=== PATIENT | male | born 1965 | race Caucasian/White ===

== ENCOUNTER → 2016-03-16 | Outpatient (CLI) | payer MEDICAID ==
[~2016-03-16] MED LIST: /ADVA50050 IN; ALBU83IN INH; DOXY100T16 PO; FOLI1TAB2 PO; NEBULIZER TREATMENT INH; NICO21DI4 TD; NICO21PAT TD; PRED20TA PO; SPIR1CAP INH; VITA100T92 PO; ZITH500T OR; ZOLO50TA OR; ZOLO50TA PO; albuterol sulfate INH; prednisone taper PO
== END ==
LOC: M OUTALCOH 07:54
PROVIDERS: ATTEND Psychiatry & Neurology Psychiatry
DX: F10.20 Alcohol dependence, uncomplicated (principal)

== ENCOUNTER 2016-03-18 23:39 | Emergency (ER) | payer MEDICAID, OTHER ==
[2016-03-18] MEDS ORDERED: IPRATROPIUM 0.5MG/ALBUTEROL 2.5MG INH SOL UD 3ML (DUONEB)(J7620) As Ordered ONE (23:59)
[2016-03-19] MEDS ORDERED: dexameTHASONE 4 MG/ML 1ML VIAL (J1100) As Ordered ONE (00:04)
--- NOTE | 2016-03-19 02:32 | EDDOCDS ---
Physician Documentation [facility] Name: Han Duarte Age: 50 yrs Sex: Male : 1965 Arrival Date: 03/18/2016 Time: 23:39 Bed 8 Private MD: Neeru Pan Disposition: 03/19/16 02:13 Discharged to Home/Self Care. Impression: Chronic obstructive pulmonary disease with (acute) exacerbation. - Condition is Stable. - Prescriptions for Prednisone 20 mg Oral Tablet - take 3 tablet by ORAL route once daily for 5 days; 15 tablet. - Medication Reconciliation, Local Pharmacy Hours form. - Follow up: Private Physician; When: Call to arrange an appointment; Reason: Recheck today's complaints. - Problem is chronic. - Symptoms have improved. Historical: - Allergies: No known drug Allergies; - Home Meds: 1. Spiriva with HandiHaler 18 mcg Inhl CpDv 1 cap once daily - PMHx: Anxiety; COPD; Depression; - PSHx: none; - Social history: Smoking status: Patient uses tobacco products, heavy tobacco smoker. No barriers to communication noted, The patient speaks fluent [place], Speaks appropriately for age. - Family history: Not pertinent. - : The pt / caregiver states he / she is not on anticoagulants. Home medication list is obtained from the patient. - Exposure Risk Screening:: Recent exposure to. Vital Signs: 03/18 23:47 BP 136 / 67; Pulse 111; Resp 22; Temp 96.0(O); Pulse Ox 89% on R/A; Weight 81.65 kg / sulema 180.01 lbs (R); Height 5 ft. 5 in. (165.10 cm) (R); Pain 0/10; 03/19 00:04 Pulse 110 MON; Pulse Ox 90% ; ko2 00:06 Pulse 114 MON; Pulse Ox 89% ; ko2 00:17 Pulse 104 MON; Pulse Ox 88% ; ko2 00:56 BP 121 / 56 (auto/); ko2 00:56 Pulse 104 MON; Pulse Ox 90% ; ko2 01:15 Pulse 106 MON; Pulse Ox 92% ; ko2 01:16 BP 129 / 73 (auto/); ko2 01:36 BP 110 / 58 (auto/); ko2 01:36 Pulse 112 MON; Pulse Ox 92% ; ko2 02:19 BP 114 / 58 LA Supine (auto/reg); Pulse 110 MON; Resp 22 S; Temp 99.6(TE); Pulse Ox 91% cln on 2 lpm NC; Pain 05/05; 03/18 23:47 Body Mass Index 29.95 (81.65 kg, 165.10 cm) sulema MDM: 03/18 23:58 Albuterol-Ipratropium 1 neb Nebulizer every 20 minutes x3 ordered. 6 23:59 Dexamethasone 6 mg IV at bolus once ordered. 11 03/19 00:06 Chest, 1 view Ordered. EDMS 00:59 Financial registration complete. [facility] Administered Medications: 00:02 Drug: Albuterol-Ipratropium 1 neb [ipratropium-albuterol 0.5 mg-3 mg(2.5 mg base)/3 mL 6 nebulization soln (1 neb)] Route: Nebulizer; 00:10 Drug: Dexamethasone 6 mg [dexamethasone 4 mg/mL injection solution] Route: IV; Rate: mcp bolus; Site: left hand; 00:24 Drug: Albuterol-Ipratropium 1 neb [ipratropium-albuterol 0.5 mg-3 mg(2.5 mg base)/3 mL jh6 nebulization soln (1 neb)] Route: Nebulizer; 00:53 Drug: Albuterol-Ipratropium 1 neb [ipratropium-albuterol 0.5 mg-3 mg(2.5 mg base)/3 mL jh6 nebulization soln (1 neb)] Route: Nebulizer; Signatures: Dispatcher [employer] [facility] Cristofer Bowles 6 Jacky Niño DO DO [facility] Daisy Manzano RN RN [email or web address] Rupali Montaño Mary RN [facility] The chart was reviewed and I authenticate all verbal orders and agree with the evaluation and treatment provided.Corrections: (The following items were deleted from the chart) 00:04 03/18 23:59 ARTERIAL BLOOD GAS+LAB ordered. EDIA EDMS 03/19 00:06 00:00 Chest, 1 view+XR ordered. EDIA EDMS MTDD
--- NOTE | 2016-03-19 02:32 | EDDOCDS ---
Nurse's Notes [facility] Name: Han Duarte Age: 50 yrs Sex: Male : 1965 Arrival Date: 03/18/2016 Time: 23:39 Bed 8 Private MD: Neeru Pan Diagnosis: Chronic obstructive pulmonary disease with (acute) exacerbation Presentation: 03/18 23:42 Presenting complaint: EMS states: shortness of breath tonight. Pt took a nebulizer and ko2 when EMS arrived pt was 82% so pt was put on oxygen and administered another nebulizer. Pt has a history of shortness of breath and normally a nebulizer helps but not this time. Suicide/Homicide risk assessment- the patient denies having any suicidal and/or homicidal ideations and does not present with any other emotional, behavioral or mental health complaints. Status: Patient is not a business services associate or dependent. Transition of care: patient was not received from another setting of care. Care prior to arrival: See EMS report. Atrovent, Albuterol and Solu-Medrol 125 mg administered by EMS. 23:42 Acuity: CARMEN Level 3 ko2 23:42 Method Of Arrival: Ambulance ko2 03/19 00:07 Adult Sepsis Screening: The patient does not have new or worsening altered mentation. ko2 Patient has a respiratory rate of greater than or equal to 22 (1 point). Systolic blood pressure is greater than 100. Patient has a qSOFA score of 0- Negative Sepsis Screen. Triage Assessment: 03/18 23:45 General: Appears distressed, Behavior is appropriate for age. Pain: Denies pain. HIV ko2 screening NA for this visit Offered previously. The patient is triaged at the bedside. See Assessment in Nurses Notes section of ED record. Neurological: Level of Consciousness is awake, alert. Cardiovascular: Heart tones S1 S2 present. Respiratory: Onset: The symptoms/episode began/occurred gradually, Airway is patent Respiratory effort is even, labored, Breath sounds are diminished bilaterally. Derm: Skin is pink, warm & dry. normal. Historical: - Allergies: No known drug Allergies; - Home Meds: 1. Spiriva with HandiHaler 18 mcg Inhl CpDv 1 cap once daily - PMHx: Anxiety; COPD; Depression; - PSHx: none; - Social history: Smoking status: Patient uses tobacco products, heavy tobacco smoker. No barriers to communication noted, The patient speaks fluent [place], Speaks appropriately for age. - Family history: Not pertinent. - : The pt / caregiver states he / she is not on anticoagulants. Home medication list is obtained from the patient. - Exposure Risk Screening:: Recent exposure to. Screenin/22 00:05 Screening information is obtained from the patient. Fall risk: No risks identified. ko2 Assistance ADL's: requires no assistance with activities of daily living. Abuse/DV Screen: The patient / caregiver reports he/she is: not in a situation that causes fear, pain or injury. Nutritional screening: No deficits noted. Advance Directives: Currently, there is a health care proxy, Shania Duarte - . There is There is no living will. There is no Power of Sales Team Recruiter. home support is adequate. Assessment: 00:05 General: See triage assessment. ko2 00:53 General: Appears in no apparent distress, Behavior is cooperative. Neurological: Level ko2 of Consciousness is lethargic. Respiratory: Airway is patent Respiratory effort is even, labored. Derm: Skin is normal. 01:50 General: Appears in no apparent distress, comfortable, Behavior is cooperative. ko2 Neurological: Level of Consciousness is awake, alert. Respiratory: Airway is patent Respiratory effort is even, unlabored. Derm: Skin is normal. 02:29 General: General: Appears in no apparent distress, comfortable, Behavior is ko2 cooperative. Neurological: No deficits noted. Respiratory: Airway is patent Respiratory effort is even, unlabored. Derm: Skin is normal. 02:30 Cardiovascular: No deficits noted. ko2 Vital Signs: 03/18 23:47 BP 136 / 67; Pulse 111; Resp 22; Temp 96.0(O); Pulse Ox 89% on R/A; Weight 81.65 kg sulema (R); Height 5 ft. 5 in. (165.10 cm) (R); Pain 0/10; 03/19 00:04 Pulse 110 MON; Pulse Ox 90% ; ko2 00:06 Pulse 114 MON; Pulse Ox 89% ; ko2 00:17 Pulse 104 MON; Pulse Ox 88% ; ko2 00:56 BP 121 / 56 (auto/); ko2 00:56 Pulse 104 MON; Pulse Ox 90% ; ko2 01:15 Pulse 106 MON; Pulse Ox 92% ; ko2 01:16 BP 129 / 73 (auto/); ko2 01:36 BP 110 / 58 (auto/); ko2 01:36 Pulse 112 MON; Pulse Ox 92% ; ko2 02:19 BP 114 / 58 LA Supine (auto/reg); Pulse 110 MON; Resp 22 S; Temp 99.6(TE); Pulse Ox 91% cln on 2 lpm NC; Pain 310; 03/18 23:47 Body Mass Index 29.95 (81.65 kg, 165.10 cm) sulema Vitals: 00:07 Log In Time N/A - ambulance arrival. ko2 ED Course: 03/18 23:40 Patient visited by Jose Kc, Core Maker. ml3 23:40 Neeru Pan is Private Physician. ml3 23:40 Patient moved to Waiting ml3 23:41 Daisy Manzano,RAMYA is Primary Nurse. ml3 23:41 Patient moved to 8 ml3 23:46 Triage Initiated ko2 23:48 Patient visited by Noemi Dotson, IGNACIA. sulema 23:48 Pt greeted and oriented to ED. Patient advised of names of staff involved in care, sulema location of call landa, wait times and NPO status. Patient has correct armband on for positive identification. Placed in gown. Bed in low position. Call light in reach. Side rails up X2. air sampling and monitoring on. Pulse ox on. NIBP on. 23:58 Jacky Niño DO is Attending Physician. cs11 23:58 Patient visited by Jacky Niño DO. cs11 03/19 00:06 Maintain field IV. Dressing intact. Good blood return noted. Site clean & dry. Gauge & ko2 site: 20 gauge left hand. 00:53 Patient visited by Daisy Manzano,RAMYA. ko2 01:50 Patient visited by Daisy Manzano,RAMYA. ko2 02:20 Patient visited by Cynthia Alexis, IGNACIA. cln 02:29 The patient / caregiver is instructed regarding the plan of care and ED course. ko2 02:30 Discontinued lock intact, bleeding controlled, pressure dressing applied, No ko2 redness/swelling at site. No procedures done that require assistance. Administered Medications: 00:02 Drug: Albuterol-Ipratropium 1 neb [ipratropium-albuterol 0.5 mg-3 mg(2.5 mg base)/3 mL jh6 nebulization soln (1 neb)] Route: Nebulizer; 00:10 Drug: Dexamethasone 6 mg [dexamethasone 4 mg/mL injection solution] Route: IV; Rate: mcp bolus; Site: left hand; 00:24 Drug: Albuterol-Ipratropium 1 neb [ipratropium-albuterol 0.5 mg-3 mg(2.5 mg base)/3 mL jh6 nebulization soln (1 neb)] Route: Nebulizer; 00:53 Drug: Albuterol-Ipratropium 1 neb [ipratropium-albuterol 0.5 mg-3 mg(2.5 mg base)/3 mL jh6 nebulization soln (1 neb)] Route: Nebulizer; RT: 00:03 ABG's Patient Refused ABG. Initial Med Neb Given as ordered Patient was instructed and jh6 evaluated on procedure Patient tolerated procedure well without adverse effect. Respiratory: Airway is patent Respiratory effort is labored, w/ nasal flaring, pursed lip, Respiratory pattern is tachypnea Breath sounds are diminished in right upper lobe, left upper lobe, right middle lobe, left lower lobe and right lower lobe Breath sounds with wheezes in right upper lobe, left upper lobe, right middle lobe, left lower lobe and right lower lobe at expiration Reports increased work of breathing times 1 week. patient has not sought out care prior to tonight. 00:09 Respiratory: Airway is patent Respiratory effort is labored, Respiratory pattern is jh6 regular symmetrical, Breath sounds are diminished in right upper lobe, left upper lobe, right middle lobe, left lower lobe and right lower lobe Breath sounds with wheezes in right upper lobe, left upper lobe, right middle lobe, left lower lobe and right lower lobe at expiration. 00:24 Subsequent Med Neb Given as ordered Patient was reinforced on procedure Patient jh6 tolerated procedure well without adverse effect. Respiratory: Airway is patent Respiratory effort is labored, w/ nasal flaring, pursed lip, Respiratory pattern is regular symmetrical, Breath sounds are diminished in right upper lobe, left upper lobe, right middle lobe, left lower lobe and right lower lobe Breath sounds with wheezes in right upper lobe, left upper lobe and right middle lobe at expiration. 00:33 Respiratory: Airway is patent Respiratory effort is even, labored, Respiratory pattern jh6 is regular symmetrical, Breath sounds are coarse in right upper lobe, left upper lobe, right middle lobe, left lower lobe and right lower lobe Breath sounds with wheezes in right upper lobe, left upper lobe, right middle lobe, left lower lobe and right lower lobe at expiration. 00:53 Subsequent Med Neb Given as ordered Patient was reinforced on procedure Patient ryan6 tolerated procedure well without adverse effect. Respiratory: Airway is patent Respiratory effort is even, labored, pursed lip, Respiratory pattern is regular symmetrical, Breath sounds are diminished in right upper lobe, left upper lobe, right middle lobe, left lower lobe and right lower lobe Breath sounds with wheezes in right upper lobe, left upper lobe and right middle lobe at expiration. 01:12 Respiratory: Airway is patent Respiratory effort is even, labored, Respiratory pattern jh6 is regular symmetrical, Breath sounds are coarse in left upper lobe Breath sounds are diminished in right upper lobe, left upper lobe, right middle lobe, left lower lobe and right lower lobe Breath sounds with wheezes in right upper lobe, left upper lobe and right middle lobe at expiration. Order Results: There are currently no results for this order. Outcome: 02:13 Discharge ordered by Provider. cs11 02:30 Discharge Assessment: Patient awake, alert and oriented x 3. No cognitive and/or ko2 functional deficits noted. Patient verbalized understanding of disposition instructions. patient administered narcotics - no. The following High Risk Discharge criteria are identified: None. Discharged to home ambulatory. Condition: stable. Discharge instructions given to patient, Instructed on discharge instructions, follow up and referral plans. medication usage, Demonstrated understanding of instructions, medications, Pt was receptive of discharge instructions/ teaching. Prescriptions given X 1. No special radiology studies were completed. Property sent home with patient. 02:31 Patient left the ED. ko2 Signatures: Damaris Rivas, RN RN [facility] Jose Kc, Core Maker Unit ml3 Noemi Dotson, TOOLING MECHANIC TOOLING MECHANIC sulema Cristofer Bowles jh6 Jacky Niño DO DO cs11 Daisy ManzanoRN RN ko2 Cynthia Alexis, TOOLING MECHANIC TOOLING MECHANIC cln MTDD
--- NOTE | 2016-03-19 08:41 | REP ---
AP portable sitting chest radiograph 03/19/2016 Indication: Shortness of breath Comparison: CTA chest and chest radiograph 05/03/2015; chest radiograph 11/14/2014 Findings: There is ectasia of the thoracic aorta without change. The heart is of normal size. Small amount of plate-like atelectasis is seen in the left base. Bones and soft tissues within normal limits Impression: Study is somewhat limited by portable technique. Ectasia of the thoracic aorta, stable Small amount of plate-like atelectasis in the left base Signed by Janelle Strauss MD 03/19/2016 08:33 A
--- NOTE | 2016-03-21 03:33 | EDDOCDS ---
Physician Documentation [facility] Name: Han Duarte Age: 50 yrs Sex: Male : 1965 Arrival Date: 03/18/2016 Time: 23:39 Bed 8 Private MD: Neeru Pan Disposition: 03/19/16 02:13 Discharged to Home/Self Care. Impression: Chronic obstructive pulmonary disease with (acute) exacerbation. - Condition is Stable. - Prescriptions for Prednisone 20 mg Oral Tablet - take 3 tablet by ORAL route once daily for 5 days; 15 tablet. - Medication Reconciliation, Local Pharmacy Hours form. - Follow up: Private Physician; When: Call to arrange an appointment; Reason: Recheck today's complaints. - Problem is chronic. - Symptoms have improved. Historical: - Allergies: No known drug Allergies; - Home Meds: 1. Spiriva with HandiHaler 18 mcg Inhl CpDv 1 cap once daily - PMHx: Anxiety; COPD; Depression; - PSHx: none; - Social history: Smoking status: Patient uses tobacco products, heavy tobacco smoker. No barriers to communication noted, The patient speaks fluent [place], Speaks appropriately for age. - Family history: Not pertinent. - : The pt / caregiver states he / she is not on anticoagulants. Home medication list is obtained from the patient. - Exposure Risk Screening:: Recent exposure to. Vital Signs: 03/18 23:47 BP 136 / 67; Pulse 111; Resp 22; Temp 96.0(O); Pulse Ox 89% on R/A; Weight 81.65 kg / sulema 180.01 lbs (R); Height 5 ft. 5 in. (165.10 cm) (R); Pain 0/10; 03/19 00:04 Pulse 110 MON; Pulse Ox 90% ; ko2 00:06 Pulse 114 MON; Pulse Ox 89% ; ko2 00:17 Pulse 104 MON; Pulse Ox 88% ; ko2 00:56 BP 121 / 56 (auto/); ko2 00:56 Pulse 104 MON; Pulse Ox 90% ; ko2 01:15 Pulse 106 MON; Pulse Ox 92% ; ko2 01:16 BP 129 / 73 (auto/); ko2 01:36 BP 110 / 58 (auto/); ko2 01:36 Pulse 112 MON; Pulse Ox 92% ; ko2 02:19 BP 114 / 58 LA Supine (auto/reg); Pulse 110 MON; Resp 22 S; Temp 99.6(TE); Pulse Ox 91% cln on 2 lpm NC; Pain 05/05; 03/18 23:47 Body Mass Index 29.95 (81.65 kg, 165.10 cm) sulema MDM: 03/18 23:58 Albuterol-Ipratropium 1 neb Nebulizer every 20 minutes x3 ordered. [facility] 23:59 Dexamethasone 6 mg IV at bolus once ordered. [facility] 03/19 00:06 Chest, 1 view Ordered. EDMS 00:59 Financial registration complete. [facility] 03:09 [facility] Payment Agreement was scanned into [employer] and attached to record. [facility] 15:57 T-Sheet-- Draft Copy was scanned into [employer] and attached to record. r 03/20 10:10 Rhythm Strip was scanned into [employer] and attached to record. gb Administered Medications: 03/19 00:02 Drug: Albuterol-Ipratropium 1 neb [ipratropium-albuterol 0.5 mg-3 mg(2.5 mg base)/3 mL 6 nebulization soln (1 neb)] Route: Nebulizer; 00:10 Drug: Dexamethasone 6 mg [dexamethasone 4 mg/mL injection solution] Route: IV; Rate: mcp bolus; Site: left hand; 00:24 Drug: Albuterol-Ipratropium 1 neb [ipratropium-albuterol 0.5 mg-3 mg(2.5 mg base)/3 mL jh6 nebulization soln (1 neb)] Route: Nebulizer; 00:53 Drug: Albuterol-Ipratropium 1 neb [ipratropium-albuterol 0.5 mg-3 mg(2.5 mg base)/3 mL 6 nebulization soln (1 neb)] Route: Nebulizer; Signatures: Dispatcher [employer] EDAL Laura Shabazz, Reg Reg Cristofer Sharp 6 Jacky Niño DO DO cs11 Daisy Manzano RN RN ko2 Rupali Montaño [facility] Mikala Agrawal Mary RN mcp The chart was reviewed and I authenticate all verbal orders and agree with the evaluation and treatment provided.Corrections: (The following items were deleted from the chart) 00:04 03/18 23:59 ARTERIAL BLOOD GAS+LAB ordered. EDMS EDMS 03/19 00:06 00:00 Chest, 1 view+XR ordered. EDMS EDMS Attachments: 03:09 [facility] Payment Agreement [facility] 15:57 T-Sheet-- Draft Copy klr Chart Complete MTDD
--- NOTE | 2016-03-21 03:33 | EDDOCDS ---
Nurse's Notes [facility] Name: Han Duarte Age: 50 yrs Sex: Male : 1965 Arrival Date: 03/18/2016 Time: 23:39 Bed 8 Private MD: Neeru Pan Diagnosis: Chronic obstructive pulmonary disease with (acute) exacerbation Presentation: 03/18 23:42 Presenting complaint: EMS states: shortness of breath tonight. Pt took a nebulizer and ko2 when EMS arrived pt was 82% so pt was put on oxygen and administered another nebulizer. Pt has a history of shortness of breath and normally a nebulizer helps but not this time. Suicide/Homicide risk assessment- the patient denies having any suicidal and/or homicidal ideations and does not present with any other emotional, behavioral or mental health complaints. Status: Patient is not a human service technician or dependent. Transition of care: patient was not received from another setting of care. Care prior to arrival: See EMS report. Atrovent, Albuterol and Solu-Medrol 125 mg administered by EMS. 23:42 Acuity: CARMEN Level 3 ko2 23:42 Method Of Arrival: Ambulance ko2 03/19 00:07 Adult Sepsis Screening: The patient does not have new or worsening altered mentation. ko2 Patient has a respiratory rate of greater than or equal to 22 (1 point). Systolic blood pressure is greater than 100. Patient has a qSOFA score of 0- Negative Sepsis Screen. Triage Assessment: 03/18 23:45 General: Appears distressed, Behavior is appropriate for age. Pain: Denies pain. HIV ko2 screening NA for this visit Offered previously. The patient is triaged at the bedside. See Assessment in Nurses Notes section of ED record. Neurological: Level of Consciousness is awake, alert. Cardiovascular: Heart tones S1 S2 present. Respiratory: Onset: The symptoms/episode began/occurred gradually, Airway is patent Respiratory effort is even, labored, Breath sounds are diminished bilaterally. Derm: Skin is pink, warm & dry. normal. Historical: - Allergies: No known drug Allergies; - Home Meds: 1. Spiriva with HandiHaler 18 mcg Inhl CpDv 1 cap once daily - PMHx: Anxiety; COPD; Depression; - PSHx: none; - Social history: Smoking status: Patient uses tobacco products, heavy tobacco smoker. No barriers to communication noted, The patient speaks fluent Greek, Speaks appropriately for age. - Family history: Not pertinent. - : The pt / caregiver states he / she is not on anticoagulants. Home medication list is obtained from the patient. - Exposure Risk Screening:: Recent exposure to. Screenin/22 00:05 Screening information is obtained from the patient. Fall risk: No risks identified. ko2 Assistance ADL's: requires no assistance with activities of daily living. Abuse/DV Screen: The patient / caregiver reports he/she is: not in a situation that causes fear, pain or injury. Nutritional screening: No deficits noted. Advance Directives: Currently, there is a health care proxy, Shania Duarte - . There is There is no living will. There is no Power of Vegetable Picker. home support is adequate. Assessment: 00:05 General: See triage assessment. ko2 00:53 General: Appears in no apparent distress, Behavior is cooperative. Neurological: Level ko2 of Consciousness is lethargic. Respiratory: Airway is patent Respiratory effort is even, labored. Derm: Skin is normal. 01:50 General: Appears in no apparent distress, comfortable, Behavior is cooperative. ko2 Neurological: Level of Consciousness is awake, alert. Respiratory: Airway is patent Respiratory effort is even, unlabored. Derm: Skin is normal. 02:29 General: General: Appears in no apparent distress, comfortable, Behavior is ko2 cooperative. Neurological: No deficits noted. Respiratory: Airway is patent Respiratory effort is even, unlabored. Derm: Skin is normal. 02:30 Cardiovascular: No deficits noted. ko2 Vital Signs: 03/18 23:47 BP 136 / 67; Pulse 111; Resp 22; Temp 96.0(O); Pulse Ox 89% on R/A; Weight 81.65 kg sulema (R); Height 5 ft. 5 in. (165.10 cm) (R); Pain 0/10; 03/19 00:04 Pulse 110 MON; Pulse Ox 90% ; ko2 00:06 Pulse 114 MON; Pulse Ox 89% ; ko2 00:17 Pulse 104 MON; Pulse Ox 88% ; ko2 00:56 BP 121 / 56 (auto/); ko2 00:56 Pulse 104 MON; Pulse Ox 90% ; ko2 01:15 Pulse 106 MON; Pulse Ox 92% ; ko2 01:16 BP 129 / 73 (auto/); ko2 01:36 BP 110 / 58 (auto/); ko2 01:36 Pulse 112 MON; Pulse Ox 92% ; ko2 02:19 BP 114 / 58 LA Supine (auto/reg); Pulse 110 MON; Resp 22 S; Temp 99.6(TE); Pulse Ox 91% cln on 2 lpm NC; Pain 3; 03/18 23:47 Body Mass Index 29.95 (81.65 kg, 165.10 cm) sulema Vitals: 00:07 Log In Time N/A - ambulance arrival. ko2 ED Course: 03/18 23:40 Patient visited by Jose Kc, Dispatcher Maintenance. ml3 23:40 Neeru Pan is Private Physician. ml3 23:40 Patient moved to Waiting ml3 23:41 Daisy Manzano,RN is Primary Nurse. ml3 23:41 Patient moved to 8 ml3 23:46 Triage Initiated ko2 23:48 Patient visited by Noemi Dotson, IGNACIA. sulema 23:48 Pt greeted and oriented to ED. Patient advised of names of staff involved in care, sulema location of call landa, wait times and NPO status. Patient has correct armband on for positive identification. Placed in gown. Bed in low position. Call light in reach. Side rails up X2. material assistant on. Pulse ox on. NIBP on. 23:58 Jacky Niño DO is Attending Physician. cs11 23:58 Patient visited by Jacky Niño DO. cs11 03/19 00:06 Maintain field IV. Dressing intact. Good blood return noted. Site clean & dry. Gauge & ko2 site: 20 gauge left hand. 00:53 Patient visited by Daisy Manzano,RAMYA. ko2 01:50 Patient visited by Daisy Manzano,RAMYA. ko2 02:20 Patient visited by Cynthia Alexis, IGNACIA. cln 02:29 The patient / caregiver is instructed regarding the plan of care and ED course. ko2 02:30 Discontinued lock intact, bleeding controlled, pressure dressing applied, No ko2 redness/swelling at site. No procedures done that require assistance. 03:09 [facility] Payment Agreement was scanned into [employer] and attached to record. [facility] 09:13 Chest, 1 view Returned. EDMS 15:57 T-Sheet-- Draft Copy was scanned into [employer] and attached to record. klr 03/20 10:10 Rhythm Strip was scanned into [employer] and attached to record. gb Administered Medications: 03/19 00:02 Drug: Albuterol-Ipratropium 1 neb [ipratropium-albuterol 0.5 mg-3 mg(2.5 mg base)/3 mL jh6 nebulization soln (1 neb)] Route: Nebulizer; 00:10 Drug: Dexamethasone 6 mg [dexamethasone 4 mg/mL injection solution] Route: IV; Rate: mcp bolus; Site: left hand; 00:24 Drug: Albuterol-Ipratropium 1 neb [ipratropium-albuterol 0.5 mg-3 mg(2.5 mg base)/3 mL jh6 nebulization soln (1 neb)] Route: Nebulizer; 00:53 Drug: Albuterol-Ipratropium 1 neb [ipratropium-albuterol 0.5 mg-3 mg(2.5 mg base)/3 mL jh6 nebulization soln (1 neb)] Route: Nebulizer; Attachments: 03/20 10:10 Rhythm Strip gb RT: 03/19 00:03 ABG's Patient Refused ABG. Initial Med Neb Given as ordered Patient was instructed and jh6 evaluated on procedure Patient tolerated procedure well without adverse effect. Respiratory: Airway is patent Respiratory effort is labored, w/ nasal flaring, pursed lip, Respiratory pattern is tachypnea Breath sounds are diminished in right upper lobe, left upper lobe, right middle lobe, left lower lobe and right lower lobe Breath sounds with wheezes in right upper lobe, left upper lobe, right middle lobe, left lower lobe and right lower lobe at expiration Reports increased work of breathing times 1 week. patient has not sought out care prior to tonight. 00:09 Respiratory: Airway is patent Respiratory effort is labored, Respiratory pattern is jh6 regular symmetrical, Breath sounds are diminished in right upper lobe, left upper lobe, right middle lobe, left lower lobe and right lower lobe Breath sounds with wheezes in right upper lobe, left upper lobe, right middle lobe, left lower lobe and right lower lobe at expiration. 00:24 Subsequent Med Neb Given as ordered Patient was reinforced on procedure Patient jh6 tolerated procedure well without adverse effect. Respiratory: Airway is patent Respiratory effort is labored, w/ nasal flaring, pursed lip, Respiratory pattern is regular symmetrical, Breath sounds are diminished in right upper lobe, left upper lobe, right middle lobe, left lower lobe and right lower lobe Breath sounds with wheezes in right upper lobe, left upper lobe and right middle lobe at expiration. 00:33 Respiratory: Airway is patent Respiratory effort is even, labored, Respiratory pattern jh6 is regular symmetrical, Breath sounds are coarse in right upper lobe, left upper lobe, right middle lobe, left lower lobe and right lower lobe Breath sounds with wheezes in right upper lobe, left upper lobe, right middle lobe, left lower lobe and right lower lobe at expiration. 00:53 Subsequent Med Neb Given as ordered Patient was reinforced on procedure Patient jim tolerated procedure well without adverse effect. Respiratory: Airway is patent Respiratory effort is even, labored, pursed lip, Respiratory pattern is regular symmetrical, Breath sounds are diminished in right upper lobe, left upper lobe, right middle lobe, left lower lobe and right lower lobe Breath sounds with wheezes in right upper lobe, left upper lobe and right middle lobe at expiration. 01:12 Respiratory: Airway is patent Respiratory effort is even, labored, Respiratory pattern ryan6 is regular symmetrical, Breath sounds are coarse in left upper lobe Breath sounds are diminished in right upper lobe, left upper lobe, right middle lobe, left lower lobe and right lower lobe Breath sounds with wheezes in right upper lobe, left upper lobe and right middle lobe at expiration. Order Results: Radiology Order: Chest, 1 view Test: Chest, 1 view REASON FOR EXAMINATION: Shortness of Breath; AP portable sitting chest radiograph 03/19/2016; ; Indication: Shortness of breath; ; Comparison: CTA chest and chest radiograph 05/03/2015; chest radiograph; 11/14/2014; ; Findings: There is ectasia of the thoracic aorta without change. The heart is; of normal size. Small amount of plate-like atelectasis is seen in the left base.; Bones and soft tissues within normal limits; ; Impression:; ; Study is somewhat limited by portable technique.; ; Ectasia of the thoracic aorta, stable; ; Small amount of plate-like atelectasis in the left base; ; ; ; ; Signed by; Janelle Strauss MD 03/19/2016 08:33 A; Outcome: 02:13 Discharge ordered by Provider. cs11 02:30 Discharge Assessment: Patient awake, alert and oriented x 3. No cognitive and/or ko2 functional deficits noted. Patient verbalized understanding of disposition instructions. patient administered narcotics - no. The following High Risk Discharge criteria are identified: None. Discharged to home ambulatory. Condition: stable. Discharge instructions given to patient, Instructed on discharge instructions, follow up and referral plans. medication usage, Demonstrated understanding of instructions, medications, Pt was receptive of discharge instructions/ teaching. Prescriptions given X 1. No special radiology studies were completed. Property sent home with patient. 02:31 Patient left the ED. ko2 Signatures: Dispatcher [employer] EDMS Damaris Rivas, RAMYA RN Laura Serrano, Jose Hawk, Dispatcher Maintenance Unit ml3 Noemi Dotson, INBOUND CALL CENTER AGENT INBOUND CALL CENTER AGENT Cristofer Rosado jh6 Jacky Niño, DO cs11 Daisy Manzano RN RN [email or web address] Rupali Montaño Crystal, INBOUND CALL CENTER AGENT INBOUND CALL CENTER AGENT Mikala Tapia Chart Complete ANA
--- NOTE | 2016-03-21 03:34 | EDDOCDS ---
Physician Documentation [facility] Name: Han Duarte Age: 50 yrs Sex: Male : 1965 Arrival Date: 03/18/2016 Time: 23:39 Bed 8 Private MD: Neeru Pan Disposition: 03/19/16 02:13 Discharged to Home/Self Care. Impression: Chronic obstructive pulmonary disease with (acute) exacerbation. - Condition is Stable. - Prescriptions for Prednisone 20 mg Oral Tablet - take 3 tablet by ORAL route once daily for 5 days; 15 tablet. - Medication Reconciliation, Local Pharmacy Hours form. - Follow up: Private Physician; When: Call to arrange an appointment; Reason: Recheck today's complaints. - Problem is chronic. - Symptoms have improved. Historical: - Allergies: No known drug Allergies; - Home Meds: 1. Spiriva with HandiHaler 18 mcg Inhl CpDv 1 cap once daily - PMHx: Anxiety; COPD; Depression; - PSHx: none; - Social history: Smoking status: Patient uses tobacco products, heavy tobacco smoker. No barriers to communication noted, The patient speaks fluent Libyan, Speaks appropriately for age. - Family history: Not pertinent. - : The pt / caregiver states he / she is not on anticoagulants. Home medication list is obtained from the patient. - Exposure Risk Screening:: Recent exposure to. Vital Signs: 03/18 23:47 BP 136 / 67; Pulse 111; Resp 22; Temp 96.0(O); Pulse Ox 89% on R/A; Weight 81.65 kg / sulema 180.01 lbs (R); Height 5 ft. 5 in. (165.10 cm) (R); Pain 0/10; 03/19 00:04 Pulse 110 MON; Pulse Ox 90% ; ko2 00:06 Pulse 114 MON; Pulse Ox 89% ; ko2 00:17 Pulse 104 MON; Pulse Ox 88% ; ko2 00:56 BP 121 / 56 (auto/); ko2 00:56 Pulse 104 MON; Pulse Ox 90% ; ko2 01:15 Pulse 106 MON; Pulse Ox 92% ; ko2 01:16 BP 129 / 73 (auto/); ko2 01:36 BP 110 / 58 (auto/); ko2 01:36 Pulse 112 MON; Pulse Ox 92% ; ko2 02:19 BP 114 / 58 LA Supine (auto/reg); Pulse 110 MON; Resp 22 S; Temp 99.6(TE); Pulse Ox 91% cln on 2 lpm NC; Pain 05/05; 03/18 23:47 Body Mass Index 29.95 (81.65 kg, 165.10 cm) sulema MDM: 03/18 23:58 Albuterol-Ipratropium 1 neb Nebulizer every 20 minutes x3 ordered. [facility] 23:59 Dexamethasone 6 mg IV at bolus once ordered. [facility] 03/19 00:06 Chest, 1 view Ordered. EDMS 00:59 Financial registration complete. [facility] 03:09 [facility] Payment Agreement was scanned into [employer] and attached to record. [facility] 15:57 T-Sheet-- Draft Copy was scanned into [employer] and attached to record. r 03/20 10:10 Rhythm Strip was scanned into [employer] and attached to record. gb Administered Medications: 03/19 00:02 Drug: Albuterol-Ipratropium 1 neb [ipratropium-albuterol 0.5 mg-3 mg(2.5 mg base)/3 mL 6 nebulization soln (1 neb)] Route: Nebulizer; 00:10 Drug: Dexamethasone 6 mg [dexamethasone 4 mg/mL injection solution] Route: IV; Rate: mcp bolus; Site: left hand; 00:24 Drug: Albuterol-Ipratropium 1 neb [ipratropium-albuterol 0.5 mg-3 mg(2.5 mg base)/3 mL jh6 nebulization soln (1 neb)] Route: Nebulizer; 00:53 Drug: Albuterol-Ipratropium 1 neb [ipratropium-albuterol 0.5 mg-3 mg(2.5 mg base)/3 mL 6 nebulization soln (1 neb)] Route: Nebulizer; Signatures: Dispatcher [employer] EDDE Laura Shabazz, Reg Reg Cristofer Sharp 6 Jacky Niño DO DO cs11 Daisy Manzano RN RN ko2 Rupali Montaño [facility] Mikala Agrawal Mary RN mcp The chart was reviewed and I authenticate all verbal orders and agree with the evaluation and treatment provided.Corrections: (The following items were deleted from the chart) 00:04 03/18 23:59 ARTERIAL BLOOD GAS+LAB ordered. EDMS EDMS 03/19 00:06 00:00 Chest, 1 view+XR ordered. EDMS EDMS Attachments: 03:09 [facility] Payment Agreement [facility] 15:57 T-Sheet-- Draft Copy klr Chart Complete MTDD
== END 2016-03-19 02:31 | disposition home or self-care (01) ==
LOC: M ED 23:39
DX: J44.1 Chronic obstructive pulmonary disease with (acute) exacerbation (principal); F41.9 Anxiety disorder, unspecified; F32.9 Major depressive disorder, single episode, unspecified; F17.200 Nicotine dependence, unspecified, uncomplicated
CPT/HCPCS: 71010; 94640; 96374; 99284; J1100

== ENCOUNTER 2016-04-06 01:12 | Emergency (ER) | payer OTHER ==
[2016-04-06 02:18] LABS: BASO % 0.3 % (0.0-1.0); EOS # 0.2 K/mm3 (0.0-0.50); EOS % 1.7 % (0.0-3.0); LARGE UNSTAINED CELL # 0.2 K/mm3 (0.0-0.4); LARGE UNSTAINED CELL % 1.1 % (0.0-4.0); LYMPH # 1.9 K/mm3 (1.5-4.5); LYMPH % 12.5 % (24.0-44.0); MEAN CORPUSCULAR HEMOGLOBIN 31.6 pg (27.0-33.0); MEAN CORPUSCULAR HGB CONC 33.3 g/dl (32.0-36.5); MEAN CORPUSCULAR VOLUME 94.8 fl (80.0-96.0); MONO # 0.7 K/mm3 (0.0-0.8); MONO % 5.3 % (0.0-5.0); NEUTROPHILS # 11.1 K/mm3 (1.8-7.7); NEUTROPHILS % 79.1 % (36.0-66.0); PLATELET COUNT, AUTOMATED 188 k/mm3 (150-450); RED CELL DISTRIBUTION WIDTH 12.7 % (11.5-14.5); WHITE BLOOD COUNT 14.1 K/mm3 (4.0-10.0)
[2016-04-06 02:25] LABS: ABG BASE EXCESS -0.3 (-2.0-2.0); ABG DEVICE NASAL CANN; ABG PARTIAL PRESSURE CO2 38.6 mmHg (35.0-45.0); ABG STANDARD HCO3 24.1 MEQ/L (22.0-26.0); ABG TOTAL CO2 25.2 MEQ/L (22.0-29.0); ABG pH (ARTERIAL) 7.412 UNITS (7.350-7.450)
[2016-04-06 02:33] LABS: ANION GAP 8 MEQ/L (8-16); BLOOD UREA NITROGEN 10 MG/DL (7-18); CALCIUM LEVEL 8.4 MG/DL (8.5-10.1); CARBON DIOXIDE LEVEL 25 MEQ/L (21-32); CHLORIDE LEVEL 106 MEQ/L (98-107); CREATININE FOR GFR 0.81 MG/DL (0.70-1.30); GLOMERULAR FILTRATION RATE > 60.0 (>56); GLUCOSE, FASTING 113 MG/DL (70-105); POTASSIUM SERUM 4.5 MEQ/L (3.5-5.1); SODIUM LEVEL 139 MEQ/L (136-145)
--- NOTE | 2016-04-06 02:54 | REP ---
Clinical: Shortness of breath. Technique: PA and lateral. Comparison: 03/19/2016. Findings: Mediastinum and cardiac silhouette are within normal limits and stable. Lung giang demonstrate coarsened interstitial markings suggesting bronchitis as well as left lower lobe infiltrate. No effusion. No pneumothorax. Skeletal structures intact. Impression: Possible bronchitis and early left lower lobe infiltrate. Signed by Kiran Witt MD 04/06/2016 02:45 A
[2016-04-06] MEDS ORDERED: AZITHROMYCIN 250 MG TAB As Ordered ONE (04:28)
--- NOTE | 2016-04-06 04:39 | EDDOCDS ---
Nurse's Notes [facility] Name: Han Duarte Age: 50 yrs Sex: Male : 1965 Arrival Date: 04/06/2016 Time: 01:12 Bed 15 Private MD: Diagnosis: Chronic obstructive pulmonary disease with (acute) exacerbation;Nicotine dependence Presentation: 04/06 01:16 Presenting complaint: EMS states: per EMS pt here with complaints of SOB for the past 2 tm5 weeks now, HX of COPD, also with Prod cough, pt called EMS due to Panic attack, pt was smoking when EMS arrived, Rhonchi to lung giang, SOlumedrol 125mg IVP & duoneb treatments given x2, room air O2 sat 89%. Adult Sepsis Screening: The patient does not have new or worsening altered mentation. Patient's respiratory rate is less than 22. Systolic blood pressure is greater than 100. Patient has a qSOFA score of 0- Negative Sepsis Screen. Suicide/Homicide risk assessment- the patient denies having any suicidal and/or homicidal ideations and does not present with any other emotional, behavioral or mental health complaints. Status: Patient is not a retail service technician or dependent. Transition of care: patient was not received from another setting of care. 01:16 Acuity: CARMEN Level 3 tm5 01:16 Method Of Arrival: Ambulance tm5 Triage Assessment: 01:27 General: Appears in no apparent distress, Behavior is appropriate for age, cooperative. tm5 Pain: Location: abdomen Pain currently is 3 out of 10 on a pain scale. Quality of pain is described as aching, Also complains of coughing. HIV screening NA for this visit Offered previously. The patient is triaged at the bedside. See Assessment in Nurses Notes section of ED record. Neurological: Level of Consciousness is awake, alert, Oriented to person, place, time. Cardiovascular: Rhythm is sinus tachycardia No ectopy. Respiratory: Onset: The symptoms/episode began/occurred about 2 weeks ago , Breath sounds with rhonchi bilaterally. Breath sounds are diminished bilaterally. Reports shortness of breath on exertion cough that is productive, productive cough with yellow mucous. GI: Abdomen is flat, Bowel sounds present X 4 quads. Abd is soft X 4 quads Abd is tender to palpation X 4 quads. : No deficits noted. Derm: Skin is pink, warm & dry. Historical: - Allergies: no known allergies; - Home Meds: 1. Spiriva with HandiHaler 18 mcg Inhl CpDv 1 cap once daily 2. albuterol sulfate 2.5 mg /3 mL (0.083 %) Nebulizer nebu 3 mL 3 times per day 3. Zoloft 50 mg Oral tab 1 tab once daily - PMHx: Anxiety; COPD; Depression; - PSHx: none; - The history from nurses notes was reviewed: and I agree with what is documented. - Social history: Smoking status: Patient uses tobacco products, current every day smoker. No barriers to communication noted, The patient speaks fluent Korean, Patient uses alcohol on a daily basis. claims drinking about a 6 pack/day. - Family history: Not pertinent. - : The pt / caregiver states he / she is not on anticoagulants. Home medication list is obtained from the patient. - Hospitalizations: : No recent hospitalization is reported. - Exposure Risk Screening:: None identified. - Immunization history:: Flu vaccine is not up to date. - Social history:: the patient smokes cigarettes 1ppd the patient drinks alcohol, socially. - Code Status:: Full code. Screenin:30 Screening information is obtained from the patient. Fall risk: No risks identified. tm5 Assistance ADL's: requires no assistance with activities of daily living. Abuse/DV Screen: The patient / caregiver reports he/she is: not in a situation that causes fear, pain or injury. Nutritional screening: No deficits noted. Advance Directives: There is no active DNR order. home support is adequate. Assessment: 01:30 General: see triage assessment . Cardiovascular: Chest pain is denied. Cardiovascular: tm5 Rhythm is sinus tachycardia. 02:50 Reassessment: Patient appears in no apparent distress at this time. Patient states tm5 symptoms have improved. pt resting with eyes closed, respirations easy, no s/s of any distress. Cardiovascular: Rhythm is sinus tachycardia No ectopy. 03:29 General: Oxygen taken off pt per MD's orders, will continue to monitor room air pulse tm5 Ox. 03:57 General: Patient ambulated to assess for safety and pulse oximetry. Patient was able to mgs ambulate safely with pulse ox ranging from 88-90%, QMP made aware. 04:35 Reassessment: Patient appears in no apparent distress at this time. Patient states tm5 feeling better. Patient states symptoms have improved. 04:37 Respiratory: Airway is patent Respiratory effort is even, unlabored. tm5 Vital Signs: 01:27 BP 133 / 79; Pulse 105; Resp 20; Temp 98.8(O); Pulse Ox 90% on R/A; Weight 74.84 kg; tm5 Height 5 ft. 5 in. (165.10 cm); Pain 3/10; 01:52 BP 137 / 76 (auto/); tm5 01:53 Pulse 104 MON; Resp 20; Pulse Ox 92% on 2 lpm NC; Pain 3/10; tm5 02:22 BP 144 / 75 (auto/); tm5 02:23 Pulse 108 MON; Resp 20 S; Pulse Ox 94% on 2 lpm NC; Pain 0/10; tm5 02:52 BP 124 / 60 (auto/); tm5 02:53 Pulse 96 MON; Pulse Ox 92% ; tm5 03:22 BP 135 / 79 (auto/); tm5 03:23 Pulse 102 MON; Pulse Ox 92% ; tm5 03:52 BP 132 / 64 (auto/); tm5 03:52 Pulse 100 MON; Resp 20 S; Pulse Ox 91% on R/A; tm5 04:35 BP 131 / 58; Pulse 87; Resp 20 S; Temp 98.0(O); Pulse Ox 90% on R/A; Pain 0/10; tm5 01:27 Body Mass Index 27.46 (74.84 kg, 165.10 cm) tm5 Vitals: 01:27 Log In Time N/A - ambulance arrival. tm5 ED Course: 01:13 Patient visited by Jorge Barr PCA. kb5 01:13 Patient moved to Waiting kb5 01:13 Patient moved to 15 kb 01:19 Triage Initiated tm5 01:30 Awaiting ED physician evaluation. tm5 01:30 The patient / caregiver is instructed regarding the plan of care and ED course. Patient tm5 has correct armband on for positive identification. Placed in gown. Bed in low position. Call light in reach. Side rails up X2. test desk operator on. Pulse ox on. NIBP on. Warm blanket given. Pillow given. 01:30 Maintain field IV. Dressing intact. Good blood return noted. Site clean & dry. Gauge & tm5 site: #20 left wrist . O2 via nasal cannula \T\ 2L/min. 01:38 Ramon Gardner MD is Attending Physician. pc 01:47 Patient visited by Ramon Gardner MD. pc 02:07 -Influenza A&B Rapid Antigen - Nose Sent. tm5 02:07 -Blood Culture Sent. tm5 02:07 Basic Metabolic Profile Sent. tm5 02:07 CBC with Diff Sent. tm5 02:08 BLOOD CULTURES Sent. tm5 02:08 Labs/Blood culture drawn nasal swab obtained. tm5 02:16 -Arterial Blood Gas Sent. dk 02:37 Patient visited by Cynthia Alexis, VENDING MACHINE ATTENDANT. cln 02:37 EKG done. (by ED staff). Reviewed by Ramon Gardner MD. cln 02:42 BNP Sent. pc 02:47 [facility] Payment Agreement was scanned into [employer] and attached to record. hs2 03:08 Chest, 2 View (pa\E\lat) Returned. EDMS 03:23 Patient visited by Anna Corado RN. tm5 03:57 Patient visited by Anna Corado RN. tm5 04:22 Neeru Pan is Referral Physician. pc 04:35 Discontinued lock intact, bleeding controlled, pressure dressing applied, No tm5 redness/swelling at site. No procedures done that require assistance. Administered Medications: 04:35 Drug: azithromycin 500 mg [azithromycin 250 mg tablet (2 tabs)] Route: PO; tm5 04:35 Follow up: Response: Pt left department before re-evaluation is appropriate tm5 RT: 02:17 ABG's drawn from left radial artery allens test done and positive pressure held for 5 dk minutes no bleeding noted pressure bandage applied specimen sent pt. tolerated well. Order Results: Lab Order: Basic Metabolic Profile; SPEC'M 04/06/16 02:05 Test: GLUCOSE, FASTING; Value: 113; Range: 70-105; Abnormal: Above high normal; Units: MG/DL; Status: F Test: BLOOD UREA NITROGEN; Value: 10; Range: 7-18; Units: MG/DL; Status: F Test: CREATININE FOR GFR; Value: 0.81; Range: 0.70-1.30; Units: MG/DL; Status: F Test: GLOMERULAR FILTRATION RATE; Value: > 60.0; Range: >56; Status: F Test: SODIUM LEVEL; Value: 139; Range: 136-145; Units: MEQ/L; Status: F Test: POTASSIUM SERUM; Value: 4.5; Range: 3.5-5.1; Units: MEQ/L; Status: F Test: CHLORIDE LEVEL; Value: 106; Range: 98-107; Units: MEQ/L; Status: F Test: CARBON DIOXIDE LEVEL; Value: 25; Range: 21-32; Units: MEQ/L; Status: F Test: ANION GAP; Value: 8; Range: 8-16; Units: MEQ/L; Status: F Test: CALCIUM LEVEL; Value: 8.4; Range: 8.5-10.1; Abnormal: Below low normal; Units: MG/DL; Status: F Test Note: ; Units are mL/min/1.73 m2 Chronic Kidney Disease Staging per NKF: Stage I & II GFR >=60 Normal to Mildly Decreased Stage III GFR 30-59 Moderately Decreased Stage IV GFR 15-29 Severely Decreased Stage V GFR <15 Very Little GFR Left ESRD GFR <15 on STUDENT SUCCESS ADVISOR Lab Order: CBC with Diff; SPEC'M 04/06/16 02:05 Test: WHITE BLOOD COUNT; Value: 14.1; Range: 4.0-10.0; Abnormal: Above high normal; Units: K/mm3; Status: F Test: RED BLOOD COUNT; Value: 4.91; Range: 4.30-6.10; Units: M/mm3; Status: F Test: HEMOGLOBIN; Value: 15.5; Range: 14.0-18.0; Units: g/dl; Status: F Test: HEMATOCRIT; Value: 46.5; Range: 42.0-52.0; Units: %; Status: F Test: MEAN CORPUSCULAR VOLUME; Value: 94.8; Range: 80.0-96.0; Units: fl; Status: F Test: MEAN CORPUSCULAR HEMOGLOBIN; Value: 31.6; Range: 27.0-33.0; Units: pg; Status: F Test: MEAN CORPUSCULAR HGB CONC; Value: 33.3; Range: 32.0-36.5; Units: g/dl; Status: F Test: RED CELL DISTRIBUTION WIDTH; Value: 12.7; Range: 11.5-14.5; Units: %; Status: F Test: PLATELET COUNT, AUTOMATED; Value: 188; Range: 150-450; Units: k/mm3; Status: F Test: NEUTROPHILS %; Value: 79.1; Range: 36.0-66.0; Abnormal: Above high normal; Units: %; Status: F Test: LYMPH %; Value: 12.5; Range: 24.0-44.0; Abnormal: Below low normal; Units: %; Status: F Test: MONO %; Value: 5.3; Range: 0.0-5.0; Abnormal: Above high normal; Units: %; Status: F Test: EOS %; Value: 1.7; Range: 0.0-3.0; Units: %; Status: F Test: BASO %; Value: 0.3; Range: 0.0-1.0; Units: %; Status: F Test: LARGE UNSTAINED CELL %; Value: 1.1; Range: 0.0-4.0; Units: %; Status: F Test: NEUTROPHILS #; Value: 11.1; Range: 1.8-7.7; Abnormal: Above high normal; Units: K/mm3; Status: F Test: LYMPH #; Value: 1.9; Range: 1.5-4.5; Units: K/mm3; Status: F Test: MONO #; Value: 0.7; Range: 0.0-0.8; Units: K/mm3; Status: F Test: EOS #; Value: 0.2; Range: 0.0-0.50; Units: K/mm3; Status: F Test: BASO #; Value: 0.0; Range: 0.0-0.2; Units: K/mm3; Status: F Test: LARGE UNSTAINED CELL #; Value: 0.2; Range: 0.0-0.4; Units: K/mm3; Status: F Lab Order: -Arterial Blood Gas; SPEC'M 04/06/16 02:14 Test: ABG pH (ARTERIAL); Value: 7.412; Range: 7.350-7.450; Units: UNITS; Status: F Test: ABG PARTIAL PRESSURE CO2; Value: 38.6; Range: 35.0-45.0; Units: mmHg; Status: F Test: ABG PARTIAL PRESSURE O2; Value: 63.0; Range: 75.0-100.0; Abnormal: Below low normal; Units: mmHg; Status: F Test: ABG TOTAL CO2; Value: 25.2; Range: 22.0-29.0; Units: MEQ/L; Status: F Test: ABG HCO3; Value: 24.0; Range: 22.0-26.0; Units: MEQ/L; Status: F Test: ABG BASE EXCESS; Value: -0.3; Range: -2.0-2.0; Status: F Test: ABG STANDARD HCO3; Value: 24.1; Range: 22.0-26.0; Units: MEQ/L; Status: F Test: ABG O2 SATURATION; Value: 92.7; Range: 95.0-99.0; Abnormal: Below low normal; Units: %; Status: F Test: ABG DEVICE; Value: NASAL ONEL; Status: F Lab Order: -Influenza A&B Rapid Antigen - Nose; SPEC'M 04/06/16 02:05 Test: INFLUENZA A RAPID SCR by ICA; Value: INFLUENZA A RESULTS NEGATIVE; Status: F Test: INFLUENZA A RAPID SCR by ICA; Value: Comments:; Status: F Test: INFLUENZA B RAPID SCR by ICA; Value: INFLUENZA B RESULTS NEGATIVE; Status: F Test Note: ; The Influenza test is a direct rapid immunoassay for the qualitative detection of Influenza viral antigen. Cell culture (Viral Culture) testing should be considered to confirm NEGATIVE results and to assist in detecting other viruses that can provide similar clinical symptoms. Please contact the lab within 24 hours ([phone]) if confirmatory testing is desired. Lab Order: BNP; SPEC'M 04/06/16 02:05 Test: BRAIN NATRIURETIC PEPTIDE; Value: 11.4; Range: <100; Units: PG/ML; Status: F Radiology Order: Chest, 2 View (pa\E\lat) Test: Chest, 2 View (pa\E\lat) REASON FOR EXAMINATION: Shortness of Breath; Clinical: Shortness of breath.; ; Technique: PA and lateral.; ; Comparison: 03/19/2016.; ; Findings:; Mediastinum and cardiac silhouette are within normal limits and stable. Lung; giang demonstrate coarsened interstitial markings suggesting bronchitis as well; as left lower lobe infiltrate. No effusion. No pneumothorax. Skeletal; structures intact.; ; Impression:; Possible bronchitis and early left lower lobe infiltrate.; ; ; Signed by; Kiran Witt MD 04/06/2016 02:45 A; Outcome: 04:22 Discharge ordered by Provider. pc 04:35 Discharge Assessment: Patient awake, alert and oriented x 3. No cognitive and/or tm5 functional deficits noted. Patient verbalized understanding of disposition instructions. patient administered narcotics - no. The following High Risk Discharge criteria are identified: None. Discharged to home ambulatory. Condition: good Condition: stable Condition: improved. Discharge instructions given to patient, Instructed on discharge instructions, follow up and referral plans. medication usage, Demonstrated understanding of instructions, medications, Pt was receptive of discharge instructions/ teaching. Prescriptions given X 2. No special radiology studies were completed. Property :Personal belongings accompany Pt. 04:37 Patient left the ED. tm5 Signatures: Dispatcher [employer] EDMS Ramon Gardner MD MD pc Kaylyn Jerome,RT RT Jorge Cam, VENDING MACHINE ATTENDANT VENDING MACHINE ATTENDANT kb5 Graham [place],RN RN mgs Astrid Oconnor, Reg Reg hs2 Cynthia Alexis, VENDING MACHINE ATTENDANT VENDING MACHINE ATTENDANT Anna Driscoll,RN RN tm5 Corrections: (The following items were deleted from the chart) 02:51 01:30 Cardiovascular: Rhythm is sinus bradycardia No ectopy. tm5 tm5 MTDD
--- NOTE | 2016-04-06 04:39 | EDDOCDS ---
Physician Documentation [facility] Name: Han Duarte Age: 50 yrs Sex: Male : 1965 Arrival Date: 04/06/2016 Time: 01:12 Bed 15 Private MD: Disposition: 04/06 04:20 Critical Care: Critical care not applicable. pc Disposition: 04/06/16 04:22 Discharged to Home/Self Care. Impression: Chronic obstructive pulmonary disease with (acute) exacerbation, Nicotine dependence. - Condition is Stable. - Discharge Instructions: Chronic Obstructive Pulmonary Disease. - Prescriptions for Prednisone 20 mg Oral Tablet - take 1 tablet by ORAL route as directed Day 1-3: 3 po, day 4-7: 2 po, day 8-10: 1 po; 20 tablet. Zithromax Z- Frank 250 mg Oral Tablet - take 2 tablet by ORAL route once daily for 3 days; 6 tablet. - Medication Reconciliation, Local Pharmacy Hours form. - Follow up: Neeru Pan; When: Call to arrange an appointment; Reason: Continuance of care. - Problem is an acute exacerbation. - Symptoms have improved. HPI: 01:52 This 50 yrs old Male presents to ER via Ambulance with complaints of pc Shortness Of Breath. 01:52 The history is obtained from the patient. The patient presents with shortness of pc breath, with a prior history of COPD. The symptoms began gradually 8 days ago, and became worse yesterday. The symptoms are continuous. There were circumstances that led to the current symptoms, including; a recent upper respiratory illness. The patient has shortness of breath at rest, with light activity. At their worst, the symptoms were moderate. In the emergency department, the symptoms are mild. The patient's shortness of breath is aggravated by coughing, is alleviated by nothing. The patient's dyspnea was accompanied with chills, cough, productive, of yellow sputum, myalgias. The patient has experienced similar episodes in the past, chronically. The patient has not recently seen a physician. Historical: - Allergies: no known allergies; - Home Meds: 1. Spiriva with HandiHaler 18 mcg Inhl CpDv 1 cap once daily 2. albuterol sulfate 2.5 mg /3 mL (0.083 %) Nebulizer nebu 3 mL 3 times per day 3. Zoloft 50 mg Oral tab 1 tab once daily - PMHx: Anxiety; COPD; Depression; - PSHx: none; - The history from nurses notes was reviewed: and I agree with what is documented. - Social history: Smoking status: Patient uses tobacco products, current every day smoker. No barriers to communication noted, The patient speaks fluent Irish, Patient uses alcohol on a daily basis. claims drinking about a 6 pack/day. - Family history: Not pertinent. - : The pt / caregiver states he / she is not on anticoagulants. Home medication list is obtained from the patient. - Hospitalizations: : No recent hospitalization is reported. - Exposure Risk Screening:: None identified. - Immunization history:: Flu vaccine is not up to date. - Social history:: the patient smokes cigarettes 1ppd the patient drinks alcohol, socially. - Code Status:: Full code. ROS: 01:55 All systems are negative except as listed. The gastrointestinal and genitourinary pc components are also addressed in the HPI. Exam: 01:55 General Appearance: alert, the patient is in mild distress, anxious. pc 01:55 EENT: normal eye inspection, ears, nose and throat normal, pharynx normal, mucous membranes moist 01:55 Neck: normal inspection. 01:55 Respiratory: no respiratory distress, no pleuritic chest pain, speaks in full sentences, auscultation reveals wheezes, in the left posterior lower lobe and right posterior lower lobe, decreased air entry noted left posterior lower lobe and right posterior lower lobe. 01:55 Cardiovascular: normal rhythm, no jugular venous distension appreciated, no murmurs, no gallop, no friction rub, peripheral pulses full and equal bilaterally, the heart rate is tachycardic, at 106 bpm. 01:55 Abdomen: non-tender, non-distended, no organomegaly. 01:55 Skin: normal color, warm, dry. 01:55 Extremities: non-tender, normal range of motion of all joints, no pedal edema. 01:55 Neuro: alert, oriented to person, place and time, cranial nerves normal as tested, no motor deficits, no sensory deficits. 01:55 Psych: normal mood. Vital Signs: 01:27 BP 133 / 79; Pulse 105; Resp 20; Temp 98.8(O); Pulse Ox 90% on R/A; Weight 74.84 kg / tm5 164.99 lbs; Height 5 ft. 5 in. (165.10 cm); Pain 3/10; 01:52 BP 137 / 76 (auto/); tm5 01:53 Pulse 104 MON; Resp 20; Pulse Ox 92% on 2 lpm NC; Pain 3/10; tm5 02:22 BP 144 / 75 (auto/); tm5 02:23 Pulse 108 MON; Resp 20 S; Pulse Ox 94% on 2 lpm NC; Pain 0/10; tm5 02:52 BP 124 / 60 (auto/); tm5 02:53 Pulse 96 MON; Pulse Ox 92% ; tm5 03:22 BP 135 / 79 (auto/); tm5 03:23 Pulse 102 MON; Pulse Ox 92% ; tm5 03:52 BP 132 / 64 (auto/); tm5 03:52 Pulse 100 MON; Resp 20 S; Pulse Ox 91% on R/A; tm5 04:35 BP 131 / 58; Pulse 87; Resp 20 S; Temp 98.0(O); Pulse Ox 90% on R/A; Pain 0/10; tm5 01:27 Body Mass Index 27.46 (74.84 kg, 165.10 cm) tm5 MDM: 01:51 -Blood Culture (Adults Only), peripheral from different site, or from device/port/PICC pc etc. if present ordered. 01:51 Power And Recovery Supervisor/Pulse Ox/q 15 min VS ordered. pc 01:51 IV Saline Lock ordered. pc 01:51 Rhythm Strip to chart ordered. pc 01:51 Call Respiratory ordered. pc 01:51 Obtain sample by nasopharyngeal swab ordered. pc 01:51 Oxygen at 2L/min via NC ordered. pc 01:53 Basic Metabolic Profile Ordered. EDMS 01:53 CBC with Diff Ordered. EDMS 01:53 -Arterial Blood Gas Ordered. EDMS 01:53 -Blood Culture Ordered. EDMS 01:53 -Influenza A&B Rapid Antigen - Nose Ordered. EDMS 01:53 Chest, 2 View (pa\E\lat) Ordered. EDMS 01:53 ECG WITH READING ER PHYS+CARDIAG ordered. EDMS 01:54 Call Respiratory complete. tm5 01:55 Differential diagnosis: Chronic Obstructive Pulmonary Disease pneumonia, Influenza. pc Plan: labs, EKG, imaging. 02:01 -Blood Culture (Adults Only), peripheral from different site, or from device/port/PICC kb5 etc. if present complete. 02:01 BLOOD CULTURES Ordered. EDMS 02:36 CBC with Diff Reviewed. pc 02:36 -Arterial Blood Gas Reviewed. pc 02:36 BNP Ordered. EDMS 02:36 Test interpretation: EKG. pc 02:42 Basic Metabolic Profile Reviewed. pc 02:47 Financial registration complete. hs2 02:47 [facility] Payment Agreement was scanned into [employer] and attached to record. hs2 03:25 Data reviewed: old medical records, vital signs, nurses notes, EKG(s), lab test pc results, all radiology studies and available results. Test interpretation: LAB - all labs as ordered have been reviewed, interpreted and considered in the overall management of the clinical presentation; X-RAY - interpreted by me, 2 view chest, chronic obstructive pulmonary disease pattern, nad. 03:26 -Influenza A&B Rapid Antigen - Nose Reviewed. pc 03:26 BNP Reviewed. pc 03:26 Chest, 2 View (pa\E\lat) Reviewed. pc 03:26 Misc. Nursing Order ordered. pc 03:47 Ambulate Patient [facility] Pulse Oximetry ordered. pc 04:20 The patient has been re-examined and re-evaluated. The patient's symptoms have markedly pc improved after treatment, with his PO remaining at 90-92% on room air and not being affected by ambulation. Disposition: The historical points, examination findings, and any diagnostic results supporting the provided diagnosis, were discussed with the patient or legal guardian. The need for outpatient follow up with the provider listed on their discharge instructions was discussed. They were encouraged to return to [facility], or the nearest ED, if symptoms worsen/persist, or for any other questions/concerns. 04:21 azithromycin 500 mg PO once ordered. pc EC:36 Rate is 106 beats/min. Rhythm is regular, Sinus tachycardia. QRS [place] is Normal. [place] pc interval is normal. QRS interval is normal. QT interval is normal. No Q waves. T waves are Normal. No ST changes noted. Clinical impression: Sinus tachycardia. Administered Medications: 04:35 Drug: azithromycin 500 mg [azithromycin 250 mg tablet (2 tabs)] Route: PO; tm5 04:35 Follow up: Response: Pt left department before re-evaluation is appropriate tm5 Signatures: Dispatcher [employer] EDIL Ramon Gardner MD MD pc [place], Kristopher LINT CLEANER LINT CLEANER kb5 Astrid Oconnor, Reg Reg hs2 Anna Corado,RN RN tm5 The chart was reviewed and I authenticate all verbal orders and agree with the evaluation and treatment provided.Attachments: 02:47 [facility] Payment Agreement hs2 MTDD
--- NOTE | 2016-04-07 20:56 | ECGEPIP ---
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
--- NOTE | 2016-04-08 05:39 | EDDOCDS ---
Physician Documentation [facility] Name: Han Duarte Age: 50 yrs Sex: Male : 1965 Arrival Date: 04/06/2016 Time: 01:12 Bed 15 Private MD: Disposition: 04/06 04:20 Critical Care: Critical care not applicable. pc Disposition: 04/06/16 04:22 Discharged to Home/Self Care. Impression: Chronic obstructive pulmonary disease with (acute) exacerbation, Nicotine dependence. - Condition is Stable. - Discharge Instructions: Chronic Obstructive Pulmonary Disease. - Prescriptions for Prednisone 20 mg Oral Tablet - take 1 tablet by ORAL route as directed Day 1-3: 3 po, day 4-7: 2 po, day 8-10: 1 po; 20 tablet. Zithromax Z- Frank 250 mg Oral Tablet - take 2 tablet by ORAL route once daily for 3 days; 6 tablet. - Medication Reconciliation, Local Pharmacy Hours form. - Follow up: Neeru Pan; When: Call to arrange an appointment; Reason: Continuance of care. - Problem is an acute exacerbation. - Symptoms have improved. HPI: 01:52 This 50 yrs old Male presents to ER via Ambulance with complaints of pc Shortness Of Breath. 01:52 The history is obtained from the patient. The patient presents with shortness of pc breath, with a prior history of COPD. The symptoms began gradually 8 days ago, and became worse yesterday. The symptoms are continuous. There were circumstances that led to the current symptoms, including; a recent upper respiratory illness. The patient has shortness of breath at rest, with light activity. At their worst, the symptoms were moderate. In the emergency department, the symptoms are mild. The patient's shortness of breath is aggravated by coughing, is alleviated by nothing. The patient's dyspnea was accompanied with chills, cough, productive, of yellow sputum, myalgias. The patient has experienced similar episodes in the past, chronically. The patient has not recently seen a physician. Historical: - Allergies: no known allergies; - Home Meds: 1. Spiriva with HandiHaler 18 mcg Inhl CpDv 1 cap once daily 2. albuterol sulfate 2.5 mg /3 mL (0.083 %) Nebulizer nebu 3 mL 3 times per day 3. Zoloft 50 mg Oral tab 1 tab once daily - PMHx: Anxiety; COPD; Depression; - PSHx: none; - The history from nurses notes was reviewed: and I agree with what is documented. - Social history: Smoking status: Patient uses tobacco products, current every day smoker. No barriers to communication noted, The patient speaks fluent Argentine, Patient uses alcohol on a daily basis. claims drinking about a 6 pack/day. - Family history: Not pertinent. - : The pt / caregiver states he / she is not on anticoagulants. Home medication list is obtained from the patient. - Hospitalizations: : No recent hospitalization is reported. - Exposure Risk Screening:: None identified. - Immunization history:: Flu vaccine is not up to date. - Social history:: the patient smokes cigarettes 1ppd the patient drinks alcohol, socially. - Code Status:: Full code. ROS: 01:55 All systems are negative except as listed. The gastrointestinal and genitourinary pc components are also addressed in the HPI. Exam: 01:55 General Appearance: alert, the patient is in mild distress, anxious. pc 01:55 EENT: normal eye inspection, ears, nose and throat normal, pharynx normal, mucous membranes moist 01:55 Neck: normal inspection. 01:55 Respiratory: no respiratory distress, no pleuritic chest pain, speaks in full sentences, auscultation reveals wheezes, in the left posterior lower lobe and right posterior lower lobe, decreased air entry noted left posterior lower lobe and right posterior lower lobe. 01:55 Cardiovascular: normal rhythm, no jugular venous distension appreciated, no murmurs, no gallop, no friction rub, peripheral pulses full and equal bilaterally, the heart rate is tachycardic, at 106 bpm. 01:55 Abdomen: non-tender, non-distended, no organomegaly. 01:55 Skin: normal color, warm, dry. 01:55 Extremities: non-tender, normal range of motion of all joints, no pedal edema. 01:55 Neuro: alert, oriented to person, place and time, cranial nerves normal as tested, no motor deficits, no sensory deficits. 01:55 Psych: normal mood. Vital Signs: 01:27 BP 133 / 79; Pulse 105; Resp 20; Temp 98.8(O); Pulse Ox 90% on R/A; Weight 74.84 kg / tm5 164.99 lbs; Height 5 ft. 5 in. (165.10 cm); Pain 3/10; 01:52 BP 137 / 76 (auto/); tm5 01:53 Pulse 104 MON; Resp 20; Pulse Ox 92% on 2 lpm NC; Pain 3/10; tm5 02:22 BP 144 / 75 (auto/); tm5 02:23 Pulse 108 MON; Resp 20 S; Pulse Ox 94% on 2 lpm NC; Pain 0/10; tm5 02:52 BP 124 / 60 (auto/); tm5 02:53 Pulse 96 MON; Pulse Ox 92% ; tm5 03:22 BP 135 / 79 (auto/); tm5 03:23 Pulse 102 MON; Pulse Ox 92% ; tm5 03:52 BP 132 / 64 (auto/); tm5 03:52 Pulse 100 MON; Resp 20 S; Pulse Ox 91% on R/A; tm5 04:35 BP 131 / 58; Pulse 87; Resp 20 S; Temp 98.0(O); Pulse Ox 90% on R/A; Pain 0/10; tm5 01:27 Body Mass Index 27.46 (74.84 kg, 165.10 cm) tm5 MDM: 01:51 -Blood Culture (Adults Only), peripheral from different site, or from device/port/PICC pc etc. if present ordered. 01:51 Boxer Operator/Pulse Ox/q 15 min VS ordered. pc 01:51 IV Saline Lock ordered. pc 01:51 Rhythm Strip to chart ordered. pc 01:51 Call Respiratory ordered. pc 01:51 Obtain sample by nasopharyngeal swab ordered. pc 01:51 Oxygen at 2L/min via NC ordered. pc 01:53 Basic Metabolic Profile Ordered. EDMS 01:53 CBC with Diff Ordered. EDMS 01:53 -Arterial Blood Gas Ordered. EDMS 01:53 -Blood Culture Ordered. EDMS 01:53 -Influenza A&B Rapid Antigen - Nose Ordered. EDMS 01:53 Chest, 2 View (pa\E\lat) Ordered. EDMS 01:53 ECG WITH READING ER PHYS+CARDIAG ordered. EDMS 01:54 Call Respiratory complete. tm5 01:55 Differential diagnosis: Chronic Obstructive Pulmonary Disease pneumonia, Influenza. pc Plan: labs, EKG, imaging. 02:01 -Blood Culture (Adults Only), peripheral from different site, or from device/port/PICC kb5 etc. if present complete. 02:01 BLOOD CULTURES Ordered. EDMS 02:36 CBC with Diff Reviewed. pc 02:36 -Arterial Blood Gas Reviewed. pc 02:36 BNP Ordered. EDMS 02:36 Test interpretation: EKG. pc 02:42 Basic Metabolic Profile Reviewed. pc 02:47 Financial registration complete. hs2 02:47 [facility] Payment Agreement was scanned into [employer] and attached to record. hs2 03:25 Data reviewed: old medical records, vital signs, nurses notes, EKG(s), lab test pc results, all radiology studies and available results. Test interpretation: LAB - all labs as ordered have been reviewed, interpreted and considered in the overall management of the clinical presentation; X-RAY - interpreted by me, 2 view chest, chronic obstructive pulmonary disease pattern, nad. 03:26 -Influenza A&B Rapid Antigen - Nose Reviewed. pc 03:26 BNP Reviewed. pc 03:26 Chest, 2 View (pa\E\lat) Reviewed. pc 03:26 Misc. Nursing Order ordered. pc 03:47 Ambulate Patient [facility] Pulse Oximetry ordered. pc 04:20 The patient has been re-examined and re-evaluated. The patient's symptoms have markedly pc improved after treatment, with his PO remaining at 90-92% on room air and not being affected by ambulation. Disposition: The historical points, examination findings, and any diagnostic results supporting the provided diagnosis, were discussed with the patient or legal guardian. The need for outpatient follow up with the provider listed on their discharge instructions was discussed. They were encouraged to return to [facility], or the nearest ED, if symptoms worsen/persist, or for any other questions/concerns. 04:21 azithromycin 500 mg PO once ordered. pc EC:36 Rate is 106 beats/min. Rhythm is regular, Sinus tachycardia. QRS [place] is Normal. [place] pc interval is normal. QRS interval is normal. QT interval is normal. No Q waves. T waves are Normal. No ST changes noted. Clinical impression: Sinus tachycardia. Administered Medications: 04:35 Drug: azithromycin 500 mg [azithromycin 250 mg tablet (2 tabs)] Route: PO; tm5 04:35 Follow up: Response: Pt left department before re-evaluation is appropriate tm5 Signatures: Dispatcher [employer] EDMT Ramon Gardner MD MD pc Bancroft, Kristopher ROUTE CDL DRIVER ROUTE CDL DRIVER kb5 Astrid Oconnor, Reg Reg hs2 Anna Corado,RN RN tm5 The chart was reviewed and I authenticate all verbal orders and agree with the evaluation and treatment provided.Attachments: 02:47 [facility] Payment Agreement hs2 Chart Complete MTDD
--- NOTE | 2016-04-08 05:39 | EDDOCDS ---
Nurse's Notes [facility] Name: Stacey Duarte Age: 50 yrs Sex: Male : 1965 Arrival Date: 04/06/2016 Time: 01:12 Bed 15 Private MD: Diagnosis: Chronic obstructive pulmonary disease with (acute) exacerbation;Nicotine dependence Presentation: 04/06 01:16 Presenting complaint: EMS states: per EMS pt here with complaints of SOB for the past 2 tm5 weeks now, HX of COPD, also with Prod cough, pt called EMS due to Panic attack, pt was smoking when EMS arrived, Rhonchi to lung giang, SOlumedrol 125mg IVP & duoneb treatments given x2, room air O2 sat 89%. Adult Sepsis Screening: The patient does not have new or worsening altered mentation. Patient's respiratory rate is less than 22. Systolic blood pressure is greater than 100. Patient has a qSOFA score of 0- Negative Sepsis Screen. Suicide/Homicide risk assessment- the patient denies having any suicidal and/or homicidal ideations and does not present with any other emotional, behavioral or mental health complaints. 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 Transition of care: patient was not received from another setting of care. 01:16 Acuity: CARMEN Level 3 tm5 01:16 Method Of Arrival: Ambulance tm5 Triage Assessment: 01:27 General: Appears in no apparent distress, Behavior is appropriate for age, cooperative. tm5 Pain: Location: abdomen Pain currently is 3 out of 10 on a pain scale. Quality of pain is described as aching, Also complains of coughing. HIV screening NA for this visit Offered previously. The patient is triaged at the bedside. See Assessment in Nurses Notes section of ED record. Neurological: Level of Consciousness is awake, alert, Oriented to person, place, time. Cardiovascular: Rhythm is sinus tachycardia No ectopy. Respiratory: Onset: The symptoms/episode began/occurred about 2 weeks ago , Breath sounds with rhonchi bilaterally. Breath sounds are diminished bilaterally. Reports shortness of breath on exertion cough that is productive, productive cough with yellow mucous. GI: Abdomen is flat, Bowel sounds present X 4 quads. Abd is soft X 4 quads Abd is tender to palpation X 4 quads. : No deficits noted. Derm: Skin is pink, warm & dry. Historical: - Allergies: no known allergies; - Home Meds: 1. Spiriva with HandiHaler 18 mcg Inhl CpDv 1 cap once daily 2. albuterol sulfate 2.5 mg /3 mL (0.083 %) Nebulizer nebu 3 mL 3 times per day 3. Zoloft 50 mg Oral tab 1 tab once daily - PMHx: Anxiety; COPD; Depression; - PSHx: none; - The history from nurses notes was reviewed: and I agree with what is documented. - Social history: Smoking status: Patient uses tobacco products, current every day smoker. No barriers to communication noted, The patient speaks fluent Kiswahili, Patient uses alcohol on a daily basis. claims drinking about a 6 pack/day. - Family history: Not pertinent. - : The pt / caregiver states he / she is not on anticoagulants. Home medication list is obtained from the patient. - Hospitalizations: : No recent hospitalization is reported. - Exposure Risk Screening:: None identified. - Immunization history:: Flu vaccine is not up to date. - Social history:: the patient smokes cigarettes 1ppd the patient drinks alcohol, socially. - Code Status:: Full code. Screenin:30 Screening information is obtained from the patient. Fall risk: No risks identified. tm5 Assistance ADL's: requires no assistance with activities of daily living. Abuse/DV Screen: The patient / caregiver reports he/she is: not in a situation that causes fear, pain or injury. Nutritional screening: No deficits noted. Advance Directives: There is no active DNR order. home support is adequate. Assessment: 01:30 General: see triage assessment . Cardiovascular: Chest pain is denied. Cardiovascular: tm5 Rhythm is sinus tachycardia. 02:50 Reassessment: Patient appears in no apparent distress at this time. Patient states tm5 symptoms have improved. pt resting with eyes closed, respirations easy, no s/s of any distress. Cardiovascular: Rhythm is sinus tachycardia No ectopy. 03:29 General: Oxygen taken off pt per MD's orders, will continue to monitor room air pulse tm5 Ox. 03:57 General: Patient ambulated to assess for safety and pulse oximetry. Patient was able to mgs ambulate safely with pulse ox ranging from 88-90%, QMP made aware. 04:35 Reassessment: Patient appears in no apparent distress at this time. Patient states tm5 feeling better. Patient states symptoms have improved. 04:37 Respiratory: Airway is patent Respiratory effort is even, unlabored. tm5 Vital Signs: 01:27 BP 133 / 79; Pulse 105; Resp 20; Temp 98.8(O); Pulse Ox 90% on R/A; Weight 74.84 kg; tm5 Height 5 ft. 5 in. (165.10 cm); Pain 3/10; 01:52 BP 137 / 76 (auto/); tm5 01:53 Pulse 104 MON; Resp 20; Pulse Ox 92% on 2 lpm NC; Pain 3/10; tm5 02:22 BP 144 / 75 (auto/); tm5 02:23 Pulse 108 MON; Resp 20 S; Pulse Ox 94% on 2 lpm NC; Pain 0/10; tm5 02:52 BP 124 / 60 (auto/); tm5 02:53 Pulse 96 MON; Pulse Ox 92% ; tm5 03:22 BP 135 / 79 (auto/); tm5 03:23 Pulse 102 MON; Pulse Ox 92% ; tm5 03:52 BP 132 / 64 (auto/); tm5 03:52 Pulse 100 MON; Resp 20 S; Pulse Ox 91% on R/A; tm5 04:35 BP 131 / 58; Pulse 87; Resp 20 S; Temp 98.0(O); Pulse Ox 90% on R/A; Pain 0/10; tm5 01:27 Body Mass Index 27.46 (74.84 kg, 165.10 cm) tm5 Vitals: 01:27 Log In Time N/A - ambulance arrival. tm5 ED Course: 01:13 Patient visited by Jorge Barr PCA. kb5 01:13 Patient moved to Waiting kb5 01:13 Patient moved to 15 kb 01:19 Triage Initiated tm5 01:30 Awaiting ED physician evaluation. tm5 01:30 The patient / caregiver is instructed regarding the plan of care and ED course. Patient tm5 has correct armband on for positive identification. Placed in gown. Bed in low position. Call light in reach. Side rails up X2. manager talent on. Pulse ox on. NIBP on. Warm blanket given. Pillow given. 01:30 Maintain field IV. Dressing intact. Good blood return noted. Site clean & dry. Gauge & tm5 site: #20 left wrist . O2 via nasal cannula \T\ 2L/min. 01:38 Ramon Gardner MD is Attending Physician. pc 01:47 Patient visited by Ramon Gardner MD. pc 02:07 -Influenza A&B Rapid Antigen - Nose Sent. tm5 02:07 -Blood Culture Sent. tm5 02:07 Basic Metabolic Profile Sent. tm5 02:07 CBC with Diff Sent. tm5 02:08 BLOOD CULTURES Sent. tm5 02:08 Labs/Blood culture drawn nasal swab obtained. tm5 02:16 -Arterial Blood Gas Sent. dk 02:37 Patient visited by Cynthia Alexis, GLOVE FACTORY SEWER. cln 02:37 EKG done. (by ED staff). Reviewed by Ramon Gardner MD. cln 02:42 BNP Sent. pc 02:47 [facility] Payment Agreement was scanned into [employer] and attached to record. hs2 03:08 Chest, 2 View (pa\E\lat) Returned. EDMS 03:23 Patient visited by Anna Corado RN. tm5 03:57 Patient visited by Anna Corado RN. tm5 04:22 Neeru Pan is Referral Physician. pc 04:35 Discontinued lock intact, bleeding controlled, pressure dressing applied, No tm5 redness/swelling at site. No procedures done that require assistance. 04/07 21:17 EKG-ADULT Returned. EDMS Administered Medications: 04/06 04:35 Drug: azithromycin 500 mg [azithromycin 250 mg tablet (2 tabs)] Route: PO; tm5 04:35 Follow up: Response: Pt left department before re-evaluation is appropriate tm5 RT: 02:17 ABG's drawn from left radial artery allens test done and positive pressure held for 5 dk minutes no bleeding noted pressure bandage applied specimen sent pt. tolerated well. Order Results: Lab Order: -Blood Culture; SPEC'M 04/06/16 02:05 Test: BLOOD CULTURE; Value: No growth after 24 hours . All specimens observed; Status: F Test: BLOOD CULTURE; Value: for 5 days. Results final at that time.; Status: F Test: BLOOD CULTURE; Value: No Growth after 48 hours. All Specimens observed; Status: F Test: BLOOD CULTURE; Value: for 7 days. Results final at that time.; Status: F Lab Order: Basic Metabolic Profile; SPEC'M 04/06/16 02:05 Test: GLUCOSE, FASTING; Value: 113; Range: 70-105; Abnormal: Above high normal; Units: MG/DL; Status: F Test: BLOOD UREA NITROGEN; Value: 10; Range: 7-18; Units: MG/DL; Status: F Test: CREATININE FOR GFR; Value: 0.81; Range: 0.70-1.30; Units: MG/DL; Status: F Test: GLOMERULAR FILTRATION RATE; Value: > 60.0; Range: >56; Status: F Test: SODIUM LEVEL; Value: 139; Range: 136-145; Units: MEQ/L; Status: F Test: POTASSIUM SERUM; Value: 4.5; Range: 3.5-5.1; Units: MEQ/L; Status: F Test: CHLORIDE LEVEL; Value: 106; Range: 98-107; Units: MEQ/L; Status: F Test: CARBON DIOXIDE LEVEL; Value: 25; Range: 21-32; Units: MEQ/L; Status: F Test: ANION GAP; Value: 8; Range: 8-16; Units: MEQ/L; Status: F Test: CALCIUM LEVEL; Value: 8.4; Range: 8.5-10.1; Abnormal: Below low normal; Units: MG/DL; Status: F Test Note: ; Units are mL/min/1.73 m2 Chronic Kidney Disease Staging per NKF: Stage I & II GFR >=60 Normal to Mildly Decreased Stage III GFR 30-59 Moderately Decreased Stage IV GFR 15-29 Severely Decreased Stage V GFR <15 Very Little GFR Left ESRD GFR <15 on EVP [employer] Lab Order: CBC with Diff; SPEC'M 04/06/16 02:05 Test: WHITE BLOOD COUNT; Value: 14.1; Range: 4.0-10.0; Abnormal: Above high normal; Units: K/mm3; Status: F Test: RED BLOOD COUNT; Value: 4.91; Range: 4.30-6.10; Units: M/mm3; Status: F Test: HEMOGLOBIN; Value: 15.5; Range: 14.0-18.0; Units: g/dl; Status: F Test: HEMATOCRIT; Value: 46.5; Range: 42.0-52.0; Units: %; Status: F Test: MEAN CORPUSCULAR VOLUME; Value: 94.8; Range: 80.0-96.0; Units: fl; Status: F Test: MEAN CORPUSCULAR HEMOGLOBIN; Value: 31.6; Range: 27.0-33.0; Units: pg; Status: F Test: MEAN CORPUSCULAR HGB CONC; Value: 33.3; Range: 32.0-36.5; Units: g/dl; Status: F Test: RED CELL DISTRIBUTION WIDTH; Value: 12.7; Range: 11.5-14.5; Units: %; Status: F Test: PLATELET COUNT, AUTOMATED; Value: 188; Range: 150-450; Units: k/mm3; Status: F Test: NEUTROPHILS %; Value: 79.1; Range: 36.0-66.0; Abnormal: Above high normal; Units: %; Status: F Test: LYMPH %; Value: 12.5; Range: 24.0-44.0; Abnormal: Below low normal; Units: %; Status: F Test: MONO %; Value: 5.3; Range: 0.0-5.0; Abnormal: Above high normal; Units: %; Status: F Test: EOS %; Value: 1.7; Range: 0.0-3.0; Units: %; Status: F Test: BASO %; Value: 0.3; Range: 0.0-1.0; Units: %; Status: F Test: LARGE UNSTAINED CELL %; Value: 1.1; Range: 0.0-4.0; Units: %; Status: F Test: NEUTROPHILS #; Value: 11.1; Range: 1.8-7.7; Abnormal: Above high normal; Units: K/mm3; Status: F Test: LYMPH #; Value: 1.9; Range: 1.5-4.5; Units: K/mm3; Status: F Test: MONO #; Value: 0.7; Range: 0.0-0.8; Units: K/mm3; Status: F Test: EOS #; Value: 0.2; Range: 0.0-0.50; Units: K/mm3; Status: F Test: BASO #; Value: 0.0; Range: 0.0-0.2; Units: K/mm3; Status: F Test: LARGE UNSTAINED CELL #; Value: 0.2; Range: 0.0-0.4; Units: K/mm3; Status: F Lab Order: -Arterial Blood Gas; SPEC'M 04/06/16 02:14 Test: ABG pH (ARTERIAL); Value: 7.412; Range: 7.350-7.450; Units: UNITS; Status: F Test: ABG PARTIAL PRESSURE CO2; Value: 38.6; Range: 35.0-45.0; Units: mmHg; Status: F Test: ABG PARTIAL PRESSURE O2; Value: 63.0; Range: 75.0-100.0; Abnormal: Below low normal; Units: mmHg; Status: F Test: ABG TOTAL CO2; Value: 25.2; Range: 22.0-29.0; Units: MEQ/L; Status: F Test: ABG HCO3; Value: 24.0; Range: 22.0-26.0; Units: MEQ/L; Status: F Test: ABG BASE EXCESS; Value: -0.3; Range: -2.0-2.0; Status: F Test: ABG STANDARD HCO3; Value: 24.1; Range: 22.0-26.0; Units: MEQ/L; Status: F Test: ABG O2 SATURATION; Value: 92.7; Range: 95.0-99.0; Abnormal: Below low normal; Units: %; Status: F Test: ABG DEVICE; Value: NASAL ONEL; Status: F Lab Order: -Influenza A&B Rapid Antigen - Nose; SPEC'M 04/06/16 02:05 Test: INFLUENZA A RAPID SCR by ICA; Value: INFLUENZA A RESULTS NEGATIVE; Status: F Test: INFLUENZA A RAPID SCR by ICA; Value: Comments:; Status: F Test: INFLUENZA B RAPID SCR by ICA; Value: INFLUENZA B RESULTS NEGATIVE; Status: F Test Note: ; The Influenza test is a direct rapid immunoassay for the qualitative detection of Influenza viral antigen. Cell culture (Viral Culture) testing should be considered to confirm NEGATIVE results and to assist in detecting other viruses that can provide similar clinical symptoms. Please contact the lab within 24 hours ([phone]) if confirmatory testing is desired. Lab Order: BLOOD CULTURES; SPEC'M 04/06/16 02:05 Test: BLOOD CULTURE; Value: No growth after 24 hours . All specimens observed; Status: F Test: BLOOD CULTURE; Value: for 5 days. Results final at that time.; Status: F Test: BLOOD CULTURE; Value: No Growth after 48 hours. All Specimens observed; Status: F Test: BLOOD CULTURE; Value: for 7 days. Results final at that time.; Status: F Lab Order: BNP; SPEC'M 04/06/16 02:05 Test: BRAIN NATRIURETIC PEPTIDE; Value: 11.4; Range: <100; Units: PG/ML; Status: F Radiology Order: Chest, 2 View (pa\E\lat) Test: Chest, 2 View (pa\E\lat) REASON FOR EXAMINATION: Shortness of Breath; Clinical: Shortness of breath.; ; Technique: PA and lateral.; ; Comparison: 03/19/2016.; ; Findings:; Mediastinum and cardiac silhouette are within normal limits and stable. Lung; giang demonstrate coarsened interstitial markings suggesting bronchitis as well; as left lower lobe infiltrate. No effusion. No pneumothorax. 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 pc 04:35 Discharge Assessment: Patient awake, alert and oriented x 3. No cognitive and/or tm5 functional deficits noted. Patient verbalized understanding of disposition instructions. patient administered narcotics - no. The following High Risk Discharge criteria are identified: None. Discharged to home ambulatory. Condition: good Condition: stable Condition: improved. Discharge instructions given to patient, Instructed on discharge instructions, follow up and referral plans. medication usage, Demonstrated understanding of instructions, medications, Pt was receptive of discharge instructions/ teaching. Prescriptions given X 2. No special radiology studies were completed. Property :Personal belongings accompany Pt. 04:37 Patient left the ED. tm5 Signatures: Dispatcher [employer] EDMS Ramon Gardner MD MD pc Kaylyn Jerome,RT RT Jorge Cam, GLOVE FACTORY SEWER GLOVE FACTORY SEWER kb5 Graham [place],RN RN mgs Astrid Oconnor, Reg Reg hs2 Cynthia Alexis, GLOVE FACTORY SEWER GLOVE FACTORY SEWER cln Anna Corado,RN RN tm5 Corrections: (The following items were deleted from the chart) 02:51 01:30 Cardiovascular: Rhythm is sinus bradycardia No ectopy. tm5 tm5 Chart Complete MTDD
--- NOTE | 2016-04-08 05:39 | EDDOCDS ---
Physician Documentation [facility] Name: Han Duarte Age: 50 yrs Sex: Male : 1965 Arrival Date: 04/06/2016 Time: 01:12 Bed 15 Private MD: Disposition: 04/06 04:20 Critical Care: Critical care not applicable. pc Disposition: 04/06/16 04:22 Discharged to Home/Self Care. Impression: Chronic obstructive pulmonary disease with (acute) exacerbation, Nicotine dependence. - Condition is Stable. - Discharge Instructions: Chronic Obstructive Pulmonary Disease. - Prescriptions for Prednisone 20 mg Oral Tablet - take 1 tablet by ORAL route as directed Day 1-3: 3 po, day 4-7: 2 po, day 8-10: 1 po; 20 tablet. Zithromax Z- Frank 250 mg Oral Tablet - take 2 tablet by ORAL route once daily for 3 days; 6 tablet. - Medication Reconciliation, Local Pharmacy Hours form. - Follow up: Neeru Pan; When: Call to arrange an appointment; Reason: Continuance of care. - Problem is an acute exacerbation. - Symptoms have improved. HPI: 01:52 This 50 yrs old Male presents to ER via Ambulance with complaints of pc Shortness Of Breath. 01:52 The history is obtained from the patient. The patient presents with shortness of pc breath, with a prior history of COPD. The symptoms began gradually 8 days ago, and became worse yesterday. The symptoms are continuous. There were circumstances that led to the current symptoms, including; a recent upper respiratory illness. The patient has shortness of breath at rest, with light activity. At their worst, the symptoms were moderate. In the emergency department, the symptoms are mild. The patient's shortness of breath is aggravated by coughing, is alleviated by nothing. The patient's dyspnea was accompanied with chills, cough, productive, of yellow sputum, myalgias. The patient has experienced similar episodes in the past, chronically. The patient has not recently seen a physician. Historical: - Allergies: no known allergies; - Home Meds: 1. Spiriva with HandiHaler 18 mcg Inhl CpDv 1 cap once daily 2. albuterol sulfate 2.5 mg /3 mL (0.083 %) Nebulizer nebu 3 mL 3 times per day 3. Zoloft 50 mg Oral tab 1 tab once daily - PMHx: Anxiety; COPD; Depression; - PSHx: none; - The history from nurses notes was reviewed: and I agree with what is documented. - Social history: Smoking status: Patient uses tobacco products, current every day smoker. No barriers to communication noted, The patient speaks fluent Taiwanese, Patient uses alcohol on a daily basis. claims drinking about a 6 pack/day. - Family history: Not pertinent. - : The pt / caregiver states he / she is not on anticoagulants. Home medication list is obtained from the patient. - Hospitalizations: : No recent hospitalization is reported. - Exposure Risk Screening:: None identified. - Immunization history:: Flu vaccine is not up to date. - Social history:: the patient smokes cigarettes 1ppd the patient drinks alcohol, socially. - Code Status:: Full code. ROS: 01:55 All systems are negative except as listed. The gastrointestinal and genitourinary pc components are also addressed in the HPI. Exam: 01:55 General Appearance: alert, the patient is in mild distress, anxious. pc 01:55 EENT: normal eye inspection, ears, nose and throat normal, pharynx normal, mucous membranes moist 01:55 Neck: normal inspection. 01:55 Respiratory: no respiratory distress, no pleuritic chest pain, speaks in full sentences, auscultation reveals wheezes, in the left posterior lower lobe and right posterior lower lobe, decreased air entry noted left posterior lower lobe and right posterior lower lobe. 01:55 Cardiovascular: normal rhythm, no jugular venous distension appreciated, no murmurs, no gallop, no friction rub, peripheral pulses full and equal bilaterally, the heart rate is tachycardic, at 106 bpm. 01:55 Abdomen: non-tender, non-distended, no organomegaly. 01:55 Skin: normal color, warm, dry. 01:55 Extremities: non-tender, normal range of motion of all joints, no pedal edema. 01:55 Neuro: alert, oriented to person, place and time, cranial nerves normal as tested, no motor deficits, no sensory deficits. 01:55 Psych: normal mood. Vital Signs: 01:27 BP 133 / 79; Pulse 105; Resp 20; Temp 98.8(O); Pulse Ox 90% on R/A; Weight 74.84 kg / tm5 164.99 lbs; Height 5 ft. 5 in. (165.10 cm); Pain 3/10; 01:52 BP 137 / 76 (auto/); tm5 01:53 Pulse 104 MON; Resp 20; Pulse Ox 92% on 2 lpm NC; Pain 3/10; tm5 02:22 BP 144 / 75 (auto/); tm5 02:23 Pulse 108 MON; Resp 20 S; Pulse Ox 94% on 2 lpm NC; Pain 0/10; tm5 02:52 BP 124 / 60 (auto/); tm5 02:53 Pulse 96 MON; Pulse Ox 92% ; tm5 03:22 BP 135 / 79 (auto/); tm5 03:23 Pulse 102 MON; Pulse Ox 92% ; tm5 03:52 BP 132 / 64 (auto/); tm5 03:52 Pulse 100 MON; Resp 20 S; Pulse Ox 91% on R/A; tm5 04:35 BP 131 / 58; Pulse 87; Resp 20 S; Temp 98.0(O); Pulse Ox 90% on R/A; Pain 0/10; tm5 01:27 Body Mass Index 27.46 (74.84 kg, 165.10 cm) tm5 MDM: 01:51 -Blood Culture (Adults Only), peripheral from different site, or from device/port/PICC pc etc. if present ordered. 01:51 Clinical Immunologist/Pulse Ox/q 15 min VS ordered. pc 01:51 IV Saline Lock ordered. pc 01:51 Rhythm Strip to chart ordered. pc 01:51 Call Respiratory ordered. pc 01:51 Obtain sample by nasopharyngeal swab ordered. pc 01:51 Oxygen at 2L/min via NC ordered. pc 01:53 Basic Metabolic Profile Ordered. EDMS 01:53 CBC with Diff Ordered. EDMS 01:53 -Arterial Blood Gas Ordered. EDMS 01:53 -Blood Culture Ordered. EDMS 01:53 -Influenza A&B Rapid Antigen - Nose Ordered. EDMS 01:53 Chest, 2 View (pa\E\lat) Ordered. EDMS 01:53 ECG WITH READING ER PHYS+CARDIAG ordered. EDMS 01:54 Call Respiratory complete. tm5 01:55 Differential diagnosis: Chronic Obstructive Pulmonary Disease pneumonia, Influenza. pc Plan: labs, EKG, imaging. 02:01 -Blood Culture (Adults Only), peripheral from different site, or from device/port/PICC kb5 etc. if present complete. 02:01 BLOOD CULTURES Ordered. EDMS 02:36 CBC with Diff Reviewed. pc 02:36 -Arterial Blood Gas Reviewed. pc 02:36 BNP Ordered. EDMS 02:36 Test interpretation: EKG. pc 02:42 Basic Metabolic Profile Reviewed. pc 02:47 Financial registration complete. hs2 02:47 [facility] Payment Agreement was scanned into [employer] and attached to record. hs2 03:25 Data reviewed: old medical records, vital signs, nurses notes, EKG(s), lab test pc results, all radiology studies and available results. Test interpretation: LAB - all labs as ordered have been reviewed, interpreted and considered in the overall management of the clinical presentation; X-RAY - interpreted by me, 2 view chest, chronic obstructive pulmonary disease pattern, nad. 03:26 -Influenza A&B Rapid Antigen - Nose Reviewed. pc 03:26 BNP Reviewed. pc 03:26 Chest, 2 View (pa\E\lat) Reviewed. pc 03:26 Misc. Nursing Order ordered. pc 03:47 Ambulate Patient [facility] Pulse Oximetry ordered. pc 04:20 The patient has been re-examined and re-evaluated. The patient's symptoms have markedly pc improved after treatment, with his PO remaining at 90-92% on room air and not being affected by ambulation. Disposition: The historical points, examination findings, and any diagnostic results supporting the provided diagnosis, were discussed with the patient or legal guardian. The need for outpatient follow up with the provider listed on their discharge instructions was discussed. They were encouraged to return to [facility], or the nearest ED, if symptoms worsen/persist, or for any other questions/concerns. 04:21 azithromycin 500 mg PO once ordered. pc EC:36 Rate is 106 beats/min. Rhythm is regular, Sinus tachycardia. QRS [place] is Normal. [place] pc interval is normal. QRS interval is normal. QT interval is normal. No Q waves. T waves are Normal. No ST changes noted. Clinical impression: Sinus tachycardia. Administered Medications: 04:35 Drug: azithromycin 500 mg [azithromycin 250 mg tablet (2 tabs)] Route: PO; tm5 04:35 Follow up: Response: Pt left department before re-evaluation is appropriate tm5 Signatures: Dispatcher [employer] EDMI Ramon Gardner MD MD pc Bancroft, Kristopher FURNITURE FINISHER FURNITURE FINISHER kb5 Astrid Oconnor, Reg Reg hs2 Anna Corado,RN RN tm5 The chart was reviewed and I authenticate all verbal orders and agree with the evaluation and treatment provided.Attachments: 02:47 [facility] Payment Agreement hs2 Chart Complete MTDD
== END 2016-04-06 04:37 | disposition home or self-care (01) ==
LOC: M ED 01:12
DX: J44.1 Chronic obstructive pulmonary disease with (acute) exacerbation (principal); F41.9 Anxiety disorder, unspecified; F32.9 Major depressive disorder, single episode, unspecified; Z79.899 Other long term (current) drug therapy; F17.210 Nicotine dependence, cigarettes, uncomplicated

== ENCOUNTER 2016-05-05 01:11 | Emergency (ER) | payer OTHER ==
[~2016-05-05] VITALS: Ht 165.1 cm; Wt 77.1 kg
[2016-05-05] MEDS ORDERED: IPRATROPIUM 0.5MG/ALBUTEROL 2.5MG INH SOL UD 3ML (DUONEB)(J7620) As Ordered ONE ×2 (01:26→02:07)
[2016-05-05] MEDS ORDERED: IPRATROPIUM 0.5MG/ALBUTEROL 2.5MG INH SOL UD 3ML (DUONEB)(J7620) NEB ONE ×3 (03:00→03:15)
[2016-05-05 03:07] LABS: BASO % 0.3 % (0.0-1.0); EOS # 0.2 K/mm3 (0.0-0.50); EOS % 1.3 % (0.0-3.0); LARGE UNSTAINED CELL # 0.2 K/mm3 (0.0-0.4); LARGE UNSTAINED CELL % 1.6 % (0.0-4.0); LYMPH # 1.3 K/mm3 (1.5-4.5); LYMPH % 11.7 % (24.0-44.0); MEAN CORPUSCULAR HEMOGLOBIN 31.5 pg (27.0-33.0); MEAN CORPUSCULAR HGB CONC 33.2 g/dl (32.0-36.5); MEAN CORPUSCULAR VOLUME 94.9 fl (80.0-96.0); MONO # 0.3 K/mm3 (0.0-0.8); MONO % 2.3 % (0.0-5.0); NEUTROPHILS # 9.5 K/mm3 (1.8-7.7); NEUTROPHILS % 82.7 % (36.0-66.0); PLATELET COUNT, AUTOMATED 177 k/mm3 (150-450); RED CELL DISTRIBUTION WIDTH 12.9 % (11.5-14.5); WHITE BLOOD COUNT 11.4 K/mm3 (4.0-10.0)
[2016-05-05 03:32] LABS: ANION GAP 13 MEQ/L (8-16); BLOOD UREA NITROGEN 8 MG/DL (7-18); CALCIUM LEVEL 7.5 MG/DL (8.5-10.1); CARBON DIOXIDE LEVEL 25 MEQ/L (21-32); CHLORIDE LEVEL 106 MEQ/L (98-107); CREATININE FOR GFR 0.68 MG/DL (0.70-1.30); GLOMERULAR FILTRATION RATE > 60.0 (>56); GLUCOSE, FASTING 96 MG/DL (70-105); SODIUM LEVEL 144 MEQ/L (136-145)
[2016-05-05] MEDS ORDERED: DOXY100C37 PO (05:55)
[2016-05-05] MEDS ORDERED: ALBU83IN INH (06:25)
--- NOTE | 2016-05-05 06:26 | REP ---
Clinical: Chest pain . Comparison: 04/06/2016 . Findings: The mediastinum and cardiac silhouette are stable and within normal limits for portable technique. The lung giang are clear without acute consolidation, effusion, or pneumothorax. Skeletal structures are intact. Impression: Normal portable chest x-ray Signed by Kiran Witt MD 05/05/2016 06:17 A
[2016-05-05 06:31] VITALS: BP 144/82
--- NOTE | 2016-05-06 08:58 | ECGEPIP ---
Stationary ECG Study [facility] - ED Test Date: 2016-05-05 Pat Name: STACEY BOYCE Department: Room: - Gender: M Line Therapist: soco : 1965 Requested By: TYESHA Brandt Order Number: [id number] Reading MD: Mary Mera Measurements Intervals [place] Rate: 100 P: 67 [place]: 121 QRS: -13 QRSD: 92 T: 69 QT: 352 QTc: 456 Interpretive Statements SINUS TACHYCARDIA ABNORMAL RHYTHM ECG NSTTW ABNORMALITY SIMILAR 04/06/16 Electronically Signed On 05-06-2016 8:57:48 EST by Mary Mera
== END 2016-05-05 06:32 | disposition home or self-care (01) ==
LOC: EDBD 01:11 → M ED 02:56
DX: J44.1 Chronic obstructive pulmonary disease with (acute) exacerbation (principal); F17.200 Nicotine dependence, unspecified, uncomplicated; Z79.899 Other long term (current) drug therapy

== ENCOUNTER 2017-01-07 19:01 | Emergency (ER) | payer MEDICAID, OTHER ==
[~2017-01-07] VITALS: Ht 165.1 cm; Wt 86.4 kg
[~2017-01-07 19:01] MED LIST changes: +DOXY100C37 PO; -FOLI1TAB2 PO; +FOLI1TAB4 PO
[2017-01-07] MEDS ORDERED: ANOR1AER IN (19:09)
[2017-01-07] MEDS ORDERED: methylPREDNISolone INJ 125 MG/2 ML VIAL (J2930) IV ONE (19:30)
[2017-01-07] MEDS ORDERED: IPRATROPIUM 0.5MG/ALBUTEROL 2.5MG INH SOL UD 3ML (DUONEB)(J7620) NEB PRN (19:30)
[2017-01-07] MEDS ORDERED: NS 1,000 ML IV ONE (19:30)
[2017-01-07 19:32] LABS: VENOUS BASE EXCESS 0.4 (-2.0-2.0); VENOUS O2 SATURATION 78.4 % (60.0-80.0); VENOUS PARTIAL PRESSURE CO2 58.1 mmHg (38.0-50.0); VENOUS PARTIAL PRESSURE O2 43.5 mmHg (30.0-50.0); VENOUS STANDARD HCO3 24.3 MEQ/L; VENOUS TOTAL CO2 30.2 MEQ/L (24.0-28.0)
[2017-01-07 19:35] LABS: BASO # 0.1 10^3/uL (0.0-0.2); BASO % 0.8 % (0.0-1.0); EOS # 0.3 10^3/uL (0.0-0.50); EOS % 2.7 % (0.0-3.0); IMMATURE GRANULOCYTE % 0.5 % (0-0); LYMPH # 3.6 10^3/uL (1.5-4.5); LYMPH % 38.5 % (24.0-44.0); MEAN CORPUSCULAR HEMOGLOBIN 32.2 pg (27.0-33.0); MEAN CORPUSCULAR HGB CONC 34.1 g/dl (32.0-36.5); MEAN CORPUSCULAR VOLUME 94.5 fl (80.0-96.0); MONO # 0.8 10^3/uL (0.0-0.8); MONO % 8.6 % (0.0-5.0); NEUTROPHILS # 4.5 10^3/uL (1.8-7.7); NEUTROPHILS % 48.9 % (36.0-66.0); PLATELET COUNT, AUTOMATED 218 10^3/uL (150-450); RED CELL DISTRIBUTION WIDTH 13.1 % (11.5-14.5); WHITE BLOOD COUNT 9.2 10^3/uL (4.0-10.0)
[2017-01-07 19:50] LABS: INR 0.82
[2017-01-07 19:59] LABS: ALBUMIN 3.8 GM/DL (3.2-5.2); ALBUMIN/GLOBULIN RATIO 1.36 (1.00-1.93); ALKALINE PHOSPHATASE 90 U/L (45-117); ALT/SGPT 41 U/L (12-78); ANION GAP 8 MEQ/L (8-16); AST/SGOT 25 U/L (7-37); BILIRUBIN,DIRECT < 0.1 MG/DL (0.0-0.2); BILIRUBIN,TOTAL 0.2 MG/DL (0.2-1.0); BLOOD UREA NITROGEN 9 MG/DL (7-18); CALCIUM LEVEL 8.6 MG/DL (8.5-10.1); CARBON DIOXIDE LEVEL 28 MEQ/L (21-32); CHLORIDE LEVEL 102 MEQ/L (98-107); CREATININE FOR GFR 1.32 MG/DL (0.70-1.30); GLOMERULAR FILTRATION RATE > 60.0 (>56); GLUCOSE, FASTING 88 MG/DL (70-105); POTASSIUM SERUM 4.3 MEQ/L (3.5-5.1); SODIUM LEVEL 138 MEQ/L (136-145); TOTAL PROTEIN 6.6 GM/DL (6.4-8.2)
[2017-01-07 20:09] VITALS: BP 115/59
--- NOTE | 2017-01-08 05:56 | ECGEPIP ---
Stationary ECG Study [facility] - ED Test Date: 2017-01-07 Pat Name: STACEY BOYCE Department: Room: - Gender: M Strap Sewer: AF : 1965 Requested By: ASUNCION FULLER Order Number: [id number] Reading MD: Ramon Gardner Measurements Intervals [place] Rate: 97 P: 63 [place]: 128 QRS: -8 QRSD: 86 T: 70 QT: 344 QTc: 437 Interpretive Statements SINUS RHYTHM NSTTW ABNORMALITIES SIMILAR TO 05/05/16 Electronically Signed On 01-08-2017 5:56:03 EST by Ramon Gardner
--- NOTE | 2017-01-08 08:33 | REP ---
Clinical: Dyspnea and cough. Comparison: 05/05/2016. Findings: Mediastinum and cardiac silhouette are within normal limits and stable. No focal consolidation, effusion, or pneumothorax. Trace basilar scarring is again suggested. Impression: No obvious acute cardiopulmonary process. Signed by Kiran Witt MD 01/08/2017 08:24 A
== END 2017-01-07 20:27 | disposition home or self-care (01) ==
LOC: EDBD 19:01 → M ED 19:01
DX: J00 Acute nasopharyngitis [common cold] (principal); F10.129 Alcohol abuse with intoxication, unspecified; I10 Essential (primary) hypertension; J44.9 Chronic obstructive pulmonary disease, unspecified; F17.210 Nicotine dependence, cigarettes, uncomplicated; F33.9 Major depressive disorder, recurrent, unspecified; Z79.899 Other long term (current) drug therapy; Z82.49 Family history of ischemic heart disease and other diseases of the circulatory system
CPT/HCPCS: 71010; 80048; 80076; 80320; 82803; 85025; 85610; 87040; 93000; 93041; 96374; 99285; J2930

== ENCOUNTER → 2017-06-25 | Outpatient (CLI) | payer OTHER | LOC: M LRY 12:56 | DX: R06.02 Shortness of breath (principal) | CPT/HCPCS: 71046 ==

== ENCOUNTER 2017-07-20 20:06 | Emergency (ER) | payer OTHER ==
[2017-07-20 21:01] LABS: BASO % 0.4 % (0.0-1.0); EOS # 0.2 10^3/uL (0.0-0.50); EOS % 2.3 % (0.0-3.0); HEMATOCRIT 45.7 % (42.0-52.0); HEMOGLOBIN 15.6 g/dl (13.5-17.5); IMMATURE GRANULOCYTE % 0.5 % (0-3.0); LYMPH # 2.1 10^3/uL (1.5-4.5); LYMPH % 21.6 % (24.0-44.0); MEAN CORPUSCULAR HEMOGLOBIN 31.5 pg (27.0-33.0); MEAN CORPUSCULAR HGB CONC 34.1 g/dl (32.0-36.5); MEAN CORPUSCULAR VOLUME 92.1 fl (80.0-96.0); MONO # 0.8 10^3/uL (0.0-0.8); MONO % 8.2 % (0.0-5.0); NEUTROPHILS # 6.5 10^3/uL (1.8-7.7); PLATELET COUNT, AUTOMATED 150 10^3/uL (150-450); RED BLOOD COUNT 4.96 10^6/uL (4.30-6.10); RED CELL DISTRIBUTION WIDTH 13.2 % (11.5-14.5); WHITE BLOOD COUNT 9.7 10^3/uL (4.0-10.0)
[2017-07-20] MEDS: dexameTHASONE 20 MG/5 ML VIAL (J1100) IV (21:15)
[2017-07-20 21:27] LABS: ANION GAP 7 MEQ/L (8-16); BLOOD UREA NITROGEN 10 MG/DL (7-18); CALCIUM LEVEL 8.4 MG/DL (8.5-10.1); CARBON DIOXIDE LEVEL 28 MEQ/L (21-32); CHLORIDE LEVEL 100 MEQ/L (98-107); CK-MB VALUE MASS 1.4 NG/ML (<3.6); CPK CREATINE PHOSPHOKINASE 78 U/L (39-308); CREATININE FOR GFR 0.83 MG/DL (0.70-1.30); GLOMERULAR FILTRATION RATE > 60.0 (>56); GLUCOSE, FASTING 127 MG/DL (70-100); MB/CK RELATIVE INDEX 1.79 (< OR =4); POTASSIUM SERUM 3.5 MEQ/L (3.5-5.1); SODIUM LEVEL 135 MEQ/L (136-145); TROPONIN I < 0.02 NG/ML (< 0.10)
[2017-07-20] MEDS: IPRATROPIUM 0.5MG/ALBUTEROL 2.5MG INH SOL UD 3ML (DUONEB)(J7620) NEB (22:03)
== END 2017-07-20 23:33 | disposition home or self-care (01) ==
LOC: M ED 20:06
DX: J44.1 Chronic obstructive pulmonary disease with (acute) exacerbation (principal); F32.9 Major depressive disorder, single episode, unspecified; Z72.0 Tobacco use
CPT/HCPCS: J1100

== ENCOUNTER → 2017-11-07 | Outpatient (CLI) | payer OTHER ==
[2017-11-07 14:19] LABS: BASO % 0.3 % (0.0-1.0); EOS # 0.2 10^3/uL (0.0-0.50); EOS % 1.6 % (0.0-3.0); HEMATOCRIT 50.3 % (42.0-52.0); HEMOGLOBIN 16.2 g/dl (13.5-17.5); IMMATURE GRANULOCYTE % 0.5 % (0-3.0); LYMPH # 2.3 10^3/uL (1.5-4.5); LYMPH % 25.1 % (24.0-44.0); MEAN CORPUSCULAR HEMOGLOBIN 30.1 pg (27.0-33.0); MEAN CORPUSCULAR HGB CONC 32.2 g/dl (32.0-36.5); MEAN CORPUSCULAR VOLUME 93.3 fl (80.0-96.0); MONO # 0.6 10^3/uL (0.0-0.8); MONO % 6.1 % (0.0-5.0); NEUTROPHILS # 6.1 10^3/uL (1.8-7.7); NEUTROPHILS % 66.4 % (36.0-66.0); PLATELET COUNT, AUTOMATED 222 10^3/uL (150-450); RED BLOOD COUNT 5.39 10^6/uL (4.30-6.10); RED CELL DISTRIBUTION WIDTH 12.6 % (11.5-14.5); WHITE BLOOD COUNT 9.2 10^3/uL (4.0-10.0)
[2017-11-07 14:22] LABS: APPEARANCE, URINE CLEAR (CLEAR); BACTERIA, URINE AUTO NEGATIVE (NEGATIVE); BILIRUBIN, URINE AUTO NEGATIVE (NEGATIVE); BLOOD, URINE BLOOD NEGATIVE (NEGATIVE); COLOR, URINE YELLOW (YELLOW); GLUCOSE, URINE (UA) AUTO NEGATIVE (NEGATIVE); KETONE, URINE AUTO NEGATIVE (NEGATIVE); LEUKOCYTE ESTERASE, URINE AUTO NEGATIVE (NEGATIVE); MUCUS, URINE SMALL (NEGATIVE); NITRITE, URINE AUTO NEGATIVE (NEGATIVE); PROTEIN, URINE AUTO NEGATIVE (NEGATIVE); RBC, URINE AUTO 2 /HPF (0-3); SQUAMOUS EPITHELIAL CELL UR AU 0 /HPF (0-6); UROBILINOGEN, URINE AUTO 0.2 mg/dL (0.0-2.0); WBC, URINE AUTO 1 /HPF (0-3)
[2017-11-07 15:23] LABS: ALBUMIN 4.2 GM/DL (3.2-5.2); ALBUMIN/GLOBULIN RATIO 1.56 (1.00-1.93); ALKALINE PHOSPHATASE 79 U/L (45-117); ALT/SGPT 18 U/L (12-78); ANION GAP 9 MEQ/L (8-16); AST/SGOT 12 U/L (7-37); BILIRUBIN,TOTAL 0.3 MG/DL (0.2-1.0); BLOOD UREA NITROGEN 11 MG/DL (7-18); CALCIUM LEVEL 9.7 MG/DL (8.5-10.1); CARBON DIOXIDE LEVEL 25 MEQ/L (21-32); CHLORIDE LEVEL 107 MEQ/L (98-107); CREATININE FOR GFR 0.84 MG/DL (0.70-1.30); GLOMERULAR FILTRATION RATE > 60.0 (>56); GLUCOSE, FASTING 85 MG/DL (70-100); HEPATITIS B SURFACE ANTIBODY NEGATIVE (POSITIVE); POTASSIUM SERUM 4.5 MEQ/L (3.5-5.1); SODIUM LEVEL 141 MEQ/L (136-145); TOTAL PROTEIN 6.9 GM/DL (6.4-8.2)
[2017-11-07 16:38] LABS: HEPATITIS B SURFACE ANTIGEN NEGATIVE (NEGATIVE)
[2017-11-12 14:17] LABS: ALPHA 2-MACROGLOBULIN 123 mg/dL (110-276); ALT 12 IU/L (0-55); APOLIPOPROTEIN A-1 112 mg/dL (101-178); FIBROSIS SCORE 0.07 (0.00-0.21); GGT 23 IU/L (0-65); HAPTOGLOBIN 260 mg/dL (34-200); HEPATITIS A IgG TOTAL Negative (Negative); HEPATITIS C QUANTITATION HCV Not Detected IU/mL (.); NECROINFLAM SCORE 0.02 (0.00-0.17); NECROINFLAMM GRADE A0-No activity (.); TOTAL BILIRUBIN 0.3 mg/dL (0.0-1.2)
== END ==
LOC: M LAB 13:17
DX: R53.83 Other fatigue (principal); I10 Essential (primary) hypertension; B18.2 Chronic viral hepatitis C; B16.9 Acute hepatitis B without delta-agent and without hepatic coma; B15.9 Hepatitis A without hepatic coma
CPT/HCPCS: 84460

== ENCOUNTER 2017-11-24 19:45 | Emergency (ER) | payer OTHER ==
[2017-11-24] MEDS: IPRATROPIUM 0.5MG/ALBUTEROL 2.5MG INH SOL UD 3ML (DUONEB)(J7620) NEB (20:29)
== END 2017-11-24 20:39 | disposition home or self-care (01) ==
LOC: M ED 19:45
DX: J45.901 Unspecified asthma with (acute) exacerbation (principal); J20.9 Acute bronchitis, unspecified; J06.9 Acute upper respiratory infection, unspecified; J44.9 Chronic obstructive pulmonary disease, unspecified; F32.9 Major depressive disorder, single episode, unspecified; Z72.0 Tobacco use; Z79.899 Other long term (current) drug therapy
CPT/HCPCS: 71046

== ENCOUNTER 2018-05-22 19:45 | Emergency (ER) | payer OTHER ==
[~2018-05-22] VITALS: Ht 165.1 cm; Wt 90.0 kg
[~2018-05-22 19:45] MED LIST changes: -/ADVA50050 IN; +ACAM0.05; +ADVA1AER2 IN; +ANOR1AER IN; +CEFUROXIME; +FLON1SPR NARES; +FOLI1TAB11 PO; -FOLI1TAB4 PO; +MUCI600T31 PO; +NICO21DI3 TD; -NICO21PAT TD; +VITA100T89 PO; -VITA100T92 PO
[2018-05-22] MEDS ORDERED: IPRATROPIUM 0.5MG/ALBUTEROL 2.5MG INH SOL UD 3ML (DUONEB)(J7620) NEB ONE (20:45)
[2018-05-22 21:09] LABS: VENOUS BASE EXCESS -1.6 (-2.0-2.0); VENOUS HCO3 25.4 MEQ/L (23.0-27.0); VENOUS O2 SATURATION 77.5 % (60.0-80.0); VENOUS PARTIAL PRESSURE CO2 50.3 mmHg (38.0-50.0); VENOUS PARTIAL PRESSURE O2 43.7 mmHg (30.0-50.0); VENOUS PH 7.321 UNITS (7.330-7.430); VENOUS STANDARD HCO3 22.6 MEQ/L; VENOUS TOTAL CO2 26.9 MEQ/L (24.0-28.0)
[2018-05-22 21:10] LABS: BASO # 0.1 10^3/uL (0.0-0.2); BASO % 0.9 % (0.0-1.0); EOS # 0.2 10^3/uL (0.0-0.50); HEMOGLOBIN 17.5 g/dl (13.5-17.5); LYMPH # 1.4 10^3/uL (1.5-4.5); LYMPH % 15.4 % (24.0-44.0); MEAN CORPUSCULAR HEMOGLOBIN 30.3 pg (27.0-33.0); MEAN CORPUSCULAR VOLUME 91.9 fl (80.0-96.0); MONO # 0.4 10^3/uL (0.0-0.8); MONO % 4.6 % (0.0-5.0); NEUTROPHILS % 76.1 % (36.0-66.0); PLATELET COUNT, AUTOMATED 198 10^3/uL (150-450); RED BLOOD COUNT 5.77 10^6/uL (4.30-6.10); WHITE BLOOD COUNT 9.2 10^3/uL (4.0-10.0)
--- NOTE | 2018-05-22 21:29 | REP ---
Clinical: Cough and shortness of breath . Comparison: 11/24/2017 . Technique: PA and lateral. Findings: The mediastinum and cardiac silhouette are normal. The lung giang are clear and without acute consolidation, effusion, or pneumothorax. The skeletal structures are intact and normal. Impression: 1. No acute cardiopulmonary process. Electronically Signed by Kiran Witt MD 05/22/2018 09:20 P
[2018-05-22 21:39] LABS: INFLUENZA A AMPLIFICATION NEGATIVE (NEGATIVE); INFLUENZA B AMPLIFICATION NEGATIVE (NEGATIVE)
[2018-05-22 22:20] LABS: BLOOD UREA NITROGEN 8 MG/DL (7-18); CALCIUM LEVEL 8.4 MG/DL (8.5-10.1); CARBON DIOXIDE LEVEL 27 MEQ/L (21-32); CHLORIDE LEVEL 104 MEQ/L (98-107); GLOMERULAR FILTRATION RATE > 60.0 (>56); GLUCOSE, FASTING 101 MG/DL (70-100); POTASSIUM SERUM 4.8 MEQ/L (3.5-5.1); SODIUM LEVEL 138 MEQ/L (136-145)
[2018-05-22 22:43] VITALS: BP 145/87
[2018-05-22] MEDS ORDERED: ALBUTEROL 90 MCG/ACT 8GM HFA INHALER INH ONE (23:15)
[2018-05-22] MEDS ORDERED: PRED20TA PO (23:20)
--- NOTE | 2018-05-23 10:24 | ECGEPIP ---
Stationary ECG Study [facility] - ED Test Date: 2018-05-22 Pat Name: STACEY BOYCE Department: Room: - Gender: M Powertrain Control Systems Engineer: JOCELIN : 1965 Requested By: TONY Yoder Order Number: [id number] Reading MD: Mary Mera Measurements Intervals [place] Rate: 78 P: 68 [place]: 157 QRS: -17 QRSD: 87 T: 69 QT: 382 QTc: 436 Interpretive Statements SINUS RHYTHM DECREASED RATE 07/20/17 Electronically Signed On 05-23-2018 10:24:22 EDT by Mary Mera
== END 2018-05-22 23:35 | disposition home or self-care (01) ==
LOC: M ED 19:45 → EDBD 19:45 → M ED 23:35
DX: J20.9 Acute bronchitis, unspecified (principal); J98.4 Other disorders of lung; Z79.51 Long term (current) use of inhaled steroids; F17.210 Nicotine dependence, cigarettes, uncomplicated

== ENCOUNTER 2018-08-29 18:18 | Emergency (ER) | payer OTHER ==
--- NOTE | 2018-08-29 18:43 | REP ---
Clinical: Cough and dyspnea . Comparison: 05/22/2018, 11/24/2017 . Findings: The mediastinum and cardiac silhouette are stable and within normal limits for portable technique. Minimal linear scarring at the left base. The lung giang are clear without acute consolidation, effusion, or pneumothorax. Skeletal structures are intact. Impression: No acute cardiopulmonary process appreciated. Electronically Signed by Kiran Witt MD 08/29/2018 06:34 P
[2018-08-29] MEDS ORDERED: methylPREDNISolone INJ 125 MG/2 ML VIAL (J2930) IV ONE (18:45)
[2018-08-29 18:46] LABS: VENOUS BASE EXCESS -4.8 (-2.0-2.0); VENOUS HCO3 20.9 MEQ/L (23.0-27.0); VENOUS O2 SATURATION 91.5 % (60.0-80.0); VENOUS PARTIAL PRESSURE CO2 41.1 mmHg (38.0-50.0); VENOUS PARTIAL PRESSURE O2 64.4 mmHg (30.0-50.0); VENOUS PH 7.324 UNITS (7.330-7.430); VENOUS STANDARD HCO3 20.4 MEQ/L; VENOUS TOTAL CO2 22.2 MEQ/L (24.0-28.0)
[2018-08-29] MEDS: IPRATROPIUM 0.5MG/ALBUTEROL 2.5MG INH SOL UD 3ML (DUONEB)(J7620) NEB PRN ×3 (18:50→19:37)
[2018-08-29 18:51] LABS: BASO # 0.1 10^3/uL (0.0-0.2); BASO % 0.5 % (0.0-1.0); EOS # 0.2 10^3/uL (0.0-0.50); EOS % 1.6 % (0.0-3.0); HEMATOCRIT 49.4 % (42.0-52.0); LYMPH % 30.7 % (24.0-44.0); MEAN CORPUSCULAR HEMOGLOBIN 31.2 pg (27.0-33.0); MEAN CORPUSCULAR HGB CONC 34.4 g/dl (32.0-36.5); MEAN CORPUSCULAR VOLUME 90.6 fl (80.0-96.0); MONO # 0.7 10^3/uL (0.0-0.8); MONO % 7.5 % (0.0-5.0); NEUTROPHILS # 5.8 10^3/uL (1.8-7.7); NEUTROPHILS % 59.2 % (36.0-66.0); PLATELET COUNT, AUTOMATED 177 10^3/uL (150-450); RED BLOOD COUNT 5.45 10^6/uL (4.30-6.10); WHITE BLOOD COUNT 9.8 10^3/uL (4.0-10.0)
[2018-08-29 18:59] LABS: INR 0.89; PROTHROMBIN TIME 11.7 SECONDS (11.8-14.0)
[2018-08-29] MEDS ORDERED: ALBU83IN INH (18:59)
[2018-08-29] MEDS ORDERED: SERT-141 PO (18:59)
[2018-08-29 19:28] LABS: ALT/SGPT 61 U/L (12-78); BILIRUBIN,DIRECT 0.2 MG/DL (0.0-0.2); BILIRUBIN,TOTAL 0.5 MG/DL (0.2-1.0); BLOOD UREA NITROGEN 5 MG/DL (7-18); CALCIUM LEVEL 8.5 MG/DL (8.5-10.1); CARBON DIOXIDE LEVEL 22 MEQ/L (21-32); CHLORIDE LEVEL 99 MEQ/L (98-107); CK-MB VALUE MASS < 1.0 NG/ML (<3.6); CPK CREATINE PHOSPHOKINASE 88 U/L (39-308); CREATININE FOR GFR 0.74 MG/DL (0.70-1.30); GLOMERULAR FILTRATION RATE > 60.0 (>56); GLUCOSE, FASTING 78 MG/DL (70-100); MB/CK RELATIVE INDEX 1.14 (< OR =4); NT-PRO BNP 19 PG/ML (<125); POTASSIUM SERUM 4.2 MEQ/L (3.5-5.1); SODIUM LEVEL 133 MEQ/L (136-145); TROPONIN I < 0.02 NG/ML (< 0.10)
[2018-08-29] MEDS ORDERED: PRED10TA2 PO (20:14)
[2018-08-29 20:30] VITALS: BP 122/59
--- NOTE | 2018-08-30 17:25 | ECGEPIP ---
[facility] - ED Test Date: 2018-08-29 Pat Name: STACEY BOYCE Department: Room: - Gender: Male Bpm Developer: MARCIN : 1965 Requested By: Mary Mera Order Number: [id number] Reading MD: Mary Mera Measurements Intervals [place] Rate: 85 P: 55 [place]: 140 QRS: QRSD: 95 T: 61 QT: 373 QTc: 446 Interpretive Statements SINUS RHYTHM BORDERLINE LEFT AXIS DEVIATION SIMILAR 05/22/18 Electronically Signed on 08-30-2018 17:25:00 EDT by Mary Mera
== END 2018-08-29 20:50 | disposition home or self-care (01) ==
LOC: EDBD 18:18 → M ED 18:18
DX: J45.901 Unspecified asthma with (acute) exacerbation (principal); I10 Essential (primary) hypertension; J44.9 Chronic obstructive pulmonary disease, unspecified; Z72.0 Tobacco use; Z79.899 Other long term (current) drug therapy
CPT/HCPCS: 71045; 80048; 80076; 82550; 82553; 82803; 83605; 83880; 84443; 85025; 85610; 87040; 93005; 93041; 94640; 96374; 99285; J2930

== ENCOUNTER 2018-10-14 03:39 | Emergency (ER) | payer OTHER ==
[~2018-10-14] VITALS: Ht 165.1 cm; Wt 81.8 kg
[~2018-10-14 03:39] MED LIST changes: +PRED10TA2 PO; +SERT-141 PO
[2018-10-14 05:03] LABS: BASO # 0.1 10^3/uL (0.0-0.2); EOS # 0.1 10^3/uL (0.0-0.50); EOS % 1.9 % (0.0-3.0); HEMATOCRIT 50.9 % (42.0-52.0); LYMPH # 1.9 10^3/uL (1.5-4.5); LYMPH % 26.5 % (24.0-44.0); MEAN CORPUSCULAR HEMOGLOBIN 31.6 pg (27.0-33.0); MEAN CORPUSCULAR HGB CONC 33.4 g/dl (32.0-36.5); MEAN CORPUSCULAR VOLUME 94.6 fl (80.0-96.0); MONO # 0.8 10^3/uL (0.0-0.8); NEUTROPHILS # 4.3 10^3/uL (1.8-7.7); NEUTROPHILS % 58.9 % (36.0-66.0); PLATELET COUNT, AUTOMATED 195 10^3/uL (150-450); RED BLOOD COUNT 5.38 10^6/uL (4.30-6.10); WHITE BLOOD COUNT 7.3 10^3/uL (4.0-10.0)
[2018-10-14 05:07] LABS: VENOUS BASE EXCESS 1.1 (-2.0-2.0); VENOUS HCO3 27.3 MEQ/L (23.0-27.0); VENOUS O2 SATURATION 91.2 % (60.0-80.0); VENOUS PARTIAL PRESSURE CO2 48.6 mmHg (38.0-50.0); VENOUS PARTIAL PRESSURE O2 61.1 mmHg (30.0-50.0); VENOUS PH 7.368 UNITS (7.330-7.430); VENOUS STANDARD HCO3 25.3 MEQ/L; VENOUS TOTAL CO2 28.8 MEQ/L (24.0-28.0)
[2018-10-14] MEDS: IPRATROPIUM 0.5MG/ALBUTEROL 2.5MG INH SOL UD 3ML (DUONEB)(J7620) NEB PRN ×3 (05:30→06:10)
[2018-10-14 05:33] LABS: BLOOD UREA NITROGEN 8 MG/DL (7-18); CALCIUM LEVEL 9.1 MG/DL (8.5-10.1); CARBON DIOXIDE LEVEL 29 MEQ/L (21-32); CHLORIDE LEVEL 106 MEQ/L (98-107); CK-MB VALUE MASS < 1.0 NG/ML (<3.6); CPK CREATINE PHOSPHOKINASE 75 U/L (39-308); GLOMERULAR FILTRATION RATE > 60.0 (>56); GLUCOSE, FASTING 127 MG/DL (70-100); MB/CK RELATIVE INDEX 1.33 (< OR =4); POTASSIUM SERUM 4.7 MEQ/L (3.5-5.1); SODIUM LEVEL 140 MEQ/L (136-145); TROPONIN I < 0.02 NG/ML (< 0.10)
[2018-10-14 06:32] VITALS: BP 155/72
[2018-10-14] MEDS ORDERED: AZIT-12 PO (07:22)
[2018-10-14] MEDS ORDERED: PRED20TA PO (07:22)
--- NOTE | 2018-10-14 07:24 | REP ---
PA and lateral chest, 04:59 a.m.: Comparisons are 05/22/2018 and 11/24/2017. The lung giang are clear. The cardiac size is normal. The jeffrey, mediastinum, and skeletal structures are unremarkable. Impression: Negative PA and lateral chest. There are no interval changes. Electronically Signed by Gustavo Lemons MD 10/14/2018 07:16 A
[2018-10-14] MEDS ORDERED: AZITHROMYCIN 250 MG TAB PO ONE (07:30)
--- NOTE | 2018-10-15 10:14 | ECGEPIP ---
[facility] - ED Test Date: 2018-10-14 Pat Name: STACEY BOYCE Department: Room: - Gender: Male Construction Engineering Manager: RM : 1965 Requested By: TONY Yoder Order Number: [id number] Reading MD: Mary Mera Measurements Intervals [place] Rate: 98 P: 69 [place]: 154 QRS: -9 QRSD: 76 T: 58 QT: 327 QTc: 418 Interpretive Statements SINUS RHYTHM NSTTW abnormalities INCREASED RATE 08/29/18 Electronically Signed on 10-15-2018 10:14:07 EDT by Mary Mera
== END 2018-10-14 07:30 | disposition home or self-care (01) ==
LOC: M ED 03:39
DX: J44.1 Chronic obstructive pulmonary disease with (acute) exacerbation (principal); F17.210 Nicotine dependence, cigarettes, uncomplicated; Z79.51 Long term (current) use of inhaled steroids; Z79.899 Other long term (current) drug therapy

== ENCOUNTER 2019-06-30 04:27 | Emergency (ER) | payer MEDICAID, OTHER, SELFPAY ==
[~2019-06-30] VITALS: Ht 165.1 cm; Wt 84.1 kg
[~2019-06-30 04:27] MED LIST changes: +AZIT-12 PO; -DOXY100T16 PO; +DOXY100T27 PO
[2019-06-30] MEDS ORDERED: methylPREDNISolone INJ 125 MG/2 ML VIAL (J2930) As Ordered ONE (04:53)
[2019-06-30] MEDS ORDERED: methylPREDNISolone INJ 125 MG/2 ML VIAL (J2930) IV ONE (05:00)
[2019-06-30 05:01] LABS: BASO # 0.1 10^3/uL (0.0-0.2); EOS # 0.2 10^3/uL (0.0-0.5); EOS % 3.1 % (0.0-3.0); HEMATOCRIT 51.1 % (42.0-52.0); HEMOGLOBIN 16.7 g/dl (13.5-17.5); LYMPH # 1.6 10^3/uL (1.5-5.0); LYMPH % 26.5 % (24.0-44.0); MEAN CORPUSCULAR HEMOGLOBIN 30.9 pg (27.0-33.0); MEAN CORPUSCULAR HGB CONC 32.7 g/dl (32.0-36.5); MEAN CORPUSCULAR VOLUME 94.5 fl (80.0-96.0); MONO # 0.7 10^3/uL (0.0-0.8); MONO % 11.4 % (0.0-5.0); NEUTROPHILS # 3.5 10^3/uL (1.5-8.5); PLATELET COUNT, AUTOMATED 190 10^3/uL (150-450); RED BLOOD COUNT 5.41 10^6/uL (4.30-6.10); WHITE BLOOD COUNT 6.1 10^3/uL (4.0-10.0)
[2019-06-30 05:15] LABS: ALBUMIN 3.8 GM/DL (3.2-5.2); ALT/SGPT 32 U/L (12-78); BILIRUBIN,DIRECT < 0.1 MG/DL (0.0-0.2); BILIRUBIN,TOTAL 0.2 MG/DL (0.2-1.0); BLOOD UREA NITROGEN 9 MG/DL (7-18); CALCIUM LEVEL 8.6 MG/DL (8.5-10.1); CARBON DIOXIDE LEVEL 25 MEQ/L (21-32); CHLORIDE LEVEL 110 MEQ/L (98-107); CK-MB VALUE MASS 1.4 NG/ML (<3.6); CPK CREATINE PHOSPHOKINASE 109 U/L (39-308); CREATININE FOR GFR 0.72 MG/DL (0.70-1.30); GLOMERULAR FILTRATION RATE > 60.0 (>56); GLUCOSE, FASTING 104 MG/DL (70-100); MB/CK RELATIVE INDEX 1.28 (< OR =4); NT-PRO BNP 32 PG/ML (<125); POTASSIUM SERUM 4.8 MEQ/L (3.5-5.1); SODIUM LEVEL 143 MEQ/L (136-145); TOTAL PROTEIN 6.9 GM/DL (6.4-8.2); TROPONIN I < 0.02 NG/ML (< 0.10)
--- NOTE | 2019-06-30 05:35 | REP ---
Clinical: Cough and dyspnea . Comparison: 10/14/2018 . Findings: The mediastinum and cardiac silhouette are stable and within normal limits for portable technique. The lung giang are clear without acute consolidation, effusion, or pneumothorax. Incidental linear scarring at the left base remains stable. Skeletal structures are intact. Impression: No acute cardiopulmonary process appreciated. Electronically Signed by Kiran Witt MD 06/30/2019 05:27 A
[2019-06-30] MEDS ORDERED: PRED20TA PO (05:38)
[2019-06-30] MEDS ORDERED: SERT-141 PO (05:39)
[2019-06-30] MEDS ORDERED: ALBU83IN INH (05:39)
[2019-06-30] MEDS ORDERED: ALBUTEROL 90 MCG/ACT 8GM HFA INHALER INH ONE (05:45)
[2019-06-30 05:47] VITALS: BP 145/89
--- NOTE | 2019-06-30 08:09 | ECGEPIP ---
[facility] - ED Test Date: 2019-06-30 Pat Name: STACEY BOYCE Department: Room: - Gender: Male Net Lead Developer: GILMA : 1965 Requested By: TONY Yoder Order Number: [id number] Reading MD: Mary Mera Measurements Intervals [place] Rate: 85 P: 64 [place]: 142 QRS: 5 QRSD: 81 T: 60 QT: 350 QTc: 418 Interpretive Statements SINUS RHYTHM DECREASED RATE 10/14/18 Electronically Signed on 06-30-2019 8:09:07 EDT by Mary Mera
== END 2019-06-30 05:54 | disposition home or self-care (01) ==
LOC: M ED 04:27 → EDBD 04:27 → M ED 05:54
DX: J44.1 Chronic obstructive pulmonary disease with (acute) exacerbation (principal); F41.0 Panic disorder [episodic paroxysmal anxiety]; Z76.0 Encounter for issue of repeat prescription; F10.10 Alcohol abuse, uncomplicated; F17.210 Nicotine dependence, cigarettes, uncomplicated; Z79.899 Other long term (current) drug therapy
CPT/HCPCS: 36415; 71045; 80048; 80076; 82550; 82553; 83880; 84484; 85025; 93005; 93041; 94760; 99285; J2930

== ENCOUNTER 2020-03-17 00:06 | Emergency (ER) | payer MEDICAID, OTHER, SELFPAY ==
[~2020-03-17] VITALS: Ht 165.1 cm; Wt 90.9 kg
--- OUTSIDE RECORDS SUMMARY | 2020-03-17 00:12 | CCD ---
Continuity of Care Document (CCD) Created on: 01/26/2020 Gerald Han External Reference #: [id number] : [id number] Sex: Male Author Author Han HAMLIN Organization Unknown Address [address] [place] [address] [address] [place] [address] Phone [phone] Care Team Providers Care Raw Products Director Name Role Phone Klarissa Hamlin AUTM [phone] Tyson Gutierrez AUTM [phone] Problems Active Problems Provider Date Alcohol abuse, uncomplicated PRECIOUS Dunne, JON Onset: 08/06/2019 Anxiety state PRECIOUS Dunne PNP Onset: 0 Chronic obstructive lung disease PRECIOUS Dunne PNP Ons et: 08/06/2019 Pure hyperglyceridemia PRECIOUS Dunne PNP Onset: 2019 Social History Type Date Description Comments Sex Unknown Tobacco Use Start: Unknown Current Cigarette Smoker 1 Pack Daily Tobacco Use Start: Unknown Never Smoked Cigars Tobacco Use Start: Unknown Never Smoked A Pipe Tobacco Use Start: Unknown Never Used Smokeless Tobacco ETOH Use Beers per day 12+ Tobacco Use Start: Unknown Patient is a current smoker, smo kes every day Recreational Drug Use Denies Drug Use Allergies, Adverse Reactions, Alerts Description No Known Drug Allergies Medications Active Medications SIG Qnty Indications Ordering Provide r Date Fluticasone Propionate/Salmeterol 113-14mcg/Act Aerosol 1 puff by mouth twice a day 1units Aminah Dunne PNP 01/26/2020 Furosemide 20mg Tablets 1 by mouth every day 30tabs PRECIOUS Dunne PNP 01/01/20 20 Oxygen 2 lpm via nasal cannula with exertion dx: j44.9, r09. 02 1units J44.9 PRECIOUS Dunne PNP 01/01/2020 R09.02 Albuterol Sulfate (2 .5mg/3ML) 0.083% Nebulizer 1 unit dose vial every 4-6 hours as needed for sob dx: j44.9 540 ml PRECIOUS Dunne, PNP Sertraline HCL 50mg Tablets 1 by mouth every day 90tabs PRECIOUS Dunne, PNP 00 Albuterol Sulfate HFA 108(90Base) mcg/Act Aerosol 2 puff every 4-6 hours as needed 8.500gm PRECIOUS Camarena, PNP History Medications Breztri Aerosphere 1 60-9-4.8mcg/Act Aerosol 1 puff twice a day PRECIOUS Dunne, PN P 01/01/2020 - 01/26/2020 Prednisone 10mg Tablets 3 tabs daily x 3 days, 2 tabs daily x 3 days, 1 tab daily x 3 days, 1/2 tab daily x 4 days For breathing 22tabs PRECIOUS Dunne, PNP 01/01/20 20 - 01/16/2020 Immunizations CPT Code Status Date Vaccine Lot # [id number] Given 01/01/2020 Influenza (>= 6 Months) P.F. Vaccine [id number] Vital Signs Date Vital Result Comment 01/26/2020 10:42am BP Systolic 130 mmHg BP Diastolic 72 mmHg Heart Rate 86 /min Body Temperature 98.2 F Respiratory Rate 18 /min O2 % BldC Oximetry 93 % Weight 211.25 lb Weight 95.823 kg Height 64 inches 5'4" BMI (Body Mass Index) 36.3 kg/m2 BSA (Body Surface Area) 2.00 m2 01/01/2020 1:15pm BP Systolic 124 mmHg BP Diastolic 62 mmHg Heart Rate 86 /min Body Temperature 98.4 F Respiratory Rate 18 /min O2 % BldC Oximetry 90 % Weight 210.00 lb Weight 95.256 kg Height 64 inches 5'4" BMI (Body Mass Index) 36.0 kg/m2 BSA (Body Surface Area) 2.00 m2 Results Test Acquired Date Facility Test Result H/L Range Note Laboratory test finding 01/26/2020 [facility] Hgba1c <pending> Laboratory test finding 01/26/2020 [facility] TSH Highly Sensitive <pending> Magnesium Serum <pending> Laboratory test finding 01/01/2020 [facility] Coronavirus Covid-19 Not Detected Not Detected 1 CBC W/Automated Diff [facility] W/Automated Diff (SEE NOTE) 2, 3 WBC 9.4 10^3/uL 4.2 - 11.0 RBC 5.97 10^6/uL 4.50 - 6.30 Hemoglobin 18.8 g/dL High 14.0 - 16.0 Hematocrit 56.2 % High 41.0 - 51.0 MCV 94.1 fL High 80.0 - 94.0 MCH 31.5 pg 27.0 - 34.0 MCHC 33.5 g/dL 31.0 - 36.0 RDW 14.1 % 11.5 - 14.8 Platelets 204 10^3/uL 150 - 450 MPV 10.7 fL High 7.4 - 10.4 Neut 73.5 % 37.0 - 80.0 Lymph 15.5 % Low 25.0 - 40.0 [place] 8.3 % High 3.0 - 8.0 Eos 1.2 % 0.0 - 7.0 Baso 1.0 % 0.0 - 2.0 %Ig 0.5 % High 0.0 - 0.0 %NRBC 0.0 % 0.0 - 0.0 #Neut 6.90 10^3/uL 2.00 - 6.90 #Lymph 1.46 10^3/uL 0.60 - 3.40 #[place] 0.78 10^3/uL 0.00 - 0.90 #Eos 0.11 10^3/uL 0.00 - 0.70 #Baso 0.09 10^3/uL 0.00 - 0.20 #Ig 0.05 10^3/uL 0.00 - 0.10 #NRBC 0.00 10^3/uL 0.00 - 0.00 Manual Diff NOT INDICATED RBC Morph NOT INDICATED Comprehensive Metabolic Panel 08/20/2019 [facility] Comprehensive Metabo (SEE NOTE) 4 Sodium 139 mEq/L 134 - 153 Potassium 4.9 mEq/L 3.6 - 5.0 Chloride 98 mEq/L 98 - 107 Co2 27 mEq/L 22 - 30 Glucose 83 mg/dL 65 - 110 BUN 8 mg/dL 7 - 21 Creatinine 0.9 mg/dL 0.7 - 1.5 BUN/Creat 9 8 - 27 Total Protein 6.8 g/dL 6.3 - 8.2 Albumin 4.8 g/dL 3.9 - 5.0 Globulin 2.0 GM/DL Low 2.4 - 3.2 A/G Ratio 2.4 High 0.8 - 2.0 Calcium 9.8 mg/dL 8.4 - 10.2 Total Bili <0.7 mg/dL 0.2 - 1.3 Alkaline Phos 110 U/L 38 - 126 Sgot/Ast 41 U/L High 5 - 40 SGPT/Alt 40 U/L 7 - 56 Anion Gap 14.0 mmol/L 8.0 - 16.0 Age 54 yrs Non-Aa GFR >60 mL/min Afr Amer GFR >60 mL/min 5 Laboratory test finding 08/20/2019 [facility] Hgba1c 5.5 % 4.4 - 6.1 6 TSH Highly Sensitive 0.37 uIU/mL Low 0.47 - 5.01 Cve Panel 08/20/2019 [facility] Cve Panel (SEE NOTE) 7 Cholesterol 195 mg/dL 131 - 200 Triglycerides 63 mg/dL 35 - 160 HDL 82 mg/dL 29 - 86 LDL 99 mg/dL 65 - 175 Risk Factor 2.4 Low 3.4 - 4.9 LDL/HDL 1.21 1.00 - 3.55 8 Laboratory test finding 08/20/2019 [facility] Magnesium Serum 2.3 mg/dL High 1.7 - 2.2 1 This nucleic acid amplificat ion test was developed and its performance characteristics determined by [facility]. Nucleic acid amplification tests include PCR and TMA. This test has not been FDA cleared or approved. This test has been authorized by FDA under an Emergency Use Authorization (EUA). This test is only authorized for the duration of time the declaration that circumstances exist justifying the authorization of the emergency use of in vitro diagnostic tests for detection of SARS-CoV-2 virus and/or diagnosis of COVID-19 infection under section 564(b)(1) of the Act, 21 U.S.C. 360bbb-3(b) (1), unless the authorizatio n is terminated or revoked sooner. When diagnostic testing is negative, the possibility of a false negative result should be considered in the context of a patient's recent exposures and the presence of clinical signs and symptoms consistent with COVID-19. An individual without symptoms of COVID-19 and who is not shedding SARS-CoV-2 virus would expect to have a negative (not detected) result in this assay. 2 Is patient fasting? N 3 COMPLETE BLOOD COUNT 4 COMPREHENSIVE METABOLIC PANE L 5 Male GFR Interprentation 20-49 yrs >60 mL/min Normal 50-59 yrs >56 mL/min Normal 60-69 yrs >49 mL/min Normal 70-79yrs >42 mL/min Normal 80 and above >35 mL/min Normal Female GFR Interpretation 20-39 yrs >60 mL/min Normal 40-49 yrs >58 mL/min Normal 50-59 yrs >51 mL/min Normal 60-69 yrs >45 mL/min Normal 70-79 yrs >39 mL/min Normal 80 and above >32 mL/min Normal 6 {A1] {HB] 7 LIPID PANEL 8 CVE RISK CHOL/HDL LDL/HDL MEN: 1/2 AVERAGE 3.43 1.00 AVERAGE 4.97 3.55 2X AVERAGE 9.55 6.25 3X AVERAGE 23.99 7.99 WOMEN: 1/2 AVERAGE 3.27 1.47 AVERAGE 4.44 3.22 2X AVERAGE 7.05 5.03 3X AVERAGE 11.04 6.14 Procedures Date Code Description Status 08/06/2019 16736 Admin Patient Focused Health Ris k Assessment Instrument Completed 08/06/2019 68167 Brief Emotional/Beha v Assessment W/ Scoring Doc Per Standard Inst Completed Medical Devices Description No Information Available Encounters Description No Information Available Assessments Date Code Description Provider 01/26/2020 R05 Cough VIANEY Dunne, PNP 01/26/2020 J44.9 Chronic obstructive pulmonary di sease, unspecified PRECIOUS Dunne, PNP 01/26/2020 E78.1 Pure hyperglyceridemia PRECIOUS Gee, PNP 01/26/2020 F41.9 Anxiety disorder, unspecified PRECIOUS Ramires, PNP 01/26/2020 F10.10 Alcohol abuse, uncomplicated PRECIOUS Barnhart, PNP 01/26/2020 Z79.899 Other halfway (current) drug t herapy PRECIOUS Dunne, PNP 01/01/2020 Z20.828 Contact with and (clark spected) exposure to other viral communicable diseases PRECIOUS Dunne, PNP 01/01/2020 J81.0 Acute pulmonary edema PRECIOUS Dunne, PNP 01/01/2020 R09.02 Hypoxemia VIANEY Dunne, PNP 01/01/2020 R06.2 Wheezing VIANEY Dunne, PNP 01/01/2020 J44.9 Chronic obstructive pulmonary di sease, unspecified PRECIOUS Dunne, PNP 01/01/2020 E78.1 Pure hyperglyceridemia VIANEY GeeBC, PNP 01/01/2020 F41.9 Anxiety disorder, unspecified Da PRECIOUS Turpin, PNP 01/01/2020 Z23 Encounter for immunization PRECIOUS Dunne, PNP 11/06/2019 E78.1 Pure hyperglyceridemia PRECIOUS Gee, PNP 11/06/2019 F41.9 Anxiety disorder, unspecified Da PRECIOUS Turpin, PNP 11/06/2019 J44.9 Chronic obstructive pulmonary di sease, unspecified PRECIOUS Dunne, PNP 11/06/2019 Z79.899 Other halfway (current) drug t herapy PRECIOUS Dunne, PNP 08/20/2019 Z00.01 Encounter for general adult medi josé miguel exam w abnormal findings [facility] 08/20/2019 F10.10 Alcohol abuse, uncomplicated [facility] 08/20/2019 Z79.899 Other halfway (current) drug t herapy [facility] 08/20/2019 E78.1 Pure hyperglyceridemia [facility] 08/06/2019 Z00.01 Encounter for genera l adult medical examination with abnormal findings PRECIOUS Dunne, PNP 08/06/2019 F10.10 Alcohol abuse, uncomplicated PRECIOUS Barnhart, PNP 08/06/2019 F41.9 Anxiety disorder, unspecified Da PRECIOUS Turpin, PNP 08/06/2019 J44.9 Chronic obstructive pulmonary di sease, unspecified PRECIOUS Dunne, PNP 08/06/2019 E78.1 Pure hyperglyceridemia PRECIOUS Gee, PNP 08/06/2019 Z79.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 * J44.9 Chronic obstructive pulmonary disease, unspecified* Comments:* Having issues with cough.Wheezing and shortness of breath better on meds.To continue O2 2LPM via nasal cannula with exertion.To stop Breztri and start fluticaso ne/Salmeterol 113-14 mcg/Act 1 puff PO BID.We will continue to monitor. * E78.1 Pure hyperglyceridemia* Comments:* He is due for his labs. Routine labs ordered.He was encouraged to maintain a low cholesterol diet and a regular exercise regimen.We will continue to monitor. * F41.9 Anxiety disorder, unspecified* Comments:* Anxiety symptoms well controlled on current meds. Functioning at baseline, continue current meds * F10.10 Alcohol abuse, uncomplicated * Z79.899 Other halfway (current) drug therapy Functional Status Description No Information Available Mental Status Description No Information Available Referrals Description No Information Available
--- OUTSIDE RECORDS SUMMARY | 2020-03-17 00:12 | CCD | Continuity of Care Document ---
Author Author Han HAMLIN Organization Unknown Address [address] [place] [address] [address] [place] [address] Phone [phone] Care Team Providers Care Agricultural Equipment Salesperson Name Role Phone Klarissa Hamlin AUTM [phone] Problems Active Problems Provider Date Alcohol abuse, uncomplicated PRECIOUS Dunne, PNP Onset: 08/06/2019 Anxiety state PRECIOUS Dunne PNP [...] SIG Qnty Indications Ordering Provide r Date Furosemide 20mg Tablets 1 by mouth every day 30tabs PRECIOUS Dunne PNP 01/01/20 20 Oxygen 2 lpm via nasal cannula with exertion dx: j44.9, r09. 02 1units J44.9 PRECIOUS Dunne PNP 01/01/2020 R09.02 Breztri Aerosphere 1 60-9-4.8mcg/Act Aerosol 1 puff twice a day PRECIOUS Dunne, PN P 01/01/2020 Prednisone 10mg Tablets 3 tabs daily x 3 days, 2 tabs daily x 3 days, 1 tab daily x 3 days, 1/2 tab daily x 4 days For breathing 22tabs PRECIOUS Dunne, PNP 01/01/20 20 Albuterol Sulfate (2 .5mg/3ML) 0.083% Nebulizer 1 unit dose vial every 4-6 hours as needed for sob dx: j44.9 540 ml PRECIOUS Dunne, PNP Sertraline HCL 50mg Tablets 1 by mouth every day 90tabs PRECIOUS Dunne, PNP 00 Albuterol Sulfate HFA 108(90Base) mcg/Act Aerosol 2 puff every 4-6 hours as needed 25.5gm Klarissa Chacko tt, PRECIOUS, PNP Immunizations CPT Code Status Date Vaccine Lot # [id number] Given 01/01/2020 Influenza (>= 6 Months) P.F. Vaccine [id number] Vital Signs Date Vital Result Comment 01/01/2020 1:15pm BP Systolic 124 mmHg BP Diastolic 62 mmHg Heart Rate 86 /min Body Temperature 98.4 F Respiratory Rate 18 /min O2 % BldC Oximetry 90 % Weight 210.00 lb Weight 95.256 kg Height 64 inches 5'4" BMI (Body Mass Index) 36.0 kg/m2 BSA (Body Surface Area) 2.00 m2 08/06/2019 1:34pm BP Systolic 122 mmHg BP Diastolic 72 mmHg Heart Rate 100 /min Body Temperature 97.1 F Respiratory Rate 18 /min O2 % BldC Oximetry 90 % Weight 203.38 lb Weight 92.251 kg Height 64 inches 5'4" BMI (Body Mass Index) 34.9 kg/m2 BSA (Body Surface Area) 1.97 m2 Results Test Acquired Date Facility Test Result H/L Range Note Laboratory test finding 01/01/2020 [facility] Coronavirus Covid-19 Not Detected Not Detected 1 CBC W/Automated Diff 08/20/2019 [facility] CBC W/Automated Diff (SEE NOTE) 2, 3 [...] Lymph 15.5 % Low 25.0 - 40.0 [place] 8.3 % High 3.0 - 8.0 Eos 1.2 % 0.0 - 7.0 Baso 1.0 % 0.0 - 2.0 %Ig 0.5 % High 0.0 - 0.0 %NRBC 0.0 % 0.0 - 0.0 #Neut 6.90 10^3/uL 2.00 - 6.90 #Lymph 1.46 10^3/uL 0.60 - 3.40 #[place] 0.78 10^3/uL 0.00 - 0.90 #Eos 0.11 10^3/uL 0.00 - 0.70 #Baso 0.09 10^3/uL 0.00 - 0.20 #Ig 0.05 10^3/uL 0.00 - 0.10 #NRBC 0.00 10^3/uL 0.00 - 0.00 Manual Diff NOT INDICATED RBC Morph NOT INDICATED Comprehensive Metabolic Panel 08/20/2019 [facility] Comprehensive Metabo (SEE NOTE) 4 Sodium [...] >60 mL/min 5 Laboratory test finding 08/20/2019 [facility] Hgba1c 5.5 % 4.4 - 6.1 6 TSH Highly Sensitive 0.37 uIU/mL Low 0.47 - 5.01 Cve Panel 08/20/2019 [facility] Cve Panel (SEE NOTE) 7 Cholesterol 195 mg/dL 131 - 200 Triglycerides 63 mg/dL 35 - 160 HDL 82 mg/dL 29 - 86 LDL 99 mg/dL 65 - 175 Risk Factor 2.4 Low 3.4 - 4.9 LDL/HDL 1.21 1.00 - 3.55 8 Laboratory test finding 08/20/2019 [facility] Magnesium Serum 2.3 mg/dL High 1.7 - 2.2 1 This nucleic acid amplificat ion test was developed and its performance characteristics determined by [facility]. Nucleic acid amplification tests include PCR and [...] 6.14 Procedures Date Code Description Status 08/06/2019 43694 Admin Patient Focused Health Ris k Assessment Instrument Completed 08/06/2019 85773 Brief Emotional/Beha v Assessment W/ Scoring Doc Per Standard Inst Completed Medical Devices Description No Information Available Encounters Description No Information Available Assessments Date Code Description Provider 01/01/2020 Z20.828 Contact with and (clark spected) exposure to other viral communicable diseases PRECIOUS Dunne, PNP 01/01/2020 J81.0 Acute pulmonary edema PRECIOUS Dunne, PNP 01/01/2020 R09.02 Hypoxemia VIANEY Dunne, PNP 01/01/2020 R06.2 Wheezing VIANEY Dunne, PNP 01/01/2020 J44.9 Chronic obstructive pulmonary di sease, unspecified PRECIOUS Dunne, PNP 01/01/2020 E78.1 Pure hyperglyceridemia PRECIOUS Gee, PNP 01/01/2020 F41.9 Anxiety disorder, unspecified Da PRECIOUS Turpin, PNP 01/01/2020 Z23 Encounter for immunization PRECIOUS Dunne, PNP 11/06/2019 E78.1 Pure hyperglyceridemia PRECIOUS Gee, PNP 11/06/2019 F41.9 Anxiety disorder, unspecified Da PRECIOUS Turpin, PNP 11/06/2019 J44.9 Chronic obstructive pulmonary di sease, unspecified PRECIOUS Dunne, PNP 11/06/2019 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 PRECIOUS Dunne, PNP 08/20/2019 Z00.01 Encounter for general adult medi josé miguel exam w abnormal findings [facility] 08/20/2019 F10.10 [facility] abuse, uncomplicated [facility] Z79.899 Other [facility] (current) drug t herapy [facility] 08/20/2019 E78.1 Pure hyperglyceridemia [facility] 08/06/2019 Z00.01 Encounter for genera l adult medical examination with abnormal findings PRECIOUS Dunne, PNP 08/06/2019 F10.10 Alcohol abuse, uncomplicated Rickie PRECIOUS Ordonez, PNP 08/06/2019 F41.9 Anxiety disorder, unspecified Da PRECIOUS Turpin, PNP 08/06/2019 J44.9 Chronic obstructive pulmonary di sease, unspecified PRECIOUS Dunne, PNP 08/06/2019 E78.1 Pure hyperglyceridemia PRECIOUS Gee, PNP 08/06/2019 Z79.899 Other [facility] (current) drug t herapy PRECIOUS Dunne, PNP Plan of Treatment 01/01/2020 - PRECIOUS Dunne, PNP* Z20.828 Contact with and (suspected) exposure to other viral communicable diseases* Comments:* He had the COVID-19 test done in the clinic to evaluate further.Further plans to follow the lab results.We will continue to monitor. * J81.0 Acute pulmonary edema* Comments:* To start Furosemide 20 mg 1 tab PO daily.To return/call with any worsening symptoms.We will continue to monitor. * R09.02 Hypoxemia* New Medication:* Oxygen - 2 lpm via nasal cannula with exertion dx: j44.9, r09.02 * Comments:* To continue current medication with addition of Brezti Aerosphere 160-9-4.8 mcg/Act 1 puff BID.To start O2 2LPM via nasal cannula with exertion.To start Prednisone 10 mg 3 tabs daily x3 days, 1 tab daily x3 days, tab daily x4 days.We will continue to monitor. * R06.2 Wheezing* Comments:* To continue current medication with addition of Brezti Aerosphere 160-9-4.8 mcg/Act 1 puff BID.To start O2 2LPM via nasal cannula with exertion.To start Prednisone 10 mg 3 tabs daily x3 days, 1 tab daily x3 days, tab daily x4 days.We will continue to monitor. * J44.9 Chronic obstructive pulmonary disease, unspecified* New Medication:* Oxygen - 2 lpm via nasal cannula with exertion dx: j44.9, r09.02 * Comments:* Having issues with having cough, wheezing, and shortness of breath.His O2 level was in the 90s last night.To start O2 2LPM via nasal cannula with exertion.To continue current medication.We will continue to monitor. * E78.1 Pure hyperglyceridemia* Comments:* He is due for his labs. Routine labs ordered.He was encouraged to maintain a low cholesterol diet and a regular exercise regimen.We will continue to monitor. * F41.9 Anxiety disorder, unspecified* Comments:* Anxiety symptoms well controlled on current meds. Functioning at baseline, continue current meds * Z23 Encounter for immunization* Comments:* Administered flu vaccination after reviewing the side-effects. Handouts provided. The patient tolerated well. Functional Status Description No Information Available Mental Status Description No Information Available Referrals Description No Information Available
--- OUTSIDE RECORDS SUMMARY | 2020-03-17 00:12 | CCD | Continuity of Care Document ---
Author Author Han HAMLIN Organization Unknown Address [address] [place] [address] [address] [place] [address] Phone [phone] Care Team Providers Care Headrig Sawyer Name Role Phone Klarissa Hamlin AUTM [phone] Tyson Gutierrez AUTM [phone] Problems Active Problems Provider Date Alcohol abuse, [...] CPT Code Status Date Vaccine Lot # [id number] Given 01/01/2020 Influenza (>= 6 Months) P.F. [...] Date Facility Test Result H/L Range Note CBC W/Automated Diff 01/26/2020 [facility] CBC W/Automated Diff (SEE NOTE) 1, 2 WBC 7.7 10^3/uL 4.2 - 11.0 RBC 5.70 10^6/uL 4.50 - 6.30 Hemoglobin 18.0 g/dL High 14.0 - 16.0 Hematocrit 52.7 % High 41.0 - 51.0 MCV 92.5 fL 80.0 - 94.0 MCH 31.6 pg 27.0 - 34.0 MCHC 34.2 g/dL 31.0 - 36.0 RDW 13.8 % 11.5 - 14.8 Platelets 187 10^3/uL 150 - 450 MPV 10.4 fL 7.4 - 10.4 Neut 64.6 % 37.0 - 80.0 Lymph 22.0 % Low 25.0 - 40.0 Wharton 10.0 % High 3.0 - 8.0 Eos 1.8 % 0.0 - 7.0 Baso 0.9 % 0.0 - 2.0 %Ig 0.7 % High 0.0 - 0.0 %NRBC 0.0 % 0.0 - 0.0 #Neut 4.97 10^3/uL 2.00 - 6.90 #Lymph 1.69 10^3/uL 0.60 - 3.40 #Wharton 0.77 10^3/uL 0.00 - 0.90 #Eos 0.14 10^3/uL 0.00 - 0.70 #Baso 0.07 10^3/uL 0.00 - 0.20 #Ig 0.05 10^3/uL 0.00 - 0.10 #NRBC 0.00 10^3/uL 0.00 - 0.00 Manual Diff NOT INDICATED RBC Morph NOT INDICATED Comprehensive Metabolic Panel 01/26/2020 [facility] Comprehensive Metabo (SEE NOTE) 3 Sodium 132 mEq/L Low 134 - 153 Potassium 4.3 mEq/L 3.6 - 5.0 Chloride 93 mEq/L Low 98 - 107 Co2 25 mEq/L 22 - 30 Glucose 68 mg/dL 65 - 110 BUN 8 mg/dL 7 - 21 Creatinine 0.7 mg/dL 0.7 - 1.5 BUN/Creat 11 8 - 27 Total Protein 6.7 g/dL 6.3 - 8.2 Albumin 4.7 g/dL 3.9 - 5.0 Globulin 2.0 GM/DL Low 2.4 - 3.2 A/G Ratio 2.4 High 0.8 - 2.0 Calcium 9.3 mg/dL 8.4 - 10.2 Total Bili <0.7 mg/dL 0.2 - 1.3 Alkaline Phos 91 U/L 38 - 126 Sgot/Ast 36 U/L 5 - 40 SGPT/Alt 33 U/L 7 - 56 Anion Gap 14.0 mmol/L 8.0 - 16.0 Age 54 yrs Non-Aa GFR >60 mL/min Afr Amer GFR >60 mL/min 4 Laboratory test finding 01/26/2020 [facility] Hgba1c 5.6 % 4.4 - 6.1 5 Cve Panel 01/26/2020 [facility] Cve Panel (SEE NOTE) 6 Cholesterol 244 mg/dL High 131 - 200 Triglycerides 109 mg/dL 35 - 160 HDL 78 mg/dL 29 - 86 LDL 148 mg/dL 65 - 175 Risk Factor 3.1 Low 3.4 - 4.9 LDL/HDL 1.90 1.00 - 3.55 7 Laboratory test finding 01/26/2020 [facility] TSH Highly Sensitive 0.68 uIU/mL 0.47 - 5.01 Magnesium Serum 2.3 mg/dL High 1.7 - 2.2 Laboratory test finding 01/01/2020 [facility] Coronavirus Covid-19 Not Detected Not Detected 8 CBC W/Automated Diff 08/20/2019 [facility] CBC W/Automated Diff (SEE NOTE) 9, 10 WBC 9.4 10^3/uL 4.2 - 11.0 RBC [...] Lymph 15.5 % Low 25.0 - 40.0 Wharton 8.3 % High 3.0 - 8.0 Eos 1.2 % 0.0 - 7.0 Baso 1.0 % 0.0 - 2.0 %Ig 0.5 % High 0.0 - 0.0 %NRBC 0.0 % 0.0 - 0.0 #Neut 6.90 10^3/uL 2.00 - 6.90 #Lymph 1.46 10^3/uL 0.60 - 3.40 #Wharton 0.78 10^3/uL 0.00 - 0.90 #Eos 0.11 10^3/uL 0.00 - 0.70 #Baso 0.09 10^3/uL 0.00 - 0.20 #Ig 0.05 10^3/uL 0.00 - 0.10 #NRBC 0.00 10^3/uL 0.00 - 0.00 Manual Diff NOT INDICATED RBC Morph NOT INDICATED Comprehensive Metabolic Panel 08/20/2019 [facility] Comprehensive Metabo (SEE NOTE) 11 Sodium 139 mEq/L 134 - 153 Potassium [...] >60 mL/min Afr Amer GFR >60 mL/min 12 Laboratory test finding 08/20/2019 [facility] l Hgba1c 5.5 % 4.4 - 6.1 13 TSH Highly Sensitive 0.37 uIU/mL Low 0.47 - 5.01 Cve Panel 08/20/2019 [facility] Cve Panel (SEE NOTE) 14 Cholesterol 195 mg/dL 131 - 200 Triglycerides 63 mg/dL 35 - 160 HDL 82 mg/dL 29 - 86 LDL 99 mg/dL 65 - 175 Risk Factor 2.4 Low 3.4 - 4.9 LDL/HDL 1.21 1.00 - 3.55 15 Laboratory test finding 08/20/2019 [facility] Magnesium Serum 2.3 mg/dL High 1.7 - 2.2 1 Is patient fasting? Y 2 COMPLETE BLOOD COUNT 3 COMPREHENSIVE METABOLIC PANE L 4 Male GFR Interprentation 20-49 yrs >60 mL/min Normal 50-59 yrs >56 mL/min Normal 60-69 yrs >49 mL/min Normal 70-79yrs >42 mL/min Normal 80 and above >35 mL/min Normal Female GFR Interpretation 20-39 yrs >60 mL/min Normal 40-49 yrs >58 mL/min Normal 50-59 yrs >51 mL/min Normal 60-69 yrs >45 mL/min Normal 70-79 yrs >39 mL/min Normal 80 and above >32 mL/min Normal 5 {A1] {HB] 6 LIPID PANEL 7 CVE RISK CHOL/HDL LDL/HDL MEN: 1/2 AVERAGE 3.43 1.00 AVERAGE 4.97 3.55 2X AVERAGE 9.55 6.25 3X AVERAGE 23.99 7.99 WOMEN: 1/2 AVERAGE 3.27 1.47 AVERAGE 4.44 3.22 2X AVERAGE 7.05 5.03 3X AVERAGE 11.04 6.14 8 This nucleic acid amplificat ion test was developed and its performance characteristics determined by [employer]. Nucleic acid amplification tests include PCR and [...] negative (not detected) result in this assay. 9 Is patient fasting? N 10 COMPLETE BLOOD COUNT 11 COMPREHENSIVE METABOLIC PANE L 12 Male GFR Interprentation 20-49 yrs >60 mL/min Normal 50-59 yrs >56 mL/min Normal 60-69 yrs >49 mL/min Normal 70-79yrs >42 mL/min Normal 80 and above >35 mL/min Normal Female GFR Interpretation 20-39 yrs >60 mL/min Normal 40-49 yrs >58 mL/min Normal 50-59 yrs >51 mL/min Normal 60-69 yrs >45 mL/min Normal 70-79 yrs >39 mL/min Normal 80 and above >32 mL/min Normal 13 {A1] {HB] 14 LIPID PANEL 15 CVE RISK CHOL/HDL LDL/HDL MEN: 1/2 AVERAGE 3.43 1.00 AVERAGE 4.97 3.55 2X AVERAGE 9.55 6.25 3X AVERAGE 23.99 7.99 WOMEN: 1/2 AVERAGE 3.27 1.47 AVERAGE 4.44 3.22 2X AVERAGE 7.05 5.03 3X AVERAGE 11.04 6.14 Procedures Date Code Description Status 08/06/2019 30944 Admin Patient Focused Health Ris k Assessment Instrument Completed 08/06/2019 54193 Brief Emotional/Beha v Assessment W/ Scoring Doc [...] uncomplicated PRECIOUS Barnhart, PNP 01/26/2020 Z79.899 Other [facility] (current) drug t herapy PRECIOUS Dunne, PNP 01/01/2020 Z20.828 Contact with and (clark spected) exposure to other viral communicable diseases PRECIOUS Dunne, PNP 01/01/2020 J81.0 Acute pulmonary edema PRECIOUS Dunne, PNP 01/01/2020 R09.02 Hypoxemia VIANEY Dunne, PNP 01/01/2020 R06.2 Wheezing VIANEY Dunne, PNP 01/01/2020 J44.9 Chronic obstructive pulmonary di sease, unspecified PRECIOUS Dunne, PNP 01/01/2020 E78.1 Pure hyperglyceridemia Klarissa dunaway, VIANEYBC, PNP 01/01/2020 F41.9 Anxiety disorder, unspecified Da PRECIOUS Turpin, PNP 01/01/2020 Z23 Encounter for immunization PRECIOUS Dunne, PNP 11/06/2019 E78.1 Pure hyperglyceridemia Klarissa dunaway, VIANEYBC, PNP 11/06/2019 F41.9 Anxiety disorder, unspecified Da PRECIOUS Turpin, PNP 11/06/2019 J44.9 Chronic obstructive pulmonary di sease, unspecified PRECIOUS Dunne, PNP 11/06/2019 Z79.899 Other [facility] (current) drug t herapy PRECIOUS Dunne, PNP 08/20/2019 Z00.01 Encounter for general adult medi josé miguel exam w abnormal findings [facility] 08/20/2019 F10.10 [facility], [facility]complicated [facility] Z79.899 Other [facility] (current) drug t herapy [facility] 08/20/2019 E78.1 Pure hyperglyceridemia [facility] 08/06/2019 Z00.01 Encounter for genera l adult medical examination with abnormal findings PRECIOUS Dunne, PNP 08/06/2019 F10.10 Alcohol abuse, uncomplicated PRECIOUS Barnhart, PNP 08/06/2019 F41.9 Anxiety disorder, unspecified PRECIOUS Ramires, PNP 08/06/2019 J44.9 Chronic obstructive pulmonary di sease, unspecified PRECIOUS Dunne, PNP 08/06/2019 E78.1 Pure hyperglyceridemia PRECIOUS Gee, PNP 08/06/2019 Z79.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 * Follow up:* FU 3 months, Fasting labs first * F41.9 Anxiety disorder, unspecified* Comments:* Anxiety symptoms well controlled on current meds. Functioning at baseline, continue current meds * F10.10 Alcohol abuse, uncomplicated* Comments:* The risks of drinking alcohol were discussed with patient. Advised the patient to quit consuming alcohol. * Z79.899 Other watermelon inspector (current) drug therapy* Comments:* Patient to continue to follow the current plan of care and to look for any new or worsening symptoms. We will continue to monitor through periodic blood work. * Follow up:* FU in 3 months, fasting labs first. Functional Status Description No Information Available Mental Status Description No Information Available Referrals Description No Information Available
--- OUTSIDE RECORDS SUMMARY | 2020-03-17 00:13 | CCD ---
Author Author [facility] Organization [facility] Address Unknown Phone Unavailable Care Team Providers Care Feather Trimmer Name Role Phone KIRSCHMAN, L YESSICA SENIOR CAREGIVER Unavailable Unavailable KIRSCHMAN, L YESSICA SENIOR CAREGIVER Unavailable Unavailable KIRSCHMAN, L YESSICA SENIOR CAREGIVER Unavailable Unavailable KIRSCHMAN, L YESSICA SENIOR CAREGIVER Unavailable Unavailable KIRSCHMAN, L YESSICA SENIOR CAREGIVER Unavailable Unavailable KIRSCHMAN, L YESSICA SENIOR CAREGIVER Unavailable Unavailable KIRSCHMAN, L YESSICA SENIOR CAREGIVER Unavailable Unavailable KIRSCHMAN, L YESSICA SENIOR CAREGIVER Unavailable Unavailable KIRSCHMAN, L YESSICA SENIOR CAREGIVER Unavailable Unavailable KIRSCHMAN, L YESSICA SENIOR CAREGIVER Unavailable Unavailable KIRSCHMAN, L YESSICA SENIOR CAREGIVER Unavailable Unavailable KIRSCHMAN, L YESSICA SENIOR CAREGIVER Unavailable Unavailable KIRSCHMAN, L YESSICA SENIOR CAREGIVER Unavailable Unavailable KIRSCHMAN, L YESSICA SENIOR CAREGIVER Unavailable Unavailable KIRSCHMAN, L YESSICA SENIOR CAREGIVER Unavailable Unavailable KIRSCHMAN, L YESSICA SENIOR CAREGIVER Unavailable Unavailable KIRSCHMAN, L YESSICA SENIOR CAREGIVER Unavailable Unavailable KIRSCHMAN, L YESSICA SENIOR CAREGIVER Unavailable Unavailable KIRSCHMAN, L YESSICA SENIOR CAREGIVER Unavailable Unavailable KIRSCHMAN, L YESSICA SENIOR CAREGIVER Unavailable Unavailable KIRSCHMAN, L YESSICA SENIOR CAREGIVER Unavailable Unavailable KIRSCHMAN, L YESSICA SENIOR CAREGIVER Unavailable Unavailable KIRSCHMAN, L YESSICA SENIOR CAREGIVER Unavailable Unavailable KIRSCHMAN, L YESSICA SENIOR CAREGIVER Unavailable Unavailable KIRSCHMAN, L YESSICA SENIOR CAREGIVER Unavailable Unavailable KIRSCHMAN, L YESSICA SENIOR CAREGIVER Unavailable Unavailable KIRSCHMAN, L YESSICA SENIOR CAREGIVER Unavailable Unavailable KIRSCHMAN, L YESSICA SENIOR CAREGIVER Unavailable Unavailable KIRSCHMAN, L YESSICA SENIOR CAREGIVER Unavailable Unavailable KIRSCHMAN, L YESSICA SENIOR CAREGIVER Unavailable Unavailable KIRSCHMAN, L YESSICA SENIOR CAREGIVER Unavailable Unavailable KIRSCHMAN, L YESSICA SENIOR CAREGIVER Unavailable Unavailable KIRSCHMAN, L YESSICA SENIOR CAREGIVER Unavailable Unavailable KIRSCHMAN, L YESSICA SENIOR CAREGIVER Unavailable Unavailable KIRSCHMAN, L YESSICA SENIOR CAREGIVER Unavailable Unavailable KIRSCHMAN, L YESSICA SENIOR CAREGIVER Unavailable Unavailable KIRSCHMAN, L YESSICA SENIOR CAREGIVER Unavailable Unavailable KIRSCHMAN, L YESSICA SENIOR CAREGIVER Unavailable Unavailable KIRSCHMAN, L YESSICA SENIOR CAREGIVER Unavailable Unavailable KIRSCHMAN, L YESSICA SENIOR CAREGIVER Unavailable Unavailable KIRSCHMAN, L YESSICA SENIOR CAREGIVER Unavailable Unavailable KIRSCHMAN, L YESSICA SENIOR CAREGIVER Unavailable Unavailable KIRSCHMAN, L YESSICA SENIOR CAREGIVER Unavailable Unavailable KIRSCHMAN, L YESSICA SENIOR CAREGIVER Unavailable Unavailable KIRSCHMAN, L YESSICA SENIOR CAREGIVER Unavailable Unavailable KIRSCHMAN, L YESSICA SENIOR CAREGIVER Unavailable Unavailable KIRSCHMAN, L YESSICA SENIOR CAREGIVER Unavailable Unavailable KIRSCHMAN, L YESSICA SENIOR CAREGIVER Unavailable Unavailable KIRSCHMAN, L YESSICA SENIOR CAREGIVER Unavailable Unavailable KIRSCHMAN, L YESSICA SENIOR CAREGIVER Unavailable Unavailable KIRSCHMAN, L YESSICA SENIOR CAREGIVER Unavailable Unavailable Boubacar, Belén Klarissa ANP-BC Unavailable Unavailable Boubacar, Belén Klarissa ANP-BC Unavailable Unavailable Boubacar, Belén Klarissa ANP-BC Unavailable Unavailable Boubacar, Belén Klarissa ANP-BC Unavailable Unavailable Boubacar, Belén Klarissa ANP-BC Unavailable Unavailable Boubacar, Belén Klarissa ANP-BC Unavailable Unavailable Boubacar, Belén Klarissa ANP-BC Unavailable Unavailable Boubacar, Belén Klarissa ANP-BC Unavailable Unavailable Boubacar, Belén Klarissa ANP-BC Unavailable Unavailable Boubacar, Belén Klarissa ANP-BC Unavailable Unavailable Boubacar, Belén Klarissa ANP-BC Unavailable Unavailable Boubacar, Belén Klarissa ANP-BC Unavailable Unavailable Boubacar, Belén Klarissa ANP-BC Unavailable Unavailable Boubacar, Belné Klarissa ANP-BC Unavailable Unavailable Boubacar, Belén Klarissa ANP-BC Unavailable Unavailable Boubacar, Belén Klarissa ANP-BC Unavailable Unavailable Boubacar, Belén Klarissa ANP-BC Unavailable Unavailable Boubacar, Belén Klarissa ANP-BC Unavailable Unavailable Boubacar, Belén Klarissa ANP-BC Unavailable Unavailable Boubacar, Belén Klarissa ANP-BC Unavailable Unavailable Boubacar, Belén Klarissa ANP-BC Unavailable Unavailable Boubacar, Belén Klarissa ANP-BC Unavailable Unavailable Boubacar, Belén Klarissa ANP-BC Unavailable Unavailable Boubacar, Belén Klarissa ANP-BC Unavailable Unavailable Boubacar, Belén Klarissa ANP-BC Unavailable Unavailable Boubacar, Belén Klarissa ANP-BC Unavailable Unavailable Boubacar, Belén Klarissa ANP-BC Unavailable Unavailable Boubacar, Belén Klarissa ANP-BC Unavailable Unavailable Boubacar, Belén Klarissa ANP-BC Unavailable Unavailable Boubacar, Belén Klarissa ANP-BC Unavailable Unavailable Boubacar, Belén Klarissa ANP-BC Unavailable Unavailable Boubacar, Belén Klarissa ANP-BC Unavailable Unavailable Boubacar, Belén Klarissa ANP-BC Unavailable Unavailable Boubacar, Belén Klarissa ANP-BC Unavailable Unavailable Boubacar, Belén Klarissa ANP-BC Unavailable Unavailable Boubacar, Belén Klarissa ANP-BC Unavailable Unavailable Boubacar, Belén Klarissa ANP-BC Unavailable Unavailable Boubacar, Belén Klarissa ANP-BC Unavailable Unavailable Boubacar, Belén Klarissa ANP-BC Unavailable Unavailable Boubacar, Belén Klarissa ANP-BC Unavailable Unavailable Boubacar, Belén Klarissa ANP-BC Unavailable Unavailable Boubacar, Belén Klarissa ANP-BC Unavailable Unavailable Boubacar, Belén Klarissa ANP-BC Unavailable Unavailable Boubacar, Belén Klarissa ANP-BC Unavailable Unavailable Boubacar, Belén Klarissa ANP-BC Unavailable Unavailable Boubacar, Belén Klarissa ANP-BC Unavailable Unavailable Boubacar, Belén Klarissa ANP-BC Unavailable Unavailable Boubacar, Belén Klarissa ANP-BC Unavailable Unavailable Boubacar, Belén Klarissa ANP-BC Unavailable Unavailable Boubacar, Belén Klarissa ANP-BC Unavailable Unavailable Boubacar, Belén Klarissa ANP-BC Unavailable Unavailable Boubacar, Belén Klarissa ANP-BC Unavailable Unavailable Boubacra, Belén Klarissa ANP-BC Unavailable Unavailable Boubacar, Belén Klarissa ANP-BC Unavailable Unavailable Boubacar, Belén Klarissa ANP-BC Unavailable Unavailable Boubacar, Belén Klarissa ANP-BC Unavailable Unavailable Boubacar, Belén Klarissa ANP-BC Unavailable Unavailable Boubacar, Belén Klarissa ANP-BC Unavailable Unavailable Boubacar, Belén Klarissa ANP-BC Unavailable Unavailable Boubacar, Belén Klarissa ANP-BC Unavailable Unavailable Boubacar, Belén Klarissa ANP-BC Unavailable Unavailable Boubacar, Belén Klarissa ANP-BC Unavailable Unavailable Boubacar, Belén Klarissa ANP-BC Unavailable Unavailable Boubacar, Belén Klarissa ANP-BC Unavailable Unavailable Boubacar, Belén Klarissa ANP-BC Unavailable Unavailable Boubacar, Belén Klarissa ANP-BC Unavailable Unavailable Boubaacr, Belén Klarissa ANP-BC Unavailable Unavailable Boubacar, Belén Klarissa ANP-BC Unavailable Unavailable Boubacar, Belén Klarissa ANP-BC Unavailable Unavailable Boubacar, Belén Klarissa ANP-BC Unavailable Unavailable Boubacar, Belén Klarissa ANP-BC Unavailable Unavailable Boubacar, Belén Klarissa ANP-BC Unavailable Unavailable Boubacar, Belén Klarissa ANP-BC Unavailable Unavailable Boubacar, Belén Klarissa ANP-BC Unavailable Unavailable Boubacar, Belén Klarissa ANP-BC Unavailable Unavailable Boubacar, Belén Klarissa ANP-BC Unavailable Unavailable Boubacar, Belén Klarissa ANP-BC Unavailable Unavailable Boubacar, Belén Klarissa ANP-BC Unavailable Unavailable Boubacar, Belén Klarissa ANP-BC Unavailable Unavailable Boubacar, Belén Klarissa ANP-BC Unavailable Unavailable Boubacar, Belén Klarissa ANP-BC Unavailable Unavailable Boubacar, Belén Klarissa ANP-BC Unavailable Unavailable Boubacar, Belén Klarissa ANP-BC Unavailable Unavailable Boubacar, Belén Klarissa ANP-BC Unavailable Unavailable Boubacar, Belén Klarissa ANP-BC Unavailable Unavailable Boubacar, Belén Klarissa ANP-BC Unavailable Unavailable Boubacar, Belén Klarissa ANP-BC Unavailable Unavailable Boubacar, Belén Klarissa ANP-BC Unavailable Unavailable Boubacar, Belén Klarissa ANP-BC Unavailable Unavailable Boubacar, Belén Klarissa ANP-BC Unavailable Unavailable Boubacar, Belén Klarissa ANP-BC Unavailable Unavailable Boubacar, Belén Klarissa ANP-BC Unavailable Unavailable Boubacar, Belén Klarissa ANP-BC Unavailable Unavailable Boubacar, Belén Klarissa ANP-BC Unavailable Unavailable Boubacar, Belén Klarissa ANP-BC Unavailable Unavailable Boubacar, Belén Klarissa ANP-BC Unavailable Unavailable Boubacar, Belén Klarissa ANP-BC Unavailable Unavailable Boubacar, Belén Klarissa ANP-BC Unavailable Unavailable Boubacar, Belén Klarissa ANP-BC Unavailable Unavailable Boubacar, Belén Klarissa ANP-BC Unavailable Unavailable Boubacar, Belén Klarissa ANP-BC Unavailable Unavailable Boubacar, Belén Klarissa ANP-BC Unavailable Unavailable Boubacar, Belén Klarissa ANP-BC Unavailable Unavailable Boubacar, Belén Klarissa ANP-BC Unavailable Unavailable Boubacar, Belén Klarissa ANP-BC Unavailable Unavailable Boubacar, Belén Klarissa ANP-BC Unavailable Unavailable Boubacar, Belén Klarissa ANP-BC Unavailable Unavailable Boubacar, Belén Klarissa ANP-BC Unavailable Unavailable Boubacar, Belén Klarissa ANP-BC Unavailable Unavailable Boubacar, Belén Klarissa ANP-BC Unavailable Unavailable Boubacar, Belén Klarissa ANP-BC Unavailable Unavailable Boubacar, Belén Klarissa ANP-BC Unavailable Unavailable Boubacar, Belén Klarissa ANP-BC Unavailable Unavailable Boubacar, Belén Klarissa ANP-BC Unavailable Unavailable Boubacar, Belén Klarissa ANP-BC Unavailable Unavailable Boubacar, Belén Klarissa ANP-BC Unavailable Unavailable Boubacar, Belén Klarissa ANP-BC Unavailable Unavailable Boubacar, Belén Klarissa ANP-BC Unavailable Unavailable Boubacar, Belén Klarissa ANP-BC Unavailable Unavailable Boubacar, Belén Klarissa ANP-BC Unavailable Unavailable Boubacar, Belén Klarissa ANP-BC Unavailable Unavailable Boubacar, Belén Klarissa ANP-BC Unavailable Unavailable Boubacar, Belén Klarissa ANP-BC Unavailable Unavailable Boubacar, Belén Klarissa ANP-BC Unavailable Unavailable Boubacar, Belén Klarissa ANP-BC Unavailable Unavailable Boubacar, Belén Klarissa ANP-BC Unavailable Unavailable Boubacar, Belén Klarissa ANP-BC Unavailable Unavailable Boubacar, Belén Klarissa ANP-BC Unavailable Unavailable Re-disclosure Warning The records that you are about to access may contain information from federally-assisted alcohol or drug abuse programs. If such information is present, then the following federally mandated warning applies: This information has been disclosed to you from records protected by federal confidentiality rules (42 CFR part 2). The federal rules prohibit you from making any further disclosure of this information unless further disclosure is expressly permitted by the written consent of the person to whom it pertains or as otherwise permitted by 42 CFR part 2. A general authorization for the release of medical or other information is NOT sufficient for this purpose. The Federal rules restrict any use of the information to criminally investigate or prosecute any alcohol or drug abuse patient.The records that you are about to access may contain highly sensitive health information, the redisclosure of which is protected by Article 27-F of the [place] State Public Health law. If you continue you may have access to information: Regarding HIV / AIDS; Provided by facilities licensed or operated by the [facility] Office of Mental Health; or Provided by the [facility] Office for People With Developmental Disabilities. If such information is present, then the following [facility] mandated warning applies: This information has been disclosed to you from confidential records which are protected by state law. State law prohibits you from making any further disclosure of this information without the specific written consent of the person to whom it pertains, or as otherwise permitted by law. Any unauthorized further disclosure in violation of state law may result in a fine or mcc sentence or both. A general authorization for the release of medical or other information is NOT sufficient authorization for further disc losure. Family History Family Member Name Family Member Gender Family Member Status Date o f Status Description Data Source(s) Unknown Unknown Problem [facility] ([facility], ) Encounters Encounter Providers Location Date Indications Data Source(s ) Outpatient Attender: Klarissa LINGonsultant: YESSICA CHOWDARY NP 01/26/2020 10:39:00 AM EST - 01/26/2020 10:39:00 AM [facility] Outpatient Attender: Klarissa LINGonsultant: YESSICA CHOWDARY NP 01/01/2020 01:10:00 PM EST - 01/01/2020 01:10:00 PM [facility] Outpatient Attender: Klarissa LINGonsultant: YESSICA CHOWDARY NP 08/20/2019 08:02:00 AM EDT - 08/20/2019 08:02:00 AM EDT [facility] Outpatient Attender: Klarissa Barultant: YESSICA CHOWDARY NP 08/12/2019 08:01:00 AM EDT - 08/12/2019 08:01:00 AM EDT [facility] Outpatient Attender: [facility] 07/27 02:00:00 PM EDT [facility] ([facility] Outpatient Attender: Klarissa LINGonsultant: YESSICA CHOWDARY NP 08/06/2019 01:23:00 PM EDT - 08/06/2019 01:23:00 PM EDT [facility] Immunizations Vaccine Date Status Description Data Source(s) New in 2011. IIV4 01/01/2020 12:29:00 PM EST completed [facility] ([facility]) Medications Medication Brand Name Start Date Product Form Dose Route Admi nistrative Instructions Pharmacy Instructions Status Indications Reaction Description Data Source(s) Fluticasone Propionate/Salmeterol Fluticasone Propionate/Jozef meterol 01/26/2020 12:00:00 AM EST ORAL active M [facility]ENT ([facility]) Breztri Aerosphere Breztri Aerosphere 01/01/2020 12:00:00 AM EST RESPIRATORY completed [facility] ([facility]) Oxygen 01/01/2020 12:00:00 AM EST active [facility] ([facility]) Furosemide 20 MG Oral Tablet Furosemide 01/01/2020 12:00:00 AM EST ORAL active [facility] ([facility]) Prednisone 10 MG Oral Tablet Prednisone 01/01/2020 12:00:00 AM EST completed [facility] ([facility]) Insurance Providers Payer name Policy type / Coverage type Policy ID Covered libertarian ID Covered libertarian's relationship to hall Policy Hall Plan Information SELF PAY ONLY [id number] SP [id number] [facility] COMM[facility]TY PLAN [id number] 18 [id number] [place] [id number] SP [id number] [facility] MEDICAID CLINIC [id number] [facility] COMM[facility]AN [id number] 18 [id number] MEDICAID [id number] SP [id number] [facility] COMMUNITY PLAN [employer] [facility] [id number] SP [id number] [facility] O [id number] S [id number] UNHC COMMUNITY PLAN XIX [id number] 18 [id number] UNHC COMMUNITY PLAN MCDO [id number] SP [id number] [facility]-Medicaid [id number] [facility]-Medicaid [id number] [facility]-Medicaid [id number] ANSI-Medicaid [id number] [facility] COMM[facility]ITY [id number] S [id number] [facility] Health Maintenance Organization (HMO) [id number] Self [id number] [facility] COMMUNITY PLAN MCDO [id number] SP [id number] [facility]) O [id number] S [id number] [facility] COMM[facility] PLAN MCDO [id number] SP [id number] [facility] [id number] SP [id number] [facility] [id number] SP [id number] SELF PAY UNAVAILABLE SP UNAVAILA BLE Problems, Conditions, and Diagnoses Code Display Name Description Problem Type Effective Dates Data Source(s) 490789759 Pure hyperglyceridemia Pure hyperglyceridemia Problem 08/06/2019 12:00:00 AM EDT [facility] ([facility]) [id number] Chronic obstructive lung disease Chronic obstruc tive lung disease Problem 08/06/2019 12:00:00 AM EDT [facility] ([facility]) [id number] Anxiety state Anxiety state Problem 08/06/2019 12:00:00 AM EDT [facility] ([facility]) Alcohol abuse, uncomplicated Alcohol abuse, uncomplica mango Problem 08/06/2019 12:00:00 AM EDT [facility] ([facility]) [id number] 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 Diagnosis 01/26/2020 10:39:00 AM [facility] F1010 Alcohol abuse, uncomplicated Alcohol abuse, uncomplica mango Diagnosis 01/26/2020 10:39:00 AM [facility] F419 Anxiety disorder, unspecified Anxiety disorder, unspec ified Diagnosis 01/26/2020 10:39:00 AM [facility] E781 Pure hyperglyceridemia Pure hyperglyceridemia Diagnosi s 01/26/2020 10:39:00 AM [facility] J449 Chronic obstructive pulmonary disease, u nspecified Chronic obstructive pulmonary disease, unspecified Diagnosis 01/26/2020 10:39:00 AM Health system R05 Cough Cough Diagnosis 01/26/2020 10:39:00 AM [facility] Z23 Encounter for immunization Encounter for immunization Diagnosis 01/01/2020 01:10:00 PM [facility] Z1159 Encounter for screening for other viral diseases Encounter for screening for other viral diseases Diagnosis 01/01/2020 01:10:00 PM [facility] R062 Wheezing Wheezing Diagnosis 01/01/2020 01:10:00 PM [facility] R0902 Hypoxemia Hypoxemia Diagnosis 01/01/2020 01:10:00 PM [facility] J810 Acute pulmonary edema Acute pulmonary edema Diagnosis 01/01/2020 01:10:00 PM [facility] Z0001 Encounter for general adult medical exam ination with abnormal findings Encounter for general adult medical examination with abnormal findings Diagnosis 08/20/2019 08:02:00 AM EDT [facility] R99 Ill-defined and unknown cause of mortali ty Ill-defined and unknown cause of mortality Diagnosis 08/12/2019 08:01:00 AM EDT [facility] Surgeries/Procedures Procedure Description Date Indications Data Source(s) Brief Emotional/Behav Assessment W/ Scoring Doc Per Standard Inst 08/06/2019 12:00:00 AM EDT [facility] ([facility]) Admin Patient Focused Health Risk Assessment Instrument 08/06/2019 12:00:00 AM EDT [facility] ([facility]) Results ID Date Data Source [id number] 01/26/2020 11:13:00 AM EST [facility] ([facility]) Name Value Range Interpretation Code Description Data Dayana rce(s) Supporting Document(s) Magnesium [Mass/volume] in Serum or Plasma 2.3 mg/dL 1.7-2.2 Above high normal [facility] ([facility]) Is patient fasting? Y Thyrotropin [Units/volume] in Serum or Plasma 0.68 uIU/mL 0.47-5.01 [facility] ([facility]) Is patient fasting? Y ID Date Data Source [id number] 01/26/2020 11:13:00 AM EST [facility] ([facility]) Name Value Range Interpretation Code Description Data Dayana rce(s) Supporting Document(s) Cve Panel Laboratory test result [facility] ([facility]) Is patient fasting? Y Cholesterol 244 mg/dL 131-200 Above high normal [facility] ([facility]) Is patient fasting? Y HDL 78 mg/dL 29-86 [facility] ([facility]) Is patient fasting? Y Triglycerides 109 mg/dL 35-160 [facility] ([facility]) Is patient fasting? Y Risk Factor 3.1 3.4-4.9 Below low normal [facility] ([facility]) Is patient fasting? Y LDL/HDL 1.90 1.00-3.55 [facility] ([facility]) Is patient fasting? Y LDL 148 mg/dL 65-175 [facility] ([facility]) Is patient fasting? Y ID Date Data Source [id number] 01/26/2020 11:13:00 AM EST [facility] ([facility]) Name Value Range Interpretation Code Description Data Dayana rce(s) Supporting Document(s) Hemoglobin A1c/Hemoglobin.total in Blood 5.6 % 4.4-6.1 [facility] ([facility]) Is patient fasting? Y ID Date Data Source [id number] 01/26/2020 11:13:00 AM EST [facility] ([facility]) Name Value Range Interpretation Code Description Data Dayana rce(s) Supporting Document(s) Comprehensive [employer]abo Laboratory test result [facility] ([facility]) Is patient fasting? Y Potassium 4.3 meq/L 3.6-5.0 [facility] ([facility]) Is patient fasting? Y Sodium 132 meq/L 134-153 Below low normal [facility] ( [facility]) Is patient fasting? Y Chloride 93 meq/L 98-107 Below low normal [facility] ( [facility]) Is patient fasting? Y BUN 8 mg/dL 7-21 [facility] ([facility]) Is patient fasting? Y Co2 25 meq/L 22-30 [facility] ([facility]) Is patient fasting? Y Glucose 68 mg/dL 65-110 [facility] ([facility]) Is patient fasting? Y Creatinine 0.7 mg/dL 0.7-1.5 [facility] ([facility]) Is patient fasting? Y Total Protein 6.7 g/dL 6.3-8.2 [facility] ([facility]) Is patient fasting? Y BUN/Creat 11 8-27 [facility] ([facility]) Is patient fasting? Y Globulin 2.0 GM/DL 2.4-3.2 Below low normal [facility] ( [facility]) Is patient fasting? Y Albumin 4.7 g/dL 3.9-5.0 [facility] ([facility]) Is patient fasting? Y A/G Ratio 2.4 0.8-2.0 Above high normal [facility] ([facility]) Is patient fasting? Y Calcium 9.3 mg/dL 8.4-10.2 [facility] ([facility]) Is patient fasting? Y Alkaline Phos 91 U/L 38-126 [facility] ([facility]) Is patient fasting? Y Total Bili Laboratory test result 0.2-1.3 [place] [facility] ([facility]) Is patient fasting? Y SGPT/Alt 33 U/L 7-56 [facility] ([facility]) Is patient fasting? Y Sgot/Ast 36 U/L 5-40 [facility] ([facility]) Is patient fasting? Y Anion Gap 14.0 mmol/L 8.0-16.0 [facility] Is patient fasting? Y Age 54 yrs [facility] ([facility]) Is patient fasting? Y Non-Aa GFR Laboratory test result [facility] ([facility]) Is patient fasting? Y Afr Amer GFR Laboratory test result [facility] ([facility]) Is patient fasting? Y ID Date Data Source [id number] 01/26/2020 11:13:00 AM EST [facility] ([facility]) Name Value Range Interpretation Code Description Data Dayana rce(s) Supporting Document(s) WBC 7.7 10^3/uL 4.2-11.0 [facility] ([facility]) Is patient fasting? Y CBC W/Automated Diff Laboratory test result [facility] ([facility]) Is patient fasting? Y Hematocrit 52.7 % 41.0-51.0 Above high normal [facility] ([facility]) Is patient fasting? Y RBC 5.70 10^6/uL 4.50-6.30 [facility] ([facility]) Is patient fasting? Y Hemoglobin 18.0 g/dL 14.0-16.0 Above high normal [facility] ([facility]) Is patient fasting? Y MCHC 34.2 g/dL 31.0-36.0 [facility] ([facility]) Is patient fasting? Y MCV 92.5 fL 80.0-94.0 [facility] ([facility]) Is patient fasting? Y MCH 31.6 pg 27.0-34.0 [facility] ([facility]) Is patient fasting? Y MPV 10.4 fL 7.4-10.4 [facility] ([facility]) Is patient fasting? Y Platelets 187 10^3/uL 150-450 [facility] ([facility]) Is patient fasting? Y RDW 13.8 % 11.5-14.8 [facility] ([facility]) Is patient fasting? Y Neut 64.6 % 37.0-80.0 [facility] ([facility]) Is patient fasting? Y Lymph 22.0 % 25.0-40.0 Below low normal [facility] ( [facility]) Is patient fasting? Y Heard 10.0 % 3.0-8.0 Above high normal [facility] ([facility]) Is patient fasting? Y %Ig 0.7 % 0.0-0.0 Above high normal [facility] ([facility]) Is patient fasting? Y Eos 1.8 % 0.0-7.0 [facility] ([facility]) Is patient fasting? Y Baso 0.9 % 0.0-2.0 [facility] ([facility]) Is patient fasting? Y #Lymph 1.69 10^3/uL 0.60-3.40 [facility] ([facility]) Is patient fasting? Y %NRBC 0.0 % 0.0-0.0 [facility] ([facility]) Is patient fasting? Y #Neut 4.97 10^3/uL 2.00-6.90 [facility] ([facility]) Is patient fasting? Y #Eos 0.14 10^3/uL 0.00-0.70 [facility] ([facility]) Is patient fasting? Y #Baso 0.07 10^3/uL 0.00-0.20 [facility] ([facility]) Is patient fasting? Y #Heard 0.77 10^3/uL 0.00-0.90 [facility] ([facility]) Is patient fasting? Y #NRBC 0.00 10^3/uL 0.00-0.00 [facility] ([facility]) Is patient fasting? Y #Ig 0.05 10^3/uL 0.00-0.10 [facility] ([facility]) Is patient fasting? Y Manual Diff Laboratory test result M [facility] ([facility]) Is patient fasting? Y RBC Morph Laboratory test result [facility] ([facility]) Is patient fasting? Y ID Date Data Source [id number] 01/26/2020 06:00:00 PM [facility] Name Value Range Interpretation Code Description Data Dayana rce(s) Supporting Document(s) Thyrotropin [Units/volume] in Serum or Plasma by Detec tion limit <= 0.05 mIU/L 0.68 uIU/mL 0.47 - 5.01 [facility] ID Date Data Source [id number] 01/26/2020 05:41:00 PM [facility] Value Range Interpretation Code Description Data Dayana rce(s) Supporting Document(s) Magnesium [Mass/volume] in Serum or Plasma 2.3 MG/DL 1.7 - 2.2 H [facility] ID Date Data Source [id number] 01/26/2020 05:41:00 PM [facility] Value Range Interpretation Code Description Data Dayana rce(s) Supporting Document(s) CVE PANEL [facility] LIPID PANEL Cholesterol [Mass/volume] in Serum or Plasma 244 MG/DL 131 - 200 H [facility] Deprecated Triglyceride [Mass/volume] in Serum or Plasma 109 MG/DL 3 5 - 160 [facility] HDL 78 MG/DL 29 - 86 [facility] Ch[facility] LDL [Mass/volume] in Serum or Plasma by Direc t assay 148 mg/dL 65 - 175 [facility] Cholesterol.total/Cholesterol in HDL [Mass Ratio] in Serum o r Plasma 3.1 3.4 - 4.9 L [facility] LDL/HDL 1.90 1.00 - 3.55 [facility] ital CVE RISK CHOL/HDL LDL/HDLMEN: 1/2 AVERAGE 3.43 1.00 AVERAGE 4.97 3.55 2X AVERAGE 9.55 6.25 3X AVERAGE 23.99 7.99WOMEN: 1/2 AVERAGE 3.27 1.47 AVERAGE 4.44 3.22 2X AVERAGE 7.05 5.03 3X AVERAGE 11.04 6.14 ID Date Data Source [id number] 01/26/2020 05:41:00 PM EST [facility] Name Value Range Interpretation Code Description Data Dayana rce(s) Supporting Document(s) COMPREHENSIVE METABOLIC PANEL [facility] COMPREHENSIVE METABOLIC PANEL Sodium [Moles/volume] in Serum or Plasma 132 mEq/L 134 - 153 L [facility] Potassium [Moles/volume] in Serum or Plasma 4.3 mEq/L 3.6 - 5.0 [facility] Chloride [Moles/volume] in Serum or Plasma 93 mEq/L 98 - 107 L [facility] Carbon dioxide, total [Moles/volume] in Serum or Plasma 25 MEQ/L 22 - 30 [facility] Glucose [Mass/volume] in Serum or Plasma 68 MG/DL 65 - 110 [facility] BUN 8 MG/DL 7 - 21 [facility] al Creatinine [Mass/volume] in Serum or Plasma 0.7 MG/DL 0.7 - 1.5 [facility] BUN/CREAT 11 8 - 27 [facility] al Protein [Mass/volume] in Serum or Plasma 6.7 G/DL 6.3 - 8.2 [facility] Albumin [Mass/volume] in Serum or Plasma 4.7 G/DL 3.9 - 5.0 [facility] Globulin [Mass/volume] in Serum by calculation 2.0 GM/DL 2.4 - 3.2 L [facility] A/G RATIO 2.4 0.8 - 2.0 H [facility] Calcium [Mass/volume] in Serum or Plasma 9.3 MG/DL 8.4 - 10.2 [facility] Bilirubin.total [Mass/volume] in Serum or Plasma <0.7 MG/DL 0.2 - 1.3 [facility] Alkaline phosphatase [Enzymatic activity/volume] in Serum or Plasma 91 U/L 38 - 126 [facility] Aspartate aminotransferase [Enzymatic activity/volume] in Serum or Plasma 36 U/L 5 - 40 [facility] Alanine aminotransferase [Enzymatic activity/volume] in Seru m or Plasma 33 U/L 7 - 56 [facility] Anion gap 3 in Serum or Plasma 14.0 mmol/L 8.0 - 16.0 [facility] AGE 54 yrs [facility] al NON-AA GFR >60 mL/min [facility] ital AFR AMER GFR >60 mL/min [facility] Male GFR In terprentation 20-49 yrs >60 mL/min Normal 50-59 yrs >56 mL/min Normal 60-69 yrs >49 mL/min Normal 70-79yrs >42 mL/min Normal 80 and above >35 mL/min Normal Female GFR Interpretation 20-39 yrs >60 mL/min Normal 40-49 yrs >58 mL/min Normal 50-59 yrs >51 mL/min Normal 60-69 yrs >45 mL/min Normal 70-79 yrs >39 mL/min Normal 80 and above >32 mL/min Normal ID Date Data Source [id number] 01/26/2020 05:34:00 PM [facility] Name Value Range Interpretation Code Description Data Dayana rce(s) Supporting Document(s) Hemoglobin A1c/Hemoglobin.total in Blood 5.6 % 4.4 - 6.1 [facility] {A1]{HB] ID Date Data Source [id number] 01/26/2020 05:25:00 PM [facility] Name Value Range Interpretation Code Description Data Dayana rce(s) Supporting Document(s) CBC W/AUTOMATED DIFF [facility] COMPLETE BLOOD COUNT Leukocytes [#/volume] in Blood by Automated count 7.7 10^3/uL 4.2 - 1 1.0 [facility] Erythrocytes [#/volume] in Blood by Automated count 5.70 10^6/uL 4. 50 - 6.30 [facility] Hemoglobin [Mass/volume] in Blood 18.0 g/dL 14.0 - 16.0 H [facility] Hematocrit [Volume Fraction] of Blood by Automated count 52.7 % 4 1.0 - 51.0 H [facility] Erythrocyte mean corpuscular volume [Entitic volume] by Auto mated count 92.5 fL 80.0 - 94.0 [facility] Erythrocyte mean corpuscular hemoglobin [Entitic mass] by Automated count 31.6 pg 27.0 - 34.0 [facility] Erythrocyte mean corpuscular hemoglobin concentration [Mass/volume] by Automated count 34.2 g/dL 31.0 - 36.0 [facility] Erythrocyte distribution width [Ratio] by Automated count 13.8 % 11.5 - 14.8 [facility] Platelets [#/volume] in Blood by Automated count 187 10^3/uL 150 - 45 0 [facility] Platelet mean volume [Entitic volume] in Blood by Automated count 10.4 fL 7.4 - 10.4 [facility] Neutrophils/100 leukocytes in Blood by Automated count 64.6 % 37. 0 - 80.0 [facility] Lymphocytes/100 leukocytes in Blood by Manual count 22.0 % 25.0 - 40.0 L [facility] Monocytes/100 leukocytes in Blood by Automated count 10.0 % 3.0 - 8.0 H [facility] Eosinophils/100 leukocytes in Blood by Automated count 1.8 % 0.0 - 7.0 [facility] Basophils/100 leukocytes in Blood by Automated count 0.9 % 0.0 - 2.0 [facility] %IG 0.7 % 0.0 - 0.0 [facility] %NRBC 0.0 % 0.0 - 0.0 [facility] al Neutrophils [#/volume] in Blood by Automated count 4.97 10^3/uL 2.00 - 6.90 [facility] Lymphocytes [#/volume] in Blood by Automated count 1.69 10^3/uL 0.60 - 3.40 [facility] Monocytes [#/volume] in Blood by Automated count 0.77 10^3/uL 0.00 - 0.90 [facility] Eosinophils [#/volume] in Blood by Automated count 0.14 10^3/uL 0.00 - 0.70 [facility] Basophils [#/volume] in Blood by Automated count 0.07 10^3/uL 0.00 - 0.20 [facility] #IG 0.05 10^3/uL 0.00 - 0.10 [facility] ospital #NRBC 0.00 10^3/uL 0.00 - 0.00 [facility] ospital MANUAL DIFF NOT INDICATED [facility] RBC MORPH NOT INDICATED [facility] spital ID Date Data Source [id number] 01/01/2020 01:41:00 PM EST [facility] ([facility]) Name Value Range Interpretation Code Description Data Dayana rce(s) Supporting Document(s) Coronavirus Covid-19 Laboratory test result [facility] ([facility]) This nucleic acid amplification test was developed and its performance characteristics determined by [facility]. Nucleic acid amplification tests include PCR and [...] negative (not detected) result in this assay. ID Date Data Source [id number] 01/01/2020 01:41:00 PM EST [facility] Name Value Range Interpretation Code Description Data Dayana rce(s) Supporting Document(s) SARS coronavirus 2 RNA [facility] This lab was ordered by [facility] ab and reported by [facility]. ID Date Data Source [id number] 01/03/2020 03:13:00 PM EST [facility] Name Value Range Interpretation Code Description Data Dayana rce(s) Supporting Document(s) SARS-CoV-2, MERLINE Not Detected Not Detected [facility] This nucleic acid amplification test was developed and its performancecharacteristics determined by [facility]. Nucleic acidamplification tests include PCR and TMA. This test has not been FDAcleared or approved. This test has been authorized by FDA under anEmergency Use Authorization (EUA). This test is only authorized forthe duration of time the declaration that circumstances existjustifying the authorization of the emergency use of in vitrodiagnostic tests for detection of SARS-CoV-2 virus and/or diagnosisof COVID-19 infection under section 564(b)(1) of the Act, 21 U.S.C.360bbb-3(b) (1), unless the authorization is terminated or revokedsooner.When diagnostic testing is negative, the possibility of a falsenegative result should be considered in the context of a patient'srecent exposures and the presence of clinical signs and symptomsconsistent with COVID- 19. An individual without symptoms of COVID-19and who is not shedding SARS-CoV-2 virus would expect to have anegative (not detected) result in this assay. ID Date Data Source [id number] 08/20/2019 08:10:00 AM EDT [facility] ([facility]) Name Value Range Interpretation Code Description Data Dayana rce(s) Supporting Document(s) Magnesium [Mass/volume] in Serum or Plasma 2.3 mg/dL 1.7-2.2 Above high normal [facility] ([facility]) Is patient fasting? N ID Date Data Source [id number] 08/20/2019 08:10:00 AM EDT [facility] ([facility]) Name Value Range Interpretation Code Description Data Dayana rce(s) Supporting Document(s) Cve Panel Laboratory test result [facility] ([facility]) Is patient fasting? N Triglycerides 63 mg/dL 35-160 [facility] ([facility]) Is patient fasting? N HDL 82 mg/dL 29-86 [facility] ([facility]) Is patient fasting? N Cholesterol 195 mg/dL 131-200 [facility] ([facility]) Is patient fasting? N LDL/HDL 1.21 1.00-3.55 [facility] ([facility]) Is patient fasting? N LDL 99 mg/dL 65-175 [facility] ([facility]) Is patient fasting? N Risk Factor 2.4 3.4-4.9 Below low normal [facility] ([facility]) Is patient fasting? N ID Date Data Source [id number] 08/20/2019 08:10:00 AM EDT [facility] ([facility]) Name Value Range Interpretation Code Description Data Dayana rce(s) Supporting Document(s) Hemoglobin A1c/Hemoglobin.total in Blood 5.5 % 4.4-6.1 [facility] ([facility]) Is patient fasting? N Thyrotropin [Units/volume] in Serum or Plasma 0.37 uIU/mL 0. 47-5.01 Below low normal [facility] ([facility]) Is patient fasting? N ID Date Data Source [id number] 08/20/2019 08:10:00 AM EDT [facility] ([facility]) Name Value Range Interpretation Code Description Data Dayana rce(s) Supporting Document(s) Sodium 139 meq/L 134-153 [facility] ([facility]) Is patient fasting? N Comprehensive Metabo Laboratory test result [facility] ([facility]) Is patient fasting? N Co2 27 meq/L 22-30 [facility] ([facility]) Is patient fasting? N Glucose 83 mg/dL 65-110 [facility] ([facility]) Is patient fasting? N Potassium 4.9 meq/L 3.6-5.0 [facility] ([facility]) Is patient fasting? N Chloride 98 meq/L 98-107 [facility] ([facility]) Is patient fasting? N Creatinine 0.9 mg/dL 0.7-1.5 [facility] ([facility]) Is patient fasting? N BUN/Creat 9 8-27 [facility] ([facility]) Is patient fasting? N BUN 8 mg/dL 7-21 [facility] ([facility]) Is patient fasting? N Globulin 2.0 GM/DL 2.4-3.2 Below low normal [facility] ( [facility]) Is patient fasting? N Total Protein 6.8 g/dL 6.3-8.2 [facility] Is patient fasting? N Albumin 4.8 g/dL 3.9-5.0 [facility] ([facility]) Is patient fasting? N Calcium 9.8 mg/dL 8.4-10.2 [facility] Is patient fasting? N A/G Ratio 2.4 0.8-2.0 Above high normal [facility] ([facility]) Is patient fasting? N Alkaline Phos 110 U/L 38-126 [facility] ([facility]) Is patient fasting? N Total Bili Laboratory test result 0.2-1.3 [facility] ([facility]) Is patient fasting? N SGPT/Alt 40 U/L 7-56 [facility] ([facility]) Is patient fasting? N Anion Gap 14.0 mmol/L 8.0-16.0 [facility] ([facility]) Is patient fasting? N Sgot/Ast 41 U/L 5-40 Above high normal [facility] ([facility]) Is patient fasting? N Afr Amer GFR Laboratory test result [facility] ([facility]) Is patient fasting? N Age 54 yrs [facility] ([facility]) Is patient fasting? N Non-Aa GFR Laboratory test result [facility] ([facility]) Is patient fasting? N ID Date Data Source [id number] 08/20/2019 08:10:00 AM EDT [facility] ([facility]) Name Value Range Interpretation Code Description Data Dayana rce(s) Supporting Document(s) CBC W/Automated Diff Laboratory test result [facility] ([facility]) Is patient fasting? N WBC 9.4 10^3/uL 4.2-11.0 [facility] ([facility]) Is patient fasting? N RBC 5.97 10^6/uL 4.50-6.30 [facility] ([facility]) Is patient fasting? N Hemoglobin 18.8 g/dL 14.0-16.0 Above high normal [facility] ([facility]) Is patient fasting? N Hematocrit 56.2 % 41.0-51.0 Above high normal [facility] ([facility]) Is patient fasting? N MCH 31.5 pg 27.0-34.0 [facility] ([facility]) Is patient fasting? N MCV 94.1 fL 80.0-94.0 Above high normal [facility] ([facility]) Is patient fasting? N MCHC 33.5 g/dL 31.0-36.0 [facility] ([facility]) Is patient fasting? N Platelets 204 10^3/uL 150-450 [facility] ([facility]) Is patient fasting? N RDW 14.1 % 11.5-14.8 [facility] ([facility]) Is patient fasting? N Neut 73.5 % 37.0-80.0 [facility] ([facility]) Is patient fasting? N MPV 10.7 fL 7.4-10.4 Above high normal [facility] ([facility]) Is patient fasting? N Heard 8.3 % 3.0-8.0 Above high normal [facility] ([facility]) Is patient fasting? N Lymph 15.5 % 25.0-40.0 Below low normal [facility] ( [facility]) Is patient fasting? N Eos 1.2 % 0.0-7.0 [facility] ([facility]) Is patient fasting? N Baso 1.0 % 0.0-2.0 [facility] ([facility]) Is patient fasting? N #Neut 6.90 10^3/uL 2.00-6.90 [facility] ([facility]) Is patient fasting? N %Ig 0.5 % 0.0-0.0 Above high normal [facility] ([facility]) Is patient fasting? N #Lymph 1.46 10^3/uL 0.60-3.40 [facility] ([facility]) Is patient fasting? N %NRBC 0.0 % 0.0-0.0 [facility] ([facility]) Is patient fasting? N #Eos 0.11 10^3/uL 0.00-0.70 [facility] ([facility]) Is patient fasting? N #Baso 0.09 10^3/uL 0.00-0.20 [facility] ([facility]) Is patient fasting? N #Heard 0.78 10^3/uL 0.00-0.90 [facility] ([facility]) Is patient fasting? N #Ig 0.05 10^3/uL 0.00-0.10 [facility] ([facility]) Is patient fasting? N Manual Diff Laboratory test result M [facility] ([facility]) Is patient fasting? N #NRBC 0.00 10^3/uL 0.00-0.00 [facility] ([facility]) Is patient fasting? N RBC Morph Laboratory test result [facility] ([facility]) Is patient fasting? N ID Date Data Source [id number] 08/20/2019 07:04:00 PM EDT [facility] Value Range Interpretation Code Description Data Dayana rce(s) Supporting Document(s) Thyrotropin [Units/volume] in Serum or Plasma by Detec tion limit <= 0.05 mIU/L 0.37 uIU/mL 0.47 - 5.01 L [facility] ID Date Data Source [id number] 08/20/2019 06:57:00 PM EDT [facility] Value Range Interpretation Code Description Data Dayana rce(s) Supporting Document(s) Magnesium [Mass/volume] in Serum or Plasma 2.3 MG/DL 1.7 - 2.2 H [facility] ID Date Data Source [id number] 08/20/2019 06:57:00 PM EDT [facility] Value Range Interpretation Code Description Data Dayana rce(s) Supporting Document(s) [facility] Cholesterol [Mass/volume] in Serum or Plasma 195 MG/DL 131 - 200 [facility] Deprecated Triglyceride [Mass/volume] in Serum or Plasma 63 MG/DL 3 5 - 160 [facility] HDL 82 MG/DL 29 - 86 [facility] al Cholesterol in LDL [Mass/volume] in Serum or Plasma by Direc t assay 99 mg/dL 65 - 175 [facility] Cholesterol.total/Cholesterol in HDL [Mass Ratio] in Serum o r Plasma 2.4 3.4 - 4.9 L [facility] LDL/HDL 1.21 1.00 - 3.55 [facility] ital CVE RISK CHOL/HDL LDL/HDLMEN: 1/2 AVERAGE 3.43 1.00 AVERAGE 4.97 3.55 2X AVERAGE 9.55 6.25 3X AVERAGE 23.99 7.99WOMEN: 1/2 AVERAGE 3.27 1.47 AVERAGE 4.44 3.22 2X AVERAGE 7.05 5.03 3X AVERAGE 11.04 6.14 ID Date Data Source [id number] 08/20/2019 06:57:00 PM EDT [facility] Name Value Range Interpretation Code Description Data Dayana rce(s) Supporting Document(s) COMPREHENSIVE METABOLIC PANEL [facility] COMPREHENSIVE METABOLIC PANEL Sodium [Moles/volume] in Serum or Plasma 139 mEq/L 134 - 153 [facility] Potassium [Moles/volume] in Serum or Plasma 4.9 mEq/L 3.6 - 5.0 [facility] Chloride [Moles/volume] in Serum or Plasma 98 mEq/L 98 - 107 [facility] Carbon dioxide, total [Moles/volume] in Serum or Plasma 27 MEQ/L 22 - 30 [facility] Glucose [Mass/volume] in Serum or Plasma 83 MG/DL 65 - 110 [facility] BUN 8 MG/DL 7 - 21 [facility] al Creatinine [Mass/volume] in Serum or Plasma 0.9 MG/DL 0.7 - 1.5 [facility] BUN/CREAT 9 8 - 27 [facility] Protein [Mass/volume] in Serum or Plasma 6.8 G/DL 6.3 - 8.2 [facility] Albumin [Mass/volume] in Serum or Plasma 4.8 G/DL 3.9 - 5.0 [facility] Globulin [Mass/volume] in Serum by calculation 2.0 GM/DL 2.4 - 3.2 L [facility] A/G RATIO 2.4 0.8 - 2.0 H [facility] al Calcium [Mass/volume] in Serum or Plasma 9.8 MG/DL 8.4 - 10.2 [facility] Bilirubin.total [Mass/volume] in Serum or Plasma <0.7 MG/DL 0.2 - 1.3 [facility] Alkaline phosphatase [Enzymatic activity/volume] in Serum or Plasma 110 U/L 38 - 126 [facility] Aspartate aminotransferase [Enzymatic activity/volume] in Serum or Plasma 41 U/L 5 - 40 H [facility] Alanine aminotransferase [Enzymatic activity/volume] in Seru m or Plasma 40 U/L 7 - 56 [facility] Anion gap 3 in Serum or Plasma 14.0 mmol/L 8.0 - 16.0 [facility] AGE 54 yrs [facility] GFR >60 mL/min [facility] AFR AMER GFR >60 mL/min [facility] Male GFR In terprentation 20-49 yrs >60 mL/min Normal 50-59 yrs >56 mL/min Normal 60-69 yrs >49 mL/min Normal 70-79yrs >42 mL/min Normal 80 and above >35 mL/min Normal Female GFR Interpretation 20-39 yrs >60 mL/min Normal 40-49 yrs >58 mL/min Normal 50-59 yrs >51 mL/min Normal 60-69 yrs >45 mL/min Normal 70-79 yrs >39 mL/min Normal 80 and above >32 mL/min Normal ID Date Data Source [id number] 08/20/2019 06:57:00 PM EDT [facility] Name Value Range Interpretation Code Description Data Dayana rce(s) Supporting Document(s) Hemoglobin A1c/Hemoglobin.total in Blood 5.5 % 4.4 - 6.1 [facility] {A1]{HB] ID Date Data Source [id number] 08/20/2019 06:29:00 PM EDT [facility] Name Value Range Interpretation Code Description Data Dayana rce(s) Supporting Document(s) CBC W/AUTOMATED DIFF [facility] COMPLETE BLOOD COUNT Leukocytes [#/volume] in Blood by Automated count 9.4 10^3/uL 4.2 - 1 1.0 [facility] Erythrocytes [#/volume] in Blood by Automated count 5.97 10^6/uL 4. 50 - 6.30 [facility] Hemoglobin [Mass/volume] in Blood 18.8 g/dL 14.0 - 16.0 H [facility] Hematocrit [Volume Fraction] of Blood by Automated count 56.2 % 4 1.0 - 51.0 H [facility] Erythrocyte mean corpuscular volume [Entitic volume] by Auto mated count 94.1 fL 80.0 - 94.0 H [facility] Erythrocyte mean corpuscular hemoglobin [Entitic mass] by Automated count 31.5 pg 27.0 - 34.0 [facility] Erythrocyte mean corpuscular hemoglobin concentration [Mass/volume] by Automated count 33.5 g/dL 31.0 - 36.0 [facility] Erythrocyte distribution width [Ratio] by Automated count 14.1 % 11.5 - 14.8 [facility] Platelets [#/volume] in Blood by Automated count 204 10^3/uL 150 - 45 0 [facility] Platelet mean volume [Entitic volume] in Blood by Automated count 10.7 fL 7.4 - 10.4 H [facility] Neutrophils/100 leukocytes in Blood by Automated count 73.5 % 37. 0 - 80.0 [facility] Lymphocytes/100 leukocytes in Blood by Manual count 15.5 % 25.0 - 40.0 L [facility] Monocytes/100 leukocytes in Blood by Automated count 8.3 % 3.0 - 8.0 H [facility] Eosinophils/100 leukocytes in Blood by Automated count 1.2 % 0.0 - 7.0 [facility] Basophils/100 leukocytes in Blood by Automated count 1.0 % 0.0 - 2.0 [facility] %IG 0.5 % 0.0 - 0.0 H [facility] %NRBC 0.0 % 0.0 - 0.0 [facility] Neutrophils [#/volume] in Blood by Automated count 6.90 10^3/uL 2.00 - 6.90 [facility] Lymphocytes [#/volume] in Blood by Automated count 1.46 10^3/uL 0.60 - 3.40 [facility] Monocytes [#/volume] in Blood by Automated count 0.78 10^3/uL 0.00 - 0.90 [facility] Eosinophils [#/volume] in Blood by Automated count 0.11 10^3/uL 0.00 - 0.70 [facility] Basophils [#/volume] in Blood by Automated count 0.09 10^3/uL 0.00 - 0.20 [facility] #IG 0.05 10^3/uL 0.00 - 0.10 [facility] #NRBC 0.00 10^3/uL 0.00 - 0.00 [facility]ital MANUAL DIFF NOT INDICATED [facility] RBC MORPH NOT INDICATED [facility] Procedure Vital Signs ID Date Data Source UNK Name Value Range Interpretation Code Description Data Source(s) Body surface area Derived from formula 2.00 m2 2.00 m2 [facility] ([facility]) Body mass index (BMI) [Ratio] 36.3 kg/m2 36.3 k g/m2 [facility] ([facility]) Body height 64 [in_i] 64 [in_i] [facility] ([facility]) 5'4" Body weight 95.823 kg 95.823 kg [facility] ([facility]) Body weight 211.25 [lb_av] 211.25 [lb_av] [facility] ([facility]) Oxygen saturation in Arterial blood by Pulse oximetry 93 % 93 % [facility] ([facility]) Respiratory rate 18 /min 18 /min [facility] ( [facility]) Body temperature 98.2 [degF] 98.2 [degF] [facility] ([facility]) Heart rate 86 /min 86 /min [facility] ([facility]) Diastolic blood pressure 72 mm[Hg] 72 mm[Hg] [facility] ([facility]) Systolic blood pressure 130 mm[Hg] 130 mm[Hg] [facility] ([facility]) Body surface area Derived from formula 2.00 m2 2.00 m2 [facility]) Body mass index (BMI) [Ratio] 36.0 kg/m2 36.0 k g/m2 [facility] Body height 64 [in_i] 64 [in_i] [facility] ([facility]) 5'4" Body weight 95.256 kg 95.256 kg [facility] ([facility]) Body weight 210.00 [lb_av] 210.00 [lb_av] [facility] ([facility]) Oxygen saturation in Arterial blood by Pulse oximetry 90 % 90 % [facility]) Respiratory rate 18 /min 18 /min [facility] ( [facility]) Body temperature 98.4 [degF] 98.4 [degF] [facility] ([facility]) Heart rate 86 /min 86 /min [facility] ([facility]) Diastolic blood pressure 62 mm[Hg] 62 mm[Hg] [facility] ([facility]) Systolic blood pressure 124 mm[Hg] 124 mm[Hg] M [facility] Body surface area Derived from formula 1.97 m2 1.97 m2 [facility] ([facility]) Body mass index (BMI) [Ratio] 34.9 kg/m2 34.9 k g/m2 [facility] Body height 64 [in_i] 64 [in_i] [facility] ([facility]) 5'4" Body weight 92.251 kg 92.251 kg [facility] ([facility]) Body weight 203.38 [lb_av] 203.38 [lb_av] [facility] ([facility]) Oxygen saturation in Arterial blood by Pulse oximetry 90 % 90 % [facility] ([facility]) Respiratory rate 18 /min 18 /min [facility] ( [facility]) Body temperature 97.1 [degF] 97.1 [degF] [facility] ([facility]) Heart rate 100 /min 100 /min [facility] ([facility]) Diastolic blood pressure 72 mm[Hg] 72 mm[Hg] [facility] ([facility]) Systolic blood pressure 122 mm[Hg] 122 mm[Hg] M [facility] ([facility]) Body surface area 1.97 m2 1.97 m2 [facility])
[2020-03-17] MEDS ORDERED: methylPREDNISolone 125MG 2ML VIAL IV ONE (03:00)
[2020-03-17] MEDS ORDERED: COMBIVENT RESPIMAT 100-20MCG INHALER 4GM INH SCH (03:00)
[2020-03-17 03:57] LABS: BASO # 0.1 10^3/uL (0.0-0.2); EOS # 0.1 10^3/uL (0.0-0.5); EOS % 1.4 % (0.0-3.0); HEMATOCRIT 53.5 % (42.0-52.0); HEMOGLOBIN 17.8 g/dl (13.5-17.5); LYMPH # 1.3 10^3/uL (1.5-5.0); LYMPH % 15.1 % (24.0-44.0); MEAN CORPUSCULAR HEMOGLOBIN 30.5 pg (27.0-33.0); MEAN CORPUSCULAR HGB CONC 33.3 g/dl (32.0-36.5); MEAN CORPUSCULAR VOLUME 91.6 fl (80.0-96.0); MONO # 0.7 10^3/uL (0.0-0.8); MONO % 8.7 % (0.0-5.0); NEUTROPHILS % 72.6 % (36.0-66.0); PLATELET COUNT, AUTOMATED 191 10^3/uL (150-450); RED BLOOD COUNT 5.84 10^6/uL (4.30-6.10); WHITE BLOOD COUNT 8.3 10^3/uL (4.0-10.0)
--- NOTE | 2020-03-17 04:26 | REPVR ---
PROCEDURE INFORMATION: Exam: XR Chest, 1 View Exam date and time: 03/17/2020 3:51 AM Age: 54 years old Clinical indication: Cough and dyspnea; Additional info: Dyspnea/cough TECHNIQUE: Imaging protocol: XR of the chest Views: 1 view. COMPARISON: CR PORTABLE CHEST X-RAY 06/30/2019 4:55 AM FINDINGS: Lungs: The lungs are unchanged with minimal bibasilar atelectasis or scar. Pleural space: Unremarkable. No pleural effusion. No pneumothorax. Heart/Mediastinum: The heart and mediastinum are unchanged. Bones/joints: Unremarkable. IMPRESSION: Stable chest since 06/30/2019. Electronically signed by: Howard Mcginnis On 03/17/2020 04:25:49 AM
[2020-03-17 04:32] LABS: ALBUMIN 3.9 GM/DL (3.2-5.2); ALT/SGPT 68 U/L (12-78); BILIRUBIN,DIRECT 0.1 MG/DL (0.0-0.2); BILIRUBIN,TOTAL 0.4 MG/DL (0.2-1.0); BLOOD UREA NITROGEN 10 MG/DL (7-18); CARBON DIOXIDE LEVEL 25 MEQ/L (21-32); CHLORIDE LEVEL 106 MEQ/L (98-107); CK-MB VALUE MASS 2.9 NG/ML (<3.6); CPK CREATINE PHOSPHOKINASE 146 U/L (39-308); CREATININE FOR GFR 0.91 MG/DL (0.70-1.30); ETHYL ALCOHOL (ETHANOL) < 0.003 % (0.000-0.010); GLOMERULAR FILTRATION RATE > 60.0 (>56); GLUCOSE, FASTING 111 MG/DL (70-100); MB/CK RELATIVE INDEX 1.99 (< OR =4); POTASSIUM SERUM 4.8 MEQ/L (3.5-5.1); SODIUM LEVEL 139 MEQ/L (136-145); TOTAL PROTEIN 7.3 GM/DL (6.4-8.2); TROPONIN I < 0.02 NG/ML (< 0.10)
--- OUTSIDE RECORDS SUMMARY | 2020-03-17 05:02 | CCD ---
Author Author [facility] Organization [facility] Address Unknown Phone Unavailable Care Team Providers Care Wet Pour Supervisor Name Role Phone KIRSCHMAN, L YESSICA FITNESS AND WELLNESS COORDINATOR Unavailable Unavailable KIRSCHMAN, L YESSICA FITNESS AND WELLNESS COORDINATOR Unavailable Unavailable KIRSCHMAN, L YESSICA FITNESS AND WELLNESS COORDINATOR Unavailable Unavailable KIRSCHMAN, L YESSICA FITNESS AND WELLNESS COORDINATOR Unavailable Unavailable KIRSCHMAN, L YESSICA FITNESS AND WELLNESS COORDINATOR Unavailable Unavailable KIRSCHMAN, L YESSICA FITNESS AND WELLNESS COORDINATOR Unavailable Unavailable KIRSCHMAN, L YESSICA FITNESS AND WELLNESS COORDINATOR Unavailable Unavailable KIRSCHMAN, L YESSICA FITNESS AND WELLNESS COORDINATOR Unavailable Unavailable KIRSCHMAN, L YESSICA FITNESS AND WELLNESS COORDINATOR Unavailable Unavailable KIRSCHMAN, L YESSICA FITNESS AND WELLNESS COORDINATOR Unavailable Unavailable KIRSCHMAN, L YESSICA FITNESS AND WELLNESS COORDINATOR Unavailable Unavailable KIRSCHMAN, L YESSICA FITNESS AND WELLNESS COORDINATOR Unavailable Unavailable KIRSCHMAN, L YESSICA FITNESS AND WELLNESS COORDINATOR Unavailable Unavailable KIRSCHMAN, L YESSICA FITNESS AND WELLNESS COORDINATOR Unavailable Unavailable KIRSCHMAN, L YESSICA FITNESS AND WELLNESS COORDINATOR Unavailable Unavailable KIRSCHMAN, L YESSICA FITNESS AND WELLNESS COORDINATOR Unavailable Unavailable KIRSCHMAN, L YESSICA FITNESS AND WELLNESS COORDINATOR Unavailable Unavailable KIRSCHMAN, L YESSICA FITNESS AND WELLNESS COORDINATOR Unavailable Unavailable KIRSCHMAN, L YESSICA FITNESS AND WELLNESS COORDINATOR Unavailable Unavailable KIRSCHMAN, L YESSICA FITNESS AND WELLNESS COORDINATOR Unavailable Unavailable KIRSCHMAN, L YESSICA FITNESS AND WELLNESS COORDINATOR Unavailable Unavailable KIRSCHMAN, L YESSICA FITNESS AND WELLNESS COORDINATOR Unavailable Unavailable KIRSCHMAN, L YESSICA FITNESS AND WELLNESS COORDINATOR Unavailable Unavailable KIRSCHMAN, L YESSICA FITNESS AND WELLNESS COORDINATOR Unavailable Unavailable KIRSCHMAN, L YESSICA FITNESS AND WELLNESS COORDINATOR Unavailable Unavailable KIRSCHMAN, L YESSICA FITNESS AND WELLNESS COORDINATOR Unavailable Unavailable KIRSCHMAN, L YESSICA FITNESS AND WELLNESS COORDINATOR Unavailable Unavailable KIRSCHMAN, L YESSICA FITNESS AND WELLNESS COORDINATOR Unavailable Unavailable KIRSCHMAN, L YESSICA FITNESS AND WELLNESS COORDINATOR Unavailable Unavailable KIRSCHMAN, L YESSICA FITNESS AND WELLNESS COORDINATOR Unavailable Unavailable KIRSCHMAN, L YESSICA FITNESS AND WELLNESS COORDINATOR Unavailable Unavailable KIRSCHMAN, L YESSICA FITNESS AND WELLNESS COORDINATOR Unavailable Unavailable KIRSCHMAN, L YESSICA FITNESS AND WELLNESS COORDINATOR Unavailable Unavailable KIRSCHMAN, L YESSICA FITNESS AND WELLNESS COORDINATOR Unavailable Unavailable KIRSCHMAN, L YESSICA FITNESS AND WELLNESS COORDINATOR Unavailable Unavailable KIRSCHMAN, L YESSICA FITNESS AND WELLNESS COORDINATOR Unavailable Unavailable KIRSCHMAN, L YESSICA FITNESS AND WELLNESS COORDINATOR Unavailable Unavailable KIRSCHMAN, L YESSICA FITNESS AND WELLNESS COORDINATOR Unavailable Unavailable KIRSCHMAN, L YESSICA FITNESS AND WELLNESS COORDINATOR Unavailable Unavailable KIRSCHMAN, L YESSICA FITNESS AND WELLNESS COORDINATOR Unavailable Unavailable KIRSCHMAN, L YESSICA FITNESS AND WELLNESS COORDINATOR Unavailable Unavailable KIRSCHMAN, L YESSICA FITNESS AND WELLNESS COORDINATOR Unavailable Unavailable KIRSCHMAN, L YESSICA FITNESS AND WELLNESS COORDINATOR Unavailable Unavailable KIRSCHMAN, L YESSICA FITNESS AND WELLNESS COORDINATOR Unavailable Unavailable KIRSCHMAN, L YESSICA FITNESS AND WELLNESS COORDINATOR Unavailable Unavailable KIRSCHMAN, L YESSICA FITNESS AND WELLNESS COORDINATOR Unavailable Unavailable KIRSCHMAN, L YESSICA FITNESS AND WELLNESS COORDINATOR Unavailable Unavailable KIRSCHMAN, L YESSICA FITNESS AND WELLNESS COORDINATOR Unavailable Unavailable KIRSCHMAN, L YESSICA FITNESS AND WELLNESS COORDINATOR Unavailable Unavailable KIRSCHMAN, L YESSICA FITNESS AND WELLNESS COORDINATOR Unavailable Unavailable KIRSCHMAN, L YESSICA FITNESS AND WELLNESS COORDINATOR Unavailable Unavailable Boubacar, Belén Klarissa ANP-BC Unavailable [...] is protected by Article 27-F of the [place] State Public Health law. If you continue you may have access to information: Regarding HIV / AIDS; Provided by facilities licensed or operated by the [facility] Office of Mental Health; or Provided by the [facility] Office for People With Developmental Disabilities. If such information is present, then the following [facility] mandated warning applies: This information has [...] law may result in a fine or long term sentence or both. A general authorization for [...] 10:39:00 AM EST - 01/26/2020 10:39:00 AM [facility] Outpatient Attender: Klarissa LINGonsultant: YESSICA CHOWDARY NP 01/01/2020 01:10:00 PM EST - 01/01/2020 01:10:00 PM [facility] Outpatient Attender: Klarissa LINGonsultant: YESSICA CHOWDARY NP 08/20/2019 08:02:00 AM EDT - 08/20/2019 08:02:00 AM EDT [facility] Outpatient Attender: Klarissa Barultant: YESSICA CHOWDARY NP 08/12/2019 08:01:00 AM EDT - 08/12/2019 08:01:00 AM EDT [facility] Outpatient Attender: Klarissa LANG [facility] 07/27 02:00:00 PM EDT [facility] Outpatient Attender: Klarissa LINGonsultant: YESSICA CHOWDARY NP 08/06/2019 01:23:00 PM EDT - 08/06/2019 01:23:00 PM EDT [facility] Immunizations Vaccine Date Status Description Data Source(s) New in 2011. IIV4 01/01/2020 12:29:00 PM EST completed [facility] ([facility]) Medications Medication Brand Name Start Date Product Form Dose Route Admi nistrative Instructions Pharmacy Instructions Status Indications Reaction Description Data Source(s) Fluticasone Propionate/Salmeterol Fluticasone Propionate/Jozef meterol 01/26/2020 12:00:00 AM EST ORAL active M [facility] ([facility]) Breztri Aerosphere Breztri Aerosphere 01/01/2020 12:00:00 AM EST RESPIRATORY completed [facility] ([facility]) Oxygen 01/01/2020 12:00:00 AM EST active [facility] ([facility]) Furosemide 20 MG Oral Tablet Furosemide 01/01/2020 12:00:00 AM EST ORAL active [facility] ([facility]) Prednisone 10 MG Oral Tablet Prednisone 01/01/2020 12:00:00 AM EST completed [facility] ([facility]) Insurance Providers Payer name Policy type / Coverage type Policy ID Covered alliance party ID Covered alliance party's relationship to hall Policy Hall Plan Information [employer] COMMUNITY PLAN MCDO [id number] SP [id number] SELF PAY ONLY [id number] SP [id number] [facility] COMMUNTY PLAN [id number] EMEDNY [id number] SP [id number] [facility] MEDICA[facility] CLINIC [id number] [facility] COMMUNTY PLAN [id number] MEDICAID [id number] SP [id number] HC COMMUNITY PLAN [facility] [id number] SP [id number] [facility] O [id number] S [id number] [employer] COMMUNITY PLAN XIX [id number] 18 [id number] [employer] COMMUNITY PLAN MCDO [id number] SP [id number] ANS-Medicaid [id number] ANS-Medicaid [id number] ANSI-Medicaid [id number] [facility]-Medicaid [id number] [facility] [id number] S [id number] [facility] Health Maintenance Organization (HMO) [id number] Self [id number] [employer] COMMUNITY PLAN [facility] [id number] SP [id number] [facility]) O [id number] S [id number] [facility] COMMUNITY PLAN [facility] [id number] SP [id number] [facility] [id number] SP [id number] [facility] [id number] SP [id number] SELF PAY UNAVAILABLE SP UNAVAILA BLE Problems, Conditions, and Diagnoses Code Display Name Description Problem Type Effective Dates Data Source(s) 979245130 Pure hyperglyceridemia Pure hyperglyceridemia Problem 08/06/2019 12:00:00 AM EDT [facility] ([facility]) [id number] Chronic obstructive lung disease Chronic obstruc tive lung disease Problem 08/06/2019 12:00:00 AM EDT [facility] ([facility]) [id number] Anxiety state Anxiety state Problem 08/06/2019 12:00:00 AM EDT [facility] ([facility]) Alcohol abuse, uncomplicated Alcohol abuse, uncomplica mango Problem 08/06/2019 12:00:00 AM EDT [facility] ([facility]) 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 Diagnosis 01/26/2020 10:39:00 AM [facility] F1010 Alcohol abuse, uncomplicated Alcohol abuse, uncomplica mango Diagnosis 01/26/2020 10:39:00 AM [facility] F419 Anxiety disorder, unspecified Anxiety disorder, unspec ified Diagnosis 01/26/2020 10:39:00 AM [facility] E781 Pure hyperglyceridemia Pure hyperglyceridemia Diagnosi s 01/26/2020 10:39:00 AM [facility] J449 Chronic obstructive pulmonary disease, u nspecified Chronic obstructive pulmonary disease, unspecified Diagnosis 01/26/2020 10:39:00 AM [facility] R05 Cough Cough Diagnosis 01/26/2020 10:39:00 AM [facility] Z23 Encounter for immunization Encounter for immunization Diagnosis 01/01/2020 01:10:00 PM [facility] Z1159 Encounter for screening for other viral diseases Encounter for screening for other viral diseases Diagnosis 01/01/2020 01:10:00 PM [facility] R062 Wheezing Wheezing Diagnosis 01/01/2020 01:10:00 PM [facility] R0902 Hypoxemia Hypoxemia Diagnosis 01/01/2020 01:10:00 PM [facility] J810 Acute pulmonary edema Acute pulmonary edema Diagnosis 01/01/2020 01:10:00 PM [facility] Z0001 Encounter for general adult medical exam ination with abnormal findings Encounter for general adult medical examination with abnormal findings Diagnosis [facility] Ill-defined and unknown cause of mortali ty Ill-defined and unknown cause of mortality Diagnosis 08/12/2019 08:01:00 AM [facility] Surgeries/Procedures Procedure Description Date Indications Data Source(s) Brief Emotional/Behav Assessment W/ Scoring Doc Per Standard Inst 08/06/2019 12:00:00 AM EDT [facility]) Admin Patient Focused Health Risk Assessment Instrument 08/06/2019 12:00:00 AM EDT [facility] ([facility]) Results ID Date Data Source [id number] 01/26/2020 11:13:00 AM EST [facility] ([facility]) Name Value Range Interpretation Code Description Data Dayana rce(s) Supporting Document(s) Magnesium [Mass/volume] in Serum or Plasma 2.3 mg/dL 1.7-2.2 Above high normal [facility] ([facility]) Is patient fasting? Y Thyrotropin [Units/volume] in Serum or Plasma 0.68 uIU/mL 0.47-5.01 [facility] ([facility]) Is patient fasting? Y ID Date Data Source [id number] 01/26/2020 11:13:00 AM EST [facility] ([facility]) Name Value Range Interpretation Code Description Data Dayana rce(s) Supporting Document(s) Cve Panel Laboratory test result [facility] ([facility]) Is patient fasting? Y Cholesterol 244 mg/dL 131-200 Above high normal [facility] ([facility]) Is patient fasting? Y HDL 78 mg/dL 29-86 [facility] ([facility]) Is patient fasting? Y Triglycerides 109 mg/dL 35-160 [facility] ([facility]) Is patient fasting? Y Risk Factor 3.1 3.4-4.9 Below low normal [facility] ([facility]) Is patient fasting? Y LDL/HDL 1.90 1.00-3.55 [facility] ([facility]) Is patient fasting? Y LDL 148 mg/dL 65-175 [facility] ([facility]) Is patient fasting? Y ID Date Data Source [id number] 01/26/2020 11:13:00 AM EST [facility] ([facility]) Name Value Range Interpretation Code Description Data Dayana rce(s) Supporting Document(s) Hemoglobin A1c/Hemoglobin.total in Blood 5.6 % 4.4-6.1 [facility] ([facility]) Is patient fasting? Y ID Date Data Source [id number] 01/26/2020 11:13:00 AM EST [facility] ([facility]) Name Value Range Interpretation Code Description Data Dayana rce(s) Supporting Document(s) Comprehensive Metabo Laboratory test result [facility] ([facility]) Is patient fasting? Y Potassium 4.3 meq/L 3.6-5.0 [facility] ([facility]) Is patient fasting? Y Sodium 132 meq/L 134-153 Below low normal [facility] ( [facility]) Is patient fasting? Y Chloride 93 meq/L 98-107 Below low normal [facility] ( [facility]) Is patient fasting? Y BUN 8 mg/dL 7-21 [facility] ([facility]) Is patient fasting? Y Co2 25 meq/L 22-30 [facility] ([facility]) Is patient fasting? Y Glucose 68 mg/dL 65-110 [facility] ([facility]) Is patient fasting? Y Creatinine 0.7 mg/dL 0.7-1.5 [facility] ([facility]) Is patient fasting? Y Total Protein 6.7 g/dL 6.3-8.2 [facility] ([facility]) Is patient fasting? Y BUN/Creat 11 8-27 [facility] ([facility]) Is patient fasting? Y Globulin 2.0 GM/DL 2.4-3.2 Below low normal [facility] ( [facility]) Is patient fasting? Y Albumin 4.7 g/dL 3.9-5.0 [facility] ([facility]) Is patient fasting? Y A/G Ratio 2.4 0.8-2.0 Above high normal [facility] ([facility]) Is patient fasting? Y Calcium 9.3 mg/dL 8.4-10.2 [facility] ([facility]) Is patient fasting? Y Alkaline Phos 91 U/L 38-126 [facility] ([facility]) Is patient fasting? Y Total Bili Laboratory test result 0.2-1.3 ME [facility] ([facility]) Is patient fasting? Y SGPT/Alt 33 U/L 7-56 [facility] ([facility]) Is patient fasting? Y Sgot/Ast 36 U/L 5-40 [facility] ([facility]) Is patient fasting? Y Anion Gap 14.0 mmol/L 8.0-16.0 [facility] ([facility]) Is patient fasting? Y Age 54 yrs [facility] ([facility]) Is patient fasting? Y Non-Aa GFR Laboratory test result [facility] ([facility]) Is patient fasting? Y Afr Amer GFR Laboratory test result [facility] ([facility]) Is patient fasting? Y ID Date Data Source [id number] 01/26/2020 11:13:00 AM EST [facility] ([facility]) Name Value Range Interpretation Code Description Data Dayana rce(s) Supporting Document(s) WBC 7.7 10^3/uL 4.2-11.0 [facility] ([facility]) Is patient fasting? Y CBC W/Automated Diff Laboratory test result [facility] ([facility]) Is patient fasting? Y Hematocrit 52.7 % 41.0-51.0 Above high normal [facility] ([facility]) Is patient fasting? Y RBC 5.70 10^6/uL 4.50-6.30 [facility] ([facility]) Is patient fasting? Y Hemoglobin 18.0 g/dL 14.0-16.0 Above high normal [facility] ([facility]) Is patient fasting? Y MCHC 34.2 g/dL 31.0-36.0 [facility] ([facility]) Is patient fasting? Y MCV 92.5 fL 80.0-94.0 [facility] ([facility]) Is patient fasting? Y MCH 31.6 pg 27.0-34.0 [facility] ([facility]) Is patient fasting? Y MPV 10.4 fL 7.4-10.4 [facility] ([facility]) Is patient fasting? Y Platelets 187 10^3/uL 150-450 [facility] ([facility]) Is patient fasting? Y RDW 13.8 % 11.5-14.8 [facility] ([facility]) Is patient fasting? Y Neut 64.6 % 37.0-80.0 [facility] ([facility]) Is patient fasting? Y Lymph 22.0 % 25.0-40.0 Below low normal [facility] ( [facility]) Is patient fasting? Y Bandera 10.0 % 3.0-8.0 Above high normal [facility] ([facility]) Is patient fasting? Y %Ig 0.7 % 0.0-0.0 Above high normal [facility] ([facility]) Is patient fasting? Y Eos 1.8 % 0.0-7.0 [facility] ([facility]) Is patient fasting? Y Baso 0.9 % 0.0-2.0 [facility] ([facility]) Is patient fasting? Y #Lymph 1.69 10^3/uL 0.60-3.40 [facility] ([facility]) Is patient fasting? Y %NRBC 0.0 % 0.0-0.0 [facility] ([facility]) Is patient fasting? Y #Neut 4.97 10^3/uL 2.00-6.90 [facility] ([facility]) Is patient fasting? Y #Eos 0.14 10^3/uL 0.00-0.70 [facility] ([facility]) Is patient fasting? Y #Baso 0.07 10^3/uL 0.00-0.20 [facility] ([facility]) Is patient fasting? Y #Bandera 0.77 10^3/uL 0.00-0.90 [facility] ([facility]) Is patient fasting? Y #NRBC 0.00 10^3/uL 0.00-0.00 [facility] ([facility]) Is patient fasting? Y #Ig 0.05 10^3/uL 0.00-0.10 [facility] ([facility]) Is patient fasting? Y Manual Diff Laboratory test result M [facility] ([facility]) Is patient fasting? Y RBC Morph Laboratory test result [facility] ([facility]) Is patient fasting? Y ID Date Data Source [id number] 01/26/2020 06:00:00 PM EST [facility] Name Value Range Interpretation Code Description Data Dayana rce(s) Supporting Document(s) Thyrotropin [Units/volume] in Serum or Plasma by Detec tion limit <= 0.05 mIU/L 0.68 uIU/mL 0.47 - 5.01 [facility] ID Date Data Source [id number] 01/26/2020 05:41:00 PM EST [facility] Name Value Range Interpretation Code Description Data Dayana rce(s) Supporting Document(s) Magnesium [Mass/volume] in Serum or Plasma 2.3 MG/DL 1.7 - 2.2 H [facility] ID Date Data Source [id number] 01/26/2020 05:41:00 PM EST [facility] Name Value Range Interpretation Code Description Data Dayana rce(s) Supporting Document(s) CVE PANEL [facility] LIPID PANEL Cholesterol [Mass/volume] in Serum or Plasma 244 MG/DL 131 - 200 H [facility] Deprecated Triglyceride [Mass/volume] in Serum or Plasma 109 MG/DL 3 5 - 160 [facility] HDL 78 [facility]DL 29 - [facility] Ch[facility] in LDL [Mass/volume] in Serum or Plasma by Direc t assay 148 mg/dL 65 - 175 [facility] Cholesterol.total/Cholesterol in HDL [Mass Ratio] in Serum o r Plasma 3.1 3.4 - 4.9 L [facility] LDL/HDL 1.90 1.00 - 3.55 [facility] ital CVE RISK CHOL/HDL LDL/HDLMEN: 1/2 AVERAGE 3.43 1.00 AVERAGE 4.97 3.55 2X AVERAGE 9.55 6.25 3X AVERAGE 23.99 7.99WOMEN: 1/2 AVERAGE 3.27 1.47 AVERAGE 4.44 3.22 2X AVERAGE 7.05 5.03 3X AVERAGE 11.04 6.14 ID Date Data Source [id number] 01/26/2020 05:41:00 PM EST [facility] Name Value Range Interpretation Code Description Data Dayana rce(s) Supporting Document(s) COMPREHENSIVE METABOLIC PANEL [facility] COMPREHENSIVE METABOLIC PANEL Sodium [Moles/volume] in Serum or Plasma 132 mEq/L 134 - 153 L [facility] Potassium [Moles/volume] in Serum or Plasma 4.3 mEq/L 3.6 - 5.0 [facility] Chloride [Moles/volume] in Serum or Plasma 93 mEq/L 98 - 107 L [facility] Carbon dioxide, total [Moles/volume] in Serum or Plasma 25 MEQ/L 22 - 30 [facility] Glucose [Mass/volume] in Serum or Plasma 68 MG/DL 65 - 110 [facility] BUN 8 MG/DL 7 - 21 [facility] Creatinine [Mass/volume] in Serum or Plasma 0.7 MG/DL 0.7 - 1.5 [facility] BUN/CREAT 11 8 - 27 [facility] al Protein [Mass/volume] in Serum or Plasma 6.7 G/DL 6.3 - 8.2 [facility] Albumin [Mass/volume] in Serum or Plasma 4.7 G/DL 3.9 - 5.0 [facility] Globulin [Mass/volume] in Serum by calculation 2.0 GM/DL 2.4 - 3.2 L [facility] A/G RATIO 2.4 0.8 - 2.0 H [facility] Calcium [Mass/volume] in Serum or Plasma 9.3 MG/DL 8.4 - 10.2 [facility] Bilirubin.total [Mass/volume] in Serum or Plasma <0.7 MG/DL 0.2 - 1.3 [facility] Alkaline phosphatase [Enzymatic activity/volume] in Serum or Plasma 91 U/L 38 - 126 [facility] Aspartate aminotransferase [Enzymatic activity/volume] in Serum or Plasma 36 U/L 5 - 40 [facility] Alanine aminotransferase [Enzymatic activity/volume] in Seru m or Plasma 33 U/L 7 - 56 [facility] Anion gap 3 in Serum or Plasma 14.0 mmol/L 8.0 - 16.0 [facility] AGE [address] [facility] al NON-AA GFR >60 mL/min [facility] ital AFR AMER GFR >60 mL/min [facility] Ho spital Male GFR In terprentation 20-49 [...] >32 mL/min Normal ID Date Data Source [id number] 01/26/2020 05:34:00 PM [facility] Name Value Range Interpretation Code Description Data Dayana rce(s) Supporting Document(s) Hemoglobin A1c/Hemoglobin.total in Blood 5.6 % 4.4 - 6.1 [facility] {A1]{HB] ID Date Data Source [id number] 01/26/2020 05:25:00 PM [facility] Name Value Range Interpretation Code Description Data Dayana rce(s) Supporting Document(s) CBC W/AUTOMATED DIFF [facility] COMPLETE BLOOD COUNT Leukocytes [#/volume] in Blood by Automated count 7.7 10^3/uL 4.2 - 1 1.0 [facility] Erythrocytes [#/volume] in Blood by Automated count 5.70 10^6/uL 4. 50 - 6.30 [facility] Hemoglobin [Mass/volume] in Blood 18.0 g/dL 14.0 - 16.0 H [facility] Hematocrit [Volume Fraction] of Blood by Automated count 52.7 % 4 1.0 - 51.0 H [facility] Erythrocyte mean corpuscular volume [Entitic volume] by Auto mated count 92.5 fL 80.0 - 94.0 [facility] Erythrocyte mean corpuscular hemoglobin [Entitic mass] by Automated count 31.6 pg 27.0 - 34.0 [facility] Erythrocyte mean corpuscular hemoglobin concentration [Mass/volume] by Automated count 34.2 g/dL 31.0 - 36.0 [facility] Erythrocyte distribution width [Ratio] by Automated count 13.8 % 11.5 - 14.8 [facility] Platelets [#/volume] in Blood by Automated count 187 10^3/uL 150 - 45 0 [facility] Platelet mean volume [Entitic volume] in Blood by Automated count 10.4 fL 7.4 - 10.4 [facility] Neutrophils/100 leukocytes in Blood by Automated count 64.6 % 37. 0 - 80.0 [facility] Lymphocytes/100 leukocytes in Blood by Manual count 22.0 % 25.0 - 40.0 L [facility] Monocytes/100 leukocytes in Blood by Automated count 10.0 % 3.0 - 8.0 H [facility] Eosinophils/100 leukocytes in Blood by Automated count 1.8 % 0.0 - 7.0 [facility] Basophils/100 leukocytes in Blood by Automated count 0.9 % 0.0 - 2.0 [facility] %IG 0.7 % 0.0 - 0.0 [facility]NRBC 0.0 % 0.0 - 0.0 [facility] al Neutrophils [#/volume] in Blood by Automated count 4.97 10^3/uL 2.00 - 6.90 [facility] Lymphocytes [#/volume] in Blood by Automated count 1.69 10^3/uL 0.60 - 3.40 [facility] Monocytes [#/volume] in Blood by Automated count 0.77 10^3/uL 0.00 - 0.90 [facility] Eosinophils [#/volume] in Blood by Automated count 0.14 10^3/uL 0.00 - 0.70 [facility] Basophils [#/volume] in Blood by Automated count 0.07 10^3/uL 0.00 - 0.20 [facility] #IG 0.05 10^3/uL 0.00 - 0.10 [facility] ospital #NRBC 0.00 10^3/uL 0.00 - 0.00 [facility] ospital MANUAL DIFF NOT INDICATED [facility] RBC MORPH NOT INDICATED [facility] spital ID Date Data Source [id number] 01/01/2020 01:41:00 PM EST [facility] ([facility]) Name Value Range Interpretation Code Description Data Dayana rce(s) Supporting Document(s) Coronavirus Covid-19 Laboratory test result [facility] ([facility]) This nucleic acid amplification test was developed and its performance characteristics determined by [facility]. Nucleic acid amplification tests include PCR and [...] in this assay. ID Date Data Source [id number] 01/01/2020 01:41:00 PM EST [facility] Name Value Range Interpretation Code Description Data Dayana rce(s) Supporting Document(s) SARS coronavirus 2 RNA [facility] This lab was ordered by [facility] ab and reported by [facility]. ID Date Data Source [id number] 01/03/2020 03:13:00 PM EST [facility] Name Value Range Interpretation Code Description Data Dayana rce(s) Supporting Document(s) SARS-CoV-2, MERLINE Not Detected Not Detected [facility] This nucleic acid amplification test was developed and its performancecharacteristics determined by [facility]. Nucleic acidamplification tests include PCR and [...] in this assay. ID Date Data Source [id number] 08/20/2019 08:10:00 AM EDT [facility] ([facility]) Name Value Range Interpretation Code Description Data Dayana rce(s) Supporting Document(s) Magnesium [Mass/volume] in Serum or Plasma 2.3 mg/dL 1.7-2.2 Above high normal [facility] ([facility]) Is patient fasting? N ID Date Data Source [id number] 08/20/2019 08:10:00 AM EDT [facility] ([facility]) Name Value Range Interpretation Code Description Data Dayana rce(s) Supporting Document(s) Cve Panel Laboratory test result [facility] ([facility]) Is patient fasting? N Triglycerides 63 mg/dL 35-160 [facility] ([facility]) Is patient fasting? N HDL 82 mg/dL 29-86 [facility] ([facility]) Is patient fasting? N Cholesterol 195 mg/dL 131-200 [facility] ([facility]) Is patient fasting? N LDL/HDL 1.21 1.00-3.55 [facility] ([facility]) Is patient fasting? N LDL 99 mg/dL 65-175 [facility] ([facility]) Is patient fasting? N Risk Factor 2.4 3.4-4.9 Below low normal [facility] ([facility]) Is patient fasting? N ID Date Data Source [id number] 08/20/2019 08:10:00 AM EDT [facility] ([facility]) Name Value Range Interpretation Code Description Data Dayana rce(s) Supporting Document(s) Hemoglobin A1c/Hemoglobin.total in Blood 5.5 % 4.4-6.1 [facility] ([facility]) Is patient fasting? N Thyrotropin [Units/volume] in Serum or Plasma 0.37 uIU/mL 0. 47-5.01 Below low normal [facility] ([facility]) Is patient fasting? N ID Date Data Source [id number] 08/20/2019 08:10:00 AM EDT [facility] ([facility]) Name Value Range Interpretation Code Description Data Dayana rce(s) Supporting Document(s) Sodium 139 meq/L 134-153 [facility] ([facility]) Is patient fasting? N Comprehensive Metabo Laboratory test result [facility] ([facility]) Is patient fasting? N Co2 27 meq/L 22-30 [facility] ([facility]) Is patient fasting? N Glucose 83 mg/dL 65-110 [facility] ([facility]) Is patient fasting? N Potassium 4.9 meq/L 3.6-5.0 [facility] ([facility]) Is patient fasting? N Chloride 98 meq/L 98-107 [facility] ([facility]) Is patient fasting? N Creatinine 0.9 mg/dL 0.7-1.5 [facility] ([facility]) Is patient fasting? N BUN/Creat 9 8-27 [facility] ([facility]) Is patient fasting? N BUN 8 mg/dL 7-21 [facility] ([facility]) Is patient fasting? N Globulin 2.0 GM/DL 2.4-3.2 Below low normal [facility] ( [facility]) Is patient fasting? N Total Protein 6.8 g/dL 6.3-8.2 [facility] ([facility]) Is patient fasting? N Albumin 4.8 g/dL 3.9-5.0 [facility] ([facility]) Is patient fasting? N Calcium 9.8 mg/dL 8.4-10.2 [facility] ([facility]) Is patient fasting? N A/G Ratio 2.4 0.8-2.0 Above high normal [facility] ([facility]) Is patient fasting? N Alkaline Phos 110 U/L 38-126 [facility] ([facility]) Is patient fasting? N Total Bili Laboratory test result 0.2-1.3 ME [facility] ([facility]) Is patient fasting? N SGPT/Alt 40 U/L 7-56 [facility] ([facility]) Is patient fasting? N Anion Gap 14.0 mmol/L 8.0-16.0 [facility] ([facility]) Is patient fasting? N Sgot/Ast 41 U/L 5-40 Above high normal [facility] ([facility]) Is patient fasting? N Afr Amer GFR Laboratory test result [facility] ([facility]) Is patient fasting? N Age 54 yrs [facility] ([facility]) Is patient fasting? N Non-Aa GFR Laboratory test result [facility] ([facility]) Is patient fasting? N ID Date Data Source [id number] 08/20/2019 08:10:00 AM EDT [facility] ([facility]) Name Value Range Interpretation Code Description Data Dayana rce(s) Supporting Document(s) CBC W/Automated Diff Laboratory test result [facility] ([facility]) Is patient fasting? N WBC 9.4 10^3/uL 4.2-11.0 [facility] ([facility]) Is patient fasting? N RBC 5.97 10^6/uL 4.50-6.30 [facility] ([facility]) Is patient fasting? N Hemoglobin 18.8 g/dL 14.0-16.0 Above high normal [facility] ([facility]) Is patient fasting? N Hematocrit 56.2 % 41.0-51.0 Above high normal [facility] ([facility]) Is patient fasting? N MCH 31.5 pg 27.0-34.0 [facility] ([facility]) Is patient fasting? N MCV 94.1 fL 80.0-94.0 Above high normal [facility] ([facility]) Is patient fasting? N MCHC 33.5 g/dL 31.0-36.0 [facility] ([facility]) Is patient fasting? N Platelets 204 10^3/uL 150-450 [facility] ([facility]) Is patient fasting? N RDW 14.1 % 11.5-14.8 [facility] ([facility]) Is patient fasting? N Neut 73.5 % 37.0-80.0 [facility] ([facility]) Is patient fasting? N MPV 10.7 fL 7.4-10.4 Above high normal [facility] ([facility]) Is patient fasting? N Bandera 8.3 % 3.0-8.0 Above high normal [facility] ([facility]) Is patient fasting? N Lymph 15.5 % 25.0-40.0 Below low normal [facility] ( [facility]) Is patient fasting? N Eos 1.2 % 0.0-7.0 [facility] ([facility]) Is patient fasting? N Baso 1.0 % 0.0-2.0 [facility] ([facility]) Is patient fasting? N #Neut 6.90 10^3/uL 2.00-6.90 [facility] ([facility]) Is patient fasting? N %Ig 0.5 % 0.0-0.0 Above high normal [facility] ([facility]) Is patient fasting? N #Lymph 1.46 10^3/uL 0.60-3.40 [facility] ([facility]) Is patient fasting? N %NRBC 0.0 % 0.0-0.0 [facility] ([facility]) Is patient fasting? N #Eos 0.11 10^3/uL 0.00-0.70 [facility] ([facility]) Is patient fasting? N #Baso 0.09 10^3/uL 0.00-0.20 [facility] ([facility]) Is patient fasting? N #Bandera 0.78 10^3/uL 0.00-0.90 [facility] ([facility]) Is patient fasting? N #Ig 0.05 10^3/uL 0.00-0.10 [facility] ([facility]) Is patient fasting? N Manual Diff Laboratory test result M [facility] ([facility]) Is patient fasting? N #NRBC 0.00 10^3/uL 0.00-0.00 [facility] ([facility]) Is patient fasting? N RBC Morph Laboratory test result [facility] ([facility]) Is patient fasting? N ID Date Data Source [id number] 08/20/2019 07:04:00 PM EDT [facility] Name Value Range Interpretation Code Description Data Dayana rce(s) Supporting Document(s) Thyrotropin [Units/volume] in Serum or Plasma by Detec tion limit <= 0.05 mIU/L 0.37 uIU/mL 0.47 - 5.01 L [facility] ID Date Data Source [id number] 08/20/2019 06:57:00 PM EDT [facility] Name Value Range Interpretation Code Description Data Dayana rce(s) Supporting Document(s) Magnesium [Mass/volume] in Serum or Plasma 2.3 MG/DL 1.7 - 2.2 H [facility] ID Date Data Source [id number] 08/20/2019 06:57:00 PM EDT [facility] Name Value Range Interpretation Code Description Data Dayana rce(s) Supporting Document(s) [facility] Cholesterol [Mass/volume] in Serum or Plasma 195 MG/DL 131 - 200 [facility] Deprecated Triglyceride [Mass/volume] in Serum or Plasma 63 MG/DL 3 5 - 160 [facility] HDL 82 MG/DL 29 - 86 [facility] al Cholesterol in LDL [Mass/volume] in Serum or Plasma by Direc t assay 99 mg/dL 65 - 175 [facility] Cholesterol.total/Cholesterol in HDL [Mass Ratio] in Serum o r Plasma 2.4 3.4 - 4.9 L [facility] LDL/HDL 1.21 1.00 - 3.55 [facility] ital CVE RISK CHOL/HDL LDL/HDLMEN: 1/2 AVERAGE 3.43 1.00 AVERAGE 4.97 3.55 2X AVERAGE 9.55 6.25 3X AVERAGE 23.99 7.99WOMEN: 1/2 AVERAGE 3.27 1.47 AVERAGE 4.44 3.22 2X AVERAGE 7.05 5.03 3X AVERAGE 11.04 6.14 ID Date Data Source [id number] 08/20/2019 06:57:00 PM EDT [facility] Name Value Range Interpretation Code Description Data Dayana rce(s) Supporting Document(s) COMPREHENSIVE METABOLIC PANEL [facility] COMPREHENSIVE METABOLIC PANEL Sodium [Moles/volume] in Serum or Plasma 139 mEq/L 134 - 153 [facility] Potassium [Moles/volume] in Serum or Plasma 4.9 mEq/L 3.6 - 5.0 [facility] Chloride [Moles/volume] in Serum or Plasma 98 mEq/L 98 - 107 [facility] Carbon dioxide, total [Moles/volume] in Serum or Plasma 27 MEQ/L 22 - 30 [facility] Glucose [Mass/volume] in Serum or Plasma 83 MG/DL 65 - 110 [facility] BUN 8 MG/DL 7 - 21 [facility] al Creatinine [Mass/volume] in Serum or Plasma 0.9 MG/DL 0.7 - 1.5 [facility] BUN/CREAT 9 8 - 27 [facility] al Protein [Mass/volume] in Serum or Plasma 6.8 G/DL 6.3 - 8.2 [facility] Albumin [Mass/volume] in Serum or Plasma 4.8 G/DL 3.9 - 5.0 [facility] Globulin [Mass/volume] in Serum by calculation 2.0 GM/DL 2.4 - 3.2 L [facility] A/G RATIO 2.4 0.8 - 2.[address] [facility] al Calcium [Mass/volume] in Serum or Plasma 9.8 MG/DL 8.4 - 10.2 [facility] Bilirubin.total [Mass/volume] in Serum or Plasma <0.7 MG/DL 0.2 - 1.3 [facility] Alkaline phosphatase [Enzymatic activity/volume] in Serum or Plasma 110 U/L 38 - 126 [facility] Aspartate aminotransferase [Enzymatic activity/volume] in Serum or Plasma 41 U/L 5 - 40 H [facility] Alanine aminotransferase [Enzymatic activity/volume] in Seru m or Plasma 40 U/L 7 - 56 [facility] Anion gap 3 in Serum or Plasma 14.0 mmol/L 8.0 - 16.0 [facility] AGE [address] [facility] al NON-AA GFR >60 mL/min [facility] ital AFR AMER GFR >60 mL/min [facility] spital Male GFR In terprentation 20-49 [...] >32 mL/min Normal ID Date Data Source [id number] 08/20/2019 06:57:00 PM EDT [facility] Name Value Range Interpretation Code Description Data Dayana rce(s) Supporting Document(s) Hemoglobin A1c/Hemoglobin.total in Blood 5.5 % 4.4 - 6.1 [facility] {A1]{HB] ID Date Data Source [id number] 08/20/2019 06:29:00 PM EDT [facility] Name Value Range Interpretation Code Description Data Dayana rce(s) Supporting Document(s) CBC W/AUTOMATED DIFF [facility] COMPLETE BLOOD COUNT Leukocytes [#/volume] in Blood by Automated count 9.4 10^3/uL 4.2 - 1 1.0 [facility] Erythrocytes [#/volume] in Blood by Automated count 5.97 10^6/uL 4. 50 - 6.30 [facility] Hemoglobin [Mass/volume] in Blood 18.8 g/dL 14.0 - 16.0 H [facility] Hematocrit [Volume Fraction] of Blood by Automated count 56.2 % 4 1.0 - 51.0 H [facility] Erythrocyte mean corpuscular volume [Entitic volume] by Auto mated count 94.1 fL 80.0 - 94.0 H [facility] Erythrocyte mean corpuscular hemoglobin [Entitic mass] by Automated count 31.5 pg 27.0 - 34.0 [facility] Erythrocyte mean corpuscular hemoglobin concentration [Mass/volume] by Automated count 33.5 g/dL 31.0 - 36.0 [facility] Erythrocyte distribution width [Ratio] by Automated count 14.1 % 11.5 - 14.8 [facility] Platelets [#/volume] in Blood by Automated count 204 10^3/uL 150 - 45 0 [facility] Platelet mean volume [Entitic volume] in Blood by Automated count 10.7 fL 7.4 - 10.4 H [facility] Neutrophils/100 leukocytes in Blood by Automated count 73.5 % 37. 0 - 80.0 [facility] Lymphocytes/100 leukocytes in Blood by Manual count 15.5 % 25.0 - 40.0 L [facility] Monocytes/100 leukocytes in Blood by Automated count 8.3 % 3.0 - 8.0 H [facility] Eosinophils/100 leukocytes in Blood by Automated count 1.2 % 0.0 - 7.0 [facility] Basophils/100 leukocytes in Blood by Automated count 1.0 % 0.0 - 2.0 [facility] %IG 0.5 % 0.0 - 0.0 [facility] %NRBC 0.0 % 0.0 - 0.0 [facility] al Neutrophils [#/volume] in Blood by Automated count 6.90 10^3/uL 2.00 - 6.90 [facility] Lymphocytes [#/volume] in Blood by Automated count 1.46 10^3/uL 0.60 - 3.40 [facility] Monocytes [#/volume] in Blood by Automated count 0.78 10^3/uL 0.00 - 0.90 [facility] Eosinophils [#/volume] in Blood by Automated count 0.11 10^3/uL 0.00 - 0.70 [facility] Basophils [#/volume] in Blood by Automated count 0.09 10^3/uL 0.00 - 0.20 [facility] #IG 0.05 10^3/uL 0.00 - 0.10 [facility] H ospital #NRBC 0.00 10^3/uL 0.00 - 0.00 [facility] ospital MANUAL DIFF NOT INDICATED [facility] RBC MORPH NOT INDICATED [facility] spital Procedure Vital Signs ID Date Data Source UNK Name Value Range Interpretation Code Description Data Source(s) Body surface area Derived from formula 2.00 m2 2.[address] [facility] ([facility]) Body mass index (BMI) [Ratio] 36.3 kg/m2 36.3 k g/m2 [facility] ([facility]) Body height 64 [in_i] 64 [in_i] [facility] ([facility]) 5'4" Body weight 95.823 kg 95.823 [address] [facility] ([facility]) Body weight 211.25 [lb_av] 211.25 [lb_av] [facility] ([facility]) Oxygen saturation in Arterial blood by Pulse oximetry 93 % 93 % [facility] ([facility]) Respiratory rate 18 /min 18 /min [facility] ( [facility]) Body temperature 98.2 [degF] 98.2 [degF] [facility] ([facility]) Heart rate 86 /min 86 /min [facility] ([facility]) Diastolic blood pressure 72 mm[Hg] 72 mm[Hg] [facility] ([facility]) Systolic blood pressure 130 mm[Hg] 130 mm[Hg] M [facility] ([facility]) Body surface area Derived from formula 2.00 m2 2.00 m[address] [facility] ([facility]) Body mass index (BMI) [Ratio] 36.0 kg/m2 36.0 k g/m2 [facility] Body height 64 [in_i] 64 [in_i] [facility] ([facility]) 5'4" Body weight 95.256 kg 95.256 kg [facility] ([facility]) Body weight 210.00 [lb_av] 210.00 [lb_av] [facility] T ([facility]) Oxygen saturation in Arterial blood by Pulse oximetry 90 % 90 % [facility] Respiratory rate 18 /min 18 /min [facility] ( [facility]) Body temperature 98.4 [degF] 98.4 [degF] [facility] ([facility]) Heart rate 86 /min 86 /min [facility] ([facility]) Diastolic blood pressure 62 mm[Hg] 62 mm[Hg] [facility] ([facility]) Systolic blood pressure 124 mm[Hg] 124 mm[Hg] [facility] Body surface area Derived from formula 1.97 m2 1.97 m[address] [facility] ([facility]) Body mass index (BMI) [Ratio] 34.9 kg/m2 34.9 k g/m2 [facility] ([facility]) Body height 64 [in_i] 64 [in_i] [facility] ([facility]) 5'4" Body weight 92.251 kg 92.251 kg [facility] ([facility]) Body weight 203.38 [lb_av] 203.38 [lb_av] [facility] T ([facility]) Oxygen saturation in Arterial blood by Pulse oximetry 90 % 90 % [facility] ([facility]) Respiratory rate 18 /min 18 /min [facility] ( [facility]) Body temperature 97.1 [degF] 97.1 [degF] [facility] ([facility]) Heart rate 100 /min 100 /min [facility] ([facility]) Diastolic blood pressure 72 mm[Hg] 72 mm[Hg] [facility] ([facility]) Systolic blood pressure 122 mm[Hg] 122 mm[Hg] M [facility] ([facility]) Body surface area 1.97 m2 1.97 m[address] [facility] ([facility])
[2020-03-17 05:15] VITALS: BP 150/92
[2020-03-17] MEDS ORDERED: PRED20TA PO (05:29)
--- NOTE | 2020-03-17 20:42 | ECGEPIP ---
[facility] - ED Test Date: 2020-03-17 Pat Name: STACEY BOYCE Department: Room: - Gender: Male [employer]: sara : 1965 Requested By: TONY Yoder Order Number: [id number] Reading MD: Ramon Gardner Measurements Intervals [place] Rate: 99 P: 70 MS: 171 QRS: 26 QRSD: 80 T: 62 QT: 347 QTc: 446 Interpretive Statements SINUS RHYTHM POSSIBLE LEFT ATRIAL ENLARGEMENT SIMILAR TO 06/30/19 Electronically Signed on 03-17-2020 20:41:59 EST by Ramon Gardner
== END 2020-03-17 05:48 | disposition home or self-care (01) ==
LOC: M ED 00:06
DX: J44.1 Chronic obstructive pulmonary disease with (acute) exacerbation (principal); F10.10 Alcohol abuse, uncomplicated; F17.200 Nicotine dependence, unspecified, uncomplicated; Z79.51 Long term (current) use of inhaled steroids
CPT/HCPCS: 71045; 80048; 80076; 82550; 82553; 83605; 85025; 87486; 87581; 87633; 87798; 93005; 93041; 94640; 94760; 96374; 99285; G0480; J2930

== ENCOUNTER → 2020-08-04 | Outpatient (CLI) | payer OTHER ==
--- NOTE | 2020-08-04 08:44 | REP ---
INDICATION: LUNG SCREENING COMPARISON: 05/03/2015 TECHNIQUE: Axial noncontrast images from the thoracic inlet to the upper abdomen using low-dose lung screening technique (LDCT). FINDINGS: Lung giang are well aerated with minimal bibasilar fibroatelectatic changes. No acute consolidation, suspicious nodule or mass. No effusion. No pneumothorax. Tracheobronchial tree is patent. No obvious adenopathy. IMPRESSION: Lung-RADS category 1. No suspicious nodule or mass. Management recommendations include annual low-dose CT surveillance. <Electronically signed by Kiran Witt > 08/04/20 0831
== END ==
LOC: M RAD 07:34
PROVIDERS: ATTEND Internal Medicine Pulmonary Disease
DX: F17.210 Nicotine dependence, cigarettes, uncomplicated (principal)

== ENCOUNTER 2021-06-07 13:29 | Emergency (ER) | payer OTHER ==
[~2021-06-07] VITALS: Ht 165.1 cm; Wt 100.0 kg
[~2021-06-07 13:29] MED LIST changes: +DOXY-443 PO; -DOXY100C37 PO
[2021-06-07 15:26] LABS: BASO # 0.1 10^3/uL (0.0-0.2); BASO % 1.4 % (0.0-1.0); EOS # 0.1 10^3/uL (0.0-0.5); EOS % 1.6 % (0.0-3.0); HEMATOCRIT 49.8 % (42.0-52.0); HEMOGLOBIN 17.1 g/dl (13.5-17.5); LYMPH # 1.1 10^3/uL (1.5-5.0); MEAN CORPUSCULAR HEMOGLOBIN 32.4 pg (27.0-33.0); MEAN CORPUSCULAR HGB CONC 34.3 g/dl (32.0-36.5); MEAN CORPUSCULAR VOLUME 94.5 fl (80.0-96.0); MONO # 0.4 10^3/uL (0.0-0.8); MONO % 10.2 % (2.0-8.0); NEUTROPHILS # 2.6 10^3/uL (1.5-8.5); NEUTROPHILS % 60.1 % (36.0-66.0); PLATELET COUNT, AUTOMATED 117 10^3/uL (150-450); RED BLOOD COUNT 5.27 10^6/uL (4.30-6.10); WHITE BLOOD COUNT 4.3 10^3/uL (4.0-10.0)
[2021-06-07 15:35] LABS: INR 0.93; PROTHROMBIN TIME 12.9 SECONDS (12.7-14.5)
[2021-06-07 15:36] LABS: PARTIAL THROMBOPLASTIN TIME 26.7 SECONDS (25.9-37.0)
[2021-06-07 15:52] LABS: ALBUMIN 3.4 GM/DL (3.2-5.2); ALT/SGPT 106 U/L (12-78); BILIRUBIN,DIRECT 0.5 MG/DL (0.0-0.2); BLOOD UREA NITROGEN 7 MG/DL (7-18); CALCIUM LEVEL 8.6 MG/DL (8.5-10.1); CARBON DIOXIDE LEVEL 30 MEQ/L (21-32); CHLORIDE LEVEL 93 MEQ/L (98-107); CREATININE FOR GFR 0.65 MG/DL (0.70-1.30); GLOMERULAR FILTRATION RATE > 60.0 (>56); GLUCOSE, FASTING 98 MG/DL (70-100); LIPASE 228 U/L (73-393); POTASSIUM SERUM 3.5 MEQ/L (3.5-5.1); SODIUM LEVEL 131 MEQ/L (136-145); TOTAL PROTEIN 6.3 GM/DL (6.4-8.2)
[2021-06-07 15:56] LABS: CK-MB VALUE MASS 2.5 NG/ML (<3.6); MB/CK RELATIVE INDEX 3.33 (< OR =4)
[2021-06-07] MEDS ORDERED: ISOVUE-370 76% 100ML VIAL As Ordered ONE (16:06)
[2021-06-07] MEDS ORDERED: NS 1,000 ML IV ONE (16:25)
[2021-06-07] MEDS ORDERED: COMBIVENT RESPIMAT 100-20MCG INHALER 4GM INH STA (16:55)
[2021-06-07 16:56] LABS: ABG BASE EXCESS -0.4 (-2.0-2.0); ABG HCO3 27.1 MEQ/L (22.0-26.0); ABG PARTIAL PRESSURE CO2 55.4 mmHg (35.0-45.0); ABG PARTIAL PRESSURE O2 97.6 mmHg (75.0-100.0); ABG STANDARD HCO3 24.1 MEQ/L (22.0-26.0); ABG TOTAL CO2 28.8 MEQ/L (22.0-29.0); ABG pH (ARTERIAL) 7.308 UNITS (7.350-7.450)
[2021-06-07 17:04] LABS: HEPATITIS B SURFACE ANTIGEN NEGATIVE (NEGATIVE)
[2021-06-07 17:32] LABS: HEPATITIS C VIRUS ABY INDEX 0.1 INDEX (<0.8)
[2021-06-07 17:33] LABS: HEPATITIS B CORE ANTIBODY IGM NEGATIVE (NEGATIVE)
[2021-06-07 18:37] LABS: CK-MB VALUE MASS 3.2 NG/ML (<3.6); MB/CK RELATIVE INDEX 5.82 (< OR =4)
[2021-06-07 18:45] VITALS: BP 160/87
== END 2021-06-07 19:05 | disposition home or self-care (01) ==
LOC: M ED 13:29
DX: R74.01 Elevation of levels of liver transaminase levels (principal); K52.9 Noninfective gastroenteritis and colitis, unspecified; J44.9 Chronic obstructive pulmonary disease, unspecified; Z79.899 Other long term (current) drug therapy; F17.210 Nicotine dependence, cigarettes, uncomplicated
CPT/HCPCS: 36600; 71045; 74177; 80048; 80076; 82550; 82553; 82803; 83690; 85025; 85610; 85730; 86705; 86709; 86803; 87340; 93005; 94640; 94664; 96360; 96361; 99284; Q9967

== ENCOUNTER 2021-06-22 12:46 | Inpatient (IN) | payer OTHER ==
[~2021-06-22] VITALS: Ht 165.1 cm; Wt 97.3 kg
[2021-06-22] MEDS: COMBIVENT RESPIMAT 100-20MCG INHALER 4GM INH SCH ×3 (14:35→15:16)
[2021-06-22 15:02] LABS: ABG BASE EXCESS -0.2 (-2.0-2.0); ABG HCO3 23.6 MEQ/L (22.0-26.0); ABG O2 SATURATION 93.2 % (95.0-99.0); ABG PARTIAL PRESSURE CO2 36.2 mmHg (35.0-45.0); ABG PARTIAL PRESSURE O2 60.2 mmHg (75.0-100.0); ABG STANDARD HCO3 24.2 MEQ/L (22.0-26.0); ABG TOTAL CO2 24.7 MEQ/L (22.0-29.0); ABG pH (ARTERIAL) 7.432 UNITS (7.350-7.450)
[2021-06-22 15:21] LABS: RSV AMPLIFICATION NEGATIVE (NEGATIVE)
[2021-06-22 15:21] LABS: BASO # 0.1 10^3/uL (0.0-0.2); BASO % 0.5 % (0.0-1.0); EOS % 0.4 % (0.0-3.0); HEMOGLOBIN 16.7 g/dl (13.5-17.5); LYMPH # 1.3 10^3/uL (1.5-5.0); LYMPH % 12.8 % (24.0-44.0); MEAN CORPUSCULAR HEMOGLOBIN 32.6 pg (27.0-33.0); MEAN CORPUSCULAR VOLUME 87.7 fl (80.0-96.0); MONO # 1.2 10^3/uL (0.0-0.8); MONO % 11.9 % (2.0-8.0); NEUTROPHILS # 7.2 10^3/uL (1.5-8.5); NEUTROPHILS % 72.7 % (36.0-66.0); RED BLOOD COUNT 5.13 10^6/uL (4.30-6.10); WHITE BLOOD COUNT 9.9 10^3/uL (4.0-10.0)
[2021-06-22 15:22] LABS: MEAN CORPUSCULAR HGB CONC 37.1 g/dl (32.0-36.5); PLATELET COUNT, AUTOMATED 97 10^3/uL (150-450)
[2021-06-22 15:38] LABS: INR 0.86; PROTHROMBIN TIME 12.1 SECONDS (12.7-14.5)
[2021-06-22 15:39] LABS: PARTIAL THROMBOPLASTIN TIME 26.7 SECONDS (25.9-37.0)
[2021-06-22 15:42] LABS: ERYTHROCYTE SEDIMENTATION RATE 11 mm/hr (0-20)
[2021-06-22 16:15] LABS: ALBUMIN 3.3 GM/DL (3.2-5.2); ALT/SGPT 113 U/L (12-78); BILIRUBIN,TOTAL 1.9 MG/DL (0.2-1.0); BLOOD UREA NITROGEN 9 MG/DL (7-18); C REACTIVE PROTEIN QUANTITATIV 2.56 MG/DL (0.00-0.30); CALCIUM LEVEL 8.9 MG/DL (8.5-10.1); CARBON DIOXIDE LEVEL 33 MEQ/L (21-32); CHLORIDE LEVEL 76 MEQ/L (98-107); CREATININE FOR GFR 0.68 MG/DL (0.70-1.30); ETHYL ALCOHOL (ETHANOL) < 0.003 % (0.000-0.010); GLOMERULAR FILTRATION RATE > 60.0 (>56); GLUCOSE, FASTING 107 MG/DL (70-100); LIPASE 306 U/L (73-393); NT-PRO BNP 123 PG/ML (<125); POTASSIUM SERUM 2.8 MEQ/L (3.5-5.1); SODIUM LEVEL 116 MEQ/L (136-145)
[2021-06-22] MEDS ORDERED: KCL 10MEQ/100ML SWI (KRUN) 10 MEQ in IV 1 EA IV ONE (16:20)
[2021-06-22] MEDS ORDERED: ISOVUE-370 76% 100ML VIAL As Ordered ONE (16:29)
[2021-06-22] MEDS ORDERED: NS 1,000 ML IV ONE (16:45)
[2021-06-22 17:43] LABS: OSMOLALITY SERUM 233 MOSM/KG (275-295)
[2021-06-22 18:30] LABS: OSMOLALITY URINE 285 MOSM/KG (50-1400)
[2021-06-22 18:32] LABS: THYROID STIMULATING HORMONE 0.754 uIU/ML (0.358-3.740)
[2021-06-22] MEDS ORDERED: ACETAMINOPHEN TAB 650MG DOSE (2X325MG) PO PRN (18:50)
[2021-06-22] MEDS ORDERED: LEVALBUTEROL 1.25 MG/0.5 ML CONCENTRATE NEB NEB PRN (18:50)
[2021-06-22] MEDS ORDERED: MOM 30ML SUSPENSION UDC PO PRN (18:50)
[2021-06-22 18:52] LABS: SODIUM,RANDOM URINE < 10 MEQ/L
[2021-06-22] MEDS ORDERED: POTASSIUM CHLORIDE 10MEQ SR TABLET PO ONE ×2 (19:00→22:00)
[2021-06-22 19:51] LABS: BLOOD UREA NITROGEN 7 MG/DL (7-18); CALCIUM LEVEL 8.4 MG/DL (8.5-10.1); CARBON DIOXIDE LEVEL 28 MEQ/L (21-32); CHLORIDE LEVEL 82 MEQ/L (98-107); CREATININE FOR GFR 0.55 MG/DL (0.70-1.30); GLOMERULAR FILTRATION RATE > 60.0 (>56); GLUCOSE, FASTING 97 MG/DL (70-100); POTASSIUM SERUM 3.8 MEQ/L (3.5-5.1); SODIUM LEVEL 118 MEQ/L (136-145)
[2021-06-22] MEDS: IPRATROPIUM 0.5MG/ALBUTEROL 2.5MG INH SOL UD 3ML (DUONEB) NEB SCH (20:00)
[2021-06-22] MEDS ORDERED: KCL 20MEQ in NS 1000ML 1,000 ML IV SCH (21:00)
[2021-06-22 22:00] VITALS: BP 133/76
[2021-06-22] MEDS ORDERED: ALBU8.5H INH (22:11)
[2021-06-22] MEDS ORDERED: MUCI1TAB16 PO (22:11)
[2021-06-22] MEDS ORDERED: AMLO2.5T3 PO (22:11)
[2021-06-22] MEDS ORDERED: PRED10TA2 PO (22:11)
[2021-06-22] MEDS ORDERED: SERT50TA29 PO (22:11)
[2021-06-22] MEDS ORDERED: LEVO500T4 PO (22:11)
[2021-06-22] MEDS ORDERED: FURO20TA2 PO (22:11)
[2021-06-22] MEDS: OXAZEPAM 15MG CAP PO SCH (22:14)
[2021-06-22] MEDS: THIAMINE 100 MG TAB PO SCH (22:14)
[2021-06-22] MEDS ORDERED: HOME MED LIST COMPLETE! XX SCH (22:15)
[2021-06-22 22:20] VITALS: BP 133/76
[2021-06-22] MEDS ORDERED: guaiFENesin ER 600 MG TAB PO PRN (22:25)
[2021-06-23] VITALS (7 sets, daily range): BP systolic 114–145; BP diastolic 64–93
[2021-06-23 00:04] LABS: BLOOD UREA NITROGEN 8 MG/DL (7-18); CALCIUM LEVEL 8.2 MG/DL (8.5-10.1); CARBON DIOXIDE LEVEL 30 MEQ/L (21-32); CHLORIDE LEVEL 83 MEQ/L (98-107); CREATININE FOR GFR 0.64 MG/DL (0.70-1.30); GLOMERULAR FILTRATION RATE > 60.0 (>56); GLUCOSE, FASTING 115 MG/DL (70-100); MAGNESIUM LEVEL 2.1 MG/DL (1.8-2.4); POTASSIUM SERUM 2.9 MEQ/L (3.5-5.1); SODIUM LEVEL 119 MEQ/L (136-145)
[2021-06-23] MEDS ORDERED: SODIUM CHLORIDE 1 GM TAB PO ONE (00:25)
[2021-06-23] MEDS ORDERED: POTASSIUM CHLORIDE 10MEQ SR TABLET PO ONE ×2 (00:25→00:45)
[2021-06-23] MEDS: OXAZEPAM 15MG CAP PO SCH ×2 (01:18→04:00)
[2021-06-23 04:22] LABS: HEMATOCRIT 38.1 % (42.0-52.0); MEAN CORPUSCULAR HEMOGLOBIN 32.7 pg (27.0-33.0); MEAN CORPUSCULAR HGB CONC 36.5 g/dl (32.0-36.5); MEAN CORPUSCULAR VOLUME 89.6 fl (80.0-96.0); RED BLOOD COUNT 4.25 10^6/uL (4.30-6.10); WHITE BLOOD COUNT 7.3 10^3/uL (4.0-10.0)
[2021-06-23 04:24] LABS: HEMOGLOBIN 13.9 g/dl (13.5-17.5); PLATELET COUNT, AUTOMATED 91 10^3/uL (150-450)
[2021-06-23 04:45] LABS: ALBUMIN 2.7 GM/DL (3.2-5.2); ALT/SGPT 96 U/L (12-78); BILIRUBIN,DIRECT 0.7 MG/DL (0.0-0.2); BILIRUBIN,TOTAL 1.4 MG/DL (0.2-1.0); BLOOD UREA NITROGEN 7 MG/DL (7-18); CALCIUM LEVEL 8.4 MG/DL (8.5-10.1); CARBON DIOXIDE LEVEL 29 MEQ/L (21-32); CHLORIDE LEVEL 86 MEQ/L (98-107); GLOMERULAR FILTRATION RATE > 60.0 (>56); GLUCOSE, FASTING 103 MG/DL (70-100); MAGNESIUM LEVEL 2.2 MG/DL (1.8-2.4); POTASSIUM SERUM 3.4 MEQ/L (3.5-5.1); SODIUM LEVEL 122 MEQ/L (136-145); TOTAL PROTEIN 5.1 GM/DL (6.4-8.2)
[2021-06-23] MEDS: LACTULOSE 20 GM/30 ML SYRUP UD PO SCH ×2 (05:09→11:57)
[2021-06-23] MEDS: IPRATROPIUM 0.5MG/ALBUTEROL 2.5MG INH SOL UD 3ML (DUONEB) NEB SCH ×3 (06:56→19:36)
[2021-06-23] MEDS ORDERED: OXAZEPAM 15MG CAP PO PRN (08:35)
[2021-06-23] MEDS ORDERED: SODIUM CHLORIDE 1 GM TAB PO SCH (09:00)
[2021-06-23] MEDS: ENOXAPARIN 40MG/0.4ML SYRINGE (J1650 PER 10MG) SC SCH (10:35)
[2021-06-23 11:56] LABS: BLOOD UREA NITROGEN 7 MG/DL (7-18); CALCIUM LEVEL 8.5 MG/DL (8.5-10.1); CARBON DIOXIDE LEVEL 32 MEQ/L (21-32); CHLORIDE LEVEL 85 MEQ/L (98-107); CREATININE FOR GFR 0.67 MG/DL (0.70-1.30); GLOMERULAR FILTRATION RATE > 60.0 (>56); GLUCOSE, FASTING 101 MG/DL (70-100); MAGNESIUM LEVEL 2.4 MG/DL (1.8-2.4); POTASSIUM SERUM 3.4 MEQ/L (3.5-5.1); SODIUM LEVEL 122 MEQ/L (136-145)
[2021-06-23] MEDS: FOLIC ACID 1 MG TAB PO SCH (12:37)
[2021-06-23] MEDS: THIAMINE 100 MG TAB PO SCH ×2 (12:39→19:40)
[2021-06-23] MEDS: MULTIVITAMINS/MINERALS THERAP 1 TAB PO SCH (12:44)
[2021-06-23] MEDS: SERTRALINE HCL 50 MG TAB PO SCH (12:44)
[2021-06-23] MEDS: KCL 20MEQ in NS 1000ML 1,000 ML IV SCH (14:00)
[2021-06-23 15:48] LABS: BLOOD UREA NITROGEN 8 MG/DL (7-18); CALCIUM LEVEL 8.4 MG/DL (8.5-10.1); CARBON DIOXIDE LEVEL 30 MEQ/L (21-32); CHLORIDE LEVEL 87 MEQ/L (98-107); CREATININE FOR GFR 0.64 MG/DL (0.70-1.30); GLOMERULAR FILTRATION RATE > 60.0 (>56); GLUCOSE, FASTING 114 MG/DL (70-100); MAGNESIUM LEVEL 2.4 MG/DL (1.8-2.4); POTASSIUM SERUM 3.1 MEQ/L (3.5-5.1); SODIUM LEVEL 123 MEQ/L (136-145)
[2021-06-23] MEDS ORDERED: predniSONE 20 MG TAB PO ONE (16:10)
[2021-06-23] MEDS: NICOTINE 14 MG/24 HR TRANSDERMAL TD SCH (16:35)
[2021-06-23 19:34] LABS: BLOOD UREA NITROGEN 7 MG/DL (7-18); CALCIUM LEVEL 8.4 MG/DL (8.5-10.1); CARBON DIOXIDE LEVEL 30 MEQ/L (21-32); CHLORIDE LEVEL 89 MEQ/L (98-107); CREATININE FOR GFR 0.57 MG/DL (0.70-1.30); GLOMERULAR FILTRATION RATE > 60.0 (>56); GLUCOSE, FASTING 111 MG/DL (70-100); MAGNESIUM LEVEL 2.3 MG/DL (1.8-2.4); POTASSIUM SERUM 3.3 MEQ/L (3.5-5.1); SODIUM LEVEL 124 MEQ/L (136-145)
[2021-06-23 23:19] LABS: BLOOD UREA NITROGEN 6 MG/DL (7-18); CALCIUM LEVEL 8.5 MG/DL (8.5-10.1); CARBON DIOXIDE LEVEL 27 MEQ/L (21-32); CHLORIDE LEVEL 93 MEQ/L (98-107); CREATININE FOR GFR 0.52 MG/DL (0.70-1.30); GLOMERULAR FILTRATION RATE > 60.0 (>56); GLUCOSE, FASTING 123 MG/DL (70-100); MAGNESIUM LEVEL 2.2 MG/DL (1.8-2.4); POTASSIUM SERUM 3.6 MEQ/L (3.5-5.1); SODIUM LEVEL 126 MEQ/L (136-145)
[2021-06-24] VITALS (8 sets, daily range): BP systolic 116–138; BP diastolic 59–79
[2021-06-24] MEDS: IPRATROPIUM 0.5MG/ALBUTEROL 2.5MG INH SOL UD 3ML (DUONEB) NEB SCH ×4 (01:06→19:35)
[2021-06-24] MEDS: KCL 20MEQ in NS 1000ML 1,000 ML IV SCH (01:30)
[2021-06-24 05:46] LABS: HEMATOCRIT 36.3 % (42.0-52.0); HEMOGLOBIN 12.9 g/dl (13.5-17.5); MEAN CORPUSCULAR HEMOGLOBIN 33.1 pg (27.0-33.0); MEAN CORPUSCULAR HGB CONC 35.5 g/dl (32.0-36.5); MEAN CORPUSCULAR VOLUME 93.1 fl (80.0-96.0); PLATELET COUNT, AUTOMATED 109 10^3/uL (150-450); WHITE BLOOD COUNT 7.7 10^3/uL (4.0-10.0)
[2021-06-24 06:08] LABS: ALBUMIN 2.5 GM/DL (3.2-5.2); BILIRUBIN,DIRECT 0.5 MG/DL (0.0-0.2); BILIRUBIN,TOTAL 0.9 MG/DL (0.2-1.0)
[2021-06-24] MEDS ORDERED: predniSONE 20 MG TAB PO ONE (09:00)
[2021-06-24] MEDS: ENOXAPARIN 40MG/0.4ML SYRINGE (J1650 PER 10MG) SC SCH (09:26)
[2021-06-24] MEDS: NICOTINE 14 MG/24 HR TRANSDERMAL TD SCH (09:26)
[2021-06-24] MEDS: FOLIC ACID 1 MG TAB PO SCH (09:27)
[2021-06-24] MEDS: MULTIVITAMINS/MINERALS THERAP 1 TAB PO SCH (09:27)
[2021-06-24] MEDS: SERTRALINE HCL 50 MG TAB PO SCH (09:27)
[2021-06-24] MEDS: THIAMINE 100 MG TAB PO SCH ×2 (09:28→21:44)
[2021-06-24] MEDS ORDERED: POTASSIUM CHLORIDE 10MEQ SR TABLET PO ONE (12:00)
[2021-06-24] MEDS ORDERED: VARIBAR PUDDING 40% w/v 230ML TUBE As Ordered ONE (14:30)
[2021-06-24] MEDS ORDERED: E-Z-PAQUE 96% w/w SUSP 176GM BTL As Ordered ONE (14:30)
[2021-06-24] MEDS ORDERED: VARIBAR NECTAR 40% w/v 240ML SUSP BTL As Ordered ONE (14:30)
[2021-06-24] MEDS ORDERED: BARIUM SULFATE 700 MG TABLET (E-Z-DISK) As Ordered ONE (14:31)
[2021-06-25] VITALS (7 sets, daily range): BP systolic 117–157; BP diastolic 63–87
[2021-06-25] MEDS: IPRATROPIUM 0.5MG/ALBUTEROL 2.5MG INH SOL UD 3ML (DUONEB) NEB SCH ×4 (01:15→20:13)
[2021-06-25] MEDS ORDERED: SODIUM CHLORIDE 1 GM TAB PO SCH (08:00)
[2021-06-25 08:48] LABS: HEMATOCRIT 38.9 % (42.0-52.0); HEMOGLOBIN 13.5 g/dl (13.5-17.5); MEAN CORPUSCULAR HEMOGLOBIN 32.4 pg (27.0-33.0); MEAN CORPUSCULAR HGB CONC 34.7 g/dl (32.0-36.5); MEAN CORPUSCULAR VOLUME 93.3 fl (80.0-96.0); PLATELET COUNT, AUTOMATED 144 10^3/uL (150-450); RED BLOOD COUNT 4.17 10^6/uL (4.30-6.10); WHITE BLOOD COUNT 10.5 10^3/uL (4.0-10.0)
[2021-06-25 09:07] LABS: ALBUMIN 2.8 GM/DL (3.2-5.2); ALT/SGPT 127 U/L (12-78); BILIRUBIN,DIRECT 0.5 MG/DL (0.0-0.2); BILIRUBIN,TOTAL 0.9 MG/DL (0.2-1.0); TOTAL PROTEIN 5.3 GM/DL (6.4-8.2)
[2021-06-25 09:46] LABS: BLOOD UREA NITROGEN 4 MG/DL (7-18); CALCIUM LEVEL 8.2 MG/DL (8.5-10.1); CARBON DIOXIDE LEVEL 29 MEQ/L (21-32); CHLORIDE LEVEL 96 MEQ/L (98-107); CREATININE FOR GFR 0.61 MG/DL (0.70-1.30); GLOMERULAR FILTRATION RATE > 60.0 (>56); GLUCOSE, FASTING 90 MG/DL (70-100); POTASSIUM SERUM 3.4 MEQ/L (3.5-5.1); SODIUM LEVEL 132 MEQ/L (136-145)
[2021-06-25] MEDS: ENOXAPARIN 40MG/0.4ML SYRINGE (J1650 PER 10MG) SC SCH (10:05)
[2021-06-25] MEDS: NICOTINE 14 MG/24 HR TRANSDERMAL TD SCH (10:06)
[2021-06-25] MEDS: FOLIC ACID 1 MG TAB PO SCH (10:07)
[2021-06-25] MEDS: THIAMINE 100 MG TAB PO SCH (10:07)
[2021-06-25] MEDS: MULTIVITAMINS/MINERALS THERAP 1 TAB PO SCH (10:08)
[2021-06-25] MEDS: predniSONE 10 MG TAB PO SCH (10:08)
[2021-06-25] MEDS: SERTRALINE HCL 50 MG TAB PO SCH (10:19)
[2021-06-25] MEDS ORDERED: POTASSIUM CHLORIDE 10MEQ SR TABLET PO ONE ×2 (11:00→12:00)
[2021-06-25] MEDS: LORazepam 2 MG TAB PO PRN (22:13)
[2021-06-26] VITALS (14 sets, daily range): BP systolic 118–154; BP diastolic 66–88; O2SAT 90–94
[2021-06-26] MEDS: IPRATROPIUM 0.5MG/ALBUTEROL 2.5MG INH SOL UD 3ML (DUONEB) NEB SCH ×4 (01:28→19:29)
[2021-06-26] MEDS: LORazepam 2 MG TAB PO PRN (02:39)
[2021-06-26 05:41] LABS: HEMOGLOBIN 12.8 g/dl (13.5-17.5); MEAN CORPUSCULAR HEMOGLOBIN 32.8 pg (27.0-33.0); MEAN CORPUSCULAR HGB CONC 34.6 g/dl (32.0-36.5); MEAN CORPUSCULAR VOLUME 94.9 fl (80.0-96.0); PLATELET COUNT, AUTOMATED 151 10^3/uL (150-450); WHITE BLOOD COUNT 10.6 10^3/uL (4.0-10.0)
[2021-06-26 05:55] LABS: ALBUMIN 2.8 GM/DL (3.2-5.2); ALT/SGPT 129 U/L (12-78); BILIRUBIN,DIRECT 0.4 MG/DL (0.0-0.2); BILIRUBIN,TOTAL 0.9 MG/DL (0.2-1.0); BLOOD UREA NITROGEN 5 MG/DL (7-18); CALCIUM LEVEL 7.9 MG/DL (8.5-10.1); CARBON DIOXIDE LEVEL 28 MEQ/L (21-32); CHLORIDE LEVEL 99 MEQ/L (98-107); CREATININE FOR GFR 0.57 MG/DL (0.70-1.30); GLOMERULAR FILTRATION RATE > 60.0 (>56); GLUCOSE, FASTING 97 MG/DL (70-100); POTASSIUM SERUM 3.6 MEQ/L (3.5-5.1); SODIUM LEVEL 131 MEQ/L (136-145)
[2021-06-26] MEDS: MULTIVITAMINS/MINERALS THERAP 1 TAB PO SCH (10:19)
[2021-06-26] MEDS: predniSONE 10 MG TAB PO SCH (10:20)
[2021-06-26] MEDS: FOLIC ACID 1 MG TAB PO SCH (10:20)
[2021-06-26] MEDS: SERTRALINE HCL 50 MG TAB PO SCH (10:20)
[2021-06-26] MEDS: NICOTINE 14 MG/24 HR TRANSDERMAL TD SCH (10:21)
[2021-06-26] MEDS: ENOXAPARIN 40MG/0.4ML SYRINGE (J1650 PER 10MG) SC SCH (10:21)
[2021-06-27] VITALS: BP 126/66
[2021-06-27] MEDS: IPRATROPIUM 0.5MG/ALBUTEROL 2.5MG INH SOL UD 3ML (DUONEB) NEB SCH ×2 (01:09→07:20)
[2021-06-27 02:00] VITALS: BP 126/66
[2021-06-27 06:00] VITALS: BP 137/78
[2021-06-27 06:29] LABS: HEMATOCRIT 37.1 % (42.0-52.0); HEMOGLOBIN 12.7 g/dl (13.5-17.5); MEAN CORPUSCULAR HEMOGLOBIN 33.2 pg (27.0-33.0); MEAN CORPUSCULAR HGB CONC 34.2 g/dl (32.0-36.5); MEAN CORPUSCULAR VOLUME 97.1 fl (80.0-96.0); PLATELET COUNT, AUTOMATED 149 10^3/uL (150-450); RED BLOOD COUNT 3.82 10^6/uL (4.30-6.10); WHITE BLOOD COUNT 8.9 10^3/uL (4.0-10.0)
[2021-06-27 06:55] LABS: ALBUMIN 2.5 GM/DL (3.2-5.2); BILIRUBIN,DIRECT 0.2 MG/DL (0.0-0.2); BILIRUBIN,TOTAL 0.6 MG/DL (0.2-1.0); TOTAL PROTEIN 5.4 GM/DL (6.4-8.2)
[2021-06-27 07:03] LABS: BLOOD UREA NITROGEN 5 MG/DL (7-18); CALCIUM LEVEL 8.5 MG/DL (8.5-10.1); CARBON DIOXIDE LEVEL 26 MEQ/L (21-32); CHLORIDE LEVEL 101 MEQ/L (98-107); CREATININE FOR GFR 0.46 MG/DL (0.70-1.30); GLOMERULAR FILTRATION RATE > 60.0 (>56); GLUCOSE, FASTING 87 MG/DL (70-100); POTASSIUM SERUM 3.7 MEQ/L (3.5-5.1); SODIUM LEVEL 134 MEQ/L (136-145)
[2021-06-27] MEDS: SERTRALINE HCL 50 MG TAB PO SCH (09:06)
[2021-06-27] MEDS: MULTIVITAMINS/MINERALS THERAP 1 TAB PO SCH (09:06)
[2021-06-27] MEDS: predniSONE 10 MG TAB PO SCH (09:06)
[2021-06-27] MEDS: FOLIC ACID 1 MG TAB PO SCH (09:06)
[2021-06-27] MEDS: ENOXAPARIN 40MG/0.4ML SYRINGE (J1650 PER 10MG) SC SCH (09:07)
[2021-06-27] MEDS: NICOTINE 14 MG/24 HR TRANSDERMAL TD SCH (09:07)
[2021-06-27 09:08] VITALS: BP 118/68
== END 2021-06-27 11:07 | disposition home or self-care (01) | DRG 425 ==
LOC: M ED 12:46 → EDBD 12:46 → M ED INP 18:46 → ENRESERV 19:52 → M PCU 21:51 → M MSPAV 06-25 18:21
PROVIDERS: ADMIT Family Medicine; ATTEND Internal Medicine
DX: E87.1 Hypo-osmolality and hyponatremia (principal); E87.6 Hypokalemia; F10.288 Alcohol dependence with other alcohol-induced disorder; J44.1 Chronic obstructive pulmonary disease with (acute) exacerbation; R74.8 Abnormal levels of other serum enzymes; E72.20 Disorder of urea cycle metabolism, unspecified; G93.41 Metabolic encephalopathy; I10 Essential (primary) hypertension; F32.A Depression, unspecified; F41.9 Anxiety disorder, unspecified; Z79.899 Other long term (current) drug therapy

== ENCOUNTER 2021-08-17 01:13 | Inpatient (IN) | payer OTHER ==
[~2021-08-17] VITALS: Ht 165.1 cm; Wt 85.0 kg
[~2021-08-17 01:13] MED LIST changes: +ALBU2.5V10 INH; +ALBU8.5H INH; -ALBU83IN INH; +AMLO2.5T3 PO; +FURO20TA2 PO; +LEVO500T4 PO; +MUCI1TAB16 PO; +SERT50TA29 PO
[2021-08-17] MEDS ORDERED: ALBUTEROL SULFATE 2.5 MG/0.5 ML INH NEB SOLN As Ordered ONE (01:32)
[2021-08-17] MEDS ORDERED: IPRATROPIUM 0.02% SOLN 0.5MG 2.5ML NEB As Ordered ONE (01:32)
[2021-08-17] MEDS ORDERED: POTA-151 PO (01:35)
[2021-08-17] MEDS ORDERED: FURO20TA2 PO (01:35)
[2021-08-17 02:20] LABS: BASO # 0.1 10^3/uL (0.0-0.2); BASO % 1.4 % (0.0-1.0); EOS # 0.3 10^3/uL (0.0-0.5); EOS % 3.3 % (0.0-3.0); HEMATOCRIT 43.9 % (42.0-52.0); LYMPH # 1.4 10^3/uL (1.5-5.0); LYMPH % 17.7 % (24.0-44.0); MEAN CORPUSCULAR HEMOGLOBIN 34.7 pg (27.0-33.0); MEAN CORPUSCULAR HGB CONC 34.2 g/dl (32.0-36.5); MEAN CORPUSCULAR VOLUME 101.6 fl (80.0-96.0); MONO # 0.7 10^3/uL (0.0-0.8); MONO % 8.3 % (2.0-8.0); NEUTROPHILS # 5.4 10^3/uL (1.5-8.5); NEUTROPHILS % 67.7 % (36.0-66.0); PLATELET COUNT, AUTOMATED 256 10^3/uL (150-450); RED BLOOD COUNT 4.32 10^6/uL (4.30-6.10); WHITE BLOOD COUNT 7.9 10^3/uL (4.0-10.0)
[2021-08-17 02:35] LABS: ALBUMIN 2.9 GM/DL (3.2-5.2); ALT/SGPT 39 U/L (12-78); BILIRUBIN,DIRECT < 0.1 MG/DL (0.0-0.2); BILIRUBIN,TOTAL 0.3 MG/DL (0.2-1.0); BLOOD UREA NITROGEN 1 MG/DL (7-18); CALCIUM LEVEL 8.9 MG/DL (8.5-10.1); CARBON DIOXIDE LEVEL 28 MEQ/L (21-32); CHLORIDE LEVEL 102 MEQ/L (98-107); GLOMERULAR FILTRATION RATE > 60.0 (>56); GLUCOSE, FASTING 109 MG/DL (70-100); NT-PRO BNP 84 PG/ML (<125); POTASSIUM SERUM 4.5 MEQ/L (3.5-5.1); SODIUM LEVEL 139 MEQ/L (136-145); TOTAL PROTEIN 5.9 GM/DL (6.4-8.2)
[2021-08-17] MEDS ORDERED: methylPREDNISolone 125MG 2ML VIAL IV ONE (03:40)
[2021-08-17 04:27] VITALS: O2SAT 93
[2021-08-17] MEDS: IPRATROPIUM 0.5MG/ALBUTEROL 2.5MG INH SOL UD 3ML (DUONEB) NEB SCH ×7 (04:27→19:16)
[2021-08-17] MEDS ORDERED: HOME MED LIST COMPLETE! XX SCH ×2 (04:50→05:25)
[2021-08-17] MEDS ORDERED: AZITHROMYCIN INJ 500 MG, VIAL MATE ADAPTER 1 EACH in NS 250 ML IV SCH (05:00)
[2021-08-17] MEDS ORDERED: MOM 30ML SUSPENSION UDC PO PRN (05:15)
[2021-08-17] MEDS ORDERED: MAALOX 30 ML SUSP *UDC PO PRN (05:15)
[2021-08-17] MEDS ORDERED: ACETAMINOPHEN TAB 650MG DOSE (2X325MG) PO PRN (05:15)
[2021-08-17] MEDS ORDERED: ALBUTEROL 90 MCG/ACT 8GM HFA INHALER INH PRN (05:15)
[2021-08-17] MEDS: HEPARIN SOD (PORCINE) 5000UNITS/ML 1ML VIAL/SYRINGE SC SCH ×3 (06:00→22:14)
[2021-08-17 06:31] LABS: VENOUS BASE EXCESS -2.2 (-2.0-2.0); VENOUS HCO3 22.5 MEQ/L (23.0-27.0); VENOUS O2 SATURATION 96.8 % (60.0-80.0); VENOUS PARTIAL PRESSURE CO2 38.7 mmHg (38.0-50.0); VENOUS PARTIAL PRESSURE O2 89.6 mmHg (30.0-50.0); VENOUS PH 7.382 UNITS (7.330-7.430); VENOUS STANDARD HCO3 22.6 MEQ/L; VENOUS TOTAL CO2 23.7 MEQ/L (24.0-28.0)
[2021-08-17] MEDS ORDERED: LORazepam 2 MG TAB PO PRN (07:00)
[2021-08-17 07:04] LABS: CK-MB VALUE MASS 1.1 NG/ML (<3.6); MB/CK RELATIVE INDEX 4.78 (< OR =4)
[2021-08-17] MEDS ORDERED: POTASSIUM CHLORIDE 10MEQ SR TABLET PO SCH (09:00)
[2021-08-17] MEDS: SERTRALINE HCL 50 MG TAB PO SCH (09:12)
[2021-08-17] MEDS: MULTIVITAMINS/MINERALS THERAP 1 TAB PO SCH (09:12)
[2021-08-17] MEDS: THIAMINE 100 MG TAB PO SCH ×2 (09:12→22:15)
[2021-08-17] MEDS: FOLIC ACID 1 MG TAB PO SCH (09:13)
[2021-08-17] MEDS: FUROSEMIDE 20 MG TAB PO SCH (09:13)
[2021-08-17] MEDS: DOXYCYCLINE HYCLATE 100MG TABLET PO SCH ×2 (12:32→22:15)
[2021-08-17 13:26] VITALS: BP 126/76
[2021-08-17 14:08] VITALS: BP 126/76
[2021-08-17 19:59] VITALS: BP 115/73
[2021-08-17 22:00] VITALS: BP 140/79
[2021-08-18] MEDS: IPRATROPIUM 0.5MG/ALBUTEROL 2.5MG INH SOL UD 3ML (DUONEB) NEB SCH ×3 (03:03→07:44)
[2021-08-18 04:35] VITALS: BP 135/73
[2021-08-18] MEDS: HEPARIN SOD (PORCINE) 5000UNITS/ML 1ML VIAL/SYRINGE SC SCH (05:15)
[2021-08-18 05:17] VITALS: BP 134/73
[2021-08-18 06:19] LABS: BASO % 0.3 % (0.0-1.0); HEMATOCRIT 44.1 % (42.0-52.0); LYMPH # 1.8 10^3/uL (1.5-5.0); LYMPH % 12.4 % (24.0-44.0); MEAN CORPUSCULAR HEMOGLOBIN 34.3 pg (27.0-33.0); MEAN CORPUSCULAR VOLUME 100.9 fl (80.0-96.0); MONO # 1.2 10^3/uL (0.0-0.8); MONO % 8.7 % (2.0-8.0); NEUTROPHILS # 11.1 10^3/uL (1.5-8.5); NEUTROPHILS % 77.5 % (36.0-66.0); PLATELET COUNT, AUTOMATED 278 10^3/uL (150-450); RED BLOOD COUNT 4.37 10^6/uL (4.30-6.10); WHITE BLOOD COUNT 14.3 10^3/uL (4.0-10.0)
[2021-08-18 06:45] LABS: BLOOD UREA NITROGEN 4 MG/DL (7-18); CALCIUM LEVEL 9.4 MG/DL (8.5-10.1); CARBON DIOXIDE LEVEL 29 MEQ/L (21-32); CHLORIDE LEVEL 104 MEQ/L (98-107); CREATININE FOR GFR 0.44 MG/DL (0.70-1.30); GLOMERULAR FILTRATION RATE > 60.0 (>56); GLUCOSE, FASTING 104 MG/DL (70-100); MAGNESIUM LEVEL 2.5 MG/DL (1.8-2.4); PHOSPHORUS LEVEL 3.8 MG/DL (2.5-4.9); SODIUM LEVEL 139 MEQ/L (136-145)
[2021-08-18 08:23] VITALS: BP 134/73
[2021-08-18] MEDS: FOLIC ACID 1 MG TAB PO SCH (08:23)
[2021-08-18] MEDS: MULTIVITAMINS/MINERALS THERAP 1 TAB PO SCH (08:23)
[2021-08-18] MEDS: THIAMINE 100 MG TAB PO SCH (08:23)
[2021-08-18] MEDS: FUROSEMIDE 20 MG TAB PO SCH (08:24)
[2021-08-18] MEDS: SERTRALINE HCL 50 MG TAB PO SCH (08:24)
[2021-08-18] MEDS: DOXYCYCLINE HYCLATE 100MG TABLET PO SCH (08:24)
[2021-08-18] MEDS ORDERED: PRED10TA2 PO (08:57)
[2021-08-18] MEDS ORDERED: THIA100TA PO (08:57)
[2021-08-18] MEDS ORDERED: FOLI1TAB11 PO (08:57)
[2021-08-18] MEDS ORDERED: VITMTA PO (08:57)
[2021-08-18] MEDS ORDERED: SPIR1CAP INH (08:57)
== END 2021-08-18 10:47 | disposition home or self-care (01) | DRG 140 ==
LOC: M ED 01:13 → EDBD 01:13 → M ED INP 05:11 → ENRESERV 12:10 → M MSPAV 13:25
PROVIDERS: ADMIT Family Medicine; ATTEND Internal Medicine
DX: J44.1 Chronic obstructive pulmonary disease with (acute) exacerbation (principal); J96.11 Chronic respiratory failure with hypoxia; Z99.81 Dependence on supplemental oxygen; I10 Essential (primary) hypertension; F10.10 Alcohol abuse, uncomplicated; F17.200 Nicotine dependence, unspecified, uncomplicated; Z91.19 Patient's noncompliance with other medical treatment and regimen; Z79.899 Other long term (current) drug therapy

== ENCOUNTER 2021-12-02 22:04 | Emergency (ER) | payer OTHER ==
[~2021-12-02] VITALS: Ht 165.1 cm; Wt 94.7 kg
[~2021-12-02 22:04] MED LIST changes: +LEVO1TAB39 PO; -LEVO500T4 PO; +POTA-151 PO; +THIA100TA PO; +VITMTA PO
[2021-12-02] MEDS ORDERED: IPRATROPIUM 0.5MG/ALBUTEROL 2.5MG INH SOL UD 3ML (DUONEB) NEB ONE (22:15)
[2021-12-02] MEDS ORDERED: methylPREDNISolone 125MG 2ML VIAL IV ONE (22:15)
[2021-12-02 22:48] LABS: BASO # 0.1 10^3/uL (0.0-0.2); BASO % 0.8 % (0.0-1.0); EOS # 0.4 10^3/uL (0.0-0.5); EOS % 3.4 % (0.0-3.0); HEMATOCRIT 52.6 % (42.0-52.0); HEMOGLOBIN 17.9 g/dl (13.5-17.5); LYMPH # 2.5 10^3/uL (1.5-5.0); LYMPH % 21.8 % (24.0-44.0); MEAN CORPUSCULAR HEMOGLOBIN 31.9 pg (27.0-33.0); MEAN CORPUSCULAR VOLUME 93.6 fl (80.0-96.0); MONO # 0.9 10^3/uL (0.0-0.8); MONO % 7.7 % (2.0-8.0); NEUTROPHILS # 7.5 10^3/uL (1.5-8.5); NEUTROPHILS % 65.7 % (36.0-66.0); PLATELET COUNT, AUTOMATED 243 10^3/uL (150-450); RED BLOOD COUNT 5.62 10^6/uL (4.30-6.10); WHITE BLOOD COUNT 11.4 10^3/uL (4.0-10.0)
[2021-12-02 23:18] LABS: CK-MB VALUE MASS 1.4 NG/ML (<3.6); MB/CK RELATIVE INDEX 2.22 (< OR =4)
[2021-12-02 23:40] LABS: BLOOD UREA NITROGEN 8 MG/DL (7-18); CALCIUM LEVEL 9.1 MG/DL (8.5-10.1); CARBON DIOXIDE LEVEL 28 MEQ/L (21-32); CHLORIDE LEVEL 99 MEQ/L (98-107); CREATININE FOR GFR 0.62 MG/DL (0.70-1.30); GLOMERULAR FILTRATION RATE > 60.0 (>56); GLUCOSE, FASTING 122 MG/DL (70-100); POTASSIUM SERUM 5.3 MEQ/L (3.5-5.1); SODIUM LEVEL 132 MEQ/L (136-145)
[2021-12-03] MEDS ORDERED: AMOX875T2 PO (00:24)
[2021-12-03] MEDS ORDERED: PRED20TA PO (00:24)
[2021-12-03 00:36] LABS: NT-PRO BNP 100 PG/ML (<125)
[2021-12-03] MEDS ORDERED: AUGMENTIN 875 MG TAB PO ONE (00:40)
[2021-12-03 01:37] VITALS: BP 110/64
== END 2021-12-03 01:39 | disposition home or self-care (01) ==
LOC: EDBD 22:04 → M ED 22:04
DX: J44.1 Chronic obstructive pulmonary disease with (acute) exacerbation (principal); R00.0 Tachycardia, unspecified; I50.9 Heart failure, unspecified; I10 Essential (primary) hypertension; F32.9 Major depressive disorder, single episode, unspecified; Z91.14 Patient's other noncompliance with medication regimen; Z99.81 Dependence on supplemental oxygen; F17.200 Nicotine dependence, unspecified, uncomplicated; F19.10 Other psychoactive substance abuse, uncomplicated; Z79.899 Other long term (current) drug therapy
CPT/HCPCS: 71045; 80048; 82550; 82553; 83605; 83880; 85025; 87486; 87581; 87633; 87798; 93005; 94640; 96374; 99285; J2930

== ENCOUNTER 2022-01-11 23:37 | Emergency (ER) | payer OTHER ==
[~2022-01-11] VITALS: Ht 165.1 cm; Wt 95.0 kg
[~2022-01-11 23:37] MED LIST changes: +AMOX875T2 PO
[2022-01-12 00:27] LABS: ABG BASE EXCESS 0.3 (-2.0-2.0); ABG HCO3 26.4 MEQ/L (22.0-26.0); ABG O2 SATURATION 90.7 % (95.0-99.0); ABG PARTIAL PRESSURE CO2 47.1 mmHg (35.0-45.0); ABG PARTIAL PRESSURE O2 60.2 mmHg (75.0-100.0); ABG STANDARD HCO3 24.5 MEQ/L (22.0-26.0); ABG TOTAL CO2 27.8 MEQ/L (22.0-29.0); ABG pH (ARTERIAL) 7.366 UNITS (7.350-7.450)
[2022-01-12] MEDS: COMBIVENT RESPIMAT 100-20MCG INHALER 4GM INH SCH ×3 (00:40→00:52)
[2022-01-12 00:59] LABS: BASO # 0.1 10^3/uL (0.0-0.2); BASO % 0.9 % (0.0-1.0); EOS # 0.3 10^3/uL (0.0-0.5); EOS % 2.2 % (0.0-3.0); HEMATOCRIT 53.7 % (42.0-52.0); HEMOGLOBIN 17.9 g/dl (13.5-17.5); LYMPH # 1.9 10^3/uL (1.5-5.0); LYMPH % 15.4 % (24.0-44.0); MEAN CORPUSCULAR HEMOGLOBIN 30.7 pg (27.0-33.0); MEAN CORPUSCULAR HGB CONC 33.3 g/dl (32.0-36.5); MEAN CORPUSCULAR VOLUME 92.1 fl (80.0-96.0); MONO % 8.2 % (2.0-8.0); NEUTROPHILS # 8.7 10^3/uL (1.5-8.5); NEUTROPHILS % 72.1 % (36.0-66.0); PLATELET COUNT, AUTOMATED 234 10^3/uL (150-450); RED BLOOD COUNT 5.83 10^6/uL (4.30-6.10); WHITE BLOOD COUNT 12.1 10^3/uL (4.0-10.0)
[2022-01-12 01:22] LABS: ALT/SGPT 28 U/L (7.0-40); BILIRUBIN,DIRECT 0.2 MG/DL (<0.4); BILIRUBIN,TOTAL 0.8 MG/DL (0.3-1.2); BLOOD UREA NITROGEN 9 MG/DL (9-23); CALCIUM LEVEL 10.1 MG/DL (8.5-10.1); CARBON DIOXIDE LEVEL 27 MMOL/L (20-31); CHLORIDE LEVEL 98 MMOL/L (98-107); CK-MB VALUE MASS 2.2 NG/ML (<3.6); CREATININE FOR GFR 0.69 MG/DL (0.70-1.30); GLOMERULAR FILTRATION RATE > 60.0 (>56); GLUCOSE, FASTING 126 MG/DL (60-100); MB/CK RELATIVE INDEX 4.15 (< OR =4); POTASSIUM SERUM 4.5 MMOL/L (3.5-5.1); SODIUM LEVEL 134 MMOL/L (136-145); TOTAL PROTEIN 6.7 G/DL (5.7-8.2)
[2022-01-12] MEDS ORDERED: IPRATROPIUM 0.5MG/ALBUTEROL 2.5MG INH SOL UD 3ML (DUONEB) NEB ONE (04:35)
[2022-01-12] MEDS ORDERED: PRED10TA2 PO (04:39)
[2022-01-12 05:01] VITALS: BP 145/70
== END 2022-01-12 05:34 | disposition home or self-care (01) ==
LOC: M ED 23:37
DX: J44.1 Chronic obstructive pulmonary disease with (acute) exacerbation (principal); I10 Essential (primary) hypertension; F17.200 Nicotine dependence, unspecified, uncomplicated; F12.10 Cannabis abuse, uncomplicated; F10.10 Alcohol abuse, uncomplicated; Z79.51 Long term (current) use of inhaled steroids; Z79.899 Other long term (current) drug therapy

== ENCOUNTER 2022-02-02 17:34 | Inpatient (IN) | payer MEDICARE, OTHER ==
[~2022-02-02] VITALS: Ht 165.1 cm; Wt 99.8 kg
[2022-02-02] MEDS ORDERED: fentaNYL 100 MCG/2 ML INJECTION IV ONE ×2 (17:50→20:10)
[2022-02-02 19:04] LABS: BASO # 0.2 10^3/uL (0.0-0.2); BASO % 0.9 % (0.0-1.0); EOS # 0.2 10^3/uL (0.0-0.5); EOS % 1.2 % (0.0-3.0); HEMATOCRIT 53.2 % (42.0-52.0); HEMOGLOBIN 17.5 g/dl (13.5-17.5); LYMPH # 1.9 10^3/uL (1.5-5.0); LYMPH % 11.1 % (24.0-44.0); MEAN CORPUSCULAR HGB CONC 32.9 g/dl (32.0-36.5); MEAN CORPUSCULAR VOLUME 94.2 fl (80.0-96.0); MONO # 1.1 10^3/uL (0.0-0.8); MONO % 6.2 % (2.0-8.0); NEUTROPHILS # 13.7 10^3/uL (1.5-8.5); NEUTROPHILS % 79.1 % (36.0-66.0); PLATELET COUNT, AUTOMATED 247 10^3/uL (150-450); RED BLOOD COUNT 5.65 10^6/uL (4.30-6.10); WHITE BLOOD COUNT 17.3 10^3/uL (4.0-10.0)
[2022-02-02 19:20] LABS: ETHYL ALCOHOL (ETHANOL) 0.128 % (0.000-0.010)
[2022-02-02 19:25] LABS: BLOOD UREA NITROGEN 7 MG/DL (9-23); CALCIUM LEVEL 8.7 MG/DL (8.5-10.1); CARBON DIOXIDE LEVEL 29 MMOL/L (20-31); CHLORIDE LEVEL 93 MMOL/L (98-107); CK-MB VALUE MASS 1.6 NG/ML (<3.6); CREATININE FOR GFR 0.82 MG/DL (0.70-1.30); FREE T4 1.29 NG/DL (0.89-1.76); GLOMERULAR FILTRATION RATE > 60.0 (>56); GLUCOSE, FASTING 120 MG/DL (60-100); POTASSIUM SERUM 4.3 MMOL/L (3.5-5.1); SODIUM LEVEL 129 MMOL/L (136-145)
[2022-02-02 19:34] LABS: RSV AMPLIFICATION NEGATIVE (NEGATIVE)
[2022-02-02] MEDS ORDERED: NS 1,000 ML IV ONE (19:35)
[2022-02-02] MEDS ORDERED: LEVALBUTEROL 1.25MG 0.5ML CONCENTRATE NEB NEB PRN (19:40)
[2022-02-02] MEDS ORDERED: BISACODYL 10MG SUPP PR PRN (19:40)
[2022-02-02] MEDS ORDERED: ACETAMINOPHEN TAB 650MG DOSE (2X325MG) PO PRN (19:40)
[2022-02-02 20:19] LABS: CPK CREATINE PHOSPHOKINASE 85 U/L (46-171); MB/CK RELATIVE INDEX 1.88 (< OR =4)
[2022-02-02 20:47] LABS: THYROID STIMULATING HORMONE 0.717 uIU/ML (0.55-4.78)
[2022-02-02 20:50] LABS: ABG BASE EXCESS -2.8 (-2.0-2.0); ABG HCO3 26.3 MEQ/L (22.0-26.0); ABG STANDARD HCO3 22.1 MEQ/L (22.0-26.0); ABG TOTAL CO2 28.2 MEQ/L (22.0-29.0)
[2022-02-02 20:51] LABS: ABG PARTIAL PRESSURE CO2 62.8 mmHg (35.0-45.0)
[2022-02-02] MEDS: LEVALBUTEROL 1.25MG 0.5ML CONCENTRATE NEB NEB SCH (20:51)
[2022-02-02] MEDS ORDERED: LORazepam 2 MG TAB PO PRN (20:55)
[2022-02-02] MEDS ORDERED: THIAMINE 100 MG TAB PO SCH (21:00)
[2022-02-02 21:30] VITALS: BP 135/66
[2022-02-02] MEDS: DOCUSATE SODIUM 100MG CAPSULE PO SCH (21:49)
[2022-02-02] MEDS: LIDOCAINE 5% (LIDODERM) PATCH TD SCH (21:50)
[2022-02-02] MEDS: KCL 20MEQ IN D5/NS 1000ML 1,000 ML IV SCH (21:50)
[2022-02-02] MEDS: PERCOCET 5MG/325MG TAB PO PRN (22:05)
[2022-02-02] MEDS ORDERED: hydrALAZINE 20MG/ML 1ML VIAL IV PRN (22:20)
[2022-02-02] MEDS ORDERED: THIAMINE 200MG 2ML VIAL IM ONE (22:20)
[2022-02-02 22:30] VITALS: BP 132/60
[2022-02-02] MEDS: ONDANSETRON 4MG 2ML VIAL IV PRN (23:00)
[2022-02-02 23:15] LABS: ABG BASE EXCESS -1.6 (-2.0-2.0); ABG HCO3 26.3 MEQ/L (22.0-26.0); ABG O2 SATURATION 89.2 % (95.0-99.0); ABG PARTIAL PRESSURE CO2 56.3 mmHg (35.0-45.0); ABG STANDARD HCO3 22.9 MEQ/L (22.0-26.0); ABG TOTAL CO2 28.1 MEQ/L (22.0-29.0); ABG pH (ARTERIAL) 7.288 UNITS (7.350-7.450)
[2022-02-02] MEDS ORDERED: SPIR1CAP INH (23:28)
[2022-02-02] MEDS ORDERED: B-11TAB PO (23:28)
[2022-02-02] MEDS ORDERED: FOLI1TAB11 PO (23:28)
[2022-02-02] MEDS ORDERED: VITMTA PO (23:28)
[2022-02-02] MEDS ORDERED: HOME MED LIST COMPLETE! XX SCH (23:30)
[2022-02-02] MEDS ORDERED: MORPHINE 2 MG/ML 1ML VIAL IV ONE (23:50)
[2022-02-03] VITALS (42 sets, daily range): BP systolic 111–171; BP diastolic 59–92
[2022-02-03] MEDS ORDERED: ALBUTEROL 90 MCG/ACT 8GM HFA INHALER INH PRN (00:05)
[2022-02-03] MEDS: KETOROLAC 30 MG/ML 1ML VIAL IV SCH ×5 (00:10→23:53)
[2022-02-03] MEDS: LEVALBUTEROL 1.25MG 0.5ML CONCENTRATE NEB NEB SCH ×4 (02:44→20:42)
[2022-02-03] MEDS: PERCOCET 5MG/325MG TAB PO PRN ×3 (04:03→20:13)
[2022-02-03 04:44] LABS: BASO # 0.1 10^3/uL (0.0-0.2); BASO % 0.3 % (0.0-1.0); EOS % 0.2 % (0.0-3.0); HEMATOCRIT 48.4 % (42.0-52.0); HEMOGLOBIN 15.9 g/dl (13.5-17.5); LYMPH # 1.4 10^3/uL (1.5-5.0); LYMPH % 7.4 % (24.0-44.0); MEAN CORPUSCULAR HEMOGLOBIN 31.2 pg (27.0-33.0); MEAN CORPUSCULAR HGB CONC 32.9 g/dl (32.0-36.5); MEAN CORPUSCULAR VOLUME 95.1 fl (80.0-96.0); MONO # 1.5 10^3/uL (0.0-0.8); MONO % 7.7 % (2.0-8.0); NEUTROPHILS # 16.1 10^3/uL (1.5-8.5); NEUTROPHILS % 83.3 % (36.0-66.0); PLATELET COUNT, AUTOMATED 213 10^3/uL (150-450); RED BLOOD COUNT 5.09 10^6/uL (4.30-6.10); WHITE BLOOD COUNT 19.3 10^3/uL (4.0-10.0)
[2022-02-03 05:14] LABS: BLOOD UREA NITROGEN 8 MG/DL (9-23); CALCIUM LEVEL 8.3 MG/DL (8.5-10.1); CARBON DIOXIDE LEVEL 26 MMOL/L (20-31); CHLORIDE LEVEL 101 MMOL/L (98-107); CREATININE FOR GFR 0.73 MG/DL (0.70-1.30); GLOMERULAR FILTRATION RATE > 60.0 (>56); GLUCOSE, FASTING 141 MG/DL (60-100); POTASSIUM SERUM 4.8 MMOL/L (3.5-5.1); SODIUM LEVEL 133 MMOL/L (136-145)
[2022-02-03 06:01] LABS: AMPHETAMINES LEVEL URINE NEGATIVE (NEGATIVE); BARBITURATES URINE NEGATIVE (NEGATIVE); BENZODIAZEPINES URINE NEGATIVE (NEGATIVE); COCAINE METABOLITE URINE NEGATIVE (NEGATIVE); METHADONE URINE NEGATIVE (NEGATIVE); PHENCYCLIDINE URINE NEGATIVE (NEGATIVE)
[2022-02-03 06:07] LABS: CANNABINOIDS URINE POSITIVE (NEGATIVE); OPIATES URINE POSITIVE (NEGATIVE)
[2022-02-03] MEDS: TIOTROPIUM INHALER/CAPSULE (SPIRIVA) INH SCH (07:13)
[2022-02-03] MEDS: ADVAIR HFA 230/21MCG INHALER INH SCH ×2 (07:13→20:00)
[2022-02-03 07:15] LABS: ABG BASE EXCESS -2.1 (-2.0-2.0); ABG HCO3 26.3 MEQ/L (22.0-26.0); ABG O2 SATURATION 93.7 % (95.0-99.0); ABG PARTIAL PRESSURE CO2 59.5 mmHg (35.0-45.0); ABG PARTIAL PRESSURE O2 74.3 mmHg (75.0-100.0); ABG STANDARD HCO3 22.6 MEQ/L (22.0-26.0); ABG TOTAL CO2 28.2 MEQ/L (22.0-29.0); ABG pH (ARTERIAL) 7.264 UNITS (7.350-7.450)
[2022-02-03] MEDS: ONDANSETRON 4MG 2ML VIAL IV PRN (08:25)
[2022-02-03] MEDS: HEPARIN SOD (PORCINE) 5000UNITS/ML 1ML VIAL/SYRINGE SC SCH ×3 (09:00→20:12)
[2022-02-03] MEDS: MOM 30ML SUSPENSION UDC PO SCH (09:00)
[2022-02-03] MEDS ORDERED: LIDOCAINE 5% (LIDODERM) PATCH TD SCH (09:00)
[2022-02-03] MEDS ORDERED: MIDAZOLAM INJ 2MG/2ML VIAL As Ordered ONE ×2 (09:39→09:40)
[2022-02-03] MEDS: THIAMINE 100 MG TAB PO SCH ×2 (09:40→20:13)
[2022-02-03] MEDS: SERTRALINE HCL 50 MG TAB PO SCH (09:40)
[2022-02-03] MEDS ORDERED: LIDOCAINE 1% MDV 20ML VIAL As Ordered ONE ×2 (09:40→09:43)
[2022-02-03] MEDS ORDERED: MIDAZOLAM INJ 2MG/2ML VIAL IV SCH (09:40)
[2022-02-03] MEDS: PANTOPRAZOLE 40MG TAB (PROTONIX) PO SCH (09:40)
[2022-02-03] MEDS ORDERED: fentaNYL 100 MCG/2 ML INJECTION As Ordered ONE (09:40)
[2022-02-03] MEDS: FOLIC ACID 1MG TAB PO SCH (09:40)
[2022-02-03] MEDS ORDERED: fentaNYL 100 MCG/2 ML INJECTION IV ONE (09:40)
[2022-02-03] MEDS: DOCUSATE SODIUM 100MG CAPSULE PO SCH ×2 (09:40→20:12)
[2022-02-03] MEDS: MULTIVITAMINS/MINERALS THERAP 1 TAB PO SCH (09:40)
[2022-02-03] MEDS ORDERED: flumazeniL 0.5MG/5ML VIAL As Ordered ONE (09:41)
[2022-02-03] MEDS: methylPREDNISolone 125MG 2ML VIAL IV SCH ×3 (09:41→20:12)
[2022-02-03] MEDS: NICOTINE 21MG/24HR 1 EA TRANSDERMAL TD SCH (09:42)
[2022-02-03 10:37] LABS: ABG BASE EXCESS -1.9 (-2.0-2.0); ABG HCO3 26.8 MEQ/L (22.0-26.0); ABG O2 SATURATION 96.5 % (95.0-99.0); ABG PARTIAL PRESSURE O2 84.1 mmHg (75.0-100.0); ABG STANDARD HCO3 22.9 MEQ/L (22.0-26.0); ABG TOTAL CO2 28.6 MEQ/L (22.0-29.0)
[2022-02-03] MEDS: KCL 20MEQ IN D5/NS 1000ML 1,000 ML IV SCH ×2 (10:49→21:55)
[2022-02-03 14:15] LABS: ABG HCO3 25.7 MEQ/L (22.0-26.0); ABG O2 SATURATION 98.4 % (95.0-99.0); ABG PARTIAL PRESSURE CO2 55.1 mmHg (35.0-45.0); ABG PARTIAL PRESSURE O2 109.8 mmHg (75.0-100.0); ABG STANDARD HCO3 22.8 MEQ/L (22.0-26.0); ABG TOTAL CO2 27.4 MEQ/L (22.0-29.0); ABG pH (ARTERIAL) 7.287 UNITS (7.350-7.450)
[2022-02-03] MEDS: LIDOCAINE 5% (LIDODERM) PATCH TD SCH (20:13)
[2022-02-04] VITALS (23 sets, daily range): BP systolic 111–156; BP diastolic 58–88
[2022-02-04] MEDS: PERCOCET 5MG/325MG TAB PO PRN ×4 (01:43→21:25)
[2022-02-04] MEDS: LEVALBUTEROL 1.25MG 0.5ML CONCENTRATE NEB NEB SCH ×4 (02:16→20:29)
[2022-02-04] MEDS: methylPREDNISolone 125MG 2ML VIAL IV SCH ×2 (02:51→09:11)
[2022-02-04 05:46] LABS: ABG BASE EXCESS -2.3 (-2.0-2.0); ABG HCO3 24.1 MEQ/L (22.0-26.0); ABG O2 SATURATION 93.6 % (95.0-99.0); ABG PARTIAL PRESSURE CO2 47.5 mmHg (35.0-45.0); ABG PARTIAL PRESSURE O2 64.5 mmHg (75.0-100.0); ABG STANDARD HCO3 22.4 MEQ/L (22.0-26.0); ABG TOTAL CO2 25.6 MEQ/L (22.0-29.0); ABG pH (ARTERIAL) 7.324 UNITS (7.350-7.450)
[2022-02-04] MEDS: KETOROLAC 30 MG/ML 1ML VIAL IV SCH ×4 (05:58→23:31)
[2022-02-04 06:21] LABS: BASO % 0.2 % (0.0-1.0); HEMATOCRIT 48.7 % (42.0-52.0); HEMOGLOBIN 15.8 g/dl (13.5-17.5); LYMPH # 0.5 10^3/uL (1.5-5.0); LYMPH % 3.4 % (24.0-44.0); MEAN CORPUSCULAR HEMOGLOBIN 31.3 pg (27.0-33.0); MEAN CORPUSCULAR HGB CONC 32.4 g/dl (32.0-36.5); MEAN CORPUSCULAR VOLUME 96.4 fl (80.0-96.0); MONO # 0.3 10^3/uL (0.0-0.8); NEUTROPHILS # 13.3 10^3/uL (1.5-8.5); NEUTROPHILS % 93.5 % (36.0-66.0); PLATELET COUNT, AUTOMATED 189 10^3/uL (150-450); RED BLOOD COUNT 5.05 10^6/uL (4.30-6.10); WHITE BLOOD COUNT 14.3 10^3/uL (4.0-10.0)
[2022-02-04 07:11] LABS: BLOOD UREA NITROGEN 8 MG/DL (9-23); CALCIUM LEVEL 8.9 MG/DL (8.5-10.1); CARBON DIOXIDE LEVEL 26 MMOL/L (20-31); CHLORIDE LEVEL 106 MMOL/L (98-107); CREATININE FOR GFR 0.56 MG/DL (0.70-1.30); GLOMERULAR FILTRATION RATE > 60.0 (>56); GLUCOSE, FASTING 166 MG/DL (60-100); POTASSIUM SERUM 5.4 MMOL/L (3.5-5.1); SODIUM LEVEL 133 MMOL/L (136-145)
[2022-02-04] MEDS: TIOTROPIUM INHALER/CAPSULE (SPIRIVA) INH SCH (07:56)
[2022-02-04] MEDS: ADVAIR HFA 230/21MCG INHALER INH SCH ×2 (07:56→20:00)
[2022-02-04] MEDS: THIAMINE 100 MG TAB PO SCH (09:12)
[2022-02-04] MEDS: PANTOPRAZOLE 40MG TAB (PROTONIX) PO SCH (09:12)
[2022-02-04] MEDS: DOCUSATE SODIUM 100MG CAPSULE PO SCH ×2 (09:12→20:23)
[2022-02-04] MEDS: HEPARIN SOD (PORCINE) 5000UNITS/ML 1ML VIAL/SYRINGE SC SCH ×2 (09:12→20:23)
[2022-02-04] MEDS: NICOTINE 21MG/24HR 1 EA TRANSDERMAL TD SCH (09:12)
[2022-02-04] MEDS: FOLIC ACID 1MG TAB PO SCH (09:13)
[2022-02-04] MEDS: MOM 30ML SUSPENSION UDC PO SCH (09:13)
[2022-02-04] MEDS: SERTRALINE HCL 50 MG TAB PO SCH (09:13)
[2022-02-04] MEDS: MULTIVITAMINS/MINERALS THERAP 1 TAB PO SCH (09:13)
[2022-02-04] MEDS: OXAZEPAM 10MG CAP PO SCH ×4 (10:17→20:23)
[2022-02-04] MEDS: FUROSEMIDE 40 MG TAB PO SCH (10:17)
[2022-02-04] MEDS: methylPREDNISolone 40MG 1ML VIAL IV SCH (17:42)
[2022-02-04] MEDS: LIDOCAINE 5% (LIDODERM) PATCH TD SCH (20:23)
[2022-02-05] VITALS (23 sets, daily range): BP systolic 118–196; BP diastolic 64–97
[2022-02-05] MEDS: methylPREDNISolone 40MG 1ML VIAL IV SCH ×3 (00:58→18:05)
[2022-02-05] MEDS: LEVALBUTEROL 1.25MG 0.5ML CONCENTRATE NEB NEB SCH ×4 (02:00→19:27)
[2022-02-05] MEDS: KETOROLAC 30 MG/ML 1ML VIAL IV SCH (05:47)
[2022-02-05 05:55] LABS: BASO % 0.2 % (0.0-1.0); HEMATOCRIT 49.4 % (42.0-52.0); LYMPH # 0.7 10^3/uL (1.5-5.0); LYMPH % 3.4 % (24.0-44.0); MEAN CORPUSCULAR HEMOGLOBIN 31.3 pg (27.0-33.0); MEAN CORPUSCULAR HGB CONC 32.4 g/dl (32.0-36.5); MEAN CORPUSCULAR VOLUME 96.7 fl (80.0-96.0); MONO # 0.7 10^3/uL (0.0-0.8); MONO % 3.5 % (2.0-8.0); NEUTROPHILS # 17.7 10^3/uL (1.5-8.5); NEUTROPHILS % 92.1 % (36.0-66.0); PLATELET COUNT, AUTOMATED 197 10^3/uL (150-450); RED BLOOD COUNT 5.11 10^6/uL (4.30-6.10); WHITE BLOOD COUNT 19.2 10^3/uL (4.0-10.0)
[2022-02-05 06:08] LABS: ABG HCO3 26.8 MEQ/L (22.0-26.0); ABG O2 SATURATION 94.9 % (95.0-99.0); ABG PARTIAL PRESSURE CO2 42.4 mmHg (35.0-45.0); ABG PARTIAL PRESSURE O2 68.1 mmHg (75.0-100.0); ABG STANDARD HCO3 26.2 MEQ/L (22.0-26.0); ABG TOTAL CO2 28.1 MEQ/L (22.0-29.0); ABG pH (ARTERIAL) 7.419 UNITS (7.350-7.450)
[2022-02-05 06:20] LABS: BLOOD UREA NITROGEN 14 MG/DL (9-23); CALCIUM LEVEL 9.2 MG/DL (8.5-10.1); CARBON DIOXIDE LEVEL 27 MMOL/L (20-31); CHLORIDE LEVEL 104 MMOL/L (98-107); CREATININE FOR GFR 0.66 MG/DL (0.70-1.30); GLOMERULAR FILTRATION RATE > 60.0 (>56); GLUCOSE, FASTING 135 MG/DL (60-100); POTASSIUM SERUM 5.3 MMOL/L (3.5-5.1); SODIUM LEVEL 134 MMOL/L (136-145)
[2022-02-05] MEDS: ADVAIR HFA 230/21MCG INHALER INH SCH ×2 (07:50→19:27)
[2022-02-05] MEDS: TIOTROPIUM INHALER/CAPSULE (SPIRIVA) INH SCH (07:50)
[2022-02-05] MEDS: MOM 30ML SUSPENSION UDC PO SCH (08:01)
[2022-02-05] MEDS: MULTIVITAMINS/MINERALS THERAP 1 TAB PO SCH (08:02)
[2022-02-05] MEDS: FOLIC ACID 1MG TAB PO SCH (08:02)
[2022-02-05] MEDS: SERTRALINE HCL 50 MG TAB PO SCH (08:02)
[2022-02-05] MEDS: HEPARIN SOD (PORCINE) 5000UNITS/ML 1ML VIAL/SYRINGE SC SCH (08:02)
[2022-02-05] MEDS: DOCUSATE SODIUM 100MG CAPSULE PO SCH ×2 (08:02→20:18)
[2022-02-05] MEDS: OXAZEPAM 10MG CAP PO SCH ×4 (08:02→20:18)
[2022-02-05] MEDS: PANTOPRAZOLE 40MG TAB (PROTONIX) PO SCH (08:03)
[2022-02-05] MEDS: FUROSEMIDE 40 MG TAB PO SCH (08:03)
[2022-02-05] MEDS: NICOTINE 21MG/24HR 1 EA TRANSDERMAL TD SCH (08:04)
[2022-02-05] MEDS: PERCOCET 5MG/325MG TAB PO PRN ×2 (08:12→18:12)
[2022-02-05] MEDS ORDERED: FUROSEMIDE 40MG/4ML VIAL IV ONE (10:20)
[2022-02-05] MEDS: ENOXAPARIN 40MG/0.4ML SYRINGE (J1650 PER 10MG) SC SCH (20:19)
[2022-02-05] MEDS: LIDOCAINE 5% (LIDODERM) PATCH TD SCH (20:52)
[2022-02-06] VITALS (19 sets, daily range): BP systolic 128–185; BP diastolic 69–89
[2022-02-06] MEDS: methylPREDNISolone 40MG 1ML VIAL IV SCH ×3 (00:33→17:43)
[2022-02-06] MEDS: LEVALBUTEROL 1.25MG 0.5ML CONCENTRATE NEB NEB SCH ×4 (01:48→19:24)
[2022-02-06 04:45] LABS: BASO % 0.1 % (0.0-1.0); HEMOGLOBIN 15.7 g/dl (13.5-17.5); LYMPH # 0.5 10^3/uL (1.5-5.0); LYMPH % 3.2 % (24.0-44.0); MEAN CORPUSCULAR HEMOGLOBIN 31.3 pg (27.0-33.0); MEAN CORPUSCULAR HGB CONC 32.7 g/dl (32.0-36.5); MEAN CORPUSCULAR VOLUME 95.6 fl (80.0-96.0); MONO # 0.7 10^3/uL (0.0-0.8); MONO % 4.1 % (2.0-8.0); NEUTROPHILS # 15.3 10^3/uL (1.5-8.5); NEUTROPHILS % 91.6 % (36.0-66.0); PLATELET COUNT, AUTOMATED 208 10^3/uL (150-450); RED BLOOD COUNT 5.02 10^6/uL (4.30-6.10); WHITE BLOOD COUNT 16.7 10^3/uL (4.0-10.0)
[2022-02-06 05:07] LABS: BLOOD UREA NITROGEN 14 MG/DL (9-23); CALCIUM LEVEL 8.7 MG/DL (8.5-10.1); CARBON DIOXIDE LEVEL 30 MMOL/L (20-31); CHLORIDE LEVEL 104 MMOL/L (98-107); CREATININE FOR GFR 0.58 MG/DL (0.70-1.30); GLOMERULAR FILTRATION RATE > 60.0 (>56); GLUCOSE, FASTING 146 MG/DL (60-100); POTASSIUM SERUM 4.7 MMOL/L (3.5-5.1); SODIUM LEVEL 137 MMOL/L (136-145)
[2022-02-06] MEDS: ADVAIR HFA 230/21MCG INHALER INH SCH ×2 (07:47→19:24)
[2022-02-06] MEDS: TIOTROPIUM INHALER/CAPSULE (SPIRIVA) INH SCH (07:48)
[2022-02-06] MEDS: PERCOCET 5MG/325MG TAB PO PRN ×3 (08:05→17:45)
[2022-02-06] MEDS ORDERED: FUROSEMIDE 40MG/4ML VIAL IV ONE (08:15)
[2022-02-06] MEDS: NICOTINE 21MG/24HR 1 EA TRANSDERMAL TD SCH (09:02)
[2022-02-06] MEDS: FOLIC ACID 1MG TAB PO SCH (09:05)
[2022-02-06] MEDS: DOCUSATE SODIUM 100MG CAPSULE PO SCH ×2 (09:05→20:30)
[2022-02-06] MEDS: MOM 30ML SUSPENSION UDC PO SCH (09:06)
[2022-02-06] MEDS: OXAZEPAM 10MG CAP PO SCH ×4 (09:07→20:31)
[2022-02-06] MEDS: MULTIVITAMINS/MINERALS THERAP 1 TAB PO SCH (09:11)
[2022-02-06] MEDS: SERTRALINE HCL 50 MG TAB PO SCH (09:11)
[2022-02-06] MEDS: PANTOPRAZOLE 40MG TAB (PROTONIX) PO SCH (09:12)
[2022-02-06] MEDS: ENOXAPARIN 40MG/0.4ML SYRINGE (J1650 PER 10MG) SC SCH (20:31)
[2022-02-06] MEDS: LIDOCAINE 5% (LIDODERM) PATCH TD SCH (20:31)
[2022-02-07] VITALS (10 sets, daily range): BP systolic 127–165; BP diastolic 64–77
[2022-02-07] MEDS: methylPREDNISolone 40MG 1ML VIAL IV SCH ×3 (01:06→16:11)
[2022-02-07] MEDS: LEVALBUTEROL 1.25MG 0.5ML CONCENTRATE NEB NEB SCH ×4 (02:00→19:26)
[2022-02-07] MEDS: PERCOCET 5MG/325MG TAB PO PRN ×3 (04:40→20:35)
[2022-02-07 04:50] LABS: BASO % 0.2 % (0.0-1.0); EOS % 0.1 % (0.0-3.0); HEMATOCRIT 51.2 % (42.0-52.0); HEMOGLOBIN 16.3 g/dl (13.5-17.5); LYMPH # 0.7 10^3/uL (1.5-5.0); LYMPH % 4.4 % (24.0-44.0); MEAN CORPUSCULAR HEMOGLOBIN 30.8 pg (27.0-33.0); MEAN CORPUSCULAR HGB CONC 31.8 g/dl (32.0-36.5); MEAN CORPUSCULAR VOLUME 96.6 fl (80.0-96.0); MONO # 0.7 10^3/uL (0.0-0.8); MONO % 4.1 % (2.0-8.0); NEUTROPHILS # 14.4 10^3/uL (1.5-8.5); NEUTROPHILS % 89.8 % (36.0-66.0); PLATELET COUNT, AUTOMATED 214 10^3/uL (150-450)
[2022-02-07 05:12] LABS: BLOOD UREA NITROGEN 18 MG/DL (9-23); CALCIUM LEVEL 8.9 MG/DL (8.5-10.1); CARBON DIOXIDE LEVEL 32 MMOL/L (20-31); CHLORIDE LEVEL 103 MMOL/L (98-107); CREATININE FOR GFR 0.69 MG/DL (0.70-1.30); GLOMERULAR FILTRATION RATE > 60.0 (>56); GLUCOSE, FASTING 142 MG/DL (60-100); POTASSIUM SERUM 5.4 MMOL/L (3.5-5.1); SODIUM LEVEL 138 MMOL/L (136-145)
[2022-02-07] MEDS: ADVAIR HFA 230/21MCG INHALER INH SCH ×2 (08:46→19:28)
[2022-02-07] MEDS: TIOTROPIUM INHALER/CAPSULE (SPIRIVA) INH SCH (08:46)
[2022-02-07] MEDS: MOM 30ML SUSPENSION UDC PO SCH ×2 (08:51→09:10)
[2022-02-07] MEDS: DOCUSATE SODIUM 100MG CAPSULE PO SCH ×2 (09:10→20:31)
[2022-02-07] MEDS: SERTRALINE HCL 50 MG TAB PO SCH (09:10)
[2022-02-07] MEDS: FOLIC ACID 1MG TAB PO SCH (09:10)
[2022-02-07] MEDS: OXAZEPAM 10MG CAP PO SCH ×4 (09:10→20:31)
[2022-02-07] MEDS: PANTOPRAZOLE 40MG TAB (PROTONIX) PO SCH (09:10)
[2022-02-07] MEDS: MULTIVITAMINS/MINERALS THERAP 1 TAB PO SCH (09:10)
[2022-02-07] MEDS: NICOTINE 21MG/24HR 1 EA TRANSDERMAL TD SCH (09:11)
[2022-02-07 10:53] LABS: ABG pH (ARTERIAL) 7.429 UNITS (7.350-7.450)
[2022-02-07 10:54] LABS: ABG BASE EXCESS 1.2 (-2.0-2.0); ABG HCO3 25.5 MEQ/L (22.0-26.0); ABG O2 SATURATION 93.8 % (95.0-99.0); ABG PARTIAL PRESSURE CO2 39.4 mmHg (35.0-45.0); ABG PARTIAL PRESSURE O2 65.4 mmHg (75.0-100.0); ABG STANDARD HCO3 25.5 MEQ/L (22.0-26.0); ABG TOTAL CO2 26.7 MEQ/L (22.0-29.0)
[2022-02-07] MEDS: FUROSEMIDE 40MG/4ML VIAL IV SCH (11:30)
[2022-02-07] MEDS: ENOXAPARIN 40MG/0.4ML SYRINGE (J1650 PER 10MG) SC SCH (20:31)
[2022-02-07] MEDS: LIDOCAINE 5% (LIDODERM) PATCH TD SCH (20:32)
[2022-02-08] MEDS: methylPREDNISolone 40MG 1ML VIAL IV SCH ×2 (00:10→09:40)
[2022-02-08 00:12] VITALS: BP 131/69
[2022-02-08] MEDS: LEVALBUTEROL 1.25MG 0.5ML CONCENTRATE NEB NEB SCH ×4 (01:42→20:00)
[2022-02-08 04:08] VITALS: BP 141/65
[2022-02-08 04:35] LABS: BASO # 0.1 10^3/uL (0.0-0.2); BASO % 0.6 % (0.0-1.0); EOS % 0.1 % (0.0-3.0); HEMATOCRIT 50.6 % (42.0-52.0); HEMOGLOBIN 16.6 g/dl (13.5-17.5); LYMPH # 0.8 10^3/uL (1.5-5.0); LYMPH % 4.9 % (24.0-44.0); MEAN CORPUSCULAR HEMOGLOBIN 31.3 pg (27.0-33.0); MEAN CORPUSCULAR HGB CONC 32.8 g/dl (32.0-36.5); MEAN CORPUSCULAR VOLUME 95.3 fl (80.0-96.0); MONO # 0.6 10^3/uL (0.0-0.8); MONO % 3.6 % (2.0-8.0); NEUTROPHILS # 13.7 10^3/uL (1.5-8.5); NEUTROPHILS % 87.7 % (36.0-66.0); PLATELET COUNT, AUTOMATED 224 10^3/uL (150-450); RED BLOOD COUNT 5.31 10^6/uL (4.30-6.10); WHITE BLOOD COUNT 15.6 10^3/uL (4.0-10.0)
[2022-02-08 05:16] LABS: BLOOD UREA NITROGEN 21 MG/DL (9-23); CALCIUM LEVEL 8.8 MG/DL (8.5-10.1); CARBON DIOXIDE LEVEL 34 MMOL/L (20-31); CHLORIDE LEVEL 103 MMOL/L (98-107); CREATININE FOR GFR 0.68 MG/DL (0.70-1.30); GLOMERULAR FILTRATION RATE > 60.0 (>56); GLUCOSE, FASTING 134 MG/DL (60-100); POTASSIUM SERUM 5.1 MMOL/L (3.5-5.1); SODIUM LEVEL 138 MMOL/L (136-145)
[2022-02-08] MEDS: DOCUSATE SODIUM 100MG CAPSULE PO SCH ×2 (07:05→20:05)
[2022-02-08] MEDS: MOM 30ML SUSPENSION UDC PO SCH (07:05)
[2022-02-08] MEDS: PERCOCET 5MG/325MG TAB PO PRN ×3 (07:20→19:41)
[2022-02-08 08:00] VITALS: BP 141/77
[2022-02-08] MEDS: TIOTROPIUM INHALER/CAPSULE (SPIRIVA) INH SCH (08:22)
[2022-02-08] MEDS: ADVAIR HFA 230/21MCG INHALER INH SCH ×2 (08:22→20:09)
[2022-02-08] MEDS: NICOTINE 21MG/24HR 1 EA TRANSDERMAL TD SCH (09:39)
[2022-02-08] MEDS: MULTIVITAMINS/MINERALS THERAP 1 TAB PO SCH (09:40)
[2022-02-08] MEDS: PANTOPRAZOLE 40MG TAB (PROTONIX) PO SCH (09:40)
[2022-02-08] MEDS: FUROSEMIDE 40MG/4ML VIAL IV SCH (09:40)
[2022-02-08] MEDS: FOLIC ACID 1MG TAB PO SCH (09:40)
[2022-02-08] MEDS: SERTRALINE HCL 50 MG TAB PO SCH (09:41)
[2022-02-08] MEDS: OXAZEPAM 10MG CAP PO SCH ×3 (09:41→20:04)
[2022-02-08 12:00] VITALS: BP 152/69
[2022-02-08 16:00] VITALS: BP 164/67
[2022-02-08] MEDS: predniSONE 10 MG TAB PO SCH (16:11)
[2022-02-08] MEDS: LIDOCAINE 5% (LIDODERM) PATCH TD SCH (20:04)
[2022-02-08] MEDS: ENOXAPARIN 40MG/0.4ML SYRINGE (J1650 PER 10MG) SC SCH (20:04)
[2022-02-08 20:10] VITALS: BP 155/81
[2022-02-09] VITALS (7 sets, daily range): BP systolic 159–186; BP diastolic 75–99
[2022-02-09] MEDS: LEVALBUTEROL 1.25MG 0.5ML CONCENTRATE NEB NEB SCH ×2 (02:43→07:48)
[2022-02-09] MEDS: PERCOCET 5MG/325MG TAB PO PRN (05:36)
[2022-02-09 05:40] LABS: BASO # 0.1 10^3/uL (0.0-0.2); BASO % 0.6 % (0.0-1.0); EOS % 0.2 % (0.0-3.0); HEMATOCRIT 51.3 % (42.0-52.0); HEMOGLOBIN 16.7 g/dl (13.5-17.5); LYMPH # 1.4 10^3/uL (1.5-5.0); LYMPH % 7.7 % (24.0-44.0); MEAN CORPUSCULAR HEMOGLOBIN 31.3 pg (27.0-33.0); MEAN CORPUSCULAR HGB CONC 32.6 g/dl (32.0-36.5); MEAN CORPUSCULAR VOLUME 96.2 fl (80.0-96.0); MONO # 1.2 10^3/uL (0.0-0.8); MONO % 6.5 % (2.0-8.0); NEUTROPHILS # 14.6 10^3/uL (1.5-8.5); NEUTROPHILS % 81.9 % (36.0-66.0); PLATELET COUNT, AUTOMATED 246 10^3/uL (150-450); RED BLOOD COUNT 5.33 10^6/uL (4.30-6.10); WHITE BLOOD COUNT 17.9 10^3/uL (4.0-10.0)
[2022-02-09 05:54] LABS: MAGNESIUM LEVEL 2.4 MG/DL (1.8-2.4)
[2022-02-09 06:02] LABS: BLOOD UREA NITROGEN 21 MG/DL (9-23); CALCIUM LEVEL 9.2 MG/DL (8.5-10.1); CARBON DIOXIDE LEVEL 34 MMOL/L (20-31); CHLORIDE LEVEL 102 MMOL/L (98-107); CREATININE FOR GFR 0.71 MG/DL (0.70-1.30); GLOMERULAR FILTRATION RATE > 60.0 (>56); GLUCOSE, FASTING 96 MG/DL (60-100); POTASSIUM SERUM 4.9 MMOL/L (3.5-5.1); SODIUM LEVEL 138 MMOL/L (136-145)
[2022-02-09] MEDS: TIOTROPIUM INHALER/CAPSULE (SPIRIVA) INH SCH (07:43)
[2022-02-09] MEDS: ADVAIR HFA 230/21MCG INHALER INH SCH (07:48)
[2022-02-09] MEDS ORDERED: PRED10TA2 PO (08:44)
[2022-02-09] MEDS ORDERED: AMLO1TAB25 PO (08:44)
[2022-02-09] MEDS ORDERED: FUROSEMIDE 40 MG TAB PO SCH (09:00)
[2022-02-09] MEDS ORDERED: THIAMINE 100 MG TAB PO SCH (09:00)
[2022-02-09] MEDS: FOLIC ACID 1MG TAB PO SCH (09:17)
[2022-02-09] MEDS: MULTIVITAMINS/MINERALS THERAP 1 TAB PO SCH (09:17)
[2022-02-09] MEDS: MOM 30ML SUSPENSION UDC PO SCH (09:17)
[2022-02-09] MEDS: DOCUSATE SODIUM 100MG CAPSULE PO SCH (09:17)
[2022-02-09] MEDS: predniSONE 10 MG TAB PO SCH (09:17)
[2022-02-09] MEDS: NICOTINE 21MG/24HR 1 EA TRANSDERMAL TD SCH (09:19)
[2022-02-09] MEDS: PANTOPRAZOLE 40MG TAB (PROTONIX) PO SCH (09:19)
[2022-02-09] MEDS: SERTRALINE HCL 50 MG TAB PO SCH (09:19)
[2022-02-09] MEDS: OXAZEPAM 10MG CAP PO SCH (09:20)
[2022-02-09] MEDS ORDERED: PERCOCET PO (09:48)
[2022-02-09] MEDS ORDERED: PRED20TA PO (09:48)
[2022-02-09] MEDS ORDERED: AMOX875T2 PO (09:48)
== END 2022-02-09 11:50 | disposition home health service (06) | DRG 199 ==
LOC: M ED 17:34 → EDBD 17:34 → EDSEX 17:34 → M ED INP 20:04 → ENRESERV 20:38 → CANRESERV 20:38 → ENRESERV 20:46 → M ICU 21:12
PROVIDERS: ADMIT Internal Medicine; ATTEND Internal Medicine
PROC: 0W9900Z Drainage of Right Pleural Cavity with Drainage Device, Open Approach (ICD-10-PCS; principal; 2022-02-03)
DX: S27.0XXA Traumatic pneumothorax, initial encounter (principal); J96.22 Acute and chronic respiratory failure with hypercapnia; J86.0 Pyothorax with fistula; E87.3 Alkalosis; S22.31XA Fracture of one rib, right side, initial encounter for closed fracture; S42.254A Nondisplaced fracture of greater tuberosity of right humerus, initial encounter for closed fracture; I50.32 Chronic diastolic (congestive) heart failure; E87.1 Hypo-osmolality and hyponatremia; J44.1 Chronic obstructive pulmonary disease with (acute) exacerbation; F10.239 Alcohol dependence with withdrawal, unspecified; I11.0 Hypertensive heart disease with heart failure; E87.5 Hyperkalemia; T79.7XXA Traumatic subcutaneous emphysema, initial encounter; F10.229 Alcohol dependence with intoxication, unspecified; G47.33 Obstructive sleep apnea (adult) (pediatric); F17.210 Nicotine dependence, cigarettes, uncomplicated; D72.829 Elevated white blood cell count, unspecified; W08.XXXA Fall from other furniture, initial encounter; Y92.009 Unspecified place in unspecified non-institutional (private) residence as the place of occurrence of the external cause; Y93.89 Activity, other specified; Y99.8 Other external cause status; F32.A Depression, unspecified; F41.9 Anxiety disorder, unspecified; E66.9 Obesity, unspecified; Z68.35 Body mass index [BMI] 35.0-35.9, adult; Z79.899 Other long term (current) drug therapy

== ENCOUNTER → 2022-02-14 | Outpatient (CLI) | payer OTHER ==
[~2022-02-14] MED LIST changes: +AMLO1TAB25 PO; +B-11TAB PO; +PERCOCET PO
== END ==
LOC: M SOG 07:59
PROVIDERS: ATTEND Orthopaedic Surgery
DX: Z47.89 Encounter for other orthopedic aftercare (principal)

== ENCOUNTER 2022-02-23 | Inpatient (IN) | payer OTHER ==
[2022-02-23 00:26] LABS: ABG BASE EXCESS 2.4 (-2.0-2.0); ABG HCO3 28.6 MEQ/L (22.0-26.0); ABG O2 SATURATION 98.7 % (95.0-99.0); ABG PARTIAL PRESSURE CO2 49.5 mmHg (35.0-45.0); ABG STANDARD HCO3 26.7 MEQ/L (22.0-26.0); ABG TOTAL CO2 30.1 MEQ/L (22.0-29.0); ABG pH (ARTERIAL) 7.379 UNITS (7.350-7.450)
[2022-02-23] MEDS ORDERED: IPRATROPIUM 0.5MG/ALBUTEROL 2.5MG INH SOL UD 3ML (DUONEB) NEB PRN (00:30)
[2022-02-23] MEDS ORDERED: FUROSEMIDE 40MG/4ML VIAL IV ONE ×2 (00:30→00:45)
[2022-02-23] MEDS ORDERED: methylPREDNISolone 125MG 2ML VIAL IV ONE (00:30)
[2022-02-23 00:35] LABS: BASO # 0.1 10^3/uL (0.0-0.2); BASO % 0.5 % (0.0-1.0); EOS # 0.3 10^3/uL (0.0-0.5); EOS % 2.5 % (0.0-3.0); HEMATOCRIT 45.5 % (42.0-52.0); HEMOGLOBIN 15.4 g/dl (13.5-17.5); LYMPH # 1.7 10^3/uL (1.5-5.0); MEAN CORPUSCULAR HEMOGLOBIN 32.1 pg (27.0-33.0); MEAN CORPUSCULAR HGB CONC 33.8 g/dl (32.0-36.5); MEAN CORPUSCULAR VOLUME 94.8 fl (80.0-96.0); MONO # 0.6 10^3/uL (0.0-0.8); MONO % 5.9 % (2.0-8.0); NEUTROPHILS # 7.2 10^3/uL (1.5-8.5); NEUTROPHILS % 73.1 % (36.0-66.0); PLATELET COUNT, AUTOMATED 187 10^3/uL (150-450); WHITE BLOOD COUNT 9.9 10^3/uL (4.0-10.0)
[2022-02-23 00:45] LABS: INR 0.81; PROTHROMBIN TIME 11.4 SECONDS (12.5-14.5)
[2022-02-23 01:04] LABS: ETHYL ALCOHOL (ETHANOL) 0.014 % (0.000-0.010)
[2022-02-23 01:06] LABS: BILIRUBIN,DIRECT 0.1 MG/DL (<0.4)
[2022-02-23 01:11] LABS: ALBUMIN 3.3 G/DL (3.2-5.2); ALKALINE PHOSPHATASE 84 U/L (46-116); ALT/SGPT 25 U/L (7.0-40); AST/SGOT 22 U/L (<34); BILIRUBIN,TOTAL 0.5 MG/DL (0.3-1.2); BLOOD UREA NITROGEN < 5 MG/DL (9-23); CALCIUM LEVEL 8.8 MG/DL (8.5-10.1); CARBON DIOXIDE LEVEL 30 MMOL/L (20-31); CHLORIDE LEVEL 101 MMOL/L (98-107); CK-MB VALUE MASS < 1.0 NG/ML (<3.6); CPK CREATINE PHOSPHOKINASE 42 U/L (46-171); CREATININE FOR GFR 0.53 MG/DL (0.70-1.30); GLOMERULAR FILTRATION RATE > 60.0 (>56); GLUCOSE, FASTING 96 MG/DL (60-100); MB/CK RELATIVE INDEX 2.38 (< OR =4); POTASSIUM SERUM 4.3 MMOL/L (3.5-5.1); SODIUM LEVEL 137 MMOL/L (136-145); THYROID STIMULATING HORMONE 0.137 uIU/ML (0.55-4.78); TOTAL PROTEIN 6.1 G/DL (5.7-8.2)
[2022-02-23] MEDS ORDERED: ACETAMINOPHEN TAB 650MG DOSE (2X325MG) PO PRN (01:55)
[2022-02-23] MEDS ORDERED: LORazepam 2 MG TAB PO PRN (02:35)
[2022-02-23] MEDS ORDERED: ERGO500029 PO (02:36)
[2022-02-23] MEDS ORDERED: ENDO5TAB PO (02:37)
[2022-02-23] MEDS ORDERED: AMLO10TA PO (02:37)
[2022-02-23] MEDS ORDERED: HOME MED LIST COMPLETE! XX SCH (02:45)
[2022-02-23 02:47] LABS: FREE T4 1.36 NG/DL (0.89-1.76)
[2022-02-23] MEDS: IPRATROPIUM 0.02% SOLN 0.5MG 2.5ML NEB NEB SCH ×4 (02:54→20:06)
[2022-02-23] MEDS: LEVALBUTEROL 1.25MG 0.5ML CONCENTRATE NEB NEB SCH ×4 (02:54→20:06)
[2022-02-23] MEDS ORDERED: AZITHROMYCIN 250MG TABLET PO ONE (03:00)
[2022-02-23] MEDS: THIAMINE 100 MG TAB PO SCH ×2 (04:06→21:18)
[2022-02-23 04:17] LABS: CK-MB VALUE MASS < 1.0 NG/ML (<3.6)
[2022-02-23 04:22] LABS: CPK CREATINE PHOSPHOKINASE 36 U/L (46-171); MB/CK RELATIVE INDEX 2.77 (< OR =4)
[2022-02-23 06:35] LABS: VENOUS BASE EXCESS 4.5 (-2.0-2.0); VENOUS HCO3 32.1 MEQ/L (23.0-27.0); VENOUS O2 SATURATION 97.4 % (60.0-80.0); VENOUS PARTIAL PRESSURE CO2 58.8 mmHg (38.0-50.0); VENOUS PARTIAL PRESSURE O2 101.6 mmHg (30.0-50.0); VENOUS PH 7.355 UNITS (7.330-7.430); VENOUS STANDARD HCO3 28.5 MEQ/L; VENOUS TOTAL CO2 33.9 MEQ/L (24.0-28.0)
[2022-02-23 06:42] LABS: BASO % 0.4 % (0.0-1.0); EOS % 0.1 % (0.0-3.0); HEMATOCRIT 47.7 % (42.0-52.0); HEMOGLOBIN 15.5 g/dl (13.5-17.5); LYMPH # 0.3 10^3/uL (1.5-5.0); LYMPH % 3.3 % (24.0-44.0); MEAN CORPUSCULAR HEMOGLOBIN 31.1 pg (27.0-33.0); MEAN CORPUSCULAR HGB CONC 32.5 g/dl (32.0-36.5); MEAN CORPUSCULAR VOLUME 95.8 fl (80.0-96.0); MONO # 0.1 10^3/uL (0.0-0.8); MONO % 0.7 % (2.0-8.0); NEUTROPHILS # 9.9 10^3/uL (1.5-8.5); NEUTROPHILS % 94.4 % (36.0-66.0); PLATELET COUNT, AUTOMATED 174 10^3/uL (150-450); RED BLOOD COUNT 4.98 10^6/uL (4.30-6.10); WHITE BLOOD COUNT 10.4 10^3/uL (4.0-10.0)
[2022-02-23 07:14] LABS: BLOOD UREA NITROGEN 7 MG/DL (9-23); CALCIUM LEVEL 8.7 MG/DL (8.5-10.1); CARBON DIOXIDE LEVEL 32 MMOL/L (20-31); CHLORIDE LEVEL 100 MMOL/L (98-107); CREATININE FOR GFR 0.59 MG/DL (0.70-1.30); GLOMERULAR FILTRATION RATE > 60.0 (>56); GLUCOSE, FASTING 179 MG/DL (60-100); POTASSIUM SERUM 3.9 MMOL/L (3.5-5.1); SODIUM LEVEL 139 MMOL/L (136-145)
[2022-02-23] MEDS ORDERED: ISOVUE-370 76% 100ML VIAL As Ordered ONE (07:39)
[2022-02-23] MEDS: PANTOPRAZOLE 40MG TAB (PROTONIX) PO SCH (08:51)
[2022-02-23] MEDS: MULTIVITAMINS/MINERALS THERAP 1 TAB PO SCH (08:51)
[2022-02-23] MEDS: SERTRALINE HCL 50 MG TAB PO SCH (08:51)
[2022-02-23] MEDS: FOLIC ACID 1MG TAB PO SCH (08:51)
[2022-02-23] MEDS: ENOXAPARIN 40MG/0.4ML SYRINGE (J1650 PER 10MG) SC SCH (08:53)
[2022-02-23] MEDS: methylPREDNISolone 40MG 1ML VIAL IV SCH ×2 (08:53→18:26)
[2022-02-23] MEDS: PERCOCET 5MG/325MG TAB PO PRN ×2 (08:57→21:18)
[2022-02-23] MEDS: NICOTINE 21MG/24HR 1 EA TRANSDERMAL TD PRN (09:00)
[2022-02-23 10:25] LABS: ALBUMIN 3.5 G/DL (3.2-5.2); ALKALINE PHOSPHATASE 93 U/L (46-116); ALT/SGPT 27 U/L (7.0-40); AST/SGOT 21 U/L (<34); BILIRUBIN,DIRECT 0.2 MG/DL (<0.4); BILIRUBIN,TOTAL 0.5 MG/DL (0.3-1.2); TOTAL PROTEIN 6.1 G/DL (5.7-8.2)
[2022-02-23] MEDS: OXAZEPAM 10MG CAP PO SCH ×2 (12:08→21:18)
[2022-02-23 13:15] VITALS: O2SAT 93
[2022-02-23 13:40] LABS: ABG pH (ARTERIAL) 7.413 UNITS (7.350-7.450)
[2022-02-23 13:41] LABS: ABG BASE EXCESS 5.8 (-2.0-2.0); ABG HCO3 31.9 MEQ/L (22.0-26.0); ABG O2 SATURATION 92.1 % (95.0-99.0); ABG PARTIAL PRESSURE CO2 51.1 mmHg (35.0-45.0); ABG PARTIAL PRESSURE O2 60.2 mmHg (75.0-100.0); ABG STANDARD HCO3 29.6 MEQ/L (22.0-26.0); ABG TOTAL CO2 33.5 MEQ/L (22.0-29.0)
[2022-02-23 16:11] VITALS: BP 145/76
[2022-02-23 21:02] VITALS: O2SAT 93
[2022-02-23 21:05] VITALS: BP 144/73
[2022-02-23 22:00] VITALS: BP 144/73; O2SAT 94
[2022-02-23 23:00] VITALS: O2SAT 96
[2022-02-24] VITALS (11 sets, daily range): BP systolic 143–166; BP diastolic 67–81; O2SAT 90–95
[2022-02-24] MEDS: methylPREDNISolone 40MG 1ML VIAL IV SCH ×2 (01:48→08:17)
[2022-02-24] MEDS: LEVALBUTEROL 1.25MG 0.5ML CONCENTRATE NEB NEB SCH ×3 (02:00→07:13)
[2022-02-24] MEDS: IPRATROPIUM 0.02% SOLN 0.5MG 2.5ML NEB NEB SCH ×3 (02:00→07:13)
[2022-02-24] MEDS: PERCOCET 5MG/325MG TAB PO PRN ×2 (04:07→10:58)
[2022-02-24 05:44] LABS: BASO % 0.1 % (0.0-1.0); HEMATOCRIT 44.4 % (42.0-52.0); HEMOGLOBIN 14.5 g/dl (13.5-17.5); LYMPH # 0.6 10^3/uL (1.5-5.0); LYMPH % 4.3 % (24.0-44.0); MEAN CORPUSCULAR HEMOGLOBIN 31.3 pg (27.0-33.0); MEAN CORPUSCULAR HGB CONC 32.7 g/dl (32.0-36.5); MEAN CORPUSCULAR VOLUME 95.9 fl (80.0-96.0); MONO # 0.4 10^3/uL (0.0-0.8); MONO % 3.3 % (2.0-8.0); NEUTROPHILS # 12.3 10^3/uL (1.5-8.5); NEUTROPHILS % 91.6 % (36.0-66.0); PLATELET COUNT, AUTOMATED 172 10^3/uL (150-450); RED BLOOD COUNT 4.63 10^6/uL (4.30-6.10); WHITE BLOOD COUNT 13.4 10^3/uL (4.0-10.0)
[2022-02-24 06:11] LABS: BLOOD UREA NITROGEN 10 MG/DL (9-23); CARBON DIOXIDE LEVEL 30 MMOL/L (20-31); CHLORIDE LEVEL 100 MMOL/L (98-107); CREATININE FOR GFR 0.51 MG/DL (0.70-1.30); GLOMERULAR FILTRATION RATE > 60.0 (>56); GLUCOSE, FASTING 186 MG/DL (60-100); POTASSIUM SERUM 4.2 MMOL/L (3.5-5.1); SODIUM LEVEL 136 MMOL/L (136-145)
[2022-02-24] MEDS: ENOXAPARIN 40MG/0.4ML SYRINGE (J1650 PER 10MG) SC SCH (08:17)
[2022-02-24] MEDS: FOLIC ACID 1MG TAB PO SCH (08:17)
[2022-02-24] MEDS: OXAZEPAM 10MG CAP PO SCH (08:18)
[2022-02-24] MEDS: PANTOPRAZOLE 40MG TAB (PROTONIX) PO SCH (08:18)
[2022-02-24] MEDS: MULTIVITAMINS/MINERALS THERAP 1 TAB PO SCH (08:19)
[2022-02-24] MEDS: THIAMINE 100 MG TAB PO SCH (08:19)
[2022-02-24] MEDS: SERTRALINE HCL 50 MG TAB PO SCH (08:19)
[2022-02-24] MEDS: NICOTINE 21MG/24HR 1 EA TRANSDERMAL TD PRN (08:23)
[2022-02-24] MEDS ORDERED: AZITHROMYCIN 250MG TABLET PO SCH (09:00)
[2022-02-24] MEDS ORDERED: FUROSEMIDE 40MG/4ML VIAL IV ONE (10:30)
[2022-02-24] MEDS ORDERED: predniSONE 20 MG TAB PO ONE (11:25)
[2022-02-24] MEDS ORDERED: FOLI1TAB11 PO (11:47)
[2022-02-24] MEDS ORDERED: PRED10TA2 PO (11:47)
[2022-02-24] MEDS ORDERED: AZIT-12 PO (11:47)
[2022-02-24] MEDS ORDERED: VITMTA PO (11:47)
[2022-02-24] MEDS ORDERED: LASI40TA9 PO (11:59)
== END 2022-02-24 14:33 | disposition home health service (06) | DRG 140 ==
LOC: M ED → EDBD → M ED INP 01:54 → M PCU 20:56
PROVIDERS: ADMIT Internal Medicine; ATTEND Internal Medicine
PROC: B246ZZZ Ultrasonography of Right and Left Heart (ICD-10-PCS; principal; 2022-02-23)
DX: J44.1 Chronic obstructive pulmonary disease with (acute) exacerbation (principal); J96.11 Chronic respiratory failure with hypoxia; Z99.81 Dependence on supplemental oxygen; J96.12 Chronic respiratory failure with hypercapnia; I10 Essential (primary) hypertension; F17.210 Nicotine dependence, cigarettes, uncomplicated; F32.A Depression, unspecified; F41.9 Anxiety disorder, unspecified; F10.20 Alcohol dependence, uncomplicated; E66.9 Obesity, unspecified; R07.89 Other chest pain; S42.254D Nondisplaced fracture of greater tuberosity of right humerus, subsequent encounter for fracture with routine healing; Z20.822 Contact with and (suspected) exposure to COVID-19; Z91.199 Patient's noncompliance with other medical treatment and regimen due to unspecified reason; Z79.899 Other long term (current) drug therapy

== ENCOUNTER → 2022-02-28 | Outpatient (CLI) | payer OTHER ==
[~2022-02-28] MED LIST changes: +AMLO10TA PO; +ENDO5TAB PO; +ERGO500029 PO; +LASI40TA9 PO
== END ==
LOC: M SOG 15:20
PROVIDERS: ATTEND Orthopaedic Surgery
DX: S42.201A Unspecified fracture of upper end of right humerus, initial encounter for closed fracture (principal); W18.30XA Fall on same level, unspecified, initial encounter; Y92.009 Unspecified place in unspecified non-institutional (private) residence as the place of occurrence of the external cause

== ENCOUNTER 2022-03-07 22:50 | Emergency (ER) | payer MEDICARE, OTHER ==
[~2022-03-07] VITALS: Ht 172.7 cm; Wt 97.8 kg
[2022-03-08 00:02] LABS: BASO # 0.1 10^3/uL (0.0-0.2); BASO % 0.8 % (0.0-1.0); EOS # 0.3 10^3/uL (0.0-0.5); EOS % 2.1 % (0.0-3.0); HEMATOCRIT 47.5 % (42.0-52.0); LYMPH # 1.6 10^3/uL (1.5-5.0); LYMPH % 13.1 % (24.0-44.0); MEAN CORPUSCULAR HEMOGLOBIN 31.3 pg (27.0-33.0); MEAN CORPUSCULAR HGB CONC 33.7 g/dl (32.0-36.5); MEAN CORPUSCULAR VOLUME 92.8 fl (80.0-96.0); MONO # 0.7 10^3/uL (0.0-0.8); MONO % 5.9 % (2.0-8.0); NEUTROPHILS # 9.5 10^3/uL (1.5-8.5); NEUTROPHILS % 76.4 % (36.0-66.0); PLATELET COUNT, AUTOMATED 260 10^3/uL (150-450); RED BLOOD COUNT 5.12 10^6/uL (4.30-6.10); WHITE BLOOD COUNT 12.5 10^3/uL (4.0-10.0)
[2022-03-08 00:22] LABS: BILIRUBIN,DIRECT 0.1 MG/DL (<0.4); CPK CREATINE PHOSPHOKINASE 32 U/L (46-171)
[2022-03-08 00:23] LABS: ALBUMIN 3.7 G/DL (3.2-5.2); ALKALINE PHOSPHATASE 112 U/L (46-116); ALT/SGPT 20 U/L (7.0-40); AST/SGOT 16 U/L (<34); BILIRUBIN,TOTAL 0.5 MG/DL (0.3-1.2); BLOOD UREA NITROGEN 7 MG/DL (9-23); CARBON DIOXIDE LEVEL 29 MMOL/L (20-31); CHLORIDE LEVEL 93 MMOL/L (98-107); GLOMERULAR FILTRATION RATE > 60.0 (>56); GLUCOSE, FASTING 115 MG/DL (60-100); POTASSIUM SERUM 4.1 MMOL/L (3.5-5.1); SODIUM LEVEL 128 MMOL/L (136-145); TOTAL PROTEIN 6.6 G/DL (5.7-8.2)
[2022-03-08 00:25] LABS: CK-MB VALUE MASS < 1.0 NG/ML (<3.6); MB/CK RELATIVE INDEX 3.12 (< OR =4)
[2022-03-08] MEDS ORDERED: IPRATROPIUM 0.5MG/ALBUTEROL 2.5MG INH SOL UD 3ML (DUONEB) NEB ONE (02:55)
[2022-03-08] MEDS ORDERED: PRED10TA2 PO (03:06)
[2022-03-08] MEDS ORDERED: AZIT500T5 PO (03:06)
[2022-03-08] MEDS ORDERED: PROT1TAB2 PO (03:06)
[2022-03-08 03:15] VITALS: BP 160/77
== END 2022-03-08 03:40 | disposition home or self-care (01) ==
LOC: M ED 22:50 → EDBD 22:50 → M ED 03-08 03:40
DX: J44.1 Chronic obstructive pulmonary disease with (acute) exacerbation (principal); I10 Essential (primary) hypertension; G47.33 Obstructive sleep apnea (adult) (pediatric); F41.9 Anxiety disorder, unspecified; F32.9 Major depressive disorder, single episode, unspecified; F17.200 Nicotine dependence, unspecified, uncomplicated; Z79.899 Other long term (current) drug therapy

== ENCOUNTER → 2022-04-20 | Outpatient (CLI) | payer MEDICARE, OTHER ==
[~2022-04-20] MED LIST changes: +AZIT500T5 PO; +PROT1TAB2 PO
== END ==
LOC: M SOG 08:43
PROVIDERS: ATTEND Orthopaedic Surgery
DX: S42.254D Nondisplaced fracture of greater tuberosity of right humerus, subsequent encounter for fracture with routine healing (principal); W18.30XD Fall on same level, unspecified, subsequent encounter

== ENCOUNTER 2022-08-26 16:48 | Emergency (ER) | payer MEDICARE, OTHER ==
[~2022-08-26] VITALS: Ht 165.1 cm; Wt 96.7 kg
[2022-08-26] MEDS ORDERED: IPRATROPIUM 0.5MG/ALBUTEROL 2.5MG INH SOL UD 3ML (DUONEB) NEB ONE (17:05)
[2022-08-26] MEDS ORDERED: ALBUTEROL SULFATE 2.5MG/0.5ML INH NEB SOLN NEB ONE (17:05)
[2022-08-26 17:07] VITALS: TEMP 97.8
[2022-08-26 17:30] LABS: BASO # 0.1 10^3/uL (0.0-0.2); BASO % 0.8 % (0.0-1.0); EOS # 0.3 10^3/uL (0.0-0.5); EOS % 2.9 % (0.0-3.0); HEMATOCRIT 48.8 % (42.0-52.0); HEMOGLOBIN 16.6 g/dl (13.5-17.5); LYMPH # 1.6 10^3/uL (1.5-5.0); LYMPH % 15.9 % (24.0-44.0); MEAN CORPUSCULAR HEMOGLOBIN 30.6 pg (27.0-33.0); MONO # 0.8 10^3/uL (0.0-0.8); MONO % 7.9 % (2.0-8.0); NEUTROPHILS # 7.1 10^3/uL (1.5-8.5); NEUTROPHILS % 71.8 % (36.0-66.0); PLATELET COUNT, AUTOMATED 217 10^3/uL (150-450); RED BLOOD COUNT 5.42 10^6/uL (4.30-6.10)
[2022-08-26 17:48] LABS: CK-MB VALUE MASS < 1.0 NG/ML (<3.6)
[2022-08-26 17:49] LABS: LIPASE 44 U/L (12-53)
[2022-08-26 17:50] LABS: CPK CREATINE PHOSPHOKINASE 34 U/L (46-171); MB/CK RELATIVE INDEX 2.94 (< OR =4)
[2022-08-26 17:51] LABS: ALBUMIN 3.4 G/DL (3.2-5.2); ALKALINE PHOSPHATASE 125 U/L (46-116); ALT/SGPT 34 U/L (7.0-40); AST/SGOT < 8 U/L (<34); BILIRUBIN,DIRECT 0.2 MG/DL (<0.4); BILIRUBIN,TOTAL 0.4 MG/DL (0.3-1.2); BLOOD UREA NITROGEN 6 MG/DL (9-23); CALCIUM LEVEL 8.2 MG/DL (8.5-10.1); CARBON DIOXIDE LEVEL 29 MMOL/L (20-31); CHLORIDE LEVEL 96 MMOL/L (98-107); CREATININE FOR GFR 0.66 MG/DL (0.70-1.30); GLOMERULAR FILTRATION RATE > 60.0 (>56); GLUCOSE, FASTING 91 MG/DL (60-100); POTASSIUM SERUM 4.1 MMOL/L (3.5-5.1); SODIUM LEVEL 131 MMOL/L (136-145); TOTAL PROTEIN 5.9 G/DL (5.7-8.2)
[2022-08-26 17:52] LABS: FREE T4 1.14 NG/DL (0.89-1.76); THYROID STIMULATING HORMONE 0.899 uIU/ML (0.55-4.78)
[2022-08-26 18:14] LABS: RSV AMPLIFICATION NEGATIVE (NEGATIVE)
[2022-08-26 18:30] VITALS: BP 119/60
[2022-08-26 18:33] VITALS: O2SAT 95
[2022-08-26] MEDS ORDERED: ACETAMINOPHEN 325 MG TAB PO ONE (19:05)
[2022-08-26 19:09] LABS: CK-MB VALUE MASS 1.1 NG/ML (<3.6)
== END 2022-08-26 19:54 | disposition home or self-care (01) ==
LOC: M ED 16:48
DX: S20.211A Contusion of right front wall of thorax, initial encounter (principal); W19.XXXA Unspecified fall, initial encounter; Y92.89 Other specified places as the place of occurrence of the external cause; Y93.89 Activity, other specified; Y99.8 Other external cause status; I10 Essential (primary) hypertension; J44.9 Chronic obstructive pulmonary disease, unspecified; J45.909 Unspecified asthma, uncomplicated; F10.10 Alcohol abuse, uncomplicated; F17.210 Nicotine dependence, cigarettes, uncomplicated; Z79.52 Long term (current) use of systemic steroids; Z79.899 Other long term (current) drug therapy; Z79.51 Long term (current) use of inhaled steroids

== ENCOUNTER 2023-04-01 17:19 | Emergency (ER) | payer MEDICARE, OTHER ==
[~2023-04-01] VITALS: Ht 165.1 cm; Wt 90.9 kg
[2023-04-01 17:31] VITALS: TEMP 98.8
[2023-04-01 19:05] VITALS: BP 131/60
[2023-04-01] MEDS ORDERED: methylPREDNISolone 125MG 2ML VIAL IV ONE (19:15)
[2023-04-01 19:33] LABS: VENOUS BASE EXCESS -1.6 (-2.0-2.0); VENOUS O2 SATURATION 96.1 % (60.0-80.0); VENOUS PARTIAL PRESSURE CO2 54.5 mmHg (38.0-50.0); VENOUS PARTIAL PRESSURE O2 87.1 mmHg (30.0-50.0); VENOUS PH 7.296 UNITS (7.330-7.430); VENOUS STANDARD HCO3 23.1 MMOL/L; VENOUS TOTAL CO2 27.6 MMOL/L (24.0-28.0)
[2023-04-01] MEDS: IPRATROPIUM 0.5MG/ALBUTEROL 2.5MG INH SOL UD 3ML (DUONEB) NEB PRN ×2 (19:38→19:41)
[2023-04-01 19:40] LABS: BASO # 0.1 10^3/uL (0.0-0.2); BASO % 0.6 % (0.0-1.0); EOS # 0.2 10^3/uL (0.0-0.5); HEMATOCRIT 47.3 % (42.0-52.0); HEMOGLOBIN 15.9 g/dl (13.5-17.5); LYMPH # 1.8 10^3/uL (1.5-5.0); LYMPH % 19.7 % (24.0-44.0); MEAN CORPUSCULAR HEMOGLOBIN 30.4 pg (27.0-33.0); MEAN CORPUSCULAR HGB CONC 33.6 g/dl (32.0-36.5); MEAN CORPUSCULAR VOLUME 90.4 fl (80.0-96.0); MONO # 0.7 10^3/uL (0.0-0.8); MONO % 8.1 % (2.0-8.0); NEUTROPHILS # 6.2 10^3/uL (1.5-8.5); NEUTROPHILS % 69.2 % (36.0-66.0); PLATELET COUNT, AUTOMATED 197 10^3/uL (150-450); RED BLOOD COUNT 5.23 10^6/uL (4.30-6.10)
[2023-04-01 19:53] LABS: INR 0.91
[2023-04-01 20:04] LABS: CK-MB VALUE MASS < 1.0 NG/ML (<3.6)
[2023-04-01 20:05] LABS: ETHYL ALCOHOL (ETHANOL) 0.146 % (0.000-0.010)
[2023-04-01 20:06] LABS: SALICYLATE LEVEL < 3.0 MG/DL (<30)
[2023-04-01 20:08] LABS: THYROID STIMULATING HORMONE 1.063 uIU/ML (0.55-4.78); THYROXINE (T4) 7.4 UG/DL (4.5-10.9)
[2023-04-01 20:11] LABS: ALBUMIN 3.3 G/DL (3.2-5.2); ALKALINE PHOSPHATASE 119 U/L (46-116); ALT/SGPT 61 U/L (7.0-40); AST/SGOT 50 U/L (<34); BILIRUBIN,DIRECT 0.1 MG/DL (<0.4); BILIRUBIN,TOTAL 0.2 MG/DL (0.3-1.2); BLOOD UREA NITROGEN < 5 MG/DL (9-23); CALCIUM LEVEL 8.3 MG/DL (8.5-10.1); CARBON DIOXIDE LEVEL 28 MMOL/L (20-31); CHLORIDE LEVEL 97 MMOL/L (98-107); CPK CREATINE PHOSPHOKINASE 47 U/L (46-171); CREATININE FOR GFR 0.59 MG/DL (0.70-1.30); GLOMERULAR FILTRATION RATE > 60.0 (>56); GLUCOSE, FASTING 102 MG/DL (60-100); MB/CK RELATIVE INDEX 2.12 (< OR =4); POTASSIUM SERUM 4.1 MMOL/L (3.5-5.1); SODIUM LEVEL 130 MMOL/L (136-145); TOTAL PROTEIN 6.1 G/DL (5.7-8.2)
[2023-04-01 20:13] LABS: RSV AMPLIFICATION NEGATIVE (NEGATIVE)
[2023-04-01 20:34] VITALS: O2SAT 92
[2023-04-01 21:57] LABS: AMPHETAMINES LEVEL URINE NEGATIVE (NEGATIVE); BARBITURATES URINE NEGATIVE (NEGATIVE); BENZODIAZEPINES URINE NEGATIVE (NEGATIVE); COCAINE METABOLITE URINE NEGATIVE (NEGATIVE); METHADONE URINE NEGATIVE (NEGATIVE); OPIATES URINE NEGATIVE (NEGATIVE); PHENCYCLIDINE URINE NEGATIVE (NEGATIVE)
[2023-04-01 21:59] LABS: CANNABINOIDS URINE POSITIVE (NEGATIVE)
[2023-04-01] MEDS ORDERED: VENTAER INH (22:06)
[2023-04-01] MEDS ORDERED: PRED20TA PO (22:06)
== END 2023-04-01 22:21 | disposition home or self-care (01) ==
LOC: M ED 17:19 → EDBD 17:19 → M ED 22:21
DX: J44.1 Chronic obstructive pulmonary disease with (acute) exacerbation (principal); F10.120 Alcohol abuse with intoxication, uncomplicated; I10 Essential (primary) hypertension; F17.210 Nicotine dependence, cigarettes, uncomplicated; Z79.899 Other long term (current) drug therapy; Z99.81 Dependence on supplemental oxygen
CPT/HCPCS: 71045; 76705; 80047; 80048; 80076; 80143; 80307; 82077; 82550; 82553; 82803; 83880; 84436; 84443; 84484; 85025; 85610; 87631; 93005; 93041; 94640; 94760; 96374; 99285; J2930

== ENCOUNTER 2023-05-14 04:36 | Observation (INO) | payer MEDICARE ==
[2023-05-14] VITALS (8 sets, daily range): BP systolic 146–162; BP diastolic 70–89; TEMP 97.5–99.7; O2SAT 90–95
[~2023-05-14] VITALS: Ht 165.1 cm; Wt 92.4 kg
[~2023-05-14 04:36] MED LIST changes: +VENTAER INH
[2023-05-14 05:06] LABS: VENOUS BASE EXCESS 1.6 (-2.0-2.0); VENOUS HCO3 27.1 MMOL/L (23.0-27.0); VENOUS O2 SATURATION 88.4 % (60.0-80.0); VENOUS PARTIAL PRESSURE CO2 45.2 mmHg (38.0-50.0); VENOUS PARTIAL PRESSURE O2 53.6 mmHg (30.0-50.0); VENOUS PH 7.395 UNITS (7.330-7.430); VENOUS STANDARD HCO3 25.6 MMOL/L; VENOUS TOTAL CO2 28.4 MMOL/L (24.0-28.0)
[2023-05-14 05:11] LABS: BASO # 0.1 10^3/uL (0.0-0.2); BASO % 0.5 % (0.0-1.0); EOS % 0.3 % (0.0-3.0); HEMATOCRIT 49.4 % (42.0-52.0); HEMOGLOBIN 16.6 g/dl (13.5-17.5); LYMPH % 7.6 % (24.0-44.0); MEAN CORPUSCULAR HEMOGLOBIN 30.1 pg (27.0-33.0); MEAN CORPUSCULAR HGB CONC 33.6 g/dl (32.0-36.5); MEAN CORPUSCULAR VOLUME 89.7 fl (80.0-96.0); MONO % 7.5 % (2.0-8.0); NEUTROPHILS # 10.7 10^3/uL (1.5-8.5); NEUTROPHILS % 83.6 % (36.0-66.0); PLATELET COUNT, AUTOMATED 144 10^3/uL (150-450); RED BLOOD COUNT 5.51 10^6/uL (4.30-6.10); WHITE BLOOD COUNT 12.8 10^3/uL (4.0-10.0)
[2023-05-14] MEDS: IPRATROPIUM 0.5MG/ALBUTEROL 2.5MG INH SOL UD 3ML (DUONEB) NEB PRN ×2 (05:12→08:46)
[2023-05-14] MEDS: IPRATROPIUM 0.5MG/ALBUTEROL 2.5MG INH SOL UD 3ML (DUONEB) NEB ONE (05:12)
[2023-05-14] MEDS: methylPREDNISolone 125MG 2ML VIAL IV ONE (06:51)
[2023-05-14] MEDS: diazePAM 10MG/2ML SYRINGE IV ONE (06:51)
[2023-05-14] MEDS: cefTRIAXone SOD 1 GM in D5W MINI-BAG PLUS 50 ML IV ONE (07:23)
[2023-05-14] MEDS: NS 2,730 ML in IV 1 EA IV ONE (07:23)
[2023-05-14 07:59] LABS: ETHYL ALCOHOL (ETHANOL) 0.005 % (0.000-0.010)
[2023-05-14 08:08] LABS: ALBUMIN 3.1 G/DL (3.2-5.2); ALKALINE PHOSPHATASE 120 U/L (46-116); ALT/SGPT 45 U/L (7.0-40); AST/SGOT 34 U/L (<34); BILIRUBIN,DIRECT 0.3 MG/DL (<0.4); BILIRUBIN,TOTAL 0.7 MG/DL (0.3-1.2); BLOOD UREA NITROGEN 7 MG/DL (9-23); CALCIUM LEVEL 8.2 MG/DL (8.5-10.1); CARBON DIOXIDE LEVEL 31 MMOL/L (20-31); CHLORIDE LEVEL 101 MMOL/L (98-107); CK-MB VALUE MASS < 1.0 NG/ML (<3.6); CPK CREATINE PHOSPHOKINASE 38 U/L (46-171); CREATININE FOR GFR 0.38 MG/DL (0.70-1.30); GLOMERULAR FILTRATION RATE > 60.0 (>56); GLUCOSE, FASTING 128 MG/DL (60-100); MB/CK RELATIVE INDEX 2.63 (< OR =4); POTASSIUM SERUM 4.4 MMOL/L (3.5-5.1); SODIUM LEVEL 135 MMOL/L (136-145); TOTAL PROTEIN 5.8 G/DL (5.7-8.2)
[2023-05-14] MEDS: LORazepam 2 MG/ML 1ML VIAL IV STA (08:30)
[2023-05-14] MEDS: ACETAMINOPHEN 500 MG TAB PO ONE (08:30)
[2023-05-14] MEDS ORDERED: MED REC IN PROGRESS XX SCH (08:55)
[2023-05-14] MEDS ORDERED: IPRATROPIUM 0.5MG/ALBUTEROL 2.5MG INH SOL UD 3ML (DUONEB) NEB PRN (09:35)
[2023-05-14] MEDS ORDERED: ISOVUE-370 76% 100ML VIAL As Ordered ONE (09:38)
[2023-05-14] MEDS ORDERED: ZOLO100T PO (10:02)
[2023-05-14] MEDS ORDERED: ADV250INH INH (10:02)
[2023-05-14] MEDS ORDERED: FURO40TA2 PO (10:02)
[2023-05-14] MEDS ORDERED: MONT10TA97 PO (10:02)
[2023-05-14] MEDS ORDERED: PANT40TA29 PO (10:02)
[2023-05-14] MEDS ORDERED: ROSU5TAB5 PO (10:02)
[2023-05-14] MEDS ORDERED: HOME MED LIST COMPLETE! XX SCH (10:05)
[2023-05-14] MEDS: MULTIVITAMINS/MINERALS THERAP 1 TAB PO SCH (10:15)
[2023-05-14] MEDS: DOXYCYCLINE HYCLATE 100MG TABLET PO SCH (10:15)
[2023-05-14] MEDS: PIPERACILLIN/TAZOBACTAM SOD 4.5 GM in D5W MINI-BAG PLUS 50 ML IV SCH (10:15)
[2023-05-14] MEDS: FOLIC ACID 1MG TAB PO SCH (10:15)
[2023-05-14] MEDS: THIAMINE 100 MG TAB PO SCH (10:15)
[2023-05-14 10:24] LABS: PROCALCITONIN 0.05 ng/ml
[2023-05-14] MEDS: ENOXAPARIN 40MG/0.4ML SYRINGE (J1650 PER 10MG) SC SCH (10:46)
[2023-05-14] MEDS: BUDESONIDE 180MCG INHALER (PULMICORT FLEXHALER) INH SCH (14:37)
[2023-05-14] MEDS: IPRATROPIUM 0.5MG/ALBUTEROL 2.5MG INH SOL UD 3ML (DUONEB) NEB SCH (14:43)
[2023-05-14] MEDS: LORazepam 2 MG TAB PO PRN (18:14)
[2023-05-14] MEDS: ACETAMINOPHEN TAB 650MG DOSE (2X325MG) PO PRN (18:15)
[2023-05-14] MEDS: ACETYLCYSTEINE 10% 30ML VIAL INH SCH (20:00)
[2023-05-14] MEDS: POLYTRIM OPTH DROPS 10ML OD SCH (21:00)
[2023-05-14] MEDS: ARTIFICIAL TEARS DROPS 15ML BTL (VISINE DRY RELIEF) OU SCH (21:00)
[2023-05-14] MEDS: NYSTATIN 500,000U/5ML SUSP UDC SS SCH (21:06)
[2023-05-15] MEDS ORDERED: ALBUTEROL 90 MCG/ACT 8GM HFA INHALER INH PRN (00:10)
[2023-05-15 03:08] VITALS: BP 150/72; TEMP 97; O2SAT 94
[2023-05-15 05:10] LABS: HEMATOCRIT 46.6 % (42.0-52.0); HEMOGLOBIN 15.5 g/dl (13.5-17.5); MEAN CORPUSCULAR HEMOGLOBIN 29.9 pg (27.0-33.0); MEAN CORPUSCULAR HGB CONC 33.3 g/dl (32.0-36.5); MEAN CORPUSCULAR VOLUME 89.8 fl (80.0-96.0); PLATELET COUNT, AUTOMATED 145 10^3/uL (150-450); RED BLOOD COUNT 5.19 10^6/uL (4.30-6.10); WHITE BLOOD COUNT 11.4 10^3/uL (4.0-10.0)
[2023-05-15 05:38] LABS: ALKALINE PHOSPHATASE 111 U/L (46-116); ALT/SGPT 37 U/L (7.0-40); AST/SGOT 24 U/L (<34); BLOOD UREA NITROGEN 5 MG/DL (9-23); CALCIUM LEVEL 8.7 MG/DL (8.5-10.1); CARBON DIOXIDE LEVEL 31 MMOL/L (20-31); CHLORIDE LEVEL 102 MMOL/L (98-107); CREATININE FOR GFR 0.51 MG/DL (0.70-1.30); GLOMERULAR FILTRATION RATE > 60.0 (>56); GLUCOSE, FASTING 105 MG/DL (60-100); POTASSIUM SERUM 3.5 MMOL/L (3.5-5.1); SODIUM LEVEL 136 MMOL/L (136-145); TOTAL PROTEIN 5.7 G/DL (5.7-8.2)
[2023-05-15] MEDS: ADVAIR HFA 115/21MCG INHALER INH SCH (07:53)
[2023-05-15 07:58] VITALS: BP 151/78; TEMP 96.5; O2SAT 92
[2023-05-15 08:43] VITALS: BP 151/78
[2023-05-15] MEDS: MONTELUKAST 10 MG TAB PO SCH (08:43)
[2023-05-15] MEDS: PANTOPRAZOLE 40MG VIAL IV SCH (08:43)
[2023-05-15] MEDS: predniSONE 20 MG TAB PO SCH (08:43)
[2023-05-15] MEDS: SERTRALINE 100 MG TAB PO SCH (08:43)
[2023-05-15] MEDS: INFLUENZA QUADRIVALENT PF VACCINE 0.5ML SYRINGE IM.IMMUN ONE (10:51)
[2023-05-15 12:00] VITALS: BP 130/75; TEMP 98.6; O2SAT 94
[2023-05-15 14:00] VITALS: O2SAT 97
[2023-05-15] MEDS ORDERED: DOXY100T PO (15:42)
[2023-05-15] MEDS ORDERED: Multivitamins PO (15:42)
[2023-05-15] MEDS ORDERED: PRED10TA2 PO (15:42)
[2023-05-15] MEDS ORDERED: NYST-38 SS (15:42)
[2023-05-15] MEDS ORDERED: ACET10VL INH (15:42)
[2023-05-15] MEDS ORDERED: AMOX875T2 PO (16:27)
[2023-05-17 16:09] LABS: BODY FLUID CULTURE Not indicated. (.); LEGIONELLA ANTIGEN URINE Negative (Negative); ORGANISM ID Not indicated. (.); SPECIMEN SOURCE Urine (.); URINE STREP PNEUMONIAE ANTIGEN Negative (Negative)
== END 2023-05-15 17:15 | disposition home or self-care (01) ==
LOC: EDBD 04:36 → M ED 04:36 → M ED INP 04:37 → M PCU 11:21
PROVIDERS: ADMIT Internal Medicine; ATTEND Internal Medicine
DX: J15.69 Pneumonia due to other Gram-negative bacteria (principal); J44.0 Chronic obstructive pulmonary disease with (acute) lower respiratory infection; J96.21 Acute and chronic respiratory failure with hypoxia; I10 Essential (primary) hypertension; F10.230 Alcohol dependence with withdrawal, uncomplicated; F17.200 Nicotine dependence, unspecified, uncomplicated; G89.29 Other chronic pain; K21.9 Gastro-esophageal reflux disease without esophagitis; K76.0 Fatty (change of) liver, not elsewhere classified; J44.1 Chronic obstructive pulmonary disease with (acute) exacerbation; I16.0 Hypertensive urgency; R74.01 Elevation of levels of liver transaminase levels; Z79.52 Long term (current) use of systemic steroids; Z79.2 Long term (current) use of antibiotics; Z79.899 Other long term (current) drug therapy; Z11.52 Encounter for screening for COVID-19; Z99.81 Dependence on supplemental oxygen; Z23 Encounter for immunization
CPT/HCPCS: 36415; 71045; 71275; 80048; 80053; 80076; 82077; 82550; 82553; 82803; 83605; 83735; 83880; 84145; 84443; 84484; 85025; 85027; 87040; 87449; 87486; 87581; 87633; 87641; 87798; 87899; 90686; 93005; 93041; 94640; 94760; 96365; 96366; 96367; 96372; 96375; 97116; 97161; 97530; 99285; C9113; G0008; G0378; J0696; J1650; J2060; J2543; J2930; J3360; J7512; Q9967

== ENCOUNTER → 2023-06-06 | Outpatient (REF) | payer MEDICARE ==
[~2023-06-06] MED LIST changes: +ACET10VL INH; +ADV250INH INH; +DOXY100T PO; +FURO40TA2 PO; +MONT10TA97 PO; +Multivitamins PO; +NYST-38 SS; +PANT40TA29 PO; +ROSU5TAB5 PO; +ZOLO100T PO
== END ==
LOC: M LAB REF 13:01
PROVIDERS: ATTEND Physician Assistant
DX: C44.1192 Basal cell carcinoma of skin of left lower eyelid, including canthus (principal)

== ENCOUNTER 2023-07-03 03:13 | Emergency (ER) | payer MEDICARE ==
[~2023-07-03] VITALS: Ht 165.1 cm; Wt 90.9 kg
[~2023-07-03 03:13] MED LIST changes: +DOXY-323 PO; -DOXY-443 PO; +ROSU5TAB40 PO; -ROSU5TAB5 PO
[2023-07-03 03:42] LABS: VENOUS BASE EXCESS 2.5 (-2.0-2.0); VENOUS HCO3 28.8 MMOL/L (23.0-27.0); VENOUS O2 SATURATION 79.4 % (60.0-80.0); VENOUS PARTIAL PRESSURE CO2 49.8 mmHg (38.0-50.0); VENOUS PARTIAL PRESSURE O2 43.4 mmHg (30.0-50.0); VENOUS STANDARD HCO3 26.1 MMOL/L; VENOUS TOTAL CO2 30.3 MMOL/L (24.0-28.0)
[2023-07-03 03:46] LABS: BASO # 0.1 10^3/uL (0.0-0.2); BASO % 1.2 % (0.0-1.0); EOS # 0.2 10^3/uL (0.0-0.5); EOS % 2.2 % (0.0-3.0); HEMATOCRIT 49.5 % (42.0-52.0); HEMOGLOBIN 16.9 g/dl (13.5-17.5); LYMPH # 1.7 10^3/uL (1.5-5.0); LYMPH % 23.8 % (24.0-44.0); MEAN CORPUSCULAR HEMOGLOBIN 30.6 pg (27.0-33.0); MEAN CORPUSCULAR HGB CONC 34.1 g/dl (32.0-36.5); MEAN CORPUSCULAR VOLUME 89.7 fl (80.0-96.0); MONO # 0.8 10^3/uL (0.0-0.8); MONO % 11.5 % (2.0-8.0); NEUTROPHILS # 4.2 10^3/uL (1.5-8.5); NEUTROPHILS % 60.6 % (36.0-66.0); PLATELET COUNT, AUTOMATED 196 10^3/uL (150-450); RED BLOOD COUNT 5.52 10^6/uL (4.30-6.10); WHITE BLOOD COUNT 6.9 10^3/uL (4.0-10.0)
[2023-07-03 04:14] LABS: ALBUMIN 3.4 G/DL (3.2-5.2); ALKALINE PHOSPHATASE 121 U/L (46-116); ALT/SGPT 63 U/L (7.0-40); AST/SGOT 68 U/L (<34); BILIRUBIN,DIRECT 0.3 MG/DL (<0.4); BILIRUBIN,TOTAL 0.6 MG/DL (0.3-1.2); BLOOD UREA NITROGEN < 5 MG/DL (9-23); CALCIUM LEVEL 8.8 MG/DL (8.5-10.1); CARBON DIOXIDE LEVEL 28 MMOL/L (20-31); CHLORIDE LEVEL 100 MMOL/L (98-107); CREATININE FOR GFR 0.58 MG/DL (0.70-1.30); GLOMERULAR FILTRATION RATE > 60.0 (>56); GLUCOSE, FASTING 100 MG/DL (60-100); POTASSIUM SERUM 3.6 MMOL/L (3.5-5.1); SODIUM LEVEL 135 MMOL/L (136-145); TOTAL PROTEIN 6.2 G/DL (5.7-8.2)
[2023-07-03 06:42] LABS: CK-MB VALUE MASS < 1.0 NG/ML (<3.6)
[2023-07-03 06:43] LABS: CPK CREATINE PHOSPHOKINASE 48 U/L (46-171); MB/CK RELATIVE INDEX 2.08 (< OR =4)
[2023-07-03] MEDS: methylPREDNISolone 125MG 2ML VIAL IV ONE (06:45)
[2023-07-03 06:51] LABS: PROCALCITONIN 0.08 ng/ml
[2023-07-03] MEDS: IPRATROPIUM 0.5MG/ALBUTEROL 2.5MG INH SOL UD 3ML (DUONEB) NEB ONE ×2 (07:00→07:01)
[2023-07-03] MEDS: NS 500 ML IV ONE (07:36)
[2023-07-03 08:22] LABS: RSV AMPLIFICATION NEGATIVE (NEGATIVE)
[2023-07-03] MEDS ORDERED: PRED50TA PO (09:57)
[2023-07-03] MEDS ORDERED: VENTAER INH (09:58)
[2023-07-03] MEDS ORDERED: DOXY-323 PO (09:58)
[2023-07-03] MEDS ORDERED: SERT25TA85 PO (09:59)
[2023-07-03] MEDS ORDERED: DOXYCYCLINE HYCLATE 100MG TABLET PO ONE (10:05)
[2023-07-03 10:11] VITALS: BP 144/73; TEMP 98.7; O2SAT 92
== END 2023-07-03 10:21 | disposition home or self-care (01) ==
LOC: M ED 03:13
DX: J44.1 Chronic obstructive pulmonary disease with (acute) exacerbation (principal); F41.9 Anxiety disorder, unspecified; J20.9 Acute bronchitis, unspecified; I10 Essential (primary) hypertension; E78.5 Hyperlipidemia, unspecified; K21.9 Gastro-esophageal reflux disease without esophagitis; F32.A Depression, unspecified; F17.210 Nicotine dependence, cigarettes, uncomplicated; F10.10 Alcohol abuse, uncomplicated; Z79.51 Long term (current) use of inhaled steroids; Z79.2 Long term (current) use of antibiotics; Z79.52 Long term (current) use of systemic steroids; Z79.899 Other long term (current) drug therapy; Z79.810 Long term (current) use of selective estrogen receptor modulators (SERMs)
CPT/HCPCS: 71045; 80048; 80076; 82550; 82553; 82803; 83605; 84145; 84484; 85025; 87631; 93005; 93041; 94640; 94760; 96361; 96374; 99291; J2919

== ENCOUNTER → 2023-07-16 | Outpatient (CLI) | payer MEDICARE ==
[~2023-07-16] MED LIST changes: +FLUT1BLS5; +MULTTAB61 PO; +PRED50TA PO; +SERT25TA85 PO; +TYLE650T38 PO
[2023-07-16 11:25] LABS: BASO # 0.1 10^3/uL (0.0-0.2); BASO % 0.9 % (0.0-1.0); EOS # 0.1 10^3/uL (0.0-0.5); HEMATOCRIT 50.4 % (42.0-52.0); HEMOGLOBIN 16.6 g/dl (13.5-17.5); LYMPH # 1.6 10^3/uL (1.5-5.0); LYMPH % 14.7 % (24.0-44.0); MEAN CORPUSCULAR HEMOGLOBIN 30.2 pg (27.0-33.0); MEAN CORPUSCULAR HGB CONC 32.9 g/dl (32.0-36.5); MEAN CORPUSCULAR VOLUME 91.8 fl (80.0-96.0); MONO # 1.1 10^3/uL (0.0-0.8); MONO % 10.4 % (2.0-8.0); NEUTROPHILS # 7.6 10^3/uL (1.5-8.5); PLATELET COUNT, AUTOMATED 221 10^3/uL (150-450); RED BLOOD COUNT 5.49 10^6/uL (4.30-6.10); WHITE BLOOD COUNT 10.6 10^3/uL (4.0-10.0)
[2023-07-16 11:39] LABS: INR 0.9; PARTIAL THROMBOPLASTIN TIME 28.1 SECONDS (24.8-34.2); PROTHROMBIN TIME 11.9 SECONDS (12.5-14.5)
[2023-07-16 11:47] LABS: ALBUMIN 3.6 G/DL (3.2-5.2); ALKALINE PHOSPHATASE 93 U/L (46-116); ALT/SGPT 32 U/L (7.0-40); AST/SGOT 24 U/L (<34); BILIRUBIN,TOTAL 0.6 MG/DL (0.3-1.2); BLOOD UREA NITROGEN 7 MG/DL (9-23); CALCIUM LEVEL 8.9 MG/DL (8.5-10.1); CARBON DIOXIDE LEVEL 30 MMOL/L (20-31); CHLORIDE LEVEL 102 MMOL/L (98-107); CREATININE FOR GFR 0.58 MG/DL (0.70-1.30); GLOMERULAR FILTRATION RATE > 60.0 (>56); GLUCOSE, FASTING 101 MG/DL (60-100); POTASSIUM SERUM 4.8 MMOL/L (3.5-5.1); SODIUM LEVEL 136 MMOL/L (136-145); TOTAL PROTEIN 6.4 G/DL (5.7-8.2)
== END ==
LOC: M WUC 08:02
PROVIDERS: ATTEND Nurse Practitioner Adult Health
DX: Z00.8 Encounter for other general examination (principal); Z79.01 Long term (current) use of anticoagulants

== ENCOUNTER 2023-07-25 05:56 | Day surgery (SDC) | payer MEDICARE ==
[~2023-07-25] VITALS: Ht 165.1 cm; Wt 91.0 kg
[2023-07-25] MEDS: LIDOCAINE 3.5 % 1ML OPHTH TOPICAL GEL OU ONE (06:36)
[2023-07-25] MEDS ORDERED: MIDAZOLAM INJ 2MG/2ML VIAL As Ordered ONE (06:58)
[2023-07-25] MEDS ORDERED: fentaNYL 100 MCG/2 ML INJECTION As Ordered ONE (06:58)
[2023-07-25] MEDS: LIDOCAINE 2% W/EPINEPHRINE 20ML VIAL **PRES FREE As Ordered ONE (09:30)
[2023-07-25] MEDS: BENZOIN TINCTURE 60ML BTL As Ordered ONE (09:31)
[2023-07-25] MEDS: TOBRADEX OPHTH OINT 3.5 GM As Ordered ONE (09:34)
[2023-07-25 09:38] VITALS: BP 144/74; TEMP 97.5; O2SAT 96
== END 2023-07-25 09:54 | disposition home or self-care (01) ==
LOC: M SDC 05:56
PROVIDERS: ATTEND Ophthalmology
DX: C44.1192 Basal cell carcinoma of skin of left lower eyelid, including canthus (principal); Z79.899 Other long term (current) drug therapy; F10.20 Alcohol dependence, uncomplicated; F17.210 Nicotine dependence, cigarettes, uncomplicated
CPT/HCPCS: 11640; 88305; 88331; J2250; J3010

== ENCOUNTER 2023-12-09 14:25 | Observation (INO) | payer MEDICARE ==
[~2023-12-09] VITALS: Ht 165.1 cm; Wt 84.7 kg
[~2023-12-09 14:25] MED LIST changes: -DOXY-323 PO; +DOXY-441 PO; +NICOTINE 21MG/24HR 1 EA TRANSDERMAL TD SCH
[2023-12-09] MEDS ORDERED: ISOVUE-370 76% 100ML VIAL As Ordered ONE (15:05)
[2023-12-09 15:13] LABS: BASO % 0.5 % (0.0-1.0); EOS # 0.2 10^3/uL (0.0-0.5); EOS % 2.6 % (0.0-3.0); HEMATOCRIT 44.5 % (42.0-52.0); HEMOGLOBIN 14.9 g/dl (13.5-17.5); LYMPH # 1.4 10^3/uL (1.5-5.0); LYMPH % 18.4 % (24.0-44.0); MEAN CORPUSCULAR HEMOGLOBIN 31.5 pg (27.0-33.0); MEAN CORPUSCULAR HGB CONC 33.5 g/dl (32.0-36.5); MEAN CORPUSCULAR VOLUME 94.1 fl (80.0-96.0); MONO # 0.9 10^3/uL (0.0-0.8); MONO % 12.2 % (2.0-8.0); NEUTROPHILS % 65.9 % (36.0-66.0); PLATELET COUNT, AUTOMATED 140 10^3/uL (150-450); RED BLOOD COUNT 4.73 10^6/uL (4.30-6.10); WHITE BLOOD COUNT 7.6 10^3/uL (4.0-10.0)
[2023-12-09 15:44] LABS: SALICYLATE LEVEL < 3.0 MG/DL (<30)
[2023-12-09 15:46] LABS: ETHYL ALCOHOL (ETHANOL) 0.118 % (0.000-0.010)
[2023-12-09 15:50] LABS: ALBUMIN 3.8 G/DL (3.2-5.2); ALKALINE PHOSPHATASE 116 U/L (46-116); ALT/SGPT 95 U/L (7.0-40); AST/SGOT 71 U/L (<34); BILIRUBIN,DIRECT 0.2 MG/DL (<0.4); BILIRUBIN,TOTAL 0.4 MG/DL (0.3-1.2); BLOOD UREA NITROGEN < 5 MG/DL (9-23); CALCIUM LEVEL 8.9 MG/DL (8.5-10.1); CARBON DIOXIDE LEVEL 33 MMOL/L (20-31); CHLORIDE LEVEL 96 MMOL/L (98-107); CK-MB VALUE MASS < 1.0 NG/ML (<3.6); CPK CREATINE PHOSPHOKINASE 44 U/L (46-171); CREATININE FOR GFR 0.49 MG/DL (0.70-1.30); FREE T4 1.24 NG/DL (0.89-1.76); GLOMERULAR FILTRATION RATE > 60.0 (>56); GLUCOSE, FASTING 100 MG/DL (60-100); MAGNESIUM LEVEL 2.3 MG/DL (1.8-2.4); MB/CK RELATIVE INDEX 2.27 (< OR =4); POTASSIUM SERUM 3.9 MMOL/L (3.5-5.1); SODIUM LEVEL 130 MMOL/L (136-145); TOTAL PROTEIN 6.5 G/DL (5.7-8.2)
[2023-12-09] MEDS: methylPREDNISolone 125MG 2ML VIAL IV ONE (15:51)
[2023-12-09] MEDS: IPRATROPIUM 0.5MG/ALBUTEROL 2.5MG INH SOL UD 3ML (DUONEB) NEB ONE (16:13)
[2023-12-09] MEDS: ALBUTEROL SULFATE 2.5MG/0.5ML INH NEB SOLN INH ONE (16:13)
[2023-12-09 16:23] LABS: ABG BASE EXCESS 2.3 (-2.0-2.0); ABG O2 SATURATION 95.7 % (95.0-99.0); ABG PARTIAL PRESSURE CO2 58.6 mmHg (35.0-45.0); ABG PARTIAL PRESSURE O2 84.5 mmHg (75.0-100.0); ABG STANDARD HCO3 26.5 MMOL/L. (22.0-26.0); ABG TOTAL CO2 31.8 MMOL/L (22.0-29.0); ABG pH (ARTERIAL) 7.327 UNITS (7.350-7.450)
[2023-12-09] MEDS: THIAMINE 100 MG TAB PO ONE (16:35)
[2023-12-09 16:44] LABS: AMPHETAMINES LEVEL URINE NEGATIVE (NEGATIVE); BARBITURATES URINE NEGATIVE (NEGATIVE); BENZODIAZEPINES URINE NEGATIVE (NEGATIVE); COCAINE METABOLITE URINE NEGATIVE (NEGATIVE); METHADONE URINE NEGATIVE (NEGATIVE); OPIATES URINE NEGATIVE (NEGATIVE); PHENCYCLIDINE URINE NEGATIVE (NEGATIVE)
[2023-12-09] MEDS: FOLIC ACID 1MG TAB PO SCH (16:46)
[2023-12-09] MEDS: THIAMINE 100 MG TAB PO SCH (16:46)
[2023-12-09] MEDS: MULTIVITAMINS/MINERALS THERAP 1 TAB PO SCH (16:46)
[2023-12-09 16:49] LABS: CANNABINOIDS URINE POSITIVE (NEGATIVE)
[2023-12-09] MEDS: LORazepam 2 MG TAB PO PRN (17:04)
[2023-12-09 17:07] LABS: CK-MB VALUE MASS < 1.0 NG/ML (<3.6); CPK CREATINE PHOSPHOKINASE 41 U/L (46-171); MB/CK RELATIVE INDEX 2.43 (< OR =4)
[2023-12-09] MEDS ORDERED: HOME MED LIST COMPLETE! XX SCH (19:30)
[2023-12-09] MEDS ORDERED: LORazepam 2 MG TAB PO PRN (19:30)
[2023-12-09] MEDS ORDERED: MAALOX 30 ML SUSP *UDC PO PRN (19:30)
[2023-12-09] MEDS ORDERED: LevoFLOXacin IV 750 MG in IV 1 EA IV SCH (19:30)
[2023-12-09] MEDS ORDERED: MOM 30ML SUSPENSION UDC PO PRN (19:30)
[2023-12-09] MEDS ORDERED: ALBUTEROL SULFATE 2.5MG/0.5ML INH NEB SOLN NEB PRN (19:30)
[2023-12-09] MEDS: IPRATROPIUM 0.5MG/ALBUTEROL 2.5MG INH SOL UD 3ML (DUONEB) NEB SCH (20:00)
[2023-12-09] MEDS: ADVAIR HFA 115/21MCG INHALER INH SCH (20:00)
[2023-12-09] MEDS ORDERED: PILL CUTTER 1 EACH XX PRN (20:30)
[2023-12-09 20:39] LABS: PROCALCITONIN 0.07 ng/ml
[2023-12-09 21:00] VITALS: O2SAT 88
[2023-12-09 21:23] VITALS: BP 169/81; TEMP 97.7; O2SAT 92
[2023-12-09 21:26] LABS: INR 0.85; PARTIAL THROMBOPLASTIN TIME 27.1 SECONDS (24.8-34.2); PROTHROMBIN TIME 11.4 SECONDS (12.5-14.5)
[2023-12-09 21:49] LABS: CK-MB VALUE MASS < 1.0 NG/ML (<3.6)
[2023-12-09] MEDS: methylPREDNISolone 125MG 2ML VIAL IV SCH (21:51)
[2023-12-09] MEDS: FUROSEMIDE 20MG/2ML VIAL IV ONE (21:51)
[2023-12-09 21:52] LABS: CPK CREATINE PHOSPHOKINASE 39 U/L (46-171); MB/CK RELATIVE INDEX 2.56 (< OR =4)
[2023-12-09] MEDS: DOCUSATE SODIUM 100MG CAPSULE PO SCH (21:52)
[2023-12-09] MEDS: PANTOPRAZOLE 40MG TAB (PROTONIX) PO SCH (21:52)
[2023-12-09] MEDS: LevoFLOXacin 750 MG TABLET PO SCH (21:52)
[2023-12-09 22:00] VITALS: BP 169/81; O2SAT 91
[2023-12-09] MEDS: NICOTINE 21MG/24HR 1 EA TRANSDERMAL TD ONE (22:37)
[2023-12-09 23:00] VITALS: O2SAT 94
[2023-12-10] VITALS (23 sets, daily range): BP systolic 121–147; BP diastolic 62–80; TEMP 97.3–98.2; O2SAT 87–99
[2023-12-10 05:52] LABS: HEMATOCRIT 45.6 % (42.0-52.0); HEMOGLOBIN 15.3 g/dl (13.5-17.5); MEAN CORPUSCULAR HGB CONC 33.6 g/dl (32.0-36.5); MEAN CORPUSCULAR VOLUME 92.5 fl (80.0-96.0); PLATELET COUNT, AUTOMATED 123 10^3/uL (150-450); RED BLOOD COUNT 4.93 10^6/uL (4.30-6.10); WHITE BLOOD COUNT 3.2 10^3/uL (4.0-10.0)
[2023-12-10 06:14] LABS: ALBUMIN 3.6 G/DL (3.2-5.2); ALKALINE PHOSPHATASE 111 U/L (46-116); ALT/SGPT 78 U/L (7.0-40); AST/SGOT 47 U/L (<34); BILIRUBIN,TOTAL 0.6 MG/DL (0.3-1.2); BLOOD UREA NITROGEN 7 MG/DL (9-23); CARBON DIOXIDE LEVEL 34 MMOL/L (20-31); CHLORIDE LEVEL 98 MMOL/L (98-107); CREATININE FOR GFR 0.48 MG/DL (0.70-1.30); GLOMERULAR FILTRATION RATE > 60.0 (>56); GLUCOSE, FASTING 199 MG/DL (60-100); MAGNESIUM LEVEL 2.2 MG/DL (1.8-2.4); POTASSIUM SERUM 3.5 MMOL/L (3.5-5.1); SODIUM LEVEL 133 MMOL/L (136-145); TOTAL PROTEIN 6.5 G/DL (5.7-8.2)
[2023-12-10] MEDS ORDERED: FLUBLOK(EGGFREE) TRIVAL(24-25) VACCINE PF 0.5ML SYRINGE 18YRS & OLDER IM.IMMUN ONE (09:00)
[2023-12-10] MEDS: ENOXAPARIN 40MG/0.4ML SYRINGE (J1650 PER 10MG) SC SCH (09:02)
[2023-12-10] MEDS: NICOTINE 21MG/24HR 1 EA TRANSDERMAL TD SCH (09:02)
[2023-12-10] MEDS: MONTELUKAST 10 MG TAB PO SCH (09:03)
[2023-12-10] MEDS: MULTIVITAMINS/MINERALS THERAP 1 TAB PO SCH (09:03)
[2023-12-10] MEDS: FUROSEMIDE 40 MG TAB PO SCH (09:03)
[2023-12-10] MEDS: THIAMINE 100 MG TAB PO SCH (09:03)
[2023-12-10] MEDS: SERTRALINE HCL 50 MG TAB PO SCH (09:04)
[2023-12-10] MEDS: FOLIC ACID 1MG TAB PO SCH (09:04)
[2023-12-10] MEDS: ROSUVASTATIN 10 MG TAB (CRESTOR) PO SCH (09:04)
[2023-12-10 11:02] LABS: C REACTIVE PROTEIN QUANTITATIV < 0.40 MG/DL (<1.0)
[2023-12-10] MEDS ORDERED: PIPERACILLIN/TAZOBACTAM SOD 4.5 GM in DEXTROSE 5% (D5W) ADV/MINI-BAG 50 ML IV SCH (11:05)
[2023-12-10] MEDS: ACETAMINOPHEN TAB 650MG DOSE (2X325MG) PO PRN (20:01)
[2023-12-10] MEDS: OXAZEPAM 15MG CAP PO SCH ×2 (23:52)
[2023-12-11] VITALS (8 sets, daily range): BP systolic 132–150; BP diastolic 73–74; TEMP 96.9–97.4; O2SAT 85–94
[2023-12-11 08:36] LABS: BASO % 0.1 % (0.0-1.0); EOS % 0.1 % (0.0-3.0); HEMATOCRIT 44.4 % (42.0-52.0); HEMOGLOBIN 14.8 g/dl (13.5-17.5); LYMPH # 1.3 10^3/uL (1.5-5.0); LYMPH % 14.9 % (24.0-44.0); MEAN CORPUSCULAR HGB CONC 33.3 g/dl (32.0-36.5); MEAN CORPUSCULAR VOLUME 93.1 fl (80.0-96.0); MONO # 0.7 10^3/uL (0.0-0.8); MONO % 7.3 % (2.0-8.0); NEUTROPHILS # 6.9 10^3/uL (1.5-8.5); NEUTROPHILS % 77.3 % (36.0-66.0); PLATELET COUNT, AUTOMATED 116 10^3/uL (150-450); RED BLOOD COUNT 4.77 10^6/uL (4.30-6.10)
[2023-12-11] MEDS: methylPREDNISolone 40MG 1ML VIAL IV SCH (08:45)
[2023-12-11 08:58] LABS: BLOOD UREA NITROGEN 10 MG/DL (9-23); CALCIUM LEVEL 9.3 MG/DL (8.5-10.1); CARBON DIOXIDE LEVEL 35 MMOL/L (20-31); CHLORIDE LEVEL 99 MMOL/L (98-107); GLOMERULAR FILTRATION RATE > 60.0 (>56); GLUCOSE, FASTING 91 MG/DL (60-100); MAGNESIUM LEVEL 2.1 MG/DL (1.8-2.4); POTASSIUM SERUM 3.1 MMOL/L (3.5-5.1); SODIUM LEVEL 138 MMOL/L (136-145)
[2023-12-11] MEDS: POTASSIUM CHLORIDE 10MEQ SR TABLET PO ONE (10:54)
[2023-12-11] MEDS ORDERED: PRED10TA2 PO (11:17)
[2023-12-11] MEDS: FLUBLOK(EGGFREE) TRIVAL(24-25) VACCINE PF 0.5ML SYRINGE 18YRS & OLDER IM.IMMUN ONE (13:18)
== END 2023-12-11 16:06 | disposition home or self-care (01) ==
LOC: EDBD 14:25 → M ED 14:25 → M ED INP 14:26 → M PCU 21:26
PROVIDERS: ADMIT Student in an Organized Health Care Education/Training Program; ATTEND Student in an Organized Health Care Education/Training Program
DX: J44.1 Chronic obstructive pulmonary disease with (acute) exacerbation (principal); I50.32 Chronic diastolic (congestive) heart failure; I11.0 Hypertensive heart disease with heart failure; F10.20 Alcohol dependence, uncomplicated; R55 Syncope and collapse; R06.02 Shortness of breath; R05.8 Other specified cough; B37.1 Pulmonary candidiasis; S22.31XD Fracture of one rib, right side, subsequent encounter for fracture with routine healing; X58.XXXD Exposure to other specified factors, subsequent encounter; J34.9 Unspecified disorder of nose and nasal sinuses; R07.89 Other chest pain; R10.9 Unspecified abdominal pain; K42.9 Umbilical hernia without obstruction or gangrene; K76.0 Fatty (change of) liver, not elsewhere classified; J45.909 Unspecified asthma, uncomplicated; G31.1 Senile degeneration of brain, not elsewhere classified; I67.82 Cerebral ischemia; Z79.899 Other long term (current) drug therapy; Z79.51 Long term (current) use of inhaled steroids; Z99.81 Dependence on supplemental oxygen; Z23 Encounter for immunization
CPT/HCPCS: 36415; 36600; 70450; 71045; 71275; 72125; 74177; 80047; 80048; 80053; 80076; 80143; 80307; 81001; 82077; 82550; 82553; 82803; 83735; 83880; 84145; 84439; 84443; 84484; 85025; 85027; 85610; 85730; 86140; 87070; 87077; 87205; 87486; 87581; 87633; 87641; 87798; 90673; 93005; 93041; 93306; 94640; 94760; 96372; 96374; 96375; 96376; 97116; 97161; 97530; 99285; G0008; G0378; J1650; J1940; J2919; Q9967

== ENCOUNTER 2024-01-27 11:12 | Emergency (ER) | payer MEDICARE ==
[~2024-01-27] VITALS: Ht 165.1 cm; Wt 86.5 kg
[~2024-01-27 11:12] MED LIST changes: -ADV250INH INH; +ADVA1AER9 INH; -NICOTINE 21MG/24HR 1 EA TRANSDERMAL TD SCH; -ROSU5TAB40 PO; +ROSU5TAB49 PO
[2024-01-27] MEDS ORDERED: LORazepam 2 MG TAB PO PRN (11:40)
[2024-01-27 12:13] LABS: VENOUS BASE EXCESS 4.2 (-2.0-2.0); VENOUS HCO3 29.9 MMOL/L (23.0-27.0); VENOUS O2 SATURATION 52.8 % (60.0-80.0); VENOUS PARTIAL PRESSURE CO2 48.1 mmHg (38.0-50.0); VENOUS PARTIAL PRESSURE O2 26.7 mmHg (30.0-50.0); VENOUS PH 7.411 UNITS (7.330-7.430); VENOUS TOTAL CO2 31.3 MMOL/L (24.0-28.0)
[2024-01-27 12:19] LABS: BASO # 0.1 10^3/uL (0.0-0.2); BASO % 0.6 % (0.0-1.0); EOS # 0.1 10^3/uL (0.0-0.5); EOS % 0.6 % (0.0-3.0); HEMATOCRIT 42.5 % (42.0-52.0); HEMOGLOBIN 14.3 g/dl (13.5-17.5); LYMPH # 0.5 10^3/uL (1.5-5.0); LYMPH % 6.3 % (24.0-44.0); MEAN CORPUSCULAR HEMOGLOBIN 31.6 pg (27.0-33.0); MEAN CORPUSCULAR HGB CONC 33.6 g/dl (32.0-36.5); MONO # 0.5 10^3/uL (0.0-0.8); MONO % 6.7 % (2.0-8.0); NEUTROPHILS # 6.7 10^3/uL (1.5-8.5); NEUTROPHILS % 85.2 % (36.0-66.0); PLATELET COUNT, AUTOMATED 168 10^3/uL (150-450); RED BLOOD COUNT 4.52 10^6/uL (4.30-6.10); WHITE BLOOD COUNT 7.8 10^3/uL (4.0-10.0)
[2024-01-27 12:43] LABS: ALBUMIN 3.5 G/DL (3.2-5.2); ALKALINE PHOSPHATASE 112 U/L (40-129); ALT/SGPT 54 U/L (7.0-40); AST/SGOT 46 U/L (<34); BILIRUBIN,DIRECT 0.2 MG/DL (<0.4); BILIRUBIN,TOTAL 0.5 MG/DL (0.3-1.2); BLOOD UREA NITROGEN 6 MG/DL (9-23); CALCIUM LEVEL 9.7 MG/DL (8.5-10.1); CARBON DIOXIDE LEVEL 29 MMOL/L (20-31); CHLORIDE LEVEL 102 MMOL/L (98-107); GLOMERULAR FILTRATION RATE > 60.0 (>56); GLUCOSE, FASTING 106 MG/DL (60-100); POTASSIUM SERUM 4.6 MMOL/L (3.5-5.1); SODIUM LEVEL 136 MMOL/L (136-145); TOTAL PROTEIN 6.6 G/DL (5.7-8.2)
[2024-01-27 12:45] LABS: THYROID STIMULATING HORMONE 0.827 uIU/ML (0.55-4.78)
[2024-01-27] MEDS: MULTIVITAMINS/MINERALS THERAP 1 TAB PO SCH (12:47)
[2024-01-27] MEDS: FOLIC ACID 1MG TAB PO SCH (12:47)
[2024-01-27] MEDS: THIAMINE 100 MG TAB PO SCH (12:47)
[2024-01-27] MEDS ORDERED: PRED20TA PO (13:52)
[2024-01-27 13:56] VITALS: O2SAT 95
[2024-01-27 14:44] VITALS: BP 149/83; TEMP 98.6; O2SAT 94
[2024-01-27] MEDS ORDERED: THIAMINE 100 MG TAB PO SCH (21:00)
[2024-01-28] MEDS ORDERED: FOLIC ACID 1MG TAB PO SCH (09:00)
[2024-01-28] MEDS ORDERED: MULTIVITAMINS/MINERALS THERAP 1 TAB PO SCH (09:00)
== END 2024-01-27 14:47 | disposition home or self-care (01) ==
LOC: M ED 11:12 → EDBD 11:12 → M ED 14:47
DX: J44.9 Chronic obstructive pulmonary disease, unspecified (principal); I45.10 Unspecified right bundle-branch block; I50.22 Chronic systolic (congestive) heart failure; I11.0 Hypertensive heart disease with heart failure; J45.909 Unspecified asthma, uncomplicated; E78.5 Hyperlipidemia, unspecified; K21.9 Gastro-esophageal reflux disease without esophagitis; F17.210 Nicotine dependence, cigarettes, uncomplicated; F12.10 Cannabis abuse, uncomplicated; F10.10 Alcohol abuse, uncomplicated; Z79.51 Long term (current) use of inhaled steroids; Z79.52 Long term (current) use of systemic steroids; Z79.899 Other long term (current) drug therapy

== ENCOUNTER 2024-02-23 07:42 | Emergency (ER) | payer MEDICARE ==
[~2024-02-23] VITALS: Ht 165.1 cm; Wt 85.6 kg
[2024-02-23] MEDS: OXAZEPAM 15MG CAP PO ONE (08:33)
[2024-02-23] MEDS: SERTRALINE HCL 50 MG TAB PO ONE (08:33)
[2024-02-23] MEDS ORDERED: SERT-141 PO (09:03)
[2024-02-23 09:30] VITALS: BP 146/70; TEMP 98.5; O2SAT 96
== END 2024-02-23 09:49 | disposition home or self-care (01) ==
LOC: EDBD 07:42 → M ED 07:42
DX: J44.1 Chronic obstructive pulmonary disease with (acute) exacerbation (principal); F10.10 Alcohol abuse, uncomplicated; I50.22 Chronic systolic (congestive) heart failure; I11.0 Hypertensive heart disease with heart failure; E78.5 Hyperlipidemia, unspecified; F41.9 Anxiety disorder, unspecified; F32.A Depression, unspecified; F17.210 Nicotine dependence, cigarettes, uncomplicated; F19.10 Other psychoactive substance abuse, uncomplicated; Z79.51 Long term (current) use of inhaled steroids; Z79.52 Long term (current) use of systemic steroids; Z79.899 Other long term (current) drug therapy

== ENCOUNTER 2024-03-29 04:37 | Inpatient (IN) | payer MEDICARE ==
[~2024-03-29] VITALS: Ht 162.6 cm; Wt 82.1 kg
[2024-03-29 05:11] LABS: VENOUS BASE EXCESS 3.9 (-2.0-2.0); VENOUS HCO3 30.5 MMOL/L (23.0-27.0); VENOUS PARTIAL PRESSURE CO2 53.3 mmHg (38.0-50.0); VENOUS PARTIAL PRESSURE O2 47.1 mmHg (30.0-50.0); VENOUS PH 7.376 UNITS (7.330-7.430); VENOUS STANDARD HCO3 27.6 MMOL/L; VENOUS TOTAL CO2 32.2 MMOL/L (24.0-28.0)
[2024-03-29 05:18] LABS: BASO # 0.1 10^3/uL (0.0-0.2); BASO % 0.8 % (0.0-1.0); EOS # 0.1 10^3/uL (0.0-0.5); EOS % 0.7 % (0.0-3.0); HEMATOCRIT 40.7 % (42.0-52.0); HEMOGLOBIN 14.5 g/dl (13.5-17.5); LYMPH # 1.6 10^3/uL (1.5-5.0); LYMPH % 15.6 % (24.0-44.0); MEAN CORPUSCULAR HEMOGLOBIN 31.7 pg (27.0-33.0); MEAN CORPUSCULAR HGB CONC 35.6 g/dl (32.0-36.5); MEAN CORPUSCULAR VOLUME 88.9 fl (80.0-96.0); MONO # 0.6 10^3/uL (0.0-0.8); MONO % 5.8 % (2.0-8.0); NEUTROPHILS # 7.8 10^3/uL (1.5-8.5); NEUTROPHILS % 75.8 % (36.0-66.0); PLATELET COUNT, AUTOMATED 240 10^3/uL (150-450); RED BLOOD COUNT 4.58 10^6/uL (4.30-6.10); WHITE BLOOD COUNT 10.2 10^3/uL (4.0-10.0)
[2024-03-29 05:42] LABS: CK-MB VALUE MASS < 1.0 NG/ML (<3.6)
[2024-03-29 05:44] LABS: CPK CREATINE PHOSPHOKINASE 29 U/L (46-171); MB/CK RELATIVE INDEX 3.44 (< OR =4)
[2024-03-29 05:46] LABS: ALBUMIN 3.4 G/DL (3.2-5.2); ALKALINE PHOSPHATASE 111 U/L (40-129); ALT/SGPT 48 U/L (7.0-40); AST/SGOT 34 U/L (<34); BILIRUBIN,DIRECT 0.3 MG/DL (<0.4); BILIRUBIN,TOTAL 0.5 MG/DL (0.3-1.2); BLOOD UREA NITROGEN < 5 MG/DL (9-23); CALCIUM LEVEL 8.7 MG/DL (8.5-10.1); CARBON DIOXIDE LEVEL 31 MMOL/L (20-31); CHLORIDE LEVEL 89 MMOL/L (98-107); CREATININE FOR GFR 0.45 MG/DL (0.70-1.30); GLOMERULAR FILTRATION RATE > 60.0 (>56); GLUCOSE, FASTING 109 MG/DL (60-100); POTASSIUM SERUM 3.1 MMOL/L (3.5-5.1); SODIUM LEVEL 127 MMOL/L (136-145); TOTAL PROTEIN 6.3 G/DL (5.7-8.2)
[2024-03-29] MEDS: methylPREDNISolone 125MG 2ML VIAL IV ONE (05:46)
[2024-03-29] MEDS: IPRATROPIUM 0.5MG/ALBUTEROL 2.5MG INH SOL UD 3ML (DUONEB) NEB ONE ×2 (05:54)
[2024-03-29] MEDS ORDERED: VANCOMYCIN HCL 1,000 MG, VIAL MATE ADAPTER 1 EACH in NS 250 ML IV SCH (06:00)
[2024-03-29 07:29] LABS: CK-MB VALUE MASS < 1.0 NG/ML (<3.6)
[2024-03-29 07:40] LABS: CPK CREATINE PHOSPHOKINASE 32 U/L (46-171); MB/CK RELATIVE INDEX 3.12 (< OR =4)
[2024-03-29] MEDS: POTASSIUM CHLORIDE 10MEQ SR TABLET PO ONE (08:19)
[2024-03-29 09:01] VITALS: O2SAT 93
[2024-03-29] MEDS ORDERED: ISOVUE-370 76% 100ML VIAL As Ordered ONE (09:55)
[2024-03-29] MEDS ORDERED: MAALOX 30 ML SUSP *UDC PO PRN (11:20)
[2024-03-29] MEDS ORDERED: MOM 30ML SUSPENSION UDC PO PRN (11:20)
[2024-03-29] MEDS ORDERED: ACETAMINOPHEN 325 MG TAB PO PRN (11:20)
[2024-03-29] MEDS ORDERED: POTASSIUM CHLORIDE 10MEQ SR TABLET PO ONE (11:50)
[2024-03-29] MEDS ORDERED: LORazepam 2 MG TAB PO PRN (11:55)
[2024-03-29] MEDS: DOXYCYCLINE HYCLATE 100MG TABLET PO SCH (12:15)
[2024-03-29 12:16] LABS: MAGNESIUM LEVEL 2.5 MG/DL (1.8-2.4)
[2024-03-29 12:18] LABS: PROCALCITONIN 0.11 ng/ml
[2024-03-29] MEDS ORDERED: SODIUM CHLORIDE 1 GM TAB PO SCH (12:30)
[2024-03-29] MEDS: FOLIC ACID 1MG TAB PO SCH (13:27)
[2024-03-29] MEDS: THIAMINE 100 MG TAB PO SCH (13:28)
[2024-03-29] MEDS: KCL 10MEQ/100ML SWI (KRUN) 10 MEQ in IV 1 EA IV SCH (13:28)
[2024-03-29] MEDS: PANTOPRAZOLE 40MG TAB (PROTONIX) PO SCH (13:28)
[2024-03-29] MEDS: FORMOTEROL FUMARATE 20 MCG/2 ML INHALATION SOLUTION (PERFOROMIST) NEB SCH (13:59)
[2024-03-29] MEDS: IPRATROPIUM 0.5MG/ALBUTEROL 2.5MG INH SOL UD 3ML (DUONEB) NEB SCH (13:59)
[2024-03-29] MEDS ORDERED: HOME MED LIST COMPLETE! XX SCH (14:35)
[2024-03-29] MEDS: MULTIVITAMINS/MINERALS THERAP 1 TAB PO SCH (14:52)
[2024-03-29 16:00] VITALS: BP 117/69; TEMP 97.5; O2SAT 94
[2024-03-29 16:47] LABS: BLOOD UREA NITROGEN 6 MG/DL (9-23); CALCIUM LEVEL 8.6 MG/DL (8.5-10.1); CARBON DIOXIDE LEVEL 32 MMOL/L (20-31); CHLORIDE LEVEL 88 MMOL/L (98-107); CREATININE FOR GFR 0.51 MG/DL (0.70-1.30); GLOMERULAR FILTRATION RATE > 60.0 (>56); GLUCOSE, FASTING 213 MG/DL (60-100); POTASSIUM SERUM 3.9 MMOL/L (3.5-5.1); SODIUM LEVEL 125 MMOL/L (136-145)
[2024-03-29 17:21] VITALS: BP 117/69
[2024-03-29] MEDS: ERYTHROMYCIN OPHTH OINT OS SCH (17:29)
[2024-03-29 19:47] VITALS: BP 112/64; TEMP 97.7; O2SAT 94
[2024-03-29 20:00] VITALS: BP 112/64
[2024-03-29] MEDS ORDERED: VANCOMYCIN HCL 1,150 MG in IV FLUID PLACE HOLDER 1 EA IV SCH (22:05)
[2024-03-29] MEDS: VANCOMYCIN HCL 1,500 MG, VIAL MATE ADAPTER 1 EACH in NS 500 ML IV ONE (22:24)
[2024-03-30 04:00] VITALS: BP 108/67; TEMP 97.9; O2SAT 92
[2024-03-30] MEDS: VANCOMYCIN HCL 1,000 MG, VIAL MATE ADAPTER 1 EACH in NS 250 ML IV SCH (05:06)
[2024-03-30 06:25] LABS: BLOOD UREA NITROGEN 5 MG/DL (9-23); CALCIUM LEVEL 8.6 MG/DL (8.5-10.1); CARBON DIOXIDE LEVEL 33 MMOL/L (20-31); CHLORIDE LEVEL 95 MMOL/L (98-107); GLOMERULAR FILTRATION RATE > 60.0 (>56); GLUCOSE, FASTING 110 MG/DL (60-100); MAGNESIUM LEVEL 2.3 MG/DL (1.8-2.4); POTASSIUM SERUM 3.2 MMOL/L (3.5-5.1); SODIUM LEVEL 133 MMOL/L (136-145)
[2024-03-30 06:59] LABS: BASO # 0.1 10^3/uL (0.0-0.2); BASO % 0.6 % (0.0-1.0); EOS # 0.1 10^3/uL (0.0-0.5); EOS % 0.5 % (0.0-3.0); HEMATOCRIT 37.5 % (42.0-52.0); LYMPH # 1.6 10^3/uL (1.5-5.0); LYMPH % 13.3 % (24.0-44.0); MEAN CORPUSCULAR HEMOGLOBIN 31.3 pg (27.0-33.0); MEAN CORPUSCULAR HGB CONC 34.7 g/dl (32.0-36.5); MEAN CORPUSCULAR VOLUME 90.1 fl (80.0-96.0); MONO # 0.9 10^3/uL (0.0-0.8); MONO % 7.4 % (2.0-8.0); NEUTROPHILS # 9.1 10^3/uL (1.5-8.5); NEUTROPHILS % 76.9 % (36.0-66.0); PLATELET COUNT, AUTOMATED 223 10^3/uL (150-450); RED BLOOD COUNT 4.16 10^6/uL (4.30-6.10); WHITE BLOOD COUNT 11.8 10^3/uL (4.0-10.0)
[2024-03-30 07:42] LABS: PROCALCITONIN 0.12 ng/ml
[2024-03-30] MEDS: POTASSIUM CHLORIDE 10MEQ SR TABLET PO SCH (08:01)
[2024-03-30] MEDS: ENOXAPARIN 40MG/0.4ML SYRINGE (J1650 PER 10MG) SC SCH (08:02)
[2024-03-30] MEDS: predniSONE 20 MG TAB PO SCH (08:02)
[2024-03-30 12:00] VITALS: BP 107/66; TEMP 97.2; O2SAT 98
[2024-03-30 20:28] VITALS: BP 105/66; TEMP 97.5; O2SAT 98
[2024-03-30] MEDS: RAMELTEON 8 MG TAB (ROZEREM) PO PRN (22:28)
[2024-03-31 03:26] VITALS: BP 105/68; TEMP 97.7; O2SAT 97
[2024-03-31 04:00] VITALS: BP 122/84
[2024-03-31] MEDS ORDERED: PILL CUTTER 1 EACH XX PRN (07:05)
[2024-03-31] MEDS: BUDESONIDE 0.5 MG/2 ML INHALATION SUSPENSION NEB SCH (07:54)
[2024-03-31] MEDS: MONTELUKAST 10 MG TAB PO SCH (08:06)
[2024-03-31] MEDS: SERTRALINE HCL 50 MG TAB PO SCH (08:06)
[2024-03-31 08:07] VITALS: BP 94/60
[2024-03-31] MEDS: ROSUVASTATIN 10 MG TAB (CRESTOR) PO SCH (08:07)
[2024-03-31 08:08] LABS: BLOOD UREA NITROGEN < 5 MG/DL (9-23); CALCIUM LEVEL 8.5 MG/DL (8.5-10.1); CARBON DIOXIDE LEVEL 30 MMOL/L (20-31); CHLORIDE LEVEL 96 MMOL/L (98-107); CREATININE FOR GFR 0.56 MG/DL (0.70-1.30); GLOMERULAR FILTRATION RATE > 60.0 (>56); GLUCOSE, FASTING 107 MG/DL (60-100); MAGNESIUM LEVEL 1.9 MG/DL (1.8-2.4); POTASSIUM SERUM 4.3 MMOL/L (3.5-5.1); SODIUM LEVEL 129 MMOL/L (136-145)
[2024-03-31 09:11] VITALS: BP 94/60
[2024-03-31 12:00] VITALS: BP 101/64; TEMP 97.3; O2SAT 100
[2024-03-31] MEDS: SODIUM CHLORIDE 1 GM TAB PO SCH (16:01)
[2024-03-31 20:22] VITALS: BP 99/63; TEMP 97.7; O2SAT 100
[2024-04-01 05:30] VITALS: BP 109/65; TEMP 97.3; O2SAT 99
[2024-04-01 06:29] LABS: BLOOD UREA NITROGEN 6 MG/DL (9-23); CALCIUM LEVEL 8.8 MG/DL (8.5-10.1); CARBON DIOXIDE LEVEL 31 MMOL/L (20-31); CHLORIDE LEVEL 101 MMOL/L (98-107); CREATININE FOR GFR 0.54 MG/DL (0.70-1.30); GLOMERULAR FILTRATION RATE > 60.0 (>56); GLUCOSE, FASTING 91 MG/DL (60-100); MAGNESIUM LEVEL 1.9 MG/DL (1.8-2.4); POTASSIUM SERUM 5.1 MMOL/L (3.5-5.1); SODIUM LEVEL 132 MMOL/L (136-145)
[2024-04-01] MEDS ORDERED: PRED10TA2 PO (10:34)
[2024-04-01] MEDS ORDERED: DOXY100T PO (10:34)
[2024-04-01] MEDS ORDERED: SERT50TA29 PO (10:34)
[2024-04-01] MEDS ORDERED: ERGO500029 PO (10:34)
[2024-04-01] MEDS ORDERED: FOLI1TAB11 PO (10:34)
[2024-04-01] MEDS ORDERED: ROSU5TAB49 PO (10:34)
[2024-04-01] MEDS ORDERED: MONT10TA97 PO (10:34)
[2024-04-01] MEDS ORDERED: ADVA1AER9 INH (10:34)
[2024-04-01] MEDS ORDERED: ALBU8.5H INH ×2 (10:34→10:36)
[2024-04-01] MEDS ORDERED: PRED20TA PO (10:36)
== END 2024-04-01 12:18 | disposition home health service (06) | DRG 191 ==
LOC: M ED 04:37 → EDBD 04:37 → M ED INP 04:38 → M MSPAV 17:03 → OBSVTOIN 03-30 06:40
PROVIDERS: ADMIT Student in an Organized Health Care Education/Training Program; ATTEND Student in an Organized Health Care Education/Training Program
DX: J44.1 Chronic obstructive pulmonary disease with (acute) exacerbation (principal); J96.11 Chronic respiratory failure with hypoxia; E87.1 Hypo-osmolality and hyponatremia; I10 Essential (primary) hypertension; F10.10 Alcohol abuse, uncomplicated; F17.200 Nicotine dependence, unspecified, uncomplicated; F32.A Depression, unspecified; F41.9 Anxiety disorder, unspecified; Z99.81 Dependence on supplemental oxygen; E87.6 Hypokalemia; H10.9 Unspecified conjunctivitis; Z79.899 Other long term (current) drug therapy; Z91.148 Patient's other noncompliance with medication regimen for other reason

== ENCOUNTER 2024-04-06 06:48 | Emergency (ER) | payer MEDICARE ==
[~2024-04-06] VITALS: Ht 165.1 cm; Wt 84.1 kg
[2024-04-06 07:03] VITALS: TEMP 97.6
[2024-04-06 10:00] LABS: VENOUS BASE EXCESS 6.1 (-2.0-2.0); VENOUS O2 SATURATION 51.8 % (60.0-80.0); VENOUS PARTIAL PRESSURE CO2 73.3 mmHg (38.0-50.0); VENOUS PARTIAL PRESSURE O2 26.8 mmHg (30.0-50.0); VENOUS PH 7.297 UNITS (7.330-7.430); VENOUS STANDARD HCO3 28.8 MMOL/L; VENOUS TOTAL CO2 37.3 MMOL/L (24.0-28.0)
[2024-04-06 10:04] LABS: BASO # 0.1 10^3/uL (0.0-0.2); BASO % 0.7 % (0.0-1.0); EOS # 0.1 10^3/uL (0.0-0.5); EOS % 1.1 % (0.0-3.0); HEMATOCRIT 37.5 % (42.0-52.0); HEMOGLOBIN 12.2 g/dl (13.5-17.5); LYMPH # 1.7 10^3/uL (1.5-5.0); LYMPH % 19.3 % (24.0-44.0); MEAN CORPUSCULAR HEMOGLOBIN 31.6 pg (27.0-33.0); MEAN CORPUSCULAR HGB CONC 32.5 g/dl (32.0-36.5); MEAN CORPUSCULAR VOLUME 97.2 fl (80.0-96.0); MONO # 0.9 10^3/uL (0.0-0.8); MONO % 9.9 % (2.0-8.0); NEUTROPHILS # 6.1 10^3/uL (1.5-8.5); PLATELET COUNT, AUTOMATED 314 10^3/uL (150-450); RED BLOOD COUNT 3.86 10^6/uL (4.30-6.10)
[2024-04-06 10:28] LABS: ALKALINE PHOSPHATASE 74 U/L (40-129); ALT/SGPT 56 U/L (7.0-40); AST/SGOT 31 U/L (<34); BILIRUBIN,DIRECT < 0.1 MG/DL (<0.4); BILIRUBIN,TOTAL 0.3 MG/DL (0.3-1.2); BLOOD UREA NITROGEN 7 MG/DL (9-23); CALCIUM LEVEL 8.7 MG/DL (8.5-10.1); CARBON DIOXIDE LEVEL 34 MMOL/L (20-31); CHLORIDE LEVEL 100 MMOL/L (98-107); CREATININE FOR GFR 0.47 MG/DL (0.70-1.30); GLOMERULAR FILTRATION RATE > 60.0 (>56); GLUCOSE, FASTING 94 MG/DL (60-100); POTASSIUM SERUM 4.9 MMOL/L (3.5-5.1); SODIUM LEVEL 138 MMOL/L (136-145); TOTAL PROTEIN 5.7 G/DL (5.7-8.2)
[2024-04-06 10:30] LABS: THYROID STIMULATING HORMONE 1.557 uIU/ML (0.55-4.78)
[2024-04-06] MEDS: IPRATROPIUM 0.5MG/ALBUTEROL 2.5MG INH SOL UD 3ML (DUONEB) NEB ONE (11:06)
[2024-04-06 11:08] LABS: ABG BASE EXCESS 7.2 (-2.0-2.0); ABG O2 SATURATION 97.7 % (95.0-99.0); ABG PARTIAL PRESSURE CO2 58.4 mmHg (35.0-45.0); ABG PARTIAL PRESSURE O2 107.7 mmHg (75.0-100.0); ABG TOTAL CO2 35.8 MMOL/L (22.0-29.0); ABG pH (ARTERIAL) 7.383 UNITS (7.350-7.450)
[2024-04-06 12:00] VITALS: BP 129/63
[2024-04-06 12:10] VITALS: O2SAT 94
[2024-04-06] MEDS: FUROSEMIDE 20 MG TAB PO ONE (12:10)
== END 2024-04-06 12:15 | disposition left against medical advice (07) ==
LOC: M ED 06:48 → EDBD 06:48 → M ED 12:15
DX: R22.43 Localized swelling, mass and lump, lower limb, bilateral (principal); R00.0 Tachycardia, unspecified; I45.81 Long QT syndrome; I10 Essential (primary) hypertension; J44.9 Chronic obstructive pulmonary disease, unspecified; F41.9 Anxiety disorder, unspecified; F32.A Depression, unspecified; F17.210 Nicotine dependence, cigarettes, uncomplicated; F10.10 Alcohol abuse, uncomplicated; Z79.51 Long term (current) use of inhaled steroids; Z79.2 Long term (current) use of antibiotics; Z79.52 Long term (current) use of systemic steroids; Z79.899 Other long term (current) drug therapy; Z53.9 Procedure and treatment not carried out, unspecified reason

== ENCOUNTER 2024-04-30 09:05 | Observation (INO) | payer MEDICARE ==
[~2024-04-30] VITALS: Ht 165.1 cm; Wt 82.8 kg
[2024-04-30] MEDS ORDERED: HYDR-3490 (09:12)
[2024-04-30 09:39] LABS: VENOUS HCO3 33.6 MMOL/L (23.0-27.0); VENOUS O2 SATURATION 47.4 % (60.0-80.0); VENOUS PARTIAL PRESSURE CO2 74.1 mmHg (38.0-50.0); VENOUS PARTIAL PRESSURE O2 28.6 mmHg (30.0-50.0); VENOUS PH 7.275 UNITS (7.330-7.430); VENOUS STANDARD HCO3 26.6 MMOL/L; VENOUS TOTAL CO2 35.9 MMOL/L (24.0-28.0)
[2024-04-30 09:43] LABS: BASO % 0.8 % (0.0-1.0); EOS % 0.6 % (0.0-3.0); HEMATOCRIT 45.5 % (42.0-52.0); HEMOGLOBIN 14.8 g/dl (13.5-17.5); MEAN CORPUSCULAR HEMOGLOBIN 31.4 pg (27.0-33.0); MEAN CORPUSCULAR HGB CONC 32.5 g/dl (32.0-36.5); MEAN CORPUSCULAR VOLUME 96.4 fl (80.0-96.0); MONO # 0.7 10^3/uL (0.0-0.8); MONO % 13.7 % (2.0-8.0); NEUTROPHILS # 3.3 10^3/uL (1.5-8.5); NEUTROPHILS % 65.3 % (36.0-66.0); PLATELET COUNT, AUTOMATED 163 10^3/uL (150-450); RED BLOOD COUNT 4.72 10^6/uL (4.30-6.10); WHITE BLOOD COUNT 5.1 10^3/uL (4.0-10.0)
[2024-04-30 10:21] LABS: ALBUMIN 3.4 G/DL (3.2-5.2); ALKALINE PHOSPHATASE 122 U/L (40-129); ALT/SGPT 52 U/L (7.0-40); AST/SGOT 74 U/L (<34); BILIRUBIN,DIRECT 0.1 MG/DL (<0.4); BILIRUBIN,TOTAL 0.3 MG/DL (0.3-1.2); BLOOD UREA NITROGEN < 5 MG/DL (9-23); CALCIUM LEVEL 8.9 MG/DL (8.5-10.1); CARBON DIOXIDE LEVEL 33 MMOL/L (20-31); CHLORIDE LEVEL 95 MMOL/L (98-107); CREATININE FOR GFR 0.45 MG/DL (0.70-1.30); GLOMERULAR FILTRATION RATE > 60.0 (>56); GLUCOSE, FASTING 88 MG/DL (60-100); MAGNESIUM LEVEL 2.1 MG/DL (1.8-2.4); POTASSIUM SERUM 4.8 MMOL/L (3.5-5.1); SODIUM LEVEL 136 MMOL/L (136-145); TOTAL PROTEIN 6.4 G/DL (5.7-8.2)
[2024-04-30] MEDS: IPRATROPIUM 0.5MG/ALBUTEROL 2.5MG INH SOL UD 3ML (DUONEB) NEB SCH ×2 (10:34→14:00)
[2024-04-30] MEDS ORDERED: MOM 30ML SUSPENSION UDC PO PRN (13:10)
[2024-04-30] MEDS ORDERED: LORazepam 2 MG TAB PO PRN (13:10)
[2024-04-30] MEDS ORDERED: IPRATROPIUM 0.5MG/ALBUTEROL 2.5MG INH SOL UD 3ML (DUONEB) NEB PRN (13:10)
[2024-04-30] MEDS ORDERED: MAALOX 30 ML SUSP *UDC PO PRN (13:10)
[2024-04-30] MEDS ORDERED: ISOVUE-370 76% 100ML VIAL As Ordered ONE (13:17)
[2024-04-30] MEDS ORDERED: NICOTINE 21MG/24HR 1 EA TRANSDERMAL TD PRN (13:30)
[2024-04-30] MEDS ORDERED: MONT-5 PO (13:50)
[2024-04-30] MEDS ORDERED: ERGO500029 PO (13:50)
[2024-04-30] MEDS ORDERED: ZOLO50TA PO (13:50)
[2024-04-30] MEDS ORDERED: VENTAER INH (13:50)
[2024-04-30] MEDS ORDERED: HOME MED LIST COMPLETE! XX SCH (13:55)
[2024-04-30] MEDS: OXAZEPAM 10MG CAP PO SCH (14:51)
[2024-04-30] MEDS: FOLIC ACID 1MG TAB PO SCH (14:51)
[2024-04-30] MEDS: MULTIVITAMINS/MINERALS THERAP 1 TAB PO SCH (14:52)
[2024-04-30] MEDS: methylPREDNISolone 40MG 1ML VIAL IV SCH (14:52)
[2024-04-30] MEDS: THIAMINE 100 MG TAB PO SCH (14:52)
[2024-04-30] MEDS ORDERED: NS (Normal Saline) 0.9% 1,000 ML IV SCH (15:30)
[2024-04-30] MEDS: NS (Normal Saline) 0.9% 1,000 ML IV ONE (15:48)
[2024-04-30] MEDS: ADVAIR HFA 115/21MCG INHALER INH SCH (19:11)
[2024-04-30] MEDS: guaiFENesin ER TABLET 600 MG TAB PO SCH (20:58)
[2024-04-30] MEDS: DOCUSATE SODIUM 100MG CAPSULE PO SCH (20:58)
[2024-05-01] MEDS: ACETAMINOPHEN 325 MG TAB PO PRN (01:32)
[2024-05-01 05:48] LABS: EOS # 0.2 10^3/uL (0.0-0.5); EOS % 4.6 % (0.0-3.0); HEMATOCRIT 44.8 % (42.0-52.0); HEMOGLOBIN 14.9 g/dl (13.5-17.5); LYMPH # 0.4 10^3/uL (1.5-5.0); LYMPH % 11.7 % (24.0-44.0); MEAN CORPUSCULAR HEMOGLOBIN 30.8 pg (27.0-33.0); MEAN CORPUSCULAR HGB CONC 33.3 g/dl (32.0-36.5); MEAN CORPUSCULAR VOLUME 92.6 fl (80.0-96.0); MONO # 0.4 10^3/uL (0.0-0.8); MONO % 10.9 % (2.0-8.0); NEUTROPHILS # 2.6 10^3/uL (1.5-8.5); NEUTROPHILS % 71.7 % (36.0-66.0); PLATELET COUNT, AUTOMATED 170 10^3/uL (150-450); RED BLOOD COUNT 4.84 10^6/uL (4.30-6.10); WHITE BLOOD COUNT 3.7 10^3/uL (4.0-10.0)
[2024-05-01 06:26] LABS: BLOOD UREA NITROGEN < 5 MG/DL (9-23); CALCIUM LEVEL 8.9 MG/DL (8.5-10.1); CARBON DIOXIDE LEVEL 32 MMOL/L (20-31); CHLORIDE LEVEL 98 MMOL/L (98-107); CREATININE FOR GFR 0.38 MG/DL (0.70-1.30); GLOMERULAR FILTRATION RATE > 60.0 (>56); GLUCOSE, FASTING 146 MG/DL (60-100); MAGNESIUM LEVEL 2.1 MG/DL (1.8-2.4); POTASSIUM SERUM 4.1 MMOL/L (3.5-5.1); SODIUM LEVEL 137 MMOL/L (136-145)
[2024-05-01 08:13] VITALS: BP 148/66
[2024-05-01] MEDS: ROSUVASTATIN 10 MG TAB (CRESTOR) PO SCH (08:13)
[2024-05-01] MEDS: amLODIPine 5 MG TAB PO SCH (08:13)
[2024-05-01] MEDS: SERTRALINE HCL 50 MG TAB PO SCH (08:14)
[2024-05-01] MEDS: MONTELUKAST 10 MG TAB PO SCH (08:15)
[2024-05-01] MEDS: ENOXAPARIN 40MG/0.4ML SYRINGE (J1650 PER 10MG) SC SCH (08:16)
[2024-05-01] MEDS ORDERED: MUCI600T31 PO (09:17)
[2024-05-01] MEDS ORDERED: AMLO1TAB24 PO (09:17)
[2024-05-01] MEDS ORDERED: THIA100TA PO (09:17)
[2024-05-01 11:45] VITALS: BP 120/69; TEMP 98.9; O2SAT 92
[2024-05-07] MEDS ORDERED: VITAMIN D 50,000 UNITS CAPSULE (ERGOCALCIFEROL 1.25MG) PO SCH (09:00)
== END 2024-05-01 12:05 | disposition home or self-care (01) ==
LOC: M ED 09:05 → EDBD 09:05 → M ED INP 09:06
PROVIDERS: ADMIT Internal Medicine; ATTEND Internal Medicine
DX: J44.1 Chronic obstructive pulmonary disease with (acute) exacerbation (principal); J96.11 Chronic respiratory failure with hypoxia; B97.4 Respiratory syncytial virus as the cause of diseases classified elsewhere; Z99.81 Dependence on supplemental oxygen; E87.20 Acidosis, unspecified; F10.20 Alcohol dependence, uncomplicated; F17.200 Nicotine dependence, unspecified, uncomplicated; I10 Essential (primary) hypertension; E78.5 Hyperlipidemia, unspecified; F32.A Depression, unspecified; F41.9 Anxiety disorder, unspecified; Z87.81 Personal history of (healed) traumatic fracture; Z87.09 Personal history of other diseases of the respiratory system; Z85.840 Personal history of malignant neoplasm of eye; Z79.899 Other long term (current) drug therapy; Z79.51 Long term (current) use of inhaled steroids
CPT/HCPCS: 36415; 71045; 71275; 80048; 80076; 82803; 83605; 83735; 83880; 84145; 85025; 87040; 87486; 87581; 87633; 87798; 93005; 93041; 94640; 94760; 96361; 96372; 96374; 96376; 99285; G0378; J1650; J2919; Q9967

== ENCOUNTER 2024-05-22 06:16 | Observation (INO) | payer MEDICARE ==
[~2024-05-22] VITALS: Ht 165.1 cm; Wt 81.8 kg
[2024-05-22 05:30] VITALS: BP 132/77
[~2024-05-22 06:16] MED LIST changes: +AMLO1TAB24 PO; +HYDR-3490; +MONT-5 PO
[2024-05-22 06:58] LABS: BASO # 0.1 10^3/uL (0.0-0.2); BASO % 0.6 % (0.0-1.0); EOS # 0.2 10^3/uL (0.0-0.5); EOS % 1.7 % (0.0-3.0); HEMATOCRIT 44.2 % (42.0-52.0); HEMOGLOBIN 14.8 g/dl (13.5-17.5); LYMPH # 1.4 10^3/uL (1.5-5.0); LYMPH % 16.2 % (24.0-44.0); MEAN CORPUSCULAR HEMOGLOBIN 31.2 pg (27.0-33.0); MEAN CORPUSCULAR HGB CONC 33.5 g/dl (32.0-36.5); MEAN CORPUSCULAR VOLUME 93.1 fl (80.0-96.0); MONO # 0.7 10^3/uL (0.0-0.8); MONO % 8.2 % (2.0-8.0); NEUTROPHILS # 6.3 10^3/uL (1.5-8.5); NEUTROPHILS % 72.6 % (36.0-66.0); PLATELET COUNT, AUTOMATED 213 10^3/uL (150-450); RED BLOOD COUNT 4.75 10^6/uL (4.30-6.10); WHITE BLOOD COUNT 8.7 10^3/uL (4.0-10.0)
[2024-05-22 07:26] LABS: CK-MB VALUE MASS < 1.0 NG/ML (<3.6)
[2024-05-22 07:30] LABS: ALBUMIN 3.3 G/DL (3.2-5.2); ALKALINE PHOSPHATASE 98 U/L (40-129); ALT/SGPT 39 U/L (7.0-40); AST/SGOT 38 U/L (<34); BILIRUBIN,DIRECT 0.2 MG/DL (<0.4); BILIRUBIN,TOTAL 0.4 MG/DL (0.3-1.2); BLOOD UREA NITROGEN < 5 MG/DL (9-23); CARBON DIOXIDE LEVEL 29 MMOL/L (20-31); CHLORIDE LEVEL 104 MMOL/L (98-107); CPK CREATINE PHOSPHOKINASE 47 U/L (46-171); GLOMERULAR FILTRATION RATE > 60.0 (>56); GLUCOSE, FASTING 99 MG/DL (60-100); MB/CK RELATIVE INDEX 2.12 (< OR =4); POTASSIUM SERUM 4.8 MMOL/L (3.5-5.1); SODIUM LEVEL 140 MMOL/L (136-145); TOTAL PROTEIN 6.5 G/DL (5.7-8.2)
[2024-05-22 08:17] LABS: LIPASE 38 U/L (12-53)
[2024-05-22 08:18] LABS: CK-MB VALUE MASS < 1.0 NG/ML (<3.6)
[2024-05-22 08:19] LABS: CPK CREATINE PHOSPHOKINASE 28 U/L (46-171); MB/CK RELATIVE INDEX 3.57 (< OR =4)
[2024-05-22] MEDS: IPRATROPIUM 0.5MG/ALBUTEROL 2.5MG INH SOL UD 3ML (DUONEB) NEB ONE (08:27)
[2024-05-22] MEDS: ALBUTEROL SULFATE 2.5MG/0.5ML INH NEB SOLN INH ONE (08:27)
[2024-05-22] MEDS: methylPREDNISolone 125MG 2ML VIAL IV ONE (08:29)
[2024-05-22] MEDS: THIAMINE 100 MG TAB PO SCH ×2 (08:29→21:25)
[2024-05-22] MEDS: FOLIC ACID 1MG TAB PO SCH (08:29)
[2024-05-22] MEDS: MULTIVITAMINS/MINERALS THERAP 1 TAB PO SCH (08:29)
[2024-05-22] MEDS ORDERED: ISOVUE-370 76% 100ML VIAL As Ordered ONE (08:46)
[2024-05-22] MEDS: LORazepam 2 MG TAB PO PRN (09:20)
[2024-05-22] MEDS ORDERED: MUCI600T31 PO (11:45)
[2024-05-22] MEDS ORDERED: AMLO1TAB24 PO (11:45)
[2024-05-22] MEDS ORDERED: THIA100TA PO (11:45)
[2024-05-22] MEDS ORDERED: HOME MED LIST COMPLETE! XX SCH (11:50)
[2024-05-22] MEDS: IPRATROPIUM 0.5MG/ALBUTEROL 2.5MG INH SOL UD 3ML (DUONEB) NEB SCH (12:00)
[2024-05-22] MEDS ORDERED: IPRATROPIUM 0.5MG/ALBUTEROL 2.5MG INH SOL UD 3ML (DUONEB) NEB PRN (13:00)
[2024-05-22] MEDS ORDERED: methylPREDNISolone 125MG 2ML VIAL IV ONE (13:00)
[2024-05-22] MEDS: CEFDINIR 300 MG CAP (OMNICEF) PO SCH (13:33)
[2024-05-22] MEDS: methylPREDNISolone 125MG 2ML VIAL IV SCH (13:33)
[2024-05-22] MEDS ORDERED: LORazepam 2 MG TAB PO PRN (16:10)
[2024-05-22 17:20] VITALS: BP 132/77; TEMP 97.9; O2SAT 95
[2024-05-22] MEDS: OXAZEPAM 15MG CAP PO ONE (17:49)
[2024-05-22] MEDS: cloNIDine 0.1MG TABLET PO SCH (17:50)
[2024-05-22 20:00] VITALS: BP 126/69; TEMP 98; O2SAT 93
[2024-05-22] MEDS ORDERED: methylPREDNISolone 125MG 2ML VIAL IV SCH (20:00)
[2024-05-22 22:00] VITALS: BP 126/69
[2024-05-23 04:00] VITALS: BP 132/81; TEMP 98; O2SAT 97
[2024-05-23 06:00] VITALS: BP 132/81
[2024-05-23 08:14] VITALS: O2SAT 97
[2024-05-23 09:00] VITALS: BP 110/60
[2024-05-23] MEDS: FOLIC ACID 1MG TAB PO SCH (09:21)
[2024-05-23] MEDS: predniSONE 20 MG TAB PO ONE (09:21)
[2024-05-23] MEDS: MULTIVITAMINS/MINERALS THERAP 1 TAB PO SCH (09:21)
[2024-05-23] MEDS: OXAZEPAM 15MG CAP PO ONE (09:21)
[2024-05-23 09:27] VITALS: BP 110/60
[2024-05-23] MEDS ORDERED: PRED10TA2 PO (11:03)
[2024-05-23] MEDS ORDERED: ALBU8.5H INH (11:03)
[2024-05-23] MEDS ORDERED: DOXY100C3 PO (11:03)
[2024-05-23] MEDS ORDERED: CEFD1CAP9 PO (11:03)
[2024-05-23] MEDS ORDERED: NICO14DI24 TD (11:03)
[2024-05-23] MEDS ORDERED: PRED20TA PO (11:03)
[2024-05-23] MEDS ORDERED: AMLO1TAB25 PO (11:10)
[2024-05-23] MEDS ORDERED: TALK1KIT MC (11:10)
[2024-05-23 11:54] VITALS: BP 112/61; TEMP 98.1; O2SAT 94
[2024-05-23] MEDS ORDERED: cloNIDine 0.2 MG TAB PO SCH (14:00)
[2024-05-23] MEDS ORDERED: predniSONE 20 MG TAB PO SCH (17:00)
== END 2024-05-23 12:40 | disposition home health service (06) ==
LOC: EDBD 06:16 → M ED 06:16 → INTOOBSV 10:47 → M ED INP 10:47 → M MSPAV 17:13
PROVIDERS: ADMIT General Practice; ATTEND General Practice
DX: J44.1 Chronic obstructive pulmonary disease with (acute) exacerbation (principal); J96.11 Chronic respiratory failure with hypoxia; Z99.81 Dependence on supplemental oxygen; T68.XXXA Hypothermia, initial encounter; X31.XXXA Exposure to excessive natural cold, initial encounter; Z59.11 Inadequate housing environmental temperature; Y92.008 Other place in unspecified non-institutional (private) residence as the place of occurrence of the external cause; R65.11 Systemic inflammatory response syndrome (SIRS) of non-infectious origin with acute organ dysfunction; I16.0 Hypertensive urgency; R00.0 Tachycardia, unspecified; R25.1 Tremor, unspecified; F10.230 Alcohol dependence with withdrawal, uncomplicated; F17.210 Nicotine dependence, cigarettes, uncomplicated; Z87.81 Personal history of (healed) traumatic fracture; Z85.840 Personal history of malignant neoplasm of eye; Z79.899 Other long term (current) drug therapy; Z79.51 Long term (current) use of inhaled steroids
CPT/HCPCS: 71045; 71275; 80048; 80076; 82550; 82553; 83605; 83690; 84484; 85025; 87040; 87486; 87581; 87633; 87798; 93005; 93041; 94640; 94760; 96374; 96376; 97161; 99285; G0378; J2919; J7512; Q9967

== ENCOUNTER 2024-06-24 09:57 | Emergency (ER) | payer MEDICARE ==
[~2024-06-24] VITALS: Ht 172.7 cm; Wt 81.8 kg
[~2024-06-24 09:57] MED LIST changes: +AMLO-751 PO; -AMLO10TA PO; +CEFD1CAP9 PO; +DOXY100C3 PO; +NICO14DI24 TD; -PRED50TA PO; +PRED50TA57 PO; +TALK1KIT MC
[2024-06-24 10:07] VITALS: TEMP 97.1
[2024-06-24] MEDS ORDERED: LORazepam 2 MG TAB PO PRN (10:10)
[2024-06-24 10:55] LABS: BASO # 0.1 10^3/uL (0.0-0.2); BASO % 1.2 % (0.0-1.0); EOS # 0.1 10^3/uL (0.0-0.5); EOS % 2.4 % (0.0-3.0); HEMATOCRIT 46.6 % (42.0-52.0); HEMOGLOBIN 15.3 g/dl (13.5-17.5); LYMPH # 1.2 10^3/uL (1.5-5.0); LYMPH % 20.9 % (24.0-44.0); MEAN CORPUSCULAR HGB CONC 32.8 g/dl (32.0-36.5); MEAN CORPUSCULAR VOLUME 94.5 fl (80.0-96.0); MONO # 0.7 10^3/uL (0.0-0.8); MONO % 12.2 % (2.0-8.0); NEUTROPHILS # 3.6 10^3/uL (1.5-8.5); NEUTROPHILS % 62.4 % (36.0-66.0); PLATELET COUNT, AUTOMATED 204 10^3/uL (150-450); RED BLOOD COUNT 4.93 10^6/uL (4.30-6.10); WHITE BLOOD COUNT 5.8 10^3/uL (4.0-10.0)
[2024-06-24 11:02] LABS: ALBUMIN 3.5 G/DL (3.2-5.2); ALKALINE PHOSPHATASE 114 U/L (40-129); ALT/SGPT 30 U/L (7.0-40); AST/SGOT 29 U/L (<34); BILIRUBIN,TOTAL 0.5 MG/DL (0.3-1.2); BLOOD UREA NITROGEN < 5 MG/DL (9-23); CALCIUM LEVEL 8.8 MG/DL (8.5-10.1); CARBON DIOXIDE LEVEL 32 MMOL/L (20-31); CHLORIDE LEVEL 105 MMOL/L (98-107); CREATININE FOR GFR 0.42 MG/DL (0.70-1.30); GLOMERULAR FILTRATION RATE > 90.0 (>56); GLUCOSE, FASTING 84 MG/DL (60-100); MAGNESIUM LEVEL 2.2 MG/DL (1.8-2.4); POTASSIUM SERUM 4.4 MMOL/L (3.5-5.1); SODIUM LEVEL 142 MMOL/L (136-145); TOTAL PROTEIN 6.2 G/DL (5.7-8.2)
[2024-06-24] MEDS: THIAMINE 100 MG TAB PO SCH (12:16)
[2024-06-24 13:00] VITALS: BP 149/69; O2SAT 94
[2024-06-25] MEDS ORDERED: MULTIVITAMINS/MINERALS THERAP 1 TAB PO SCH (09:00)
[2024-06-25] MEDS ORDERED: FOLIC ACID 1MG TAB PO SCH (09:00)
== END 2024-06-24 13:16 | disposition home or self-care (01) ==
LOC: EDBD 09:57 → M ED 09:57
DX: F10.10 Alcohol abuse, uncomplicated (principal); I10 Essential (primary) hypertension; J44.9 Chronic obstructive pulmonary disease, unspecified; Z79.2 Long term (current) use of antibiotics; Z79.51 Long term (current) use of inhaled steroids; Z79.899 Other long term (current) drug therapy

== ENCOUNTER 2024-07-05 10:50 | Emergency (ER) | payer MEDICARE ==
[~2024-07-05] VITALS: Ht 165.1 cm; Wt 82.2 kg
[2024-07-05] MEDS ORDERED: LORazepam 2 MG TAB PO PRN (12:05)
[2024-07-05] MEDS: THIAMINE 100 MG TAB PO SCH (12:26)
[2024-07-05] MEDS: FOLIC ACID 1MG TAB PO SCH (12:27)
[2024-07-05] MEDS: MULTIVITAMINS/MINERALS THERAP 1 TAB PO SCH (12:27)
[2024-07-05 12:45] LABS: BASO # 0.1 10^3/uL (0.0-0.2); BASO % 0.9 % (0.0-1.0); EOS # 0.1 10^3/uL (0.0-0.5); EOS % 0.9 % (0.0-3.0); HEMATOCRIT 48.9 % (42.0-52.0); HEMOGLOBIN 16.2 g/dl (13.5-17.5); LYMPH # 1.2 10^3/uL (1.5-5.0); LYMPH % 15.3 % (24.0-44.0); MEAN CORPUSCULAR HEMOGLOBIN 31.2 pg (27.0-33.0); MEAN CORPUSCULAR HGB CONC 33.1 g/dl (32.0-36.5); MEAN CORPUSCULAR VOLUME 94.2 fl (80.0-96.0); MONO # 0.9 10^3/uL (0.0-0.8); MONO % 10.8 % (2.0-8.0); NEUTROPHILS # 5.8 10^3/uL (1.5-8.5); NEUTROPHILS % 71.7 % (36.0-66.0); PLATELET COUNT, AUTOMATED 216 10^3/uL (150-450); RED BLOOD COUNT 5.19 10^6/uL (4.30-6.10)
[2024-07-05 13:14] LABS: ALBUMIN 3.8 G/DL (3.2-5.2); ALKALINE PHOSPHATASE 127 U/L (40-129); ALT/SGPT 77 U/L (7.0-40); AST/SGOT 100 U/L (<34); BILIRUBIN,TOTAL 0.6 MG/DL (0.3-1.2); BLOOD UREA NITROGEN < 5 MG/DL (9-23); CALCIUM LEVEL 9.4 MG/DL (8.5-10.1); CARBON DIOXIDE LEVEL 32 MMOL/L (20-31); CHLORIDE LEVEL 102 MMOL/L (98-107); CREATININE FOR GFR 0.43 MG/DL (0.70-1.30); GLOMERULAR FILTRATION RATE > 90.0 (>56); GLUCOSE, FASTING 98 MG/DL (60-100); POTASSIUM SERUM 4.5 MMOL/L (3.5-5.1); SODIUM LEVEL 140 MMOL/L (136-145); TOTAL PROTEIN 6.8 G/DL (5.7-8.2)
[2024-07-05 15:30] VITALS: BP 164/78; TEMP 98.6; O2SAT 92
== END 2024-07-05 15:32 | disposition home or self-care (01) ==
LOC: EDBD 10:50 → M ED 10:50
DX: F10.180 Alcohol abuse with alcohol-induced anxiety disorder (principal); I50.22 Chronic systolic (congestive) heart failure; I11.0 Hypertensive heart disease with heart failure; J44.9 Chronic obstructive pulmonary disease, unspecified; F17.210 Nicotine dependence, cigarettes, uncomplicated; F12.10 Cannabis abuse, uncomplicated; Z79.51 Long term (current) use of inhaled steroids; Z79.2 Long term (current) use of antibiotics; Z79.52 Long term (current) use of systemic steroids; Z79.899 Other long term (current) drug therapy

== ENCOUNTER 2024-08-25 19:42 | Emergency (ER) | payer MEDICARE, MEDICAID ==
[~2024-08-25] VITALS: Ht 165.1 cm; Wt 83.7 kg
[~2024-08-25 19:42] MED LIST changes: +KETO-204 PO; +METH-1165 PO
[2024-08-25 20:05] LABS: BASO # 0.1 10^3/uL (0.0-0.2); BASO % 0.7 % (0.0-1.0); EOS # 0.2 10^3/uL (0.0-0.5); EOS % 1.8 % (0.0-3.0); LYMPH # 3.1 10^3/uL (1.5-5.0); LYMPH % 30.4 % (24.0-44.0); MONO # 0.8 10^3/uL (0.0-0.8); MONO % 8.1 % (2.0-8.0); NEUTROPHILS # 5.9 10^3/uL (1.5-8.5); NEUTROPHILS % 58.6 % (36.0-66.0); PLATELET COUNT, AUTOMATED 173 10^3/uL (150-450)
[2024-08-25 20:32] LABS: ALT/SGPT 43 U/L (7.0-40); AST/SGOT 39 U/L (<34); CALCIUM LEVEL 8.8 MG/DL (8.3-10.6); CARBON DIOXIDE LEVEL 30 MMOL/L (20-31); CHLORIDE LEVEL 91 MMOL/L (98-107); CREATININE FOR GFR 0.50 MG/DL (0.70-1.30); GLOMERULAR FILTRATION RATE > 90.0 (>49); POTASSIUM SERUM 4.1 MMOL/L (3.5-5.1); SODIUM LEVEL 129 MMOL/L (136-145)
[2024-08-26 05:45] LABS: CK-MB VALUE MASS 1.0 NG/ML (<3.6)
[2024-08-26 05:47] LABS: CPK CREATINE PHOSPHOKINASE 25.0 U/L (46-171); MB/CK RELATIVE INDEX 4.0 (< OR =4)
[2024-08-26] MEDS: dexAMETHasone 4 MG/ML 1 ML VIAL PO ONE (06:22)
[2024-08-26] MEDS: ACETAMINOPHEN *IV* 1,000 MG in IV 1 EA IV ONE (06:23)
[2024-08-26] MEDS: FAMOTIDINE IV BAG 20 MG in IV 1 EA IV ONE (06:54)
[2024-08-26] MEDS: IPRATROPIUM 0.5 MG/ALBUTEROL 2.5 MG INH SOL UD 3 ML NEB ONE (07:54)
[2024-08-26 09:30] VITALS: BP 145/67; TEMP 97.4; O2SAT 97
== END 2024-08-26 10:23 | disposition home or self-care (01) ==
LOC: M ED 19:42
DX: R06.02 Shortness of breath (principal); J44.9 Chronic obstructive pulmonary disease, unspecified; R06.2 Wheezing; I45.10 Unspecified right bundle-branch block; I50.22 Chronic systolic (congestive) heart failure; I11.0 Hypertensive heart disease with heart failure; E11.9 Type 2 diabetes mellitus without complications; E78.5 Hyperlipidemia, unspecified; F17.210 Nicotine dependence, cigarettes, uncomplicated; F12.10 Cannabis abuse, uncomplicated; F10.10 Alcohol abuse, uncomplicated; Z79.51 Long term (current) use of inhaled steroids; Z79.2 Long term (current) use of antibiotics; Z79.52 Long term (current) use of systemic steroids; Z79.899 Other long term (current) drug therapy
CPT/HCPCS: 71045; 80048; 80076; 82550; 82553; 84484; 85025; 93005; 93041; 94640; 94760; 96365; 96366; 96375; 99285; J0131; J1100; J1308; J2060

== ENCOUNTER 2024-09-08 13:38 | Inpatient (IN) | payer MEDICARE, MEDICAID ==
[2024-09-08] VITALS (7 sets, daily range): BP systolic 100–145; BP diastolic 50–64; TEMP 98.1; O2SAT 91–95
[~2024-09-08] VITALS: Ht 165.1 cm; Wt 83.0 kg
[2024-09-08 14:11] LABS: VENOUS BASE EXCESS 1.3 (-2.0-2.0); VENOUS HCO3 29.3 MMOL/L (23.0-27.0); VENOUS O2 SATURATION 91.1 % (60.0-80.0); VENOUS PARTIAL PRESSURE CO2 59.9 mmHg (38.0-50.0); VENOUS PARTIAL PRESSURE O2 64.1 mmHg (30.0-50.0); VENOUS PH 7.308 UNITS (7.330-7.430); VENOUS STANDARD HCO3 25.5 MMOL/L; VENOUS TOTAL CO2 31.2 MMOL/L (24.0-28.0)
[2024-09-08] MEDS: IPRATROPIUM 0.5 MG/ALBUTEROL 2.5 MG INH SOL UD 3 ML NEB PRN (14:16)
[2024-09-08 14:23] LABS: BASO # 0.1 10^3/uL (0.0-0.2); BASO % 0.9 % (0.0-1.0); EOS # 0.1 10^3/uL (0.0-0.5); EOS % 1.8 % (0.0-3.0); LYMPH # 1.8 10^3/uL (1.5-5.0); LYMPH % 22.3 % (24.0-44.0); MONO # 0.8 10^3/uL (0.0-0.8); MONO % 9.8 % (2.0-8.0); NEUTROPHILS # 5.2 10^3/uL (1.5-8.5); NEUTROPHILS % 64.9 % (36.0-66.0); PLATELET COUNT, AUTOMATED 186 10^3/uL (150-450)
[2024-09-08 14:39] LABS: CPK CREATINE PHOSPHOKINASE 39 U/L (46-171)
[2024-09-08 14:43] LABS: ALT/SGPT 87 U/L (7.0-40); AST/SGOT 121 U/L (<34); CALCIUM LEVEL 8.7 MG/DL (8.3-10.6); CARBON DIOXIDE LEVEL 31 MMOL/L (20-31); CHLORIDE LEVEL 95 MMOL/L (98-107); CK-MB VALUE MASS 1.9 NG/ML (<3.6); CREATININE FOR GFR 0.42 MG/DL (0.70-1.30); FREE T4 1.24 NG/DL (0.89-1.76); GLOMERULAR FILTRATION RATE > 90.0 (>49); MB/CK RELATIVE INDEX 4.87 (< OR =4); POTASSIUM SERUM 4.5 MMOL/L (3.5-5.1); SODIUM LEVEL 133 MMOL/L (136-145)
[2024-09-08] MEDS ORDERED: ISOVUE-370 76% 100 ML VIAL As Ordered ONE (14:55)
[2024-09-08 16:07] LABS: CK-MB VALUE MASS 2.1 NG/ML (<3.6)
[2024-09-08 16:08] LABS: CPK CREATINE PHOSPHOKINASE 38.0 U/L (46-171); MB/CK RELATIVE INDEX 5.52 (< OR =4)
[2024-09-08] MEDS ORDERED: IBUP80TA PO (17:20)
[2024-09-08] MEDS ORDERED: HOME MED LIST COMPLETE! XX SCH (17:25)
[2024-09-08] MEDS: PANTOPRAZOLE 40MG VIAL IV SCH (17:54)
[2024-09-08] MEDS: cefTRIAXone SOD 1 GM in DEXTROSE 5% (D5W) ADV/MINI-BAG 50 ML IV SCH (17:54)
[2024-09-08] MEDS: AZITHROMYCIN INJ 500 MG, VIAL MATE ADAPTER 1 EACH in NS 250 ML IV SCH (18:59)
[2024-09-08] MEDS: IPRATROPIUM 0.5 MG/ALBUTEROL 2.5 MG INH SOL UD 3 ML NEB SCH (19:45)
[2024-09-08] MEDS: THIAMINE 100 MG TAB PO SCH (20:33)
[2024-09-09] VITALS (17 sets, daily range): BP systolic 116–154; BP diastolic 60–81; TEMP 97.4–99.3; O2SAT 92–98
[2024-09-09 05:43] LABS: ABG BASE EXCESS 2.7 (-2.0-2.0); ABG HCO3 27.9 MMOL/L (22.0-26.0); ABG O2 SATURATION 98.7 % (95.0-99.0); ABG PARTIAL PRESSURE CO2 45.2 mmHg (35.0-45.0); ABG PARTIAL PRESSURE O2 127.7 mmHg (75.0-100.0); ABG STANDARD HCO3 26.9 MMOL/L. (22.0-26.0); ABG TOTAL CO2 29.3 MMOL/L (23.0-31.0); ABG pH (ARTERIAL) 7.409 UNITS (7.350-7.450)
[2024-09-09 05:50] LABS: BASO # 0.0 10^3/uL (0.0-0.2); BASO % 0.2 % (0.0-1.0); EOS # 0.0 10^3/uL (0.0-0.5); EOS % 0.0 % (0.0-3.0); LYMPH # 0.4 10^3/uL (1.5-5.0); LYMPH % 8.6 % (24.0-44.0); MONO # 0.1 10^3/uL (0.0-0.8); MONO % 2.9 % (2.0-8.0); NEUTROPHILS # 4.0 10^3/uL (1.5-8.5); NEUTROPHILS % 87.9 % (36.0-66.0); PLATELET COUNT, AUTOMATED 184 10^3/uL (150-450)
[2024-09-09 06:05] LABS: ALT/SGPT 77 U/L (7.0-40); AST/SGOT 67 U/L (<34); CALCIUM LEVEL 8.8 MG/DL (8.3-10.6); CARBON DIOXIDE LEVEL 30 MMOL/L (20-31); CHLORIDE LEVEL 96 MMOL/L (98-107); CREATININE FOR GFR 0.40 MG/DL (0.70-1.30); GLOMERULAR FILTRATION RATE > 90.0 (>49); MAGNESIUM LEVEL 2.1 MG/DL (1.8-2.4); PHOSPHORUS LEVEL 3.6 MG/DL (2.4-5.1); POTASSIUM SERUM 4.2 MMOL/L (3.5-5.1); SODIUM LEVEL 136 MMOL/L (136-145)
[2024-09-09] MEDS: ENOXAPARIN 40 MG/0.4 ML SYRINGE (J1650 PER 10MG) SC SCH (08:32)
[2024-09-09] MEDS: MULTIVITAMINS/MINERALS THERAP 1 TAB PO SCH (08:33)
[2024-09-09] MEDS: SERTRALINE HCL 50 MG TAB PO SCH (08:33)
[2024-09-09] MEDS: PANTOPRAZOLE 40MG TAB PO SCH (08:33)
[2024-09-09] MEDS: FOLIC ACID 1 MG TAB PO SCH (08:33)
[2024-09-09] MEDS: amLODIPine 10 MG TAB PO ONE (08:34)
[2024-09-09] MEDS ORDERED: PILL CUTTER 1 EACH XX PRN (10:55)
[2024-09-09] MEDS: TIOTROPIUM BROM 2.5MCG/ACTUATION 4GM INH INH SCH (11:24)
[2024-09-09] MEDS: SYMBICORT 160/4.5MCG INHALER 6GM INH SCH (11:24)
[2024-09-09] MEDS: ROSUVASTATIN 10 MG TAB PO SCH (11:42)
[2024-09-09] MEDS: NICOTINE 21 MG/24 HR 1 EA TRANSDERMAL TD SCH (13:51)
[2024-09-09] MEDS: MONTELUKAST 10 MG TAB PO SCH (13:52)
[2024-09-10] VITALS: BP 129/70; TEMP 98.8; O2SAT 91
[2024-09-10 04:00] VITALS: BP 121/59; TEMP 97.4; O2SAT 95
[2024-09-10 05:52] LABS: CALCIUM LEVEL 9.1 MG/DL (8.3-10.6); CARBON DIOXIDE LEVEL 33 MMOL/L (20-31); CHLORIDE LEVEL 99 MMOL/L (98-107); CREATININE FOR GFR 0.39 MG/DL (0.70-1.30); GLOMERULAR FILTRATION RATE > 90.0 (>49); MAGNESIUM LEVEL 2.2 MG/DL (1.8-2.4); POTASSIUM SERUM 3.5 MMOL/L (3.5-5.1); SODIUM LEVEL 138 MMOL/L (136-145)
[2024-09-10 07:29] VITALS: O2SAT 96
[2024-09-10 08:00] VITALS: BP 135/73; TEMP 97.8; O2SAT 99
[2024-09-10] MEDS: AZITHROMYCIN 250 MG TABLET PO SCH (08:48)
[2024-09-10] MEDS ORDERED: PANT40TA29 PO (10:27)
== END 2024-09-10 12:09 | disposition home health service (06) | DRG 189 ==
LOC: M ED 13:38 → EDBD 13:38 → M ED INP 16:42 → M ICU 19:17
PROVIDERS: ADMIT Internal Medicine; ATTEND Internal Medicine
DX: J96.21 Acute and chronic respiratory failure with hypoxia (principal); J44.1 Chronic obstructive pulmonary disease with (acute) exacerbation; J98.11 Atelectasis; J96.22 Acute and chronic respiratory failure with hypercapnia; F10.20 Alcohol dependence, uncomplicated; J40 Bronchitis, not specified as acute or chronic; I10 Essential (primary) hypertension; F17.210 Nicotine dependence, cigarettes, uncomplicated; F32.A Depression, unspecified; F41.9 Anxiety disorder, unspecified; Z85.840 Personal history of malignant neoplasm of eye; Z79.899 Other long term (current) drug therapy; Z99.81 Dependence on supplemental oxygen

== ENCOUNTER 2024-09-19 20:12 | Observation (INO) | payer MEDICARE, MEDICAID ==
[~2024-09-19] VITALS: Ht 165.1 cm; Wt 88.2 kg
[~2024-09-19 20:12] MED LIST changes: +IBUP80TA PO
[2024-09-19 20:40] LABS: VENOUS BASE EXCESS 0.9 (-2.0-2.0); VENOUS HCO3 27.1 MMOL/L (23.0-27.0); VENOUS O2 SATURATION 98.7 % (60.0-80.0); VENOUS PARTIAL PRESSURE CO2 49.2 mmHg (38.0-50.0); VENOUS PARTIAL PRESSURE O2 143.7 mmHg (30.0-50.0); VENOUS PH 7.359 UNITS (7.330-7.430); VENOUS STANDARD HCO3 25.3 MMOL/L; VENOUS TOTAL CO2 28.6 MMOL/L (24.0-28.0)
[2024-09-19 20:52] LABS: BASO # 0.1 10^3/uL (0.0-0.2); BASO % 0.6 % (0.0-1.0); EOS # 0.3 10^3/uL (0.0-0.5); EOS % 2.3 % (0.0-3.0); LYMPH # 2.4 10^3/uL (1.5-5.0); LYMPH % 20.4 % (24.0-44.0); MONO # 1.0 10^3/uL (0.0-0.8); MONO % 8.5 % (2.0-8.0); NEUTROPHILS # 7.8 10^3/uL (1.5-8.5); NEUTROPHILS % 66.9 % (36.0-66.0); PLATELET COUNT, AUTOMATED 228 10^3/uL (150-450)
[2024-09-19] MEDS: IPRATROPIUM 0.5 MG/ALBUTEROL 2.5 MG INH SOL UD 3 ML NEB ONE ×2 (21:06)
[2024-09-19 21:54] LABS: CK-MB VALUE MASS 1.3 NG/ML (<3.6)
[2024-09-19 21:56] LABS: CPK CREATINE PHOSPHOKINASE 29 U/L (46-171); MB/CK RELATIVE INDEX 4.48 (< OR =4)
[2024-09-19 21:57] LABS: ALT/SGPT 26 U/L (7.0-40); AST/SGOT 17 U/L (<34); CALCIUM LEVEL 8.3 MG/DL (8.3-10.6); CARBON DIOXIDE LEVEL 28 MMOL/L (20-31); CHLORIDE LEVEL 88 MMOL/L (98-107); CREATININE FOR GFR 0.56 MG/DL (0.70-1.30); GLOMERULAR FILTRATION RATE > 90.0 (>49); POTASSIUM SERUM 4.2 MMOL/L (3.5-5.1); SODIUM LEVEL 127 MMOL/L (136-145)
[2024-09-19 22:38] LABS: ETHYL ALCOHOL (ETHANOL) 0.190 % (0.000-0.010)
[2024-09-19] MEDS ORDERED: MOM 30 ML SUSPENSION UDC PO PRN (23:15)
[2024-09-19] MEDS ORDERED: MAALOX 30 ML SUSP *UDC PO PRN (23:15)
[2024-09-19] MEDS: NS (Normal Saline) 0.9% 1,000 ML IV ONE (23:20)
[2024-09-19] MEDS ORDERED: MED REC COMMENT (23:39)
[2024-09-19] MEDS ORDERED: HOME MED LIST COMPLETE! XX SCH (23:40)
[2024-09-19] MEDS: THIAMINE 100 MG TAB PO SCH (23:54)
[2024-09-19] MEDS: NS (Normal Saline) 0.9% 1,000 ML IV SCH (23:55)
[2024-09-19] MEDS: LevoFLOXacin IV 750 MG in IV 1 EA IV SCH (23:55)
[2024-09-20] VITALS (8 sets, daily range): BP systolic 132–156; BP diastolic 58–86; TEMP 97.9; O2SAT 94–95
[2024-09-20] MEDS: IPRATROPIUM 0.5 MG/ALBUTEROL 2.5 MG INH SOL UD 3 ML NEB SCH (02:33)
[2024-09-20 06:00] LABS: PLATELET COUNT, AUTOMATED 244 10^3/uL (150-450)
[2024-09-20 06:22] LABS: ALT/SGPT 25 U/L (7.0-40); AST/SGOT 14 U/L (<34); CALCIUM LEVEL 8.9 MG/DL (8.3-10.6); CARBON DIOXIDE LEVEL 29 MMOL/L (20-31); CHLORIDE LEVEL 99 MMOL/L (98-107); CREATININE FOR GFR 0.42 MG/DL (0.70-1.30); GLOMERULAR FILTRATION RATE > 90.0 (>49); MAGNESIUM LEVEL 2.2 MG/DL (1.8-2.4); POTASSIUM SERUM 4.7 MMOL/L (3.5-5.1); SODIUM LEVEL 137 MMOL/L (136-145)
[2024-09-20] MEDS ORDERED: ALBUTEROL 90 MCG/ACT 8 GM HFA INHALER INH PRN ×2 (06:30→08:25)
[2024-09-20] MEDS ORDERED: PILL CUTTER 1 EACH XX PRN (08:10)
[2024-09-20] MEDS ORDERED: PILL CUTTER 1 EACH XX ONE (08:15)
[2024-09-20] MEDS: PANTOPRAZOLE 40MG VIAL IV SCH (08:20)
[2024-09-20] MEDS: predniSONE 20 MG TAB PO SCH (08:21)
[2024-09-20] MEDS: amLODIPine 10 MG TAB PO SCH (08:22)
[2024-09-20] MEDS: ROSUVASTATIN 10 MG TAB PO SCH (08:22)
[2024-09-20] MEDS: DOCUSATE SODIUM 100 MG CAPSULE PO SCH (08:23)
[2024-09-20] MEDS: FOLIC ACID 1 MG TAB PO SCH (08:23)
[2024-09-20] MEDS: SERTRALINE HCL 50 MG TAB PO SCH (08:23)
[2024-09-20] MEDS: MULTIVITAMINS/MINERALS THERAP 1 TAB PO SCH (08:23)
[2024-09-20] MEDS: cefTRIAXone SOD 1 GM in DEXTROSE 5% (D5W) ADV/MINI-BAG 50 ML IV SCH (08:23)
[2024-09-20] MEDS: AZITHROMYCIN 250 MG TABLET PO SCH (09:48)
[2024-09-20] MEDS: ENOXAPARIN 40 MG/0.4 ML SYRINGE (J1650 PER 10MG) SC SCH (12:46)
[2024-09-20] MEDS: NICOTINE 21 MG/24 HR 1 EA TRANSDERMAL TD SCH (15:19)
[2024-09-20] MEDS: ACETAMINOPHEN 325 MG TAB PO PRN (16:54)
[2024-09-20] MEDS ORDERED: RIVAROXABAN 10MG TAB PO SCH (18:00)
[2024-09-20] MEDS: ADVAIR HFA 115/21 MCG INHALER INH SCH (20:04)
[2024-09-20] MEDS: MONTELUKAST 10 MG TAB PO SCH (20:31)
[2024-09-20] MEDS: RAMELTEON 8 MG TAB PO PRN (23:31)
[2024-09-21 02:57] VITALS: BP 143/75; TEMP 97.7; O2SAT 95
[2024-09-21 03:05] VITALS: O2SAT 94
[2024-09-21 03:30] VITALS: BP 143/75
[2024-09-21 10:37] VITALS: BP 142/78
[2024-09-21 11:33] LABS: PLATELET COUNT, AUTOMATED 197 10^3/uL (150-450)
[2024-09-21] MEDS ORDERED: PRED20TA PO (11:38)
[2024-09-21] MEDS ORDERED: FOLI1TAB11 PO (11:38)
[2024-09-21 12:00] VITALS: BP 126/65; TEMP 97.5; O2SAT 95
[2024-09-21 12:06] LABS: ALT/SGPT 23 U/L (7.0-40); AST/SGOT 11 U/L (<34); CALCIUM LEVEL 9.3 MG/DL (8.3-10.6); CARBON DIOXIDE LEVEL 29 MMOL/L (20-31); CHLORIDE LEVEL 96 MMOL/L (98-107); CREATININE FOR GFR 0.48 MG/DL (0.70-1.30); GLOMERULAR FILTRATION RATE > 90.0 (>49); POTASSIUM SERUM 3.9 MMOL/L (3.5-5.1); SODIUM LEVEL 136 MMOL/L (136-145)
== END 2024-09-21 12:42 | disposition home or self-care (01) ==
LOC: EDBD 20:12 → M ED 20:12 → M ED INP 23:16 → M MSPAV 09-20 03:04
PROVIDERS: ADMIT Student in an Organized Health Care Education/Training Program; ATTEND Internal Medicine
DX: J44.1 Chronic obstructive pulmonary disease with (acute) exacerbation (principal); J96.21 Acute and chronic respiratory failure with hypoxia; Z91.199 Patient's noncompliance with other medical treatment and regimen due to unspecified reason; F10.220 Alcohol dependence with intoxication, uncomplicated; F10.230 Alcohol dependence with withdrawal, uncomplicated; I10 Essential (primary) hypertension; F32.A Depression, unspecified; F41.9 Anxiety disorder, unspecified; Z85.840 Personal history of malignant neoplasm of eye; Z87.09 Personal history of other diseases of the respiratory system; F17.210 Nicotine dependence, cigarettes, uncomplicated; E78.5 Hyperlipidemia, unspecified; Z79.899 Other long term (current) drug therapy; Z79.51 Long term (current) use of inhaled steroids; Z79.52 Long term (current) use of systemic steroids
CPT/HCPCS: 36415; 71045; 80048; 80053; 80076; 82077; 82550; 82553; 82803; 83605; 83735; 84145; 84484; 85025; 85027; 87486; 87581; 87633; 87798; 93005; 93041; 94640; 94664; 94760; 96361; 96365; 96372; 96375; 96376; 99285; G0378; J0696; J1650; J1956; J2470; J2919; J7512

== ENCOUNTER 2024-10-04 22:18 | Inpatient (IN) | payer MEDICARE, MEDICAID ==
[~2024-10-04] VITALS: Ht 165.1 cm; Wt 81.3 kg
[~2024-10-04 22:18] MED LIST changes: +MED REC COMMENT
[2024-10-04 22:53] LABS: VENOUS BASE EXCESS 7.6 (-2.0-2.0); VENOUS HCO3 34.4 MMOL/L (23.0-27.0); VENOUS O2 SATURATION 94.3 % (60.0-80.0); VENOUS PARTIAL PRESSURE CO2 57.4 mmHg (38.0-50.0); VENOUS PARTIAL PRESSURE O2 73.6 mmHg (30.0-50.0); VENOUS PH 7.396 UNITS (7.330-7.430); VENOUS STANDARD HCO3 31.4 MMOL/L; VENOUS TOTAL CO2 36.2 MMOL/L (24.0-28.0)
[2024-10-04 22:58] LABS: BASO # 0.0 10^3/uL (0.0-0.2); BASO % 0.5 % (0.0-1.0); EOS # 0.1 10^3/uL (0.0-0.5); EOS % 2.1 % (0.0-3.0); LYMPH # 1.6 10^3/uL (1.5-5.0); LYMPH % 26.6 % (24.0-44.0); MONO # 0.7 10^3/uL (0.0-0.8); MONO % 10.6 % (2.0-8.0); NEUTROPHILS # 3.7 10^3/uL (1.5-8.5); NEUTROPHILS % 59.7 % (36.0-66.0); PLATELET COUNT, AUTOMATED 162 10^3/uL (150-450)
[2024-10-04 23:23] LABS: CK-MB VALUE MASS 1.4 NG/ML (<3.6)
[2024-10-04 23:27] LABS: ALT/SGPT 59 U/L (7.0-40); AST/SGOT 75 U/L (<34); CALCIUM LEVEL 8.6 MG/DL (8.3-10.6); CARBON DIOXIDE LEVEL 35 MMOL/L (20-31); CHLORIDE LEVEL 81 MMOL/L (98-107); CPK CREATINE PHOSPHOKINASE 33 U/L (46-171); CREATININE FOR GFR 0.45 MG/DL (0.70-1.30); GLOMERULAR FILTRATION RATE > 90.0 (>49); MB/CK RELATIVE INDEX 4.24 (< OR =4); POTASSIUM SERUM 3.7 MMOL/L (3.5-5.1); SODIUM LEVEL 124 MMOL/L (136-145)
[2024-10-05 01:49] VITALS: O2SAT 86
[2024-10-05] MEDS: IPRATROPIUM 0.5 MG/ALBUTEROL 2.5 MG INH SOL UD 3 ML NEB ONE ×2 (01:56→02:04)
[2024-10-05] MEDS ORDERED: ALBUTEROL SULFATE 2.5 MG/0.5 ML INH CONCENTRATE NEB SOLN NEB PRN (03:15)
[2024-10-05 03:43] LABS: ETHYL ALCOHOL (ETHANOL) 0.217 % (0.000-0.010)
[2024-10-05] MEDS: NS (Normal Saline) 0.9% 1,000 ML IV SCH (04:05)
[2024-10-05 04:13] LABS: APPEARANCE, URINE CLEAR (CLEAR); BACTERIA, URINE AUTO NEGATIVE (NEGATIVE); BILIRUBIN, URINE AUTO NEGATIVE (NEGATIVE); BLOOD, URINE BLOOD NEGATIVE (NEGATIVE); GLUCOSE, URINE (UA) AUTO NEGATIVE (NEGATIVE); KETONE, URINE AUTO NEGATIVE (NEGATIVE); LEUKOCYTE ESTERASE, URINE AUTO NEGATIVE (NEGATIVE); NITRITE, URINE AUTO NEGATIVE (NEGATIVE); PROTEIN, URINE AUTO NEGATIVE (NEGATIVE); RBC, URINE AUTO 0 /HPF (0-3); SPECIFIC GRAVITY URINE AUTO 1.002 (1.002-1.035); SQUAMOUS EPITHELIAL CELL UR AU 0 /HPF (0-6); UROBILINOGEN, URINE AUTO 0.2 mg/dL (0.0-2.0); WBC, URINE AUTO 0 /HPF (0-3)
[2024-10-05] MEDS ORDERED: AMLO1TAB25 PO (04:24)
[2024-10-05] MEDS ORDERED: HOME MED LIST COMPLETE! XX SCH (04:25)
[2024-10-05] MEDS: IPRATROPIUM 0.5 MG/ALBUTEROL 2.5 MG INH SOL UD 3 ML NEB SCH (04:30)
[2024-10-05] MEDS ORDERED: ISOVUE-370 76% 100 ML VIAL As Ordered ONE (05:05)
[2024-10-05 06:03] LABS: PLATELET COUNT, AUTOMATED 174 10^3/uL (150-450)
[2024-10-05] MEDS: NICOTINE 21 MG/24 HR 1 EA TRANSDERMAL TD SCH (06:24)
[2024-10-05] MEDS: ENOXAPARIN 40 MG/0.4 ML SYRINGE (J1650 PER 10MG) SC SCH (06:25)
[2024-10-05 06:35] LABS: CALCIUM LEVEL 9.0 MG/DL (8.3-10.6); CARBON DIOXIDE LEVEL 32 MMOL/L (20-31); CHLORIDE LEVEL 88 MMOL/L (98-107); CREATININE FOR GFR 0.41 MG/DL (0.70-1.30); GLOMERULAR FILTRATION RATE > 90.0 (>49); IRON (FE) 111 UG/DL (65-175); PERCENT SATURATION 43.4 % (19.7-50.0); POTASSIUM SERUM 3.7 MMOL/L (3.5-5.1); SODIUM LEVEL 133 MMOL/L (136-145)
[2024-10-05 06:36] LABS: VITAMIN B12 LEVEL 316 PG/ML (211-911)
[2024-10-05 06:40] LABS: ALT/SGPT 66.0 U/L (7.0-40); AST/SGOT 73.0 U/L (<34)
[2024-10-05 06:50] VITALS: BP 155/64; TEMP 97.3; O2SAT 94
[2024-10-05 07:00] VITALS: BP 155/64
[2024-10-05] MEDS: ADVAIR HFA 115/21 MCG INHALER INH SCH (07:34)
[2024-10-05 08:00] VITALS: BP 138/68; TEMP 97.2; O2SAT 91
[2024-10-05] MEDS: THIAMINE 100 MG TAB PO SCH (08:34)
[2024-10-05] MEDS: MULTIVITAMINS/MINERALS THERAP 1 TAB PO SCH (08:34)
[2024-10-05 08:37] VITALS: BP 142/67
[2024-10-05] MEDS: amLODIPine 10 MG TAB PO SCH (08:37)
[2024-10-05] MEDS: MONTELUKAST 10 MG TAB PO SCH (08:37)
[2024-10-05] MEDS: FOLIC ACID 1 MG TAB PO SCH (08:37)
[2024-10-05] MEDS: PANTOPRAZOLE 40MG TAB PO SCH (08:37)
[2024-10-05] MEDS ORDERED: SERTRALINE HCL 50 MG TAB PO SCH (09:00)
[2024-10-05] MEDS ORDERED: chlordiazePOXIDE 25 MG CAP PO SCH (09:00)
[2024-10-05] MEDS ORDERED: ENOXAPARIN 40 MG/0.4 ML SYRINGE (J1650 PER 10MG) SC SCH (09:00)
[2024-10-05] MEDS ORDERED: AZITHROMYCIN 250 MG TABLET PO SCH (09:00)
[2024-10-05] MEDS ORDERED: IPRATROPIUM 0.5 MG/ALBUTEROL 2.5 MG INH SOL UD 3 ML NEB SCH (14:00)
[2024-10-05] MEDS ORDERED: BUDESONIDE 0.5 MG/2 ML INHALATION SUSPENSION NEB SCH (20:00)
== END 2024-10-05 10:58 | disposition left against medical advice (07) | DRG 190 ==
LOC: M ED 22:18 → M ED INP 10-05 04:25 → M MSPAV 10-05 06:46
PROVIDERS: ADMIT Student in an Organized Health Care Education/Training Program; ATTEND Internal Medicine
DX: J44.1 Chronic obstructive pulmonary disease with (acute) exacerbation (principal); J96.21 Acute and chronic respiratory failure with hypoxia; E87.1 Hypo-osmolality and hyponatremia; F10.239 Alcohol dependence with withdrawal, unspecified; F17.210 Nicotine dependence, cigarettes, uncomplicated; D50.9 Iron deficiency anemia, unspecified; K21.9 Gastro-esophageal reflux disease without esophagitis; R74.01 Elevation of levels of liver transaminase levels; F39 Unspecified mood [affective] disorder; Z79.899 Other long term (current) drug therapy

== ENCOUNTER 2024-11-16 16:41 | Observation (INO) | payer MEDICARE, MEDICAID ==
[2024-11-16 17:30] LABS: VENOUS BASE EXCESS 2.4 (-2.0-2.0); VENOUS HCO3 30.9 MMOL/L (23.0-27.0); VENOUS O2 SATURATION 64.6 % (60.0-80.0); VENOUS PARTIAL PRESSURE CO2 64.6 mmHg (38.0-50.0); VENOUS PARTIAL PRESSURE O2 34.5 mmHg (30.0-50.0); VENOUS PH 7.297 UNITS (7.330-7.430); VENOUS STANDARD HCO3 25.8 MMOL/L; VENOUS TOTAL CO2 32.8 MMOL/L (24.0-28.0)
[2024-11-16] MEDS: IPRATROPIUM 0.5 MG/ALBUTEROL 2.5 MG INH SOL UD 3 ML NEB PRN (17:38)
[2024-11-16 17:48] LABS: BASO # 0.1 10^3/uL (0.0-0.2); BASO % 0.8 % (0.0-1.0); EOS # 0.1 10^3/uL (0.0-0.5); EOS % 2.3 % (0.0-3.0); LYMPH # 1.4 10^3/uL (1.5-5.0); LYMPH % 23.0 % (24.0-44.0); MONO # 0.6 10^3/uL (0.0-0.8); MONO % 9.0 % (2.0-8.0); NEUTROPHILS # 3.9 10^3/uL (1.5-8.5); NEUTROPHILS % 64.2 % (36.0-66.0); PLATELET COUNT, AUTOMATED 149 10^3/uL (150-450)
[2024-11-16 18:03] LABS: ALT/SGPT 74 U/L (7.0-40); AST/SGOT 82 U/L (<34); CALCIUM LEVEL 8.1 MG/DL (8.3-10.6); CARBON DIOXIDE LEVEL 31 MMOL/L (20-31); CHLORIDE LEVEL 99 MMOL/L (98-107); CK-MB VALUE MASS 1.8 NG/ML (<3.6); CPK CREATINE PHOSPHOKINASE 43 U/L (46-171); CREATININE FOR GFR 0.51 MG/DL (0.70-1.30); GLOMERULAR FILTRATION RATE > 90.0 (>49); MB/CK RELATIVE INDEX 4.18 (< OR =4); POTASSIUM SERUM 4.1 MMOL/L (3.5-5.1); SODIUM LEVEL 134 MMOL/L (136-145)
[2024-11-16 19:37] LABS: CK-MB VALUE MASS 1.6 NG/ML (<3.6)
[2024-11-16 19:38] LABS: CPK CREATINE PHOSPHOKINASE 47.0 U/L (46-171); MB/CK RELATIVE INDEX 3.4 (< OR =4)
[2024-11-16] MEDS ORDERED: ALBUTEROL SULFATE 2.5 MG/0.5 ML INH CONCENTRATE NEB SOLN NEB PRN (19:50)
[2024-11-16] MEDS: ALBUTEROL SULFATE 2.5 MG/0.5 ML INH CONCENTRATE NEB SOLN NEB ONE (19:51)
[2024-11-16] MEDS: IPRATROPIUM 0.5 MG/ALBUTEROL 2.5 MG INH SOL UD 3 ML NEB SCH (19:55)
[2024-11-16] MEDS ORDERED: LORazepam 1 MG TAB PO SCH (21:00)
[2024-11-16] MEDS ORDERED: ISOVUE-370 76% 100 ML VIAL As Ordered ONE (23:19)
[2024-11-17] MEDS: THIAMINE 100 MG TAB PO SCH (00:34)
[2024-11-17] MEDS ORDERED: RAMELTEON 8 MG TAB PO PRN (02:30)
[2024-11-17] MEDS ORDERED: NICOTINE POLACRILEX 2 MG GUM PO PRN (02:40)
[2024-11-17] MEDS: chlordiazePOXIDE 25 MG CAP PO SCH (03:40)
[2024-11-17] MEDS: ACETAMINOPHEN 325 MG TAB PO PRN (05:24)
[2024-11-17] MEDS: NICOTINE 21 MG/24 HR 1 EA TRANSDERMAL TD PRN (05:25)
[2024-11-17 08:07] LABS: PLATELET COUNT, AUTOMATED 152 10^3/uL (150-450)
[2024-11-17] MEDS ORDERED: ALBU2.5V10 NEB (08:14)
[2024-11-17] MEDS ORDERED: HOME MED LIST COMPLETE! XX SCH (08:15)
[2024-11-17] MEDS ORDERED: PILL CUTTER 1 EACH XX PRN (08:25)
[2024-11-17 08:32] VITALS: BP 145/66
[2024-11-17] MEDS: SERTRALINE HCL 50 MG TAB PO SCH (08:32)
[2024-11-17] MEDS: FOLIC ACID 1 MG TAB PO SCH (08:32)
[2024-11-17] MEDS: amLODIPine 10 MG TAB PO SCH (08:32)
[2024-11-17] MEDS: ROSUVASTATIN 10 MG TAB PO SCH (08:32)
[2024-11-17] MEDS: PANTOPRAZOLE 40MG TAB PO SCH (08:32)
[2024-11-17] MEDS: MULTIVITAMINS/MINERALS THERAP 1 TAB PO SCH (08:32)
[2024-11-17 08:33] LABS: ALT/SGPT 66 U/L (7.0-40); AST/SGOT 52 U/L (<34); CALCIUM LEVEL 8.6 MG/DL (8.3-10.6); CARBON DIOXIDE LEVEL 31 MMOL/L (20-31); CHLORIDE LEVEL 98 MMOL/L (98-107); CREATININE FOR GFR 0.37 MG/DL (0.70-1.30); GLOMERULAR FILTRATION RATE > 90.0 (>49); POTASSIUM SERUM 3.7 MMOL/L (3.5-5.1); SODIUM LEVEL 132 MMOL/L (136-145)
[2024-11-17] MEDS: HEPARIN SOD 5000 UNITS/ML 1 ML VIAL/SYRINGE SC SCH (08:33)
[2024-11-17 09:28] VITALS: O2SAT 95
[2024-11-17 12:05] VITALS: BP 165/80; TEMP 97.5; O2SAT 93
[2024-11-17] MEDS ORDERED: ADVAIR HFA 115/21 MCG INHALER INH SCH (20:00)
[2024-11-17] MEDS ORDERED: MONTELUKAST 10 MG TAB PO SCH (21:00)
== END 2024-11-17 12:21 | disposition home or self-care (01) ==
LOC: EDBD 16:41 → M ED 16:41 → M ED INP 23:13 → INTOOBSV 23:13
PROVIDERS: ADMIT Student in an Organized Health Care Education/Training Program; ATTEND Student in an Organized Health Care Education/Training Program
DX: J44.1 Chronic obstructive pulmonary disease with (acute) exacerbation (principal); J96.22 Acute and chronic respiratory failure with hypercapnia; J96.21 Acute and chronic respiratory failure with hypoxia; E87.1 Hypo-osmolality and hyponatremia; F10.230 Alcohol dependence with withdrawal, uncomplicated; F17.200 Nicotine dependence, unspecified, uncomplicated; R74.01 Elevation of levels of liver transaminase levels; K21.9 Gastro-esophageal reflux disease without esophagitis; E78.5 Hyperlipidemia, unspecified; F41.9 Anxiety disorder, unspecified; F32.A Depression, unspecified; D64.9 Anemia, unspecified; Z99.81 Dependence on supplemental oxygen; R00.0 Tachycardia, unspecified; Z87.81 Personal history of (healed) traumatic fracture; Z87.828 Personal history of other (healed) physical injury and trauma; Z91.198 Patient's noncompliance with other medical treatment and regimen for other reason; Z79.899 Other long term (current) drug therapy; Z79.51 Long term (current) use of inhaled steroids
CPT/HCPCS: 36415; 71046; 71275; 80048; 80053; 80076; 82550; 82553; 82803; 83605; 83880; 84484; 85025; 85027; 87486; 87581; 87633; 87798; 93005; 93041; 94640; 94760; 96372; 96374; 96376; 99285; G0378; J2919; Q9967

== ENCOUNTER 2024-12-23 07:39 | Emergency (ER) | payer MEDICARE, MEDICAID ==
[~2024-12-23] VITALS: Ht 165.1 cm; Wt 81.7 kg
[~2024-12-23 07:39] MED LIST changes: +ALBU2.5V10 NEB
[2024-12-23 08:30] LABS: BASO # 0.1 10^3/uL (0.0-0.2); BASO % 1.0 % (0.0-1.0); EOS # 0.2 10^3/uL (0.0-0.5); EOS % 3.2 % (0.0-3.0); LYMPH # 1.3 10^3/uL (1.5-5.0); LYMPH % 25.0 % (24.0-44.0); MONO # 0.6 10^3/uL (0.0-0.8); MONO % 10.9 % (2.0-8.0); NEUTROPHILS # 3.0 10^3/uL (1.5-8.5); NEUTROPHILS % 59.3 % (36.0-66.0); PLATELET COUNT, AUTOMATED 173 10^3/uL (150-450)
[2024-12-23 09:03] LABS: ALT/SGPT 97 U/L (7.0-40); AST/SGOT 86 U/L (<34); CALCIUM LEVEL 8.8 MG/DL (8.3-10.6); CARBON DIOXIDE LEVEL 32 MMOL/L (20-31); CHLORIDE LEVEL 101 MMOL/L (98-107); CREATININE FOR GFR 0.46 MG/DL (0.70-1.30); GLOMERULAR FILTRATION RATE > 90.0 (>49); POTASSIUM SERUM 4.3 MMOL/L (3.5-5.1); SODIUM LEVEL 138 MMOL/L (136-145)
[2024-12-23] MEDS: OXAZEPAM 10MG CAP PO ONE (09:03)
[2024-12-23 09:26] VITALS: BP 156/78; TEMP 97.2; O2SAT 97
== END 2024-12-23 09:30 | disposition home or self-care (01) ==
LOC: EDBD 07:39 → M ED 07:39
DX: J44.9 Chronic obstructive pulmonary disease, unspecified (principal); F10.10 Alcohol abuse, uncomplicated; I10 Essential (primary) hypertension; E78.5 Hyperlipidemia, unspecified; F17.210 Nicotine dependence, cigarettes, uncomplicated; Z79.51 Long term (current) use of inhaled steroids; Z79.899 Other long term (current) drug therapy

== ENCOUNTER 2025-01-10 08:25 | Inpatient (IN) | payer MEDICARE, MEDICAID ==
[2025-01-10] VITALS (11 sets, daily range): BP systolic 145–193; BP diastolic 65–88; TEMP 97.4–98.4; O2SAT 90–96
[~2025-01-10] VITALS: Ht 167.6 cm; Wt 81.0 kg
[~2025-01-10 08:25] MED LIST changes: -ALBU2.5V10 NEB
[2025-01-10] MEDS: ALBUTEROL SULFATE 2.5 MG/0.5 ML INH CONCENTRATE NEB SOLN INH ONE (08:47)
[2025-01-10] MEDS: IPRATROPIUM 0.5 MG/ALBUTEROL 2.5 MG INH SOL UD 3 ML NEB ONE (08:47)
[2025-01-10 09:11] LABS: BASO # 0.1 10^3/uL (0.0-0.2); BASO % 1.1 % (0.0-1.0); EOS # 0.1 10^3/uL (0.0-0.5); EOS % 2.6 % (0.0-3.0); LYMPH # 1.2 10^3/uL (1.5-5.0); LYMPH % 21.4 % (24.0-44.0); MONO # 0.5 10^3/uL (0.0-0.8); MONO % 9.5 % (2.0-8.0); NEUTROPHILS # 3.6 10^3/uL (1.5-8.5); NEUTROPHILS % 65.0 % (36.0-66.0); PLATELET COUNT, AUTOMATED 131 10^3/uL (150-450)
[2025-01-10 09:13] LABS: ABG BASE EXCESS 3.4 (-2.0-2.0); ABG HCO3 30.3 MMOL/L (22.0-26.0); ABG O2 SATURATION 98.9 % (95.0-99.0); ABG PARTIAL PRESSURE CO2 54.3 mmHg (35.0-45.0); ABG PARTIAL PRESSURE O2 146.4 mmHg (75.0-100.0); ABG STANDARD HCO3 27.5 MMOL/L. (22.0-26.0); ABG TOTAL CO2 31.9 MMOL/L (23.0-31.0); ABG pH (ARTERIAL) 7.364 UNITS (7.350-7.450)
[2025-01-10] MEDS ORDERED: ISOVUE-370 76% 100 ML VIAL As Ordered ONE (09:23)
[2025-01-10 09:29] LABS: CK-MB VALUE MASS 2.0 NG/ML (<3.6)
[2025-01-10 09:32] LABS: CPK CREATINE PHOSPHOKINASE 43 U/L (46-171); MB/CK RELATIVE INDEX 4.65 (< OR =4)
[2025-01-10 09:33] LABS: THYROXINE (T4) 5.4 UG/DL (4.5-10.9)
[2025-01-10 09:38] LABS: ALT/SGPT 103 U/L (7.0-40); AST/SGOT 95 U/L (<34); CALCIUM LEVEL 9.2 MG/DL (8.3-10.6); CARBON DIOXIDE LEVEL 31 MMOL/L (20-31); CHLORIDE LEVEL 96 MMOL/L (98-107); CREATININE FOR GFR 0.51 MG/DL (0.70-1.30); GLOMERULAR FILTRATION RATE > 90.0 (>49); POTASSIUM SERUM 4.7 MMOL/L (3.5-5.1); SODIUM LEVEL 135 MMOL/L (136-145)
[2025-01-10] MEDS: MULTIVITAMINS/MINERALS THERAP 1 TAB PO SCH (09:56)
[2025-01-10] MEDS: THIAMINE 100 MG TAB PO SCH ×2 (09:56→21:11)
[2025-01-10] MEDS: FOLIC ACID 1 MG TAB PO SCH (09:56)
[2025-01-10 10:45] LABS: CK-MB VALUE MASS 1.6 NG/ML (<3.6)
[2025-01-10 10:46] LABS: CPK CREATINE PHOSPHOKINASE 38.0 U/L (46-171); MB/CK RELATIVE INDEX 4.21 (< OR =4)
[2025-01-10] MEDS ORDERED: MONT10TA97 PO (10:46)
[2025-01-10] MEDS ORDERED: HYDR-3490 PO (10:46)
[2025-01-10] MEDS ORDERED: HOME MED LIST COMPLETE! XX SCH (10:50)
[2025-01-10] MEDS ORDERED: ALBUTEROL 90 MCG/ACT 8 GM HFA INHALER INH PRN (12:20)
[2025-01-10] MEDS ORDERED: hydrALAZINE 20 MG/ML 1 ML VIAL IV PRN (12:35)
[2025-01-10] MEDS ORDERED: PILL CUTTER 1 EACH XX PRN (12:50)
[2025-01-10] MEDS: SYMBICORT 160/4.5MCG INHALER 6GM INH SCH (13:16)
[2025-01-10] MEDS: IPRATROPIUM 0.5 MG/ALBUTEROL 2.5 MG INH SOL UD 3 ML NEB SCH (13:33)
[2025-01-10] MEDS: hydroCHLOROthiazide 25 MG TAB PO SCH (13:41)
[2025-01-10] MEDS: cefTRIAXone SOD 1 GM in DEXTROSE 5% (D5W) ADV/MINI-BAG 50 ML IV SCH (13:41)
[2025-01-10] MEDS: AZITHROMYCIN 250 MG TABLET PO ONE (13:41)
[2025-01-10] MEDS: ENOXAPARIN 40 MG/0.4 ML SYRINGE (J1650 PER 10MG) SC SCH (13:42)
[2025-01-10] MEDS: ROSUVASTATIN 10 MG TAB PO SCH (13:47)
[2025-01-10] MEDS: SERTRALINE HCL 50 MG TAB PO SCH (13:48)
[2025-01-10] MEDS: NICOTINE 21 MG/24 HR 1 EA TRANSDERMAL TD SCH (16:38)
[2025-01-10] MEDS: MONTELUKAST 10 MG TAB PO SCH (21:11)
[2025-01-10] MEDS: traZODone 50 MG TAB PO ONE (21:56)
[2025-01-11 03:42] VITALS: BP 157/75; TEMP 97.4; O2SAT 97
[2025-01-11 05:11] LABS: PLATELET COUNT, AUTOMATED 143 10^3/uL (150-450)
[2025-01-11 05:20] LABS: CALCIUM LEVEL 9.4 MG/DL (8.3-10.6); CARBON DIOXIDE LEVEL 33 MMOL/L (20-31); CHLORIDE LEVEL 93 MMOL/L (98-107); CREATININE FOR GFR 0.41 MG/DL (0.70-1.30); GLOMERULAR FILTRATION RATE > 90.0 (>49); POTASSIUM SERUM 3.2 MMOL/L (3.5-5.1); SODIUM LEVEL 133 MMOL/L (136-145)
[2025-01-11] MEDS: KCL 10MEQ/100ML SWI (KRUN) 10 MEQ in IV 1 EA IV ONE (05:42)
[2025-01-11 06:00] VITALS: BP 157/75
[2025-01-11 07:34] VITALS: BP 158/86; TEMP 97; O2SAT 21
[2025-01-11] MEDS: FOLIC ACID 1 MG TAB PO SCH (08:06)
[2025-01-11] MEDS: AZITHROMYCIN 250 MG TABLET PO SCH (08:06)
[2025-01-11] MEDS: POTASSIUM CHLORIDE 10MEQ SR TABLET PO SCH (08:07)
[2025-01-11] MEDS: MULTIVITAMINS/MINERALS THERAP 1 TAB PO SCH (08:07)
[2025-01-11 09:00] VITALS: O2SAT 96
[2025-01-11] MEDS ORDERED: SYMB16INH INH (10:03)
[2025-01-11] MEDS ORDERED: PRED20TA PO (10:03)
[2025-01-11] MEDS ORDERED: AZIT-12 PO (10:03)
[2025-01-11] MEDS ORDERED: CEFP200T PO (10:03)
== END 2025-01-11 10:57 | disposition home or self-care (01) | DRG 190 ==
LOC: M ED 08:25 → M ED INP 11:46 → M PCU 13:15
PROVIDERS: ADMIT Student in an Organized Health Care Education/Training Program; ATTEND Student in an Organized Health Care Education/Training Program
DX: J44.1 Chronic obstructive pulmonary disease with (acute) exacerbation (principal); J15.9 Unspecified bacterial pneumonia; J96.21 Acute and chronic respiratory failure with hypoxia; J96.22 Acute and chronic respiratory failure with hypercapnia; E87.1 Hypo-osmolality and hyponatremia; J44.0 Chronic obstructive pulmonary disease with (acute) lower respiratory infection; F10.10 Alcohol abuse, uncomplicated; F17.210 Nicotine dependence, cigarettes, uncomplicated; F41.9 Anxiety disorder, unspecified; F32.A Depression, unspecified; D64.9 Anemia, unspecified; K21.9 Gastro-esophageal reflux disease without esophagitis; E78.5 Hyperlipidemia, unspecified; Z99.81 Dependence on supplemental oxygen; Z79.899 Other long term (current) drug therapy

== ENCOUNTER 2025-02-07 05:43 | Emergency (ER) | payer MEDICARE, MEDICAID ==
[~2025-02-07] VITALS: Ht 165.1 cm; Wt 79.4 kg
[~2025-02-07 05:43] MED LIST changes: +CEFP200T PO; +HYDR-3490 PO; +SYMB16INH INH
[2025-02-07 06:46] LABS: BASO # 0.0 10^3/uL (0.0-0.2); BASO % 0.8 % (0.0-1.0); EOS # 0.1 10^3/uL (0.0-0.5); EOS % 2.3 % (0.0-3.0); LYMPH # 1.4 10^3/uL (1.5-5.0); LYMPH % 26.2 % (24.0-44.0); MONO # 0.5 10^3/uL (0.0-0.8); MONO % 10.5 % (2.0-8.0); NEUTROPHILS # 3.1 10^3/uL (1.5-8.5); NEUTROPHILS % 59.6 % (36.0-66.0); PLATELET COUNT, AUTOMATED 141 10^3/uL (150-450)
[2025-02-07 07:10] LABS: ETHYL ALCOHOL (ETHANOL) 0.127 % (0.000-0.010)
[2025-02-07 07:11] LABS: CK-MB VALUE MASS 2.0 NG/ML (<3.6)
[2025-02-07 07:14] LABS: ALT/SGPT 142 U/L (7.0-40); AST/SGOT 162 U/L (<34); CALCIUM LEVEL 8.4 MG/DL (8.3-10.6); CARBON DIOXIDE LEVEL 26 MMOL/L (20-31); CHLORIDE LEVEL 99 MMOL/L (98-107); CPK CREATINE PHOSPHOKINASE 43 U/L (46-171); CREATININE FOR GFR 0.44 MG/DL (0.70-1.30); GLOMERULAR FILTRATION RATE > 90.0 (>49); MB/CK RELATIVE INDEX 4.65 (< OR =4); POTASSIUM SERUM 3.7 MMOL/L (3.5-5.1); SODIUM LEVEL 132 MMOL/L (136-145)
[2025-02-07 07:40] VITALS: BP 140/73; TEMP 97.5
[2025-02-07 07:42] VITALS: O2SAT 92
== END 2025-02-07 08:00 | disposition home or self-care (01) ==
LOC: M ED 05:43 → EDBD 05:43 → M ED 08:00
DX: J44.9 Chronic obstructive pulmonary disease, unspecified (principal); F10.10 Alcohol abuse, uncomplicated; I45.10 Unspecified right bundle-branch block; I10 Essential (primary) hypertension; F17.210 Nicotine dependence, cigarettes, uncomplicated; Z79.51 Long term (current) use of inhaled steroids; Z79.2 Long term (current) use of antibiotics; Z79.52 Long term (current) use of systemic steroids; Z79.899 Other long term (current) drug therapy

== ENCOUNTER 2025-02-11 00:18 | Inpatient (IN) | payer MEDICARE, MEDICAID ==
[~2025-02-11] VITALS: Ht 165.1 cm; Wt 81.0 kg
[2025-02-11] MEDS: IPRATROPIUM 0.5 MG/ALBUTEROL 2.5 MG INH SOL UD 3 ML NEB ONE ×2 (00:53→00:57)
[2025-02-11 00:54] LABS: BASO # 0.1 10^3/uL (0.0-0.2); BASO % 1.1 % (0.0-1.0); EOS # 0.2 10^3/uL (0.0-0.5); EOS % 2.8 % (0.0-3.0); LYMPH # 1.7 10^3/uL (1.5-5.0); LYMPH % 27.3 % (24.0-44.0); MONO # 0.8 10^3/uL (0.0-0.8); MONO % 12.7 % (2.0-8.0); NEUTROPHILS # 3.4 10^3/uL (1.5-8.5); NEUTROPHILS % 55.5 % (36.0-66.0); PLATELET COUNT, AUTOMATED 154 10^3/uL (150-450)
[2025-02-11 01:12] LABS: ALT/SGPT 152 U/L (7.0-40); AST/SGOT 153 U/L (<34); CALCIUM LEVEL 8.6 MG/DL (8.3-10.6); CARBON DIOXIDE LEVEL 29 MMOL/L (20-31); CHLORIDE LEVEL 98 MMOL/L (98-107); CREATININE FOR GFR 0.48 MG/DL (0.70-1.30); GLOMERULAR FILTRATION RATE > 90.0 (>49); POTASSIUM SERUM 4.2 MMOL/L (3.5-5.1); SODIUM LEVEL 136 MMOL/L (136-145)
[2025-02-11 04:04] LABS: CK-MB VALUE MASS 2.5 NG/ML (<3.6)
[2025-02-11] MEDS ORDERED: ACETAMINOPHEN 325 MG TAB PO PRN (04:05)
[2025-02-11] MEDS ORDERED: MOM 30 ML SUSPENSION UDC PO PRN (04:05)
[2025-02-11 04:10] LABS: CPK CREATINE PHOSPHOKINASE 54 U/L (46-171); MB/CK RELATIVE INDEX 4.62 (< OR =4)
[2025-02-11] MEDS: amLODIPine 5 MG TAB PO ONE (04:20)
[2025-02-11] MEDS ORDERED: BENZONATATE 100 MG CAPSULE PO PRN (04:35)
[2025-02-11 04:42] LABS: ABG BASE EXCESS 2.7 (-2.0-2.0); ABG HCO3 28.0 MMOL/L (22.0-26.0); ABG O2 SATURATION 94.0 % (95.0-99.0); ABG PARTIAL PRESSURE CO2 45.2 mmHg (35.0-45.0); ABG PARTIAL PRESSURE O2 69.3 mmHg (75.0-100.0); ABG STANDARD HCO3 26.8 MMOL/L. (22.0-26.0); ABG TOTAL CO2 29.4 MMOL/L (23.0-31.0); ABG pH (ARTERIAL) 7.410 UNITS (7.350-7.450)
[2025-02-11] MEDS: IPRATROPIUM 0.5 MG/ALBUTEROL 2.5 MG INH SOL UD 3 ML NEB PRN (05:09)
[2025-02-11 05:59] LABS: ETHYL ALCOHOL (ETHANOL) 0.095 % (0.000-0.010); MAGNESIUM LEVEL 2.0 MG/DL (1.8-2.4)
[2025-02-11] MEDS: IPRATROPIUM 0.5 MG/ALBUTEROL 2.5 MG INH SOL UD 3 ML NEB SCH (07:41)
[2025-02-11] MEDS ORDERED: ADVA1AER10 INH (07:57)
[2025-02-11] MEDS ORDERED: SYMB16INH INH (07:57)
[2025-02-11] MEDS ORDERED: IPRATROPIUM 0.5 MG/ALBUTEROL 2.5 MG INH SOL UD 3 ML NEB SCH (08:00)
[2025-02-11] MEDS ORDERED: HOME MED LIST COMPLETE! XX SCH (08:00)
[2025-02-11] MEDS: guaiFENesin ER TABLET 600 MG TAB PO SCH (08:54)
[2025-02-11] MEDS: AZITHROMYCIN 250 MG TABLET PO SCH (08:54)
[2025-02-11] MEDS: SERTRALINE HCL 50 MG TAB PO SCH (08:54)
[2025-02-11] MEDS: MULTIVITAMINS/MINERALS THERAP 1 TAB PO SCH (08:54)
[2025-02-11] MEDS: FOLIC ACID 1 MG TAB PO SCH (08:54)
[2025-02-11] MEDS: THIAMINE 100 MG TAB PO SCH (08:54)
[2025-02-11] MEDS: ENOXAPARIN 40 MG/0.4 ML SYRINGE (J1650 PER 10MG) SC SCH (08:55)
[2025-02-11] MEDS ORDERED: predniSONE 20 MG TAB PO SCH (09:00)
[2025-02-11] MEDS: SYMBICORT 160/4.5MCG INHALER 6GM INH SCH (11:25)
[2025-02-11 11:30] VITALS: O2SAT 96
[2025-02-11 13:48] VITALS: BP 164/76
[2025-02-11 14:00] VITALS: BP 164/76; TEMP 98.7; O2SAT 93
[2025-02-11] MEDS ORDERED: POLYVINYL ALCOHOL OPHTH SOLN 15ML (LIQUITEARS) OU PRN (15:00)
[2025-02-11] MEDS: CLOTRIMAZOLE 1% TOPICAL CREAM 30 GM TOP SCH (17:43)
[2025-02-11] MEDS: KETOROLAC 0.5% OPHTH SOLN OU SCH (17:43)
[2025-02-11 20:36] VITALS: BP 157/78; TEMP 97.8; O2SAT 98
[2025-02-11 20:39] VITALS: BP 157/78
[2025-02-11] MEDS: MONTELUKAST 10 MG TAB PO SCH (20:39)
[2025-02-11] MEDS: amLODIPine 5 MG TAB PO SCH (20:39)
[2025-02-11 22:00] VITALS: BP 157/78
[2025-02-12 06:00] VITALS: BP 160/76
[2025-02-12 06:16] VITALS: BP 160/76; TEMP 97.8; O2SAT 82
[2025-02-12 08:08] LABS: BASO # 0.0 10^3/uL (0.0-0.2); BASO % 0.1 % (0.0-1.0); EOS # 0.0 10^3/uL (0.0-0.5); EOS % 0.1 % (0.0-3.0); LYMPH # 0.6 10^3/uL (1.5-5.0); LYMPH % 8.0 % (24.0-44.0); MONO # 0.5 10^3/uL (0.0-0.8); MONO % 7.6 % (2.0-8.0); NEUTROPHILS # 5.8 10^3/uL (1.5-8.5); NEUTROPHILS % 83.6 % (36.0-66.0); PLATELET COUNT, AUTOMATED 160 10^3/uL (150-450)
[2025-02-12 08:15] VITALS: BP 140/76
[2025-02-12 08:36] LABS: CALCIUM LEVEL 9.5 MG/DL (8.3-10.6); CARBON DIOXIDE LEVEL 29 MMOL/L (20-31); CHLORIDE LEVEL 93 MMOL/L (98-107); CREATININE FOR GFR 0.39 MG/DL (0.70-1.30); GLOMERULAR FILTRATION RATE > 90.0 (>49); POTASSIUM SERUM 3.9 MMOL/L (3.5-5.1); SODIUM LEVEL 128 MMOL/L (136-145)
[2025-02-12] MEDS ORDERED: TREL1AER PO (08:51)
[2025-02-12] MEDS ORDERED: MUCI120T PO (08:51)
[2025-02-12] MEDS ORDERED: ALBU2.5V10 INH (08:51)
[2025-02-12] MEDS ORDERED: AZIT-12 PO (08:51)
[2025-02-12] MEDS ORDERED: PRED10TA2 PO (08:51)
[2025-02-12] MEDS ORDERED: BENZ-18 PO (08:51)
== END 2025-02-12 10:00 | disposition home or self-care (01) | DRG 189 ==
LOC: M ED 00:18 → EDBD 00:18 → M ED INP 04:04 → M MS5PR 14:00
PROVIDERS: ADMIT Student in an Organized Health Care Education/Training Program; ATTEND Internal Medicine
DX: J96.21 Acute and chronic respiratory failure with hypoxia (principal); J44.1 Chronic obstructive pulmonary disease with (acute) exacerbation; F41.9 Anxiety disorder, unspecified; F32.A Depression, unspecified; F10.20 Alcohol dependence, uncomplicated; F17.200 Nicotine dependence, unspecified, uncomplicated; D64.9 Anemia, unspecified; I10 Essential (primary) hypertension; Z79.899 Other long term (current) drug therapy; Z99.81 Dependence on supplemental oxygen

== ENCOUNTER 2025-02-16 06:16 | Emergency (ER) | payer MEDICARE, MEDICAID ==
[~2025-02-16] VITALS: Ht 167.6 cm; Wt 81.8 kg
[~2025-02-16 06:16] MED LIST changes: +ADVA1AER10 INH; +BENZ-18 PO; +MUCI120T PO; +TREL1AER PO
[2025-02-16 10:57] VITALS: BP 160/82; TEMP 96.8; O2SAT 91
== END 2025-02-16 10:59 | disposition home or self-care (01) ==
LOC: M ED 06:16 → EDBD 06:16 → M ED 10:59
DX: F10.120 Alcohol abuse with intoxication, uncomplicated (principal); I10 Essential (primary) hypertension; J44.9 Chronic obstructive pulmonary disease, unspecified; F17.210 Nicotine dependence, cigarettes, uncomplicated; Z79.2 Long term (current) use of antibiotics; Z79.51 Long term (current) use of inhaled steroids; Z79.52 Long term (current) use of systemic steroids; Z79.899 Other long term (current) drug therapy